=== PATIENT | male | born 1960 | race Caucasian/White ===

== ENCOUNTER 2023-11-24 10:49 | Inpatient (IN) | payer MEDICARE, SELFPAY ==
[2023-11-24] VITALS (28 sets, daily range): BP systolic 136–193; BP diastolic 83–107; PULSE 89–118; TEMP 36.7–36.9; O2SAT 78–98; BMI 23.1; BMI 22.8
--- NOTE | 2023-11-24 11:05 | XR_ITS ---
The [address] [address] Patient Name: MIHIR WRIGHT MRN: [id number] date: 1960 Sex: M Assigned Patient Location: ER Current Patient Location: ER Accession/Order Number: [id number] Exam Date: 11/24/2023 11:40 Report Date: 11/24/2023 11:59 At the request of: SHAHNAZ DIOP Procedure: XR hip RT min 2V PROCEDURE: XR hip RT min 2V HISTORY: fall ; right hip pain after falling COMPARISON: None. FINDINGS: BONES:Acute intertrochanteric fracture of the right femur with mildly displaced lesser trochanter and increased angulation of the femoral neck in relation to the femoral shaft. Femoral head remains seated within the acetabulum. SOFT TISSUES:No visible soft tissue swelling. EFFUSION:None visible. OTHER: Negative. XR/XR hip RT min 2V IMPRESSION: 1. Acute moderately displaced and mildly angulated intertrochanteric fracture of the right femur. Electronically authenticated by: LORENA CURIEL Date: 11/24/2023 11:59
--- NOTE | 2023-11-24 11:05 | XR_ITS ---
The [address] [address] Patient Name: MIHIR WRIGHT MRN: [id number] date: 1960 Sex: M Assigned Patient Location: ER Current Patient Location: ER Accession/Order Number: [id number] Exam Date: 11/24/2023 11:40 Report Date: 11/24/2023 12:03 At the request of: SHAHNAZ DIOP Procedure: XR shoulder LT min 2V PROCEDURE: XR shoulder LT min 2V HISTORY: fall COMPARISON: None. FINDINGS: BONES:Marked narrowing of the glenohumeral joint with suspected [id number] articulation. Large degenerative osteophyte along the inferior articular margin of humeral head. No appreciable fracture or dislocation. Narrowing and mild degenerative changes of the acromioclavicular joint. SOFT TISSUES:No visible soft tissue swelling. EFFUSION:None visible. OTHER: Negative. XR/XR shoulder LT min 2V IMPRESSION: 1. No appreciable acute bone abnormality. 2. Degenerative changes. Electronically authenticated by: LORENA CURIEL Date: 11/24/2023 12:03
--- NOTE | 2023-11-24 11:05 | XR_ITS ---
The [address] [address] Patient Name: MIHIR WRIGHT MRN: [id number] date: 1960 Sex: M Assigned Patient Location: ER Current Patient Location: ER Accession/Order Number: [id number] Exam Date: 11/24/2023 11:40 Report Date: 11/24/2023 12:00 At the request of: SHAHNAZ DIOP Procedure: XR chest 1V EXAMINATION: XR chest 1V HISTORY: Hypoxemia, smoker COMPARISON: No relevant comparison available. FINDINGS: LUNGS: Mild chronic interstitial changes. No appreciable acute infiltrates. VASCULATURE: No increased pulmonary vasculature. PLEURA: No pneumothorax, effusion, or pleural thickening. CARDIAC: No cardiomegaly or cardiac silhouette abnormality. MEDIASTINUM: Prior sternotomy. No abnormal widening. BONES: No fracture or visible bone lesion. OTHER: Negative. XR/XR chest 1V IMPRESSION: 1. No acute cardiopulmonary process. Electronically authenticated by: LORENA CURIEL Date: 11/24/2023 12:00
--- NOTE | 2023-11-24 11:05 | ECG_ITS ---
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
--- NOTE | 2023-11-24 11:08 | ED_ITS ---
HPI HPI - General Adult General Chief complaint: Fall Stated complaint: FALL Time Seen by Provider: 11/24/23 10:58 Source: patient Mode of arrival: ambulance Limitations: physical limitation History of Present Illness HPI narrative: 63-year-old male presents for a chief complaint of right hip pain. The patient states he was cleaning last night and slipped on a dust lockwood and fell and laid on the floor for about an hour. His family got him up and put him on the couch but he could not get up today. Paramedics brought him here. Paramedics reported that the house was in disarray. He also complains of some pain to his left shoulder and he has not been able to walk since he fell last night. He is not complaining of shortness of breath though his O2 sat was in the mid 80s. He states he is a very heavy smoker. He is a poor historian. Related Data Allergies Allergy/AdvReac Type Severity Reaction Status Date / Time No Known Drug Allergies Allergy Verified 11/24/23 10:57 Opioid HPI Opioid Management Most Recent Opioid Data: Last Pain Scale 7 11/24/23 11:00 Last ED Pain Assessment 11/24/23 11:00 Review of Systems ROS Narrative Not obtainable, poor historian PFSH PFSH Social History Little interest or pleasure in doing things: not at all Feeling down, depressed, or hopeless: not at all Exam Narrative Exam Narrative: Nurses note and vital signs reviewed and patient is not hypoxic. General: The patient appears in no acute distress. Skin: Warm, dry, no pallor noted. There is no rash noted. Head: Normocephalic, atraumatic Eye: Normal conjunctiva, no drainage Ears, Nose, Mouth, and Throat: oral mucosa is moist. Nares patent. Cardiovascular: Regular Rate and Rhythm Respiratory: Some rhonchi present bilateral GI: Soft and nontender Musculoskeletal: Right leg is shortened and externally rotated. No deformity in the left shoulder. Significant nail clubbing is present. Neurological: Awake alert and orient Psychiatric: Cooperative Constitutional Vital Signs, click to edit/add: Last Vital Signs Temp 98.4 F 11/24/23 10:52 Pulse 92 H 11/24/23 12:20 Resp 15 11/24/23 10:58 BP 179/99 H 11/24/23 12:45 Pulse Ox 95 11/24/23 12:50 O2 Del Method Room Air 11/24/23 11:00 O2 Flow Rate 2 11/24/23 11:00 Course Vital Signs Vital signs: Vital Signs Temperature 98.4 F 11/24/23 10:52 Pulse Rate 118 H 11/24/23 10:52 Respiratory Rate 20 11/24/23 10:52 Blood Pressure 149/105 H 11/24/23 10:52 Pulse Oximetry 86 L 11/24/23 10:52 Oxygen Delivery Method Room Air 11/24/23 10:52 Temperature 98.4 F 11/24/23 10:52 Pulse Rate 92 H 11/24/23 12:20 Respiratory Rate 15 11/24/23 10:58 Blood Pressure 179/99 H 11/24/23 12:45 Pulse Oximetry 95 11/24/23 12:50 Oxygen Delivery Method Room Air 11/24/23 11:00 Oxygen Delivery Flow Rate 2 11/24/23 11:00 Medical Decision Making MDM Narrative Medical decision making narrative: The patient is found to have an intertrochanteric right hip fracture with angulation and displacement. Case discussed with Dr. Anderson and the patient will be admitted and the plan is for surgery tomorrow. He is noncompliant and has not seen a physician in years. His O2 sat was in the mid 80s on room air but he was not having any symptoms of dyspnea. He is a heavy smoker. Blood pressure was also elevated and he was given IV hydralazine for that issue. Findings are discussed with the patient and his family and he is being admitted. Treatment diagnosis and disposition and and plan of care was discussed thoroughly. He was offered pain medication but states he does not need any. Differential Diagnosis Differential Diagnosis: Hip fracture, hip contusion, noncompliance, hypertension Lab Data Lab results reviewed: Yes I reviewed the patient's lab results Labs: Lab Results 11/24/23 Range/Units 11:20 WBC 16.8 H (4.0-11.0) 10^3/uL RBC 4.60 L (4.70-6.10) 10^6/uL Hgb 14.1 (14.0-18.0) g/dL Hct 42.0 (42.0-54.0) % MCV 91.3 (80.0-94.0) fL MCH 30.7 (25.9-34.0) pg MCHC 33.6 (29.9-35.2) g/dL RDW 12.7 (11.0-15.0) % Plt Count 250 (150-450) 10^3/uL MPV 9.1 L (9.5-13.5) fL Neut % (Auto) 88.7 H (43.0-75.0) % Lymph % (Auto) 4.7 L (20.5-60.0) % [place] % (Auto) 6.0 (1.7-12.0) % Eos % (Auto) 0.1 L (0.9-7.0) % Baso % (Auto) 0.2 (0.2-2.0) % Neut # (Auto) 14.9 H (1.4-6.5) 10^3/uL Lymph # (Auto) 0.8 L (1.2-3.8) 10^3/uL [place] # (Auto) 1.0 H (0.3-0.8) 10^3/uL Eos # (Auto) 0.0 (0.0-0.7) 10^3/uL Baso # (Auto) 0.0 (0.0-0.1) 10^3/uL Abs Immat Gran (auto) 0.05 H (0.00-0.03) 10^3/uL Imm/Tot Granulo (auto) 0.3 (0.0-0.5) % Sodium 134 L (136-145) mmol/L Potassium 3.4 L (3.5-5.1) mmol/L Chloride 97 L (98-107) mmol/L Carbon Dioxide 27.2 (21.0-32.0) mmol/L Anion Gap 13.2 BUN 11.0 (7.0-18.0) mg/dL Creatinine 0.81 (0.70-1.30) mg/dL Est GFR ( Amer) >60 (>=60) Est GFR (Non-Af Amer) >60 (>=60) BUN/Creatinine Ratio 13.6 Glucose 178 H (74-106) mg/dL Calcium 8.7 (8.5-10.1) mg/dL Total Bilirubin 1.1 H (0.2-1.0) mg/dL Direct Bilirubin 0.3 H (0.0-0.2) mg/dL AST 20 (15-37) U/L ALT 15 L (16-63) U/L Alkaline Phosphatase 118 H (46-116) U/L Troponin I High Sens 35.4 (4.0-76.1) pg/mL Total Protein 6.6 (6.4-8.2) g/dL Albumin 3.3 L (3.4-5.0) g/dL Globulin 3.3 g/dL Albumin/Globulin Ratio 1.0 Ethanol Quant 3 mg/dL Imaging Data Chest x-ray: Radiologist's impression: ITS Impressions Chest X-Ray 11/24/23 11:05 IMPRESSION: 1. No acute cardiopulmonary process. Electronically authenticated by: LORENA CURIEL Date: 11/24/2023 12:00 Hip X-Ray 11/24/23 11:05 IMPRESSION: 1. Acute moderately displaced and mildly angulated intertrochanteric fracture of the right femur. Electronically authenticated by: LORENA CURIEL Date: 11/24/2023 11:59 Shoulder X-Ray 11/24/23 11:05 IMPRESSION: 1. No appreciable acute bone abnormality. 2. Degenerative changes. Electronically authenticated by: LORENA CURIEL Date: 11/24/2023 12:03 ECG Data Attestation: I personally reviewed and interpreted this ECG as follows: (EKG on my interpretation shows sinus tachycardia with a rate of 113) Critical Care Time Critical Care Time Critical Care Time: Yes Total Critical Care Time: 40 Attestation: Due to the high probability of sudden and clinically significant deterioration in the patient's condition he/she required the highest level of my preparedness to intervene urgently I provided critical care time including documentation time, medication orders and management, reevaluation, vital sign assessment, ordering and reviewing of lab tests, ordering and reviewing of x-ray studies, and admission orders. Aggregate critical care time is 40 minutes including only time during which I was engaged in work directly related to his/her care and did not include time spent treating other patients simultaneously. Discharge Plan Discharge Chief Complaint: Fall Clinical Impression: Hip fracture, right Patient Disposition: Admitted As Inpatient Time of Disposition Decision: 12:48 Condition: Fair
[2023-11-24 11:30] LABS: Basophils Percent Auto 0.2 % (0.2-2.0); Eosinophils Percent Auto 0.1 % (0.9-7.0); Hemoglobin 14.1 g/dL (14.0-18.0); Immature Granulocytes Abs Auto 0.05 10^3/uL (0.00-0.03); Immature Granulocytes Pct Auto 0.3 % (0.0-0.5); Lymphocytes Absolute Auto 0.8 10^3/uL (1.2-3.8); Lymphocytes Percent Auto 4.7 % (20.5-60.0); Mean Corpuscular HGB Conc 33.6 g/dL (29.9-35.2); Mean Corpuscular Hemoglobin 30.7 pg (25.9-34.0); Mean Corpuscular Volume 91.3 fL (80.0-94.0); Mean Platelet Volume 9.1 fL (9.5-13.5); Neutrophils Absolute Auto 14.9 10^3/uL (1.4-6.5); Neutrophils Percent Auto 88.7 % (43.0-75.0); Platelet Count 250 10^3/uL (150-450); Red Cell Distribution Width 12.7 % (11.0-15.0); White Blood Count 16.8 10^3/uL (4.0-11.0)
[2023-11-24 11:43] LABS: Alanine Aminotransferase 15 U/L (16-63); Albumin Level 3.3 g/dL (3.4-5.0); Alkaline Phosphatase 118 U/L (46-116); Anion Gap 13.2; Aspartate Amino Transferase 20 U/L (15-37); BUN Creatinine Ratio 13.6; Bilirubin Direct 0.3 mg/dL (0.0-0.2); Bilirubin Total 1.1 mg/dL (0.2-1.0); Calcium 8.7 mg/dL (8.5-10.1); Carbon Dioxide 27.2 mmol/L (21.0-32.0); Chloride 97 mmol/L (98-107); Estimated GFR (African America >60 (>=60); Estimated GFR (Non-African Ame >60 (>=60); Globulin 3.3 g/dL; Glucose 178 mg/dL (74-106); Potassium 3.4 mmol/L (3.5-5.1); Sodium 134 mmol/L (136-145); Total Protein 6.6 g/dL (6.4-8.2); Troponin I High Sensitivity 35.4 pg/mL (4.0-76.1)
[2023-11-24 11:44] LABS: Ethanol 3 mg/dL
[2023-11-24] MEDS: HYDRALAZINE HCL 20 MG/ML VIAL 10 MG IVP (12:34)
--- NOTE | 2023-11-24 12:37 | XR_ITS ---
The [address] [address] Patient Name: MIHIR WRIGHT MRN: [id number] date: 1960 Sex: M Assigned Patient Location: ED.MAIN Current Patient Location: ED.MAIN Accession/Order Number: [id number] Exam Date: 11/24/2023 12:45 Report Date: 11/24/2023 13:03 At the request of: SHAHNAZ DIOP Procedure: XR femur RT 2V PROCEDURE: XR femur RT 2V HISTORY: fall COMPARISON: XR hip right 11/24/2023 FINDINGS: BONES:Acute intertrochanteric fracture of the right femur with mild angulation and displacement. No dislocation or appreciable involvement of the femoral head. No involvement of the mid or distal femoral shaft. SOFT TISSUES:No visible soft tissue swelling. EFFUSION:None visible. OTHER: Negative. XR/XR femur RT 2V IMPRESSION: 1. Acute moderately displaced and mildly angulated intertrochanteric fracture of the right femur. No injury of the mid or distal right femur. Electronically authenticated by: LORENA CURIEL Date: 11/24/2023 13:03
--- NOTE | 2023-11-24 12:55 | ECG_ITS ---
The [facility] Test Date: 2023-11-24 Pat Name: MIHIR WRIGHT Department: Room: [facility] Gender: Male Rn Disease Management: : 1960 Requested By: Order Number: [id number] Reading MD: ANUSHA HAGAN Measurements Intervals [place] Rate: 106 P: 65 TN: 148 QRS: 79 QRSD: 105 T: 37 QT: 393 QTc: 522 Interpretive Statements SINUS TACHYCARDIA LEFT ATRIAL ENLARGEMENT [-0.15mV P WAVE IN V1/V2] NONSPECIFIC ST & T-WAVE ABNORMALITY Electronically Signed On 11-24-2023 19:00:27 EDT by ANUSHA HAGAN
[2023-11-24 14:11] LABS: Estimated Average Glucose 120 mg/dL; Glycohemoglobin A1C 5.8 % (4.5-6.2)
[2023-11-24 14:23] LABS: Troponin I High Sensitivity 34.1 pg/mL (4.0-76.1)
[2023-11-24] MEDS: POTASSIUM CHLORIDE 10 MEQ ER TABLET 40 MEQ PO (14:23)
[2023-11-24] MEDS: LACTATED RINGER'S SOLUTION 1,000 ML 100 ML IV (14:23)
[2023-11-24] MEDS: MORPHINE SULFATE 2 MG/ML SYRINGE IV (14:23)
--- NOTE | 2023-11-24 14:23 | P.HP_ITS ---
HPI H&P: HPI History of Present Illness Chief complaint: FALL, RIGHT HIP FRACTURE Narrative: 63-year-old male who lives by himself, fell and slipped at home. He was unable to get up by himself. One of his family member got him up and put him on the couch but he could not get up today/stand up or bear weight due to pain. He denies head trauma, loss of consciousness or significant bleeding. He has past medical history of hypertension, type 2 diabetes, coronary artery disease status post coronary bypass surgery and COPD. He is currently smoking 1 pack/day. He has not seen a physician for over 4 years and has not been using any of his medications for chronic medical conditions. On arrival to ER, was not hypoxic with pulse ox as low as 84% and was placed on oxygen supplementation via nasal cannula. He reports chronic cough and shortness of breath that has not changed recently. He seems very likely that he has chronic respiratory failure with hypoxia secondary to severe COPD but because he has not sought medical care, his hypoxia has never been documented and left untreated as a result. He was also noted to have ST segment depression along with T wave inversions in inferior leads but denies chest pain, shortness of breath. We do not have any recent EKG/old EKG to compare. Patient reports that most recent surgery he had was for acute appendicitis about 5 years ago under general anesthesia and his post operative course was uncomplicated. He has poorly controlled blood pressure partly because of noncompliance and also because of pain from hip fracture. Currently and denies chest pain, shortness of breath. Was given IV hydralazine in ER with mild improvement in his blood pressure Opioid HPI Opioid Management Most Recent Pain and Opioid Data: Last Pain Scale 6 11/24/23 15:45 Last Pain Assessment 11/24/23 15:45 Last ED Pain Assessment 11/24/23 11:00 Last MAR Pain Assessment 11/24/23 15:44 Last ORT Total Score 6 11/24/23 13:49 Last ORT Risk Category Moderate Risk 11/24/23 13:49 Review of Systems ROS Status of ROS 10 or more systems reviewed and unremark able except as noted in history and below [facility] Medical History (Updated 11/24/23 @ 15:01 by Shaikh Jane MD) Current smoker ?F17.200 - Nicotine dependence, unspecified, uncomplicated (ICD-10) HLD (hyperlipidemia) ?E78.5 - Hyperlipidemia, unspecified (ICD-10) CAD (coronary artery disease) ?I25.10 - Atherosclerotic heart disease of [place] coronary artery without angina pectoris (ICD-10) Stroke ?I63.9 - Cerebral infarction, unspecified (ICD-10) Past heart attack ?I25.2 - Old myocardial infarction (ICD-10) Brain bleed ?I61.9 - Nontraumatic intracerebral hemorrhage, unspecified (ICD-10) COPD (chronic obstructive pulmonary disease) ?J44.9 - Chronic obstructive pulmonary disease, unspecified (ICD-10) Hypertension ?I10 - Essential (primary) hypertension (ICD-10) Diabetes ?E11.9 - Type 2 diabetes mellitus without complications (ICD-10) Surgical History (Updated 11/24/23 @ 13:43 by Kendra Mayen) S/P triple vessel bypass ?Z95.1 - Presence of aortocoronary bypass graft (ICD-10) History of back surgery ?Z98.890 - Other specified postprocedural states (ICD-10) Hx of appendectomy ?Z90.49 - Acquired absence of other specified parts of digestive tract (ICD- 10) Family History (Updated 11/24/23 @ 13:45 by Kendra Mayen) Grandfather Family history of CHF (congestive heart failure) Family history of myocardial infarction Father Family history of COPD (chronic obstructive pulmonary disease) Family history of cancer Family history of hypertension Grandmother Family history of cancer Mother Family history of cancer Family history of hypertension Other Family history of diabetes mellitus Social History (Updated 11/24/23 @ 13:47 by Kendra Mayen) Within the past year, how often did you have a drink containing alcohol: never Within the past year, how often did you have six or more drinks on one occasion: never Score interpretation: A score less than 4 is consistent with normal alcohol consumption. Smoking status: Heavy tobacco smoker Non-prescribed substance use: cannabis (any form) Previous occupational history: retired Highest level of school completed/degree received: GED or equivalent Little interest or pleasure in doing things: not at all Feeling down, depressed, or hopeless: not at all Feel stressed/tense/nervous/anxious/difficulty sleeping: not at all Gender Identity: male Meds Home Medications and Allergies Home Medications ?Medication ?Instructions ?Recorded ?Confirmed ?Type No Known Home Medications 11/24/23 11/24/23 History Allergies Allergy/AdvReac Type Severity Reaction Status Date / Time No Known Drug Allergies Allergy Verified 11/24/23 10:57 Exam Constitutional Vital Signs, click to edit/add: Last Vital Signs Temp 98.0 F 11/24/23 13:49 Pulse 107 H 11/24/23 13:49 Resp 22 H 11/24/23 13:49 BP 172/98 H 11/24/23 13:49 Pulse Ox 90 L 11/24/23 13:49 O2 Del Method Nasal Cannula 11/24/23 13:49 O2 Flow Rate 4 11/24/23 13:49 General appearance: cooperative, comfortable, ill appearing and appears older than stated age HENMT Common normals: normocephalic and head/scalp atraumatic Chest Other: barrel shaped chest Respiratory Common normals: no use of accessory muscles Effort & inspection: able to speak in complete sentences and tachypneic Other: Coarse breath sounds. No active wheezing noted. Cardio Common normals: regular rate, regular rhythm, S1 normal heart sound and S2 normal heart sound Rate: tachycardic GI Common normals: Normal to inspection, nondistended, normoactive bowel sounds present, soft to palpation, non-tender and no hepatosplenomegaly Extremity Right lower extremity: hip joint (Rotated outward likely fractured. ) Neuro Common normals: oriented x3, moves all extremities, no focal motor deficits and no sensory deficits noted Psych Common normals: mental status grossly normal, thought process normal, denies sid icidal ideation and denies suicidal ideation Results Labs Labs: Short CBC 11/24/23 Range/Units 11:20 WBC 16.8 H (4.0-11.0) 10^3/uL Hgb 14.1 (14.0-18.0) g/dL Hct 42.0 (42.0-54.0) % Plt Count 250 (150-450) 10^3/uL BMP 11/24/23 11:20 Sodium 134 L Potassium 3.4 L Chloride 97 L Carbon Dioxide 27.2 BUN 11.0 Creatinine 0.81 Glucose 178 H Calcium 8.7 Liver Function 11/24/23 Range/Units 11:20 Total Bilirubin 1.1 H (0.2-1.0) mg/dL Direct Bilirubin 0.3 H (0.0-0.2) mg/dL AST 20 (15-37) U/L ALT 15 L (16-63) U/L Alkaline Phosphatase 118 H (46-116) U/L Albumin 3.3 L (3.4-5.0) g/dL Assessment and Plan Assessment and Plan (1) Fracture of right hip: Assessment and Plan: Patient presented with right hip fracture. Orthopedic surgery consulted. Is scheduled to go to the OR tomorrow Qualifiers: Encounter type: subsequent encounter Fracture healing: with routine healing Fracture type: closed Qualified Code(s): S72.001D - Fracture of unspecified part of neck of right femur, subsequent encounter for closed fracture with routine healing (2) Accidental fall: Assessment and Plan: Slipped and fell at home. Presenting with right hip fracture. Orthopedic surgery scheduled tomorrow. Physical therapy and Occupational Therapy evaluation Qualifiers: Encounter type: subsequent encounter Qualified Code(s): W19.XXXD - Unspecified fall, subsequent encounter (3) CAD (coronary artery disease): Assessment and Plan: Patient with history of coronary artery bypass surgery about 18 years ago. He has not been using any medications currently for over 4 years. He denies chest pain but reports dyspnea on exertion this could very likely be because of his severe COPD. He has not had any ischemic evaluation. Started patient on carvedilol, statin. Check lipid panel and hemoglobin A1c. Hold aspirin for now as he is scheduled for surgery tomorrow Qualifiers: Associated angina: without angina Coronary Disease-Associated Artery/Lesion type: [place] artery [place] vs. transplanted heart: [place] heart Qualified Code(s): I25.10 - Atherosclerotic heart disease of [place] coronary artery without angina pectoris (4) Chronic respiratory failure with hypoxia: Assessment and Plan: Chronic respiratory failure with hypoxia likely secondary to underlying COPD. It seems like he has chronic hypoxia because of COPD but unfortunately it has not been treated or addressed before as he has not seen a physician for over 4 years. (5) COPD (chronic obstructive pulmonary disease): Assessment and Plan: Severe COPD with persistent shortness of breath. No active bronchospasm or wheezing noted but he has coarse breath sounds and tachypneic at rest. This is likely his baseline. Ordered DuoNebs every 4 hours along with OPEP. Qualifiers: COPD type: unspecified COPD Qualified Code(s): J44.9 - Chronic obs tructive pulmonary disease, unspecified (6) Hypertension: Assessment and Plan: Poorly controlled likely because of noncompliance and untreated hypertension along with pain. Started patient on carvedilol, losartan and amlodipine. Monitor blood pressure closely. IV hydralazine as needed Qualifiers: Hypertension type: primary hypertension Qualified Code(s): I10 - Essential (primary) hypertension (7) Pre-operative clearance: Assessment and Plan: Patient with hx of HTN, COPD, Chronic resp failure with hypoxia, CAD s/p CABG. His chronic medical conditions are not optimally managed. He has not been using meds for about 4 years now and has not seen a PCP for over 4 years. He has poorly controlled HTN, Abnormal EKG. Our goal is to control his BP and bring it to an acceptable range. I started him on po coreg/losartan and amlodipine. IV hydralazine as needed. Checking troponin and BNP. Hip fracture is considered an emergent surgery and delaying surgical repair is associated with increased mortality and poor outcome. If his cardiac enzymes are negative and BP reasonably controlled, He will be at moderate risk of MACE from cardiovascular point of view. He will also need close monitoring from pulmonary pov post operatively due to his severe COPD/chronic hypoxia. This was discussed with the patient and he was informed of his elevated risk. Further discussion needed regarding risk vs benefits with patient by Orthopedic surgeon and Anesthesia team. (8) Diabetes: Assessment and Plan: Patient used to be on oral metformin as outpatient. Check A1c. Continue with sliding scale insulin while inpatient. Qualifiers: Diabetes mellitus complication status: without complication Diabetes mellitus watermelon inspector insulin use: without watermelon inspector use Diabetes mellitus type: type 2 Qualified Code(s): E11.9 - Type 2 diabetes mellitus without complications (9) Abnormal EKG: Assessment and Plan: ST depression and T wave inversion in inferior leads. No symptoms to suggest active cardiac ischemia. Repeat EKG shows with improved HR - shows resolution of said findings. Abnormal EKG could be due to rate related changes vs poorly controlled HTN Trend Troponin to ensure to r/o acute MN. Check BNP for cardiovascular risk assessment. (10) Leukocytosis: Assessment and Plan: Likely reactive. No source of infection identified. Repeat CBC with morning labs Qualifiers: Leukocytosis type: leukemoid reaction Qualified Code(s): D72.823 - Leukemoid reaction (11) HLD (hyperlipidemia): Assessment and Plan: Check Lipid panel. Start patient on Lipitor 40 mg. Qualifiers: Hyperlipidemia type: unspecified Qualified Code(s): E78.5 - Hyperlipidemia, unspecified (12) Current smoker: Assessment and Plan: Discussed smoking cessation. Start on nicotine patches.
[2023-11-24 14:40] LABS: Chol HDL Ratio 2.8; Cholesterol 165 mg/dL (<=200); HDL Cholesterol 60 mg/dL (40-60); LDL Cholesterol Calculated 96.2 mg/dL; Triglycerides 44 mg/dL (<=150); VLDL CHOLESTEROL 8.8 mg/dL
[2023-11-24] MEDS: IPRATROPIUM/ALBUTEROL SULFATE 3 ML AMPUL.NEB IH ×3 (14:51→23:47)
--- NOTE | 2023-11-24 15:20 | CM.NOTE ---
Spoke with pt and daughter at bedside regarding discharge planning. Pt does live at home alone and has become weaker and has difficulty caring for self. Pt does use a walker at home and had a fall that brought him into the ER. PT deferred treatment at this time until pt would have operative procedure d/t fx. Pt at this time is agreement for inpatient skilled therapy at discharge for strengthening to safely return back home. Pt lives alone and daughter or nephew checks in on patient daily. Pt choice for skilled therapy would be [facility]). Called and spoke with [facility], beds are available. Sent new referral to [facility], labs, x-ray, Physician notes, vitals and H&P. Unable to send PT or OT notes until after surgical procedure and evaluation completed.
[2023-11-24 16:25] LABS: Glucometer 156 mg/dL (74-106)
[2023-11-24 18:21] LABS: Troponin I High Sensitivity 36.5 pg/mL (4.0-76.1)
[2023-11-24 22:19] LABS: Glucometer 137 mg/dL (74-106)
[2023-11-24] MEDS: CARVEDILOL 12.5 MG TABLET PO (22:32)
[2023-11-24] MEDS: ATORVASTATIN CALCIUM 40 MG TABLET PO (22:32)
[2023-11-25] VITALS (32 sets, daily range): BP systolic 97–157; BP diastolic 57–95; PULSE 70–97; TEMP 36.4–36.9; O2SAT 90–98
[2023-11-25] MEDS: IPRATROPIUM/ALBUTEROL SULFATE 3 ML AMPUL.NEB IH ×5 (03:47→22:35)
[2023-11-25 06:50] LABS: Basophils Percent Auto 0.1 % (0.2-2.0); Eosinophils Absolute Auto 0.1 10^3/uL (0.0-0.7); Eosinophils Percent Auto 0.6 % (0.9-7.0); Hematocrit 37.8 % (42.0-54.0); Hemoglobin 12.6 g/dL (14.0-18.0); Immature Granulocytes Abs Auto 0.04 10^3/uL (0.00-0.03); Immature Granulocytes Pct Auto 0.3 % (0.0-0.5); Lymphocytes Percent Auto 14.3 % (20.5-60.0); Mean Corpuscular HGB Conc 33.3 g/dL (29.9-35.2); Mean Corpuscular Hemoglobin 30.5 pg (25.9-34.0); Mean Corpuscular Volume 91.5 fL (80.0-94.0); Mean Platelet Volume 9.4 fL (9.5-13.5); Monocytes Absolute Auto 1.2 10^3/uL (0.3-0.8); Monocytes Percent Auto 8.5 % (1.7-12.0); Neutrophils Absolute Auto 10.9 10^3/uL (1.4-6.5); Neutrophils Percent Auto 76.2 % (43.0-75.0); Platelet Count 232 10^3/uL (150-450); Red Blood Count 4.13 10^6/uL (4.70-6.10); White Blood Count 14.3 10^3/uL (4.0-11.0)
[2023-11-25 07:14] LABS: Alanine Aminotransferase 16 U/L (16-63); Albumin Globulin Ratio 0.9; Albumin Level 2.9 g/dL (3.4-5.0); Alkaline Phosphatase 95 U/L (46-116); Aspartate Amino Transferase 16 U/L (15-37); BUN Creatinine Ratio 20.9; Bilirubin Total 1.3 mg/dL (0.2-1.0); Calcium 8.5 mg/dL (8.5-10.1); Carbon Dioxide 27.8 mmol/L (21.0-32.0); Chloride 100 mmol/L (98-107); Estimated GFR (African America >60 (>=60); Estimated GFR (Non-African Ame >60 (>=60); Globulin 3.2 g/dL; Glucose 143 mg/dL (74-106); Potassium 3.8 mmol/L (3.5-5.1); Sodium 133 mmol/L (136-145); Total Protein 6.1 g/dL (6.4-8.2)
[2023-11-25] MEDS: CEFAZOLIN SODIUM 2 GM/50 ML D5W PREMIX IV (09:00)
[2023-11-25] MEDS: LACTATED RINGER'S SOLUTION 1,000 ML 50 ML IV ×2 (09:00→10:20)
--- NOTE | 2023-11-25 09:00 | FL_ITS ---
[address] [address] Patient Name: MIHIR WRIGHT MRN: [id number] date: 1960 Sex: M Assigned Patient Location: MS Current Patient Location: MS Accession/Order Number: [id number] Exam Date: 11/25/2023 09:00 Report Date: 11/28/2023 11:16 At the request of: SHAIKH ZAHEER Procedure: FL fluoroscopy <1hr NON-READ EXAM: FL fluoroscopy <1hr NON-READ HISTORY: TECHNIQUE: FINDINGS: Please see Operative Report. Electronically authenticated by: RADIOLOGIST NO Date: 11/28/2023 11:16
[2023-11-25] MEDS: BUPIVACAINE HCL 0.5% PF 50 MG/10 ML VIAL INJ (10:38)
[2023-11-25] MEDS: LIDOCAINE HCL 1%-EPINEPHRINE 1:100,000 10 ML MDV 20 ML INJ (10:38)
--- NOTE | 2023-11-25 10:57 | P.ORCN_ITS ---
History of Present Illness HPI Consult date: 11/25/23 Consult reason: fracture Chief complaint: FALL, RIGHT HIP FRACTURE Narrative: Patient is a 63-year-old male who was admitted for a right intertrochanteric femur fracture. Patient sustained injury as a result of a fall while in his home. He does live at home by himself. Does note that he lost his balance while not using a walker which she usually does. Fell to his right side and was unable to ambulate. Plain film x-rays demonstrate a comminuted intertrochanteric femur fracture. Patient does have significant medical history of severe COPD. Denies any other injuries currently. Denies any numbness or tingling. Review of Systems ROS Status of ROS 10 or more systems reviewed and unremark able except as noted in history and below [facility] Medical History (Updated 11/24/23 @ 15:01 by Shaikh Jane MD) Current smoker ?F17.200 - Nicotine dependence, unspecified, uncomplicated (ICD-10) HLD (hyperlipidemia) ?E78.5 - Hyperlipidemia, unspecified (ICD-10) CAD (coronary artery disease) ?I25.10 - Atherosclerotic heart disease of [place] coronary artery without angina pectoris (ICD-10) Stroke ?I63.9 - Cerebral infarction, unspecified (ICD-10) Past heart attack ?I25.2 - Old myocardial infarction (ICD-10) Brain bleed ?I61.9 - Nontraumatic intracerebral hemorrhage, unspecified (ICD-10) COPD (chronic obstructive pulmonary disease) ?J44.9 - Chronic obstructive pulmonary disease, unspecified (ICD-10) Hypertension ?I10 - Essential (primary) hypertension (ICD-10) Diabetes ?E11.9 - Type 2 diabetes mellitus without complications (ICD-10) Surgical History (Updated 11/24/23 @ 13:43 by Kendra Mayen) S/P triple vessel bypass ?Z95.1 - Presence of aortocoronary bypass graft (ICD-10) History of back surgery ?Z98.890 - Other specified postprocedural states (ICD-10) Hx of appendectomy ?Z90.49 - Acquired absence of other specified parts of digestive tract (ICD- 10) Family History (Updated 11/24/23 @ 13:45 by Kendra Mayen) Grandfather Family history of CHF (congestive heart failure) Family history of myocardial infarction Father Family history of COPD (chronic obstructive pulmonary disease) Family history of cancer Family history of hypertension Grandmother Family history of cancer Mother Family history of cancer Family history of hypertension Other Family history of diabetes mellitus Social History (Updated 11/24/23 @ 13:47 by Kendra Mayen) Within the past year, how often did you have a drink containing alcohol: never Within the past year, how often did you have six or more drinks on one occasion: never Score interpretation: A score less than 4 is consistent with normal alcohol consumption. Smoking status: Heavy tobacco smoker Non-prescribed substance use: cannabis (any form) Previous occupational history: retired Highest level of school completed/degree received: GED or equivalent Little interest or pleasure in doing things: not at all Feeling down, depressed, or hopeless: not at all Feel stressed/tense/nervous/anxious/difficulty sleeping: not at all Gender Identity: male Meds Home Medications and Allergies Home Medications ?Medication ?Instructions ?Recorded ?Confirmed ?Type No Known Home Medications 11/24/23 11/24/23 History Allergies Allergy/AdvReac Type Severity Reaction Status Date / Time No Known Drug Allergies Allergy Verified 11/24/23 10:57 Exam Narrative Exam Narrative: Right lower extremity: There is a small draining sinus on the plantar aspect of his foot in line with the fourth and fifth metatarsals. He does have a shortened and rotated extremity with tenderness to palpation of the hip. No tenderness to palpation distally. EHL/visual/U/T motor complex intact does appear to plus DP pulse Constitutional Vital Signs, click to edit/add: Last Vital Signs Temp 98.4 F 11/25/23 03:47 Pulse 91 H 11/25/23 08:00 Resp 18 11/25/23 03:47 BP 132/81 11/25/23 03:47 Pulse Ox 92 L 11/25/23 07:18 O2 Del Method Nasal Cannula 11/25/23 07:18 O2 Flow Rate 3 11/25/23 07:18 Results Labs Labs: Abnormal lab results 11/24/23 11/24/23 11/24/23 Range/Units 11:20 14:02 16:25 WBC 16.8 H (4.0-11.0) 10^3/uL RBC 4.60 L (4.70-6.10) 10^6/uL Hgb (14.0-18.0) g/dL Hct (42.0-54.0) % MPV 9.1 L (9.5-13.5) fL Neut % (Auto) 88.7 H (43.0-75.0) % Lymph % (Auto) 4.7 L (20.5-60.0) % Eos % (Auto) 0.1 L (0.9-7.0) % Baso % (Auto) (0.2-2.0) % Neut # (Auto) 14.9 H (1.4-6.5) 10^3/uL Lymph # (Auto) 0.8 L (1.2-3.8) 10^3/uL [place] # (Auto) 1.0 H (0.3-0.8) 10^3/uL Abs Immat Gran (auto) 0.05 H (0.00-0.03) 10^3/uL Sodium 134 L (136-145) mmol/L Potassium 3.4 L (3.5-5.1) mmol/L Chloride 97 L (98-107) mmol/L Creatinine (0.70-1.30) mg/dL Glucose 178 H (74-106) mg/dL Total Bilirubin 1.1 H (0.2-1.0) mg/dL Direct Bilirubin 0.3 H (0.0-0.2) mg/dL ALT 15 L (16-63) U/L Alkaline Phosphatase 118 H (46-116) U/L NT-Pro-B Natriuret Pep 2655.0 H* (<=900.0) pg/mL Total Protein (6.4-8.2) g/dL Albumin 3.3 L (3.4-5.0) g/dL POC Glucose 156 H (74-106) mg/dL 11/24/23 11/25/23 Range/Units 22:08 06:33 WBC 14.3 H (4.0-11.0) 10^3/uL RBC 4.13 L (4.70-6.10) 10^6/uL Hgb 12.6 L (14.0-18.0) g/dL Hct 37.8 L (42.0-54.0) % MPV 9.4 L (9.5-13.5) fL Neut % (Auto) 76.2 H (43.0-75.0) % Lymph % (Auto) 14.3 L (20.5-60.0) % Eos % (Auto) 0.6 L (0.9-7.0) % Baso % (Auto) 0.1 L (0.2-2.0) % Neut # (Auto) 10.9 H (1.4-6.5) 10^3/uL Lymph # (Auto) (1.2-3.8) 10^3/uL [place] # (Auto) 1.2 H (0.3-0.8) 10^3/uL Abs Immat Gran (auto) 0.04 H (0.00-0.03) 10^3/uL Sodium 133 L (136-145) mmol/L Potassium (3.5-5.1) mmol/L Chloride (98-107) mmol/L Creatinine 0.67 L (0.70-1.30) mg/dL Glucose 143 H (74-106) mg/dL Total Bilirubin 1.3 H (0.2-1.0) mg/dL Direct Bilirubin (0.0-0.2) mg/dL ALT (16-63) U/L Alkaline Phosphatase (46-116) U/L NT-Pro-B Natriuret Pep (<=900.0) pg/mL Total Protein 6.1 L (6.4-8.2) g/dL Albumin 2.9 L (3.4-5.0) g/dL POC Glucose 137 H (74-106) mg/dL H & H 11/24/23 11/25/23 Range/Units 11:20 06:33 Hgb 14.1 12.6 L (14.0-18.0) g/dL Hct 42.0 37.8 L (42.0-54.0) % All other labs normal. Assessment and Plan Assessment and Plan (1) Fracture of right hip: Qualifiers: Encounter type: subsequent encounter Fracture type: closed Fracture healing: with routine healing Qualified Code(s): S72.001D - Fracture of unspecified part of neck of right femur, subsequent encounter for closed fracture with routine healing (2) Accidental fall: Qualifiers: Encounter type: subsequent encounter Qualified Code(s): W19.XXXD - Unspecified fall, subsequent encounter (3) CAD (coronary artery disease): Qualifiers: Coronary Disease-Associated Artery/Lesion type: [place] artery [place] vs. transplanted heart: [place] heart Associated angina: without angina Qualified Code(s): I25.10 - Atherosclerotic heart disease of [place] coronary artery without angina pectoris (4) Chronic respiratory failure with hypoxia: (5) COPD (chronic obstructive pulmonary disease): Qualifiers: COPD type: unspecified COPD Qualified Code(s): J44.9 - Chronic obstructive pulmonary disease, unspecified (6) Hypertension: Qualifiers: Hypertension type: primary hypertension Qualified Code(s): I10 - Essential (primary) hypertension (7) Pre-operative clearance: (8) Diabetes: Qualifiers: Diabetes mellitus type: type 2 Diabetes mellitus longitudinal float operator insulin use: without longitudinal float operator use Diabetes mellitus complication status: without complication Qualified Code(s): E11.9 - Type 2 diabetes mellitus without complications (9) Abnormal EKG: (10) Leukocytosis: Qualifiers: Leukocytosis type: leukemoid reaction Qualified Code(s): D72.823 - Leukemoid reaction (11) HLD (hyperlipidemia): Qualifiers: Hyperlipidemia type: unspecified Qualified Code(s): E78.5 - Hyperlipidemia, unspecified (12) Current smoker: Plan 63-year-old male being seen for right intertrochanteric femur fracture status post a fall. Did discuss treatment indications with the patient. Will plan for cephalomedullary nail to allow for fracture repair and allow for early mobilization. She discussed risks and benefits of surgery in detail with the patient. Patient medically optimized by the hospitalist. Informed consent obtained. Patient marked. Patient n.p.o. since midnight. Not on any anticoagulation. Plan 4 OR today for right hip cephalomedullary nail insertion. Postoperatively will be allowed to be weightbearing as tolerated. Recommend 6 weeks DVT prophylaxis. Also recommend a podiatry consult for plantar foot wound.
--- NOTE | 2023-11-25 11:00 | XR_ITS ---
The [address] [address] Patient Name: MIHIR WRIGHT MRN: [id number] date: 1960 Sex: M Assigned Patient Location: MS Current Patient Location: MS Accession/Order Number: [id number] Exam Date: 11/25/2023 14:25 Report Date: 11/25/2023 15:35 At the request of: SAURAV DICKSON Procedure: XR hip RT min 2V EXAM: XR hip RT min 2V HISTORY: post op in pacu COMPARISON: Right hip x-ray dated 11/24/2023. TECHNIQUE: 2 views of the right hip FINDINGS: Internal fixation of the right hip is seen with intact prosthesis is in normal alignment. No significant periprosthetic lucency seen. Intertrochanteric right femur fracture is again seen. Skin ruby and soft tissue gas is seen about the right hip, related to recent prior procedure. XR/XR hip RT min 2V IMPRESSION: Post internal fixation of intertrochanteric right femur fracture with immediate postoperative changes. Electronically authenticated by: AUSTIN DICK Date: 11/25/2023 15:35
--- NOTE | 2023-11-25 11:01 | P.ORPRC_ITS ---
Procedure Note Date of procedure: 11/25/23 Pre-op diagnosis: Right intertrochanteric femur fracture Post-op diagnosis: same as pre-op Procedure: Open treatment right intertrochanteric femur fracture with cephalomedullary nail insertion Patient is a 63-year-old male presenting with a right intertrochanteric femur fracture. Patient does have multiple comorbidities including diabetes and COPD. Did discuss indications for surgical fixation of his right hip fracture. Informed consent was obtained. No guarantees were made. Patient was taken back to the operative suite where he underwent anesthesia induction the patient on the hospital bed. The bilateral feet were placed into the well-padded boots. He was then transferred over to the [place] table. We then proceeded to isolate and prepped out the right lower extremity. We then performed a reduction maneuver utilizing traction internal rotation and slight adduction. We got a very good reduction utilizing this maneuver. We then proceeded to have a timeout the patient, procedure, operative site were confirmed our agreement the OR. We then proceeded with a guidepin centered on the near the tip of the greater trochanter down the femoral canal. The pin was also centered on the lateral view. We then placed the opening reamer over the guidepin. We then remove the guidepin and placed the guidewire. We then proceeded the reamed up to 11.5. We then proceeded to pass a size 10 mm 130 degree Synthes TFNa. The nail was impacted the appropriate depth. We then placed a wire through the guide jig placed center on the AP view and slightly posterior to center on the lateral view. We measured for a lag screw. We then drilled. We selected a size 100 mm lag screw. The screw was screwed into place and obtained good purchase. We then proceeded to place the compression device and compressed the nail medially. We obtained good compression of the fracture. Following this we then proceeded to lock the nail statically proximally. Distally we then used the jig to place 138 mm interlocking screw in static mode. The jig was removed. Final fluoroscopy x-rays demonstrated excellent reduction as well as proper hardware placement without evidence of complication. The incisions were irrigated and then closed with 0 Vicryl followed by 2-0 Vicryl followed by ruby and soft sterile dressing. Patient was awoke from anesthesia and taken the PACU. Postoperative plan: Patient will receive postoperative digital x-rays in recovery room. He will be permitted to be weightbearing as tolerated. Resume general diet. Start DVT prophylaxis postop day 1 for 6 weeks postop. Follow-up in the office in 2 weeks with anticipated wound check and staple removal. Anesthesia: General-ET Surgeon: Yefri Franco Estimated blood loss (mL): 100 IV fluids (mL): 1,000 Urine output (mL): 0 Pathology: none sent Condition: stable Disposition: PACU
--- NOTE | 2023-11-25 11:13 | PC.NURSE ---
1055- strong pulse to right foot. Toes pink and warm
--- NOTE | 2023-11-25 11:16 | PM.IMPN1 ---
Progress Note: A&P Assessment and Plan (1) Fracture of right hip: Assessment and Plan: Scheduled for Hip repair today. Will need close post op monitoring due to his compromised resp status Qualifiers: Encounter type: subsequent encounter Fracture type: closed Fracture healing: with routine healing Qualified Code(s): S72.001D - Fracture of unspecified part of neck of right femur, subsequent encounter for closed fracture with routine healing (2) Accidental fall: Assessment and Plan: Resulting in hip fx. Will need post op PT/OT. Qualifiers: Encounter type: subsequent encounter Qualified Code(s): W19.XXXD - Unspecified fall, subsequent encounter (3) CAD (coronary artery disease): Assessment and Plan: No evidence of active cardiac ischemia. Negative troponins. Will need outpatient f/u with cardiology and w/u for ISHD. Qualifiers: Coronary Disease-Associated Artery/Lesion type: [place] artery [place] vs. transplanted heart: [place] heart Associated angina: without angina Qualified Code(s): I25.10 - Atherosclerotic heart disease of [place] coronary artery without angina pectoris (4) Chronic respiratory failure with hypoxia: Assessment and Plan: On 2 L O2, will likely need it upon discharge. Duonebs as needed. Recommended smoking cessation. Needs close post op monitoring due to his COPD/hypoxia (5) COPD (chronic obstructive pulmonary disease): Assessment and Plan: No active wheezing. Duonebs as needed. Will likely need O2 on discharge. Needs close post op monitoring due to his COPD/hypoxia Qualifiers: COPD type: unspecified COPD Qualified Code(s): J44.9 - Chronic obstructive pulmonary disease, unspecified (6) Hypertension: Assessment and Plan: Better now. C/w Coreg, Losartan and Amlodipine. Qualifiers: Hypertension type: primary hypertension Qualified Code(s): I10 - Essential (primary) hypertension (7) Pre-operative clearance: Assessment and Plan: At moderately elevated risk of cardiopulmonary compromise due to underlying CAD, COPD, Chronic hypoxia. Risk is not prohibitive especially because Hip surgery is considered an emergency as delaying it is associated with poor functional outcome and increased risk of morbidity and mortality. (8) Diabetes: Assessment and Plan: A1C at goal. SSI while inpatient. Qualifiers: Diabetes mellitus type: type 2 Diabetes mellitus correction insulin use: without correction use Diabetes mellitus complication status: without complication Qualified Code(s): E11.9 - Type 2 diabetes mellitus without complications (9) Abnormal EKG: Assessment and Plan: Likely chronic changes due to old/prior hx of CAD/chronic lung disease. No active cardiac ischemia noted. Will benefit from outpatient eval for ISHD. (10) Leukocytosis: Assessment and Plan: Improved. No active infection suspected. likely reactive Monitor. Qualifiers: Leukocytosis type: leukemoid reaction Qualified Code(s): D72.823 - Leukemoid reaction (11) HLD (hyperlipidemia): Assessment and Plan: Started on Lipitor. Qualifiers: Hyperlipidemia type: unspecified Qualified Code(s): E78.5 - Hyperlipidemia, unspecified (12) Current smoker: Assessment and Plan: Discussed smoking cessation. Nicotine patches ordered. Internal Medicine - PN: Subj Subjective Interval history: Seen and examined. Doing overall well. No overnight events. BP is better controlled. Still on 2 L O2. Denies resp symptoms. Exam Constitutional Vital Signs, click to edit/add: Last Vital Signs Temp 98.3 F 11/25/23 10:55 Pulse 75 11/25/23 11:10 Resp 15 11/25/23 11:10 BP 144/83 H 11/25/23 11:10 Pulse Ox 92 L 11/25/23 11:10 O2 Del Method Nasal Cannula 11/25/23 10:55 O2 Flow Rate 2 11/25/23 11:10 General appearance: cooperative, comfortable, ill appearing and appears older than stated age Chest Other: barrel shaped chest Respiratory Common normals: no use of accessory muscles Effort & inspection: able to speak in complete sentences Other: Coarse breath sounds. No active wheezing noted. Cardio Common normals: regular rate, regular rhythm, S1 normal heart sound and S2 normal heart sound Rate: tachycardic Extremity Right lower extremity: hip joint (Rotated outward likely fractured. ) Neuro Common normals: oriented x3, moves all extremities, no focal motor deficits and no sensory deficits noted Psych Common normals: mental status grossly normal, thought process normal, denies homicidal ideation and denies suicidal ideation Internal Medicine - PN: Obj Da Labs Labs: Laboratory Results - last 24 hr 11/24/23 11/24/23 11/24/23 11:20 14:02 16:25 WBC 16.8 H RBC 4.60 L Hgb 14.1 Hct 42.0 MCV 91.3 MCH 30.7 MCHC 33.6 RDW 12.7 Plt Count 250 MPV 9.1 L Neut % (Auto) 88.7 H Lymph % (Auto) 4.7 L [place] % (Auto) 6.0 Eos % (Auto) 0.1 L Baso % (Auto) 0.2 Neut # (Auto) 14.9 H Lymph # (Auto) 0.8 L [place] # (Auto) 1.0 H Eos # (Auto) 0.0 Baso # (Auto) 0.0 Abs Immat Gran (auto) 0.05 H Imm/Tot Granulo (auto) 0.3 Sodium 134 L Potassium 3.4 L Chloride 97 L Carbon Dioxide 27.2 Anion Gap 13.2 BUN 11.0 Creatinine 0.81 Est GFR ( Amer) >60 Est GFR (Non-Af Amer) >60 BUN/Creatinine Ratio 13.6 Glucose 178 H Estimat Average Glucose 120 Hemoglobin A1c 5.8 Calcium 8.7 Total Bilirubin 1.1 H Direct Bilirubin 0.3 H AST 20 ALT 15 L Alkaline Phosphatase 118 H Troponin I High Sens 35.4 34.1 NT-Pro-B Natriuret Pep 2655.0 H* Total Protein 6.6 Albumin 3.3 L Globulin 3.3 Albumin/Globulin Ratio 1.0 Triglycerides 44 Cholesterol 165 LDL Cholesterol, Calc 96.2 VLDL Cholesterol 8.8 HDL Cholesterol 60 Cholesterol/HDL Ratio 2.8 Ethanol Quant 3 POC Glucose 156 H 11/24/23 11/24/23 11/25/23 17:57 22:08 06:33 WBC 14.3 H RBC 4.13 L Hgb 12.6 L Hct 37.8 L MCV 91.5 MCH 30.5 MCHC 33.3 RDW 13.0 Plt Count 232 MPV 9.4 L Neut % (Auto) 76.2 H Lymph % (Auto) 14.3 L [place] % (Auto) 8.5 Eos % (Auto) 0.6 L Baso % (Auto) 0.1 L Neut # (Auto) 10.9 H Lymph # (Auto) 2.0 [place] # (Auto) 1.2 H Eos # (Auto) 0.1 Baso # (Auto) 0.0 Abs Immat Gran (auto) 0.04 H Imm/Tot Granulo (auto) 0.3 Sodium 133 L Potassium 3.8 Chloride 100 Carbon Dioxide 27.8 Anion Gap 9.0 BUN 14.0 Creatinine 0.67 L Est GFR ( Amer) >60 Est GFR (Non-Af Amer) >60 BUN/Creatinine Ratio 20.9 Glucose 143 H Estimat Average Glucose Hemoglobin A1c Calcium 8.5 Total Bilirubin 1.3 H Direct Bilirubin AST 16 ALT 16 Alkaline Phosphatase 95 Troponin I High Sens 36.5 NT-Pro-B Natriuret Pep Total Protein 6.1 L Albumin 2.9 L Globulin 3.2 Albumin/Globulin Ratio 0.9 Triglycerides Cholesterol LDL Cholesterol, Calc VLDL Cholesterol HDL Cholesterol Cholesterol/HDL Ratio Ethanol Quant POC Glucose 137 H
[2023-11-25] MEDS: HYDROMORPHONE HCL 0.5 MG/0.5 ML SYRINGE IV (11:25)
--- NOTE | 2023-11-25 11:37 | PC.NURSE ---
1125- Medicated with Dilaudid for pain right hip. See pain assessment
--- NOTE | 2023-11-25 12:15 | PC.NURSE ---
1155- Right foot remains pink, warm and dry. Pulse strong to right foot
[2023-11-25] MEDS: LOSARTAN POTASSIUM 50 MG TABLET 100 MG PO (12:27)
[2023-11-25] MEDS: CARVEDILOL 12.5 MG TABLET PO ×2 (12:28→21:28)
[2023-11-25] MEDS: AMLODIPINE BESYLATE 5 MG TABLET 10 MG PO (12:28)
[2023-11-25] MEDS: OXYCODONE HCL 5 MG TABLET PO ×2 (12:28→21:26)
[2023-11-25] MEDS: ENOXAPARIN SODIUM 40 MG/0.4 ML SYRINGE SUBQ (12:28)
[2023-11-25 16:13] LABS: Glucometer 97 mg/dL (74-106)
[2023-11-25 20:06] LABS: Glucometer 171 mg/dL (74-106)
[2023-11-25] MEDS: INSULIN ASPART 300 UNIT/3 ML PEN SUBQ (21:28)
[2023-11-25] MEDS: ATORVASTATIN CALCIUM 40 MG TABLET PO (21:28)
[2023-11-25] MEDS: NICOTINE 21 MG PATCH.TD24 TD (22:14)
[2023-11-26] VITALS (26 sets, daily range): BP systolic 94–119; BP diastolic 54–74; PULSE 72–88; TEMP 36.4–36.9; O2SAT 86–96
[2023-11-26] MEDS: MAALOX (MAG HYDROX/ALUMINUM HYD/SIMETH) 30 ML ORAL.SUSP PO (03:26)
[2023-11-26] MEDS: ACETAMINOPHEN 325 MG TABLET 650 MG PO (03:35)
[2023-11-26] MEDS: OXYCODONE HCL 5 MG TABLET PO ×2 (03:35→08:55)
[2023-11-26] MEDS: IPRATROPIUM/ALBUTEROL SULFATE 3 ML AMPUL.NEB IH ×6 (03:59→23:25)
[2023-11-26 04:42] LABS: Glucometer 129 mg/dL (74-106)
[2023-11-26 06:11] LABS: Basophils Percent Auto 0.3 % (0.2-2.0); Eosinophils Absolute Auto 0.2 10^3/uL (0.0-0.7); Eosinophils Percent Auto 1.9 % (0.9-7.0); Hematocrit 31.6 % (42.0-54.0); Hemoglobin 10.1 g/dL (14.0-18.0); Immature Granulocytes Abs Auto 0.04 10^3/uL (0.00-0.03); Immature Granulocytes Pct Auto 0.3 % (0.0-0.5); Lymphocytes Absolute Auto 1.8 10^3/uL (1.2-3.8); Lymphocytes Percent Auto 14.5 % (20.5-60.0); Mean Corpuscular Hemoglobin 30.2 pg (25.9-34.0); Mean Corpuscular Volume 94.6 fL (80.0-94.0); Mean Platelet Volume 9.6 fL (9.5-13.5); Monocytes Absolute Auto 1.3 10^3/uL (0.3-0.8); Monocytes Percent Auto 10.4 % (1.7-12.0); Neutrophils Absolute Auto 9.2 10^3/uL (1.4-6.5); Neutrophils Percent Auto 72.6 % (43.0-75.0); Platelet Count 206 10^3/uL (150-450); Red Blood Count 3.34 10^6/uL (4.70-6.10); Red Cell Distribution Width 12.9 % (11.0-15.0); White Blood Count 12.7 10^3/uL (4.0-11.0)
[2023-11-26 06:29] LABS: Alanine Aminotransferase 15 U/L (16-63); Albumin Globulin Ratio 0.8; Albumin Level 2.5 g/dL (3.4-5.0); Alkaline Phosphatase 81 U/L (46-116); Anion Gap 9.5; Aspartate Amino Transferase 18 U/L (15-37); Bilirubin Total 1.1 mg/dL (0.2-1.0); Calcium 8.3 mg/dL (8.5-10.1); Carbon Dioxide 27.3 mmol/L (21.0-32.0); Chloride 97 mmol/L (98-107); Estimated GFR (African America >60 (>=60); Estimated GFR (Non-African Ame >60 (>=60); Glucose 136 mg/dL (74-106); Potassium 3.8 mmol/L (3.5-5.1); Sodium 130 mmol/L (136-145); Total Protein 5.5 g/dL (6.4-8.2)
[2023-11-26] MEDS: LOSARTAN POTASSIUM 50 MG TABLET 100 MG PO (08:55)
[2023-11-26] MEDS: CARVEDILOL 12.5 MG TABLET PO (08:55)
[2023-11-26] MEDS: ENOXAPARIN SODIUM 40 MG/0.4 ML SYRINGE SUBQ (08:55)
--- NOTE | 2023-11-26 10:12 | P.IMPN_ITS ---
Progress Note: A&P Assessment and Plan (1) Fracture of right hip: Assessment and Plan: Status post surgery. PT/OT evaluation. Combination of oral/IV narcotics for pain control. Qualifiers: Encounter type: subsequent encounter Fracture healing: with routine healing Fracture type: closed Qualified Code(s): S72.001D - Fracture of unspecified part of neck of right femur, subsequent encounter for closed fracture with routine healing (2) Accidental fall: Assessment and Plan: Resulting in right hip fracture. PT/OT evaluation Qualifiers: Encounter type: subsequent encounter Qualified Code(s): W19.XXXD - Unspecified fall, subsequent encounter (3) CAD (coronary artery disease): Assessment and Plan: No evidence of active cardiac ischemia.Will need outpatient f/u with cardiology and w/u for ISHD. Seen normal I do not intend to keep her on on ASA, Lipitor. Qualifiers: Associated angina: without angina Coronary Disease-Associated Artery/Lesion type: al[place]q artery [place] vs. transplanted heart: algaaciq heart Qualified Code(s): I25.10 - Atherosclerotic heart disease of alga[place]q coronary artery without angina pectoris (4) Chronic respiratory failure with hypoxia: Assessment and Plan: On 2 L O2, will likely need it upon discharge. Duonebs as needed. Recommended smoking cessation. (5) COPD (chronic obstructive pulmonary disease): Assessment and Plan: No active wheezing. Duonebs as needed. Will likely need O2 on discharge. Qualifiers: COPD type: unspecified COPD Qualified Code(s): J44.9 - Chronic obstructive pulmonary disease, unspecified (6) Hypertension: Assessment and Plan: Too tightly controlled. . C/w Coreg, Losartan D/c amlodipine Qualifiers: Hypertension type: primary hypertension Qualified Code(s): I10 - Essential (primary) hypertension (7) Pre-operative clearance: Assessment and Plan: No complications during surgery. Doing well post operatively. (8) Diabetes: Assessment and Plan: A1C at goal. SSI while inpatient. Qualifiers: Diabetes mellitus complication status: without complication Diabetes mellitus mcfp insulin use: without mcfp use Diabetes mellitus type: type 2 Qualified Code(s): E11.9 - Type 2 diabetes mellitus without complications (9) Abnormal EKG: Assessment and Plan: Likely chronic changes due to old/prior hx of CAD/chronic lung disease. No active cardiac ischemia noted. Will benefit from outpatient eval for ISHD. (10) Leukocytosis: Assessment and Plan: Improved. No active infection suspected. likely reactive Monitor. Qualifiers: Leukocytosis type: leukemoid reaction Qualified Code(s): D72.823 - Leukemoid reaction (11) HLD (hyperlipidemia): Assessment and Plan: Started on Lipitor. Qualifiers: Hyperlipidemia type: unspecified Qualified Code(s): E78.5 - Hyperlipidemia, unspecified (12) Current smoker: Assessment and Plan: Discussed smoking cessation. Nicotine patches ordered. Internal Medicine - PN: Subj Subjective Interval history: Seen and examined. Reports postoperative right hip pain. No complaints otherw ise. Exam Constitutional Vital Signs, click to edit/add: Last Vital Signs Temp 98.4 F 11/26/23 07:56 Pulse 79 11/26/23 09:44 Resp 18 11/26/23 07:56 BP 111/69 11/26/23 08:53 Pulse Ox 90 L 11/26/23 07:56 O2 Del Method Nasal Cannula 11/26/23 07:56 O2 Flow Rate 2 11/26/23 07:56 General appearance: cooperative, comfortable, ill appearing and appears older than stated age Respiratory Common normals: no use of accessory muscles Effort & inspection: able to speak in complete sentences Other: Coarse breath sounds. No active wheezing noted. Cardio Common normals: regular rate, regular rhythm, S1 normal heart sound and S2 normal heart sound Rate: tachycardic Neuro Common normals: oriented x3, moves all extremities, no focal motor deficits and no sensory deficits noted Psych Common normals: mental status grossly normal, thought process normal, denies homicidal ideation and denies suicidal ideation Internal Medicine - PN: Obj Da Labs Labs: Laboratory Results - last 24 hr 11/25/23 11/25/23 11/26/23 16:11 19:55 04:41 WBC RBC Hgb Hct MCV MCH MCHC RDW Plt Count MPV Neut % (Auto) Lymph % (Auto) Howell % (Auto) Eos % (Auto) Baso % (Auto) Neut # (Auto) Lymph # (Auto) Howell # (Auto) Eos # (Auto) Baso # (Auto) Abs Immat Gran (auto) Imm/Tot Granulo (auto) Sodium Potassium Chloride Carbon Dioxide Anion Gap BUN Creatinine Est GFR ( Amer) Est GFR (Non-Af Amer) BUN/Creatinine Ratio Glucose Calcium Total Bilirubin AST ALT Alkaline Phosphatase Total Protein Albumin Globulin Albumin/Globulin Ratio POC Glucose 97 171 H 129 H 11/26/23 05:49 WBC 12.7 H RBC 3.34 L Hgb 10.1 L Hct 31.6 L MCV 94.6 H MCH 30.2 MCHC 32.0 RDW 12.9 Plt Count 206 MPV 9.6 Neut % (Auto) 72.6 Lymph % (Auto) 14.5 L Howell % (Auto) 10.4 Eos % (Auto) 1.9 Baso % (Auto) 0.3 Neut # (Auto) 9.2 H Lymph # (Auto) 1.8 Howell # (Auto) 1.3 H Eos # (Auto) 0.2 Baso # (Auto) 0.0 Abs Immat Gran (auto) 0.04 H Imm/Tot Granulo (auto) 0.3 Sodium 130 L Potassium 3.8 Chloride 97 L Carbon Dioxide 27.3 Anion Gap 9.5 BUN 12.0 Creatinine 0.63 L Est GFR ( Amer) >60 Est GFR (Non-Af Amer) >60 BUN/Creatinine Ratio 19.0 Glucose 136 H Calcium 8.3 L Total Bilirubin 1.1 H AST 18 ALT 15 L Alkaline Phosphatase 81 Total Protein 5.5 L Albumin 2.5 L Globulin 3.0 Albumin/Globulin Ratio 0.8 POC Glucose
[2023-11-26 11:31] LABS: Glucometer 136 mg/dL (74-106)
--- NOTE | 2023-11-26 13:03 | CT_ITS ---
The [address] [address] Patient Name: MIHIR WRIGHT MRN: [id number] date: 1960 Sex: M Assigned Patient Location: MS Current Patient Location: ICU Accession/Order Number: [id number] Exam Date: 11/26/2023 13:20 Report Date: 11/26/2023 14:11 At the request of: SHAIKH ZAHEER Procedure: CT angio neck EXAM: CT angio head, CT angio neck HISTORY: stroke COMPARISON: Noncontrast CT head performed the same day and reported separately. TECHNIQUE: Postcontrast CTA imaging of the head and neck was performed with coronal and sagittal reformats. Maximum intensity projection and 3-D reformats were performed on a separate workstation. NASCET criteria was utilized. This CT exam was performed using one or more of the following dose reduction techniques: Automated exposure control, adjustment of the MA and/or kV according to patient size, or use of iterative reconstruction technique. FINDINGS: Aortic arch: Imaged portion shows no evidence of aneurysm. No significant stenosis of the major origins of the major arch vessels. Right carotid system: No evidence of significant (50% or greater) stenosis or occlusion. Left carotid system: Mixed predominantly noncalcified atherosclerotic changes present involving the proximal left internal carotid artery with short segment approximately 50% stenosis over a less than 5 mm segment involving the proximal left internal carotid artery. Vertebral arteries: Codominant. No evidence of significant (50% or greater) stenosis or occlusion. Anterior circulation: No evidence of aneurysm, or occlusion. Moderate atherosclerotic narrowing involving the right greater than left cavernous internal obstruction right supraclinoid internal carotid artery segments. Vertebrobasilar system: No evidence of aneurysm, significant stenosis, or occlusion. Venous sinuses: Grossly patent. Additional findings: Bilateral upper lobe parenchymal scarring versus atelectasis which extends toward the hilum on the right towards the right hilum. Heterogeneous multinodular left thyroid. Moderate to severe degenerative change of the cervical spine with multilevel at least moderate canal stenosis secondary to prominent posterior disc osteophyte complexes. Indeterminate slightly more rounded sclerotic focus measuring 8 mm present involving the posterior left aspect of the C5 vertebral body eccentrically on the left which is of undetermined etiology and significance. More typical appearing sclerotic degenerative endplate changes noted surrounding the L4-L5 disc space. CT/CT angio neck IMPRESSION: 1. No large vessel occlusion or aneurysm significant stenosis involving the neck for intracranial arteries. 2. Short segment approximately 50% stenosis involving the left proximal internal carotid artery. 3. Moderate atherosclerotic narrowing involving the right greater than left cavernous internal obstruction right supraclinoid internal carotid artery segments. 4. Indeterminate millimeters sclerotic focus involving the posterior left aspect of the C5 vertebral body. Electronically authenticated by: ELENA OLIVIER Date: 11/26/2023 14:11
--- NOTE | 2023-11-26 13:03 | CT_ITS ---
The [address] [address] Patient Name: MIHIR WRIGHT MRN: [id number] date: 1960 Sex: M Assigned Patient Location: MS Current Patient Location: ICU Accession/Order Number: [id number] Exam Date: 11/26/2023 13:20 Report Date: 11/26/2023 14:11 At the request of: SHAIKH ZAHEER Procedure: CT angio head EXAM: CT angio head, CT angio neck HISTORY: stroke COMPARISON: Noncontrast CT head performed the same day and reported separately. TECHNIQUE: Postcontrast CTA imaging of the head and neck was performed with coronal and sagittal reformats. Maximum intensity projection and 3-D reformats were performed on a separate workstation. NASCET criteria was utilized. This CT exam was performed using one or more of the following dose reduction techniques: Automated exposure control, adjustment of the MA and/or kV according to patient size, or use of iterative reconstruction technique. FINDINGS: Aortic arch: Imaged portion shows no evidence of aneurysm. No significant stenosis of the major origins of the major arch vessels. Right carotid system: No evidence of significant (50% or greater) stenosis or occlusion. Left carotid system: Mixed predominantly noncalcified atherosclerotic changes present involving the proximal left internal carotid artery with short segment approximately 50% stenosis over a less than 5 mm segment involving the proximal left internal carotid artery. Vertebral arteries: Codominant. No evidence of significant (50% or greater) stenosis or occlusion. Anterior circulation: No evidence of aneurysm, or occlusion. Moderate atherosclerotic narrowing involving the right greater than left cavernous internal obstruction right supraclinoid internal carotid artery segments. Vertebrobasilar system: No evidence of aneurysm, significant stenosis, or occlusion. Venous sinuses: Grossly patent. Additional findings: Bilateral upper lobe parenchymal scarring versus atelectasis which extends toward the hilum on the right towards the right hilum. Heterogeneous multinodular left thyroid. Moderate to severe degenerative change of the cervical spine with multilevel at least moderate canal stenosis secondary to prominent posterior disc osteophyte complexes. Indeterminate slightly more rounded sclerotic focus measuring 8 mm present involving the posterior left aspect of the C5 vertebral body eccentrically on the left which is of undetermined etiology and significance. More typical appearing sclerotic degenerative endplate changes noted surrounding the L4-L5 disc space. CT/CT angio head IMPRESSION: 1. No large vessel occlusion or aneurysm significant stenosis involving the neck for intracranial arteries. 2. Short segment approximately 50% stenosis involving the left proximal internal carotid artery. 3. Moderate atherosclerotic narrowing involving the right greater than left cavernous internal obstruction right supraclinoid internal carotid artery segments. 4. Indeterminate millimeters sclerotic focus involving the posterior left aspect of the C5 vertebral body. Electronically authenticated by: ELENA OLIVIER Date: 11/26/2023 14:11
--- NOTE | 2023-11-26 13:03 | CT_ITS ---
The [address] [address] Patient Name: MIHIR WRIGHT MRN: [facility]:[id number] date: 1960 Sex: M Assigned Patient Location: MS Current Patient Location: MS Accession/Order Number: [id number] Exam Date: 11/26/2023 13:00 Report Date: 11/26/2023 13:32 At the request of: SHAIKH ZAHEER Procedure: CT stroke head/brain wo con EXAM: CT stroke head/brain wo con HISTORY: stroke COMPARISON: None. TECHNIQUE: CT noncontrast. Axial scans with reformatted coronal sagittal images. Individualized radiation dose reduction used for this exam. FINDINGS: Motion artifact limits assessment. There is no evidence of intracranial hemorrhage. Fairly extensive confluent deep white matter attenuation fairly symmetric in the cerebral hemispheres. Asymmetric low attenuation left cerebellum inferior right temporal lobe could be chronic or edema from acute or subacute infarct.. Several small foci of CSF density noted questionable lacunar infarcts including right maribel and periventricular areas. No extra-axial collection or hematoma. Mass effect or midline shift. Ventricles sulci mildly prominent. Visualized mastoid middle ear cavities. Mucosal thickening right maxillary sinus. No suspicious bone lesion. Prevertebral calcification in the upper cervical area and posterior fossa. No hyperdense vessel seen around the [place] of [place]. CT/CT stroke head/brain wo con IMPRESSION: 1. Study evaluation limited by motion artifact. 2. Extensive areas of deep white matter low-attenuation fairly symmetric in the cerebral hemispheres with areas of asymmetry in the posterior fossa and right inferior temporal lobe.. Artifact, chronic small vessel ischemic change or acute/subacute infarct. Follow-up recommended. 3. Several small foci is of CSF density likely old lacunar infarcts right maribel and periventricular area. 4. No evidence of intracranial hemorrhage number extra-axial collection or mass effect. Results called to referring clinician Dr. Shaikh Lara on 11/26/2023 at 1:30 PM Eastern standard time Electronically authenticated by: MELISSA CEASR Date: 11/26/2023 13:32
--- NOTE | 2023-11-26 14:07 | PM.CCEN ---
Critical Care Event Note Summary Code activated: No Narrative: Informed my RN that patients sister called out for help. Patient was noted to have slurred speech, facial drooping and LUE and LLE weakness. His symptoms may have lasted for 5 minutes and by the time I evaluated the patient at bedside, his neurological exam was completely normal. I reviewed his most recent vitals and his BP was slightly low. Other than that, no acute exam finding was noted. Ordered state CTH/EKG. Given that his neurlogical symptoms quickly resolved, he was not a candidate for TPA. Also because he just had left hip repair and is at high risk of bleeding with tpA if administered so soon after surgery. Ordered CTA head/neck and MRI. ECHO ordered for stroke w/u. On tele - no abnormal events noted. Discussed CTH finding with the Radiologist who did not see acute hemorrhagic or ischemic stroke but reported extensive white matter disease and old infarcts. Final report isp pending. Will start patient on Plavix also along with ASA. Treatment plan d/w RN and made arrangements to transfer the patient to ICU for close monitoring. D/c anti hypertensives to allow permissive hypertension. Problems Addressed: Suspected CVA. HTN This case had a high probability of a clinically significant, sudden, or life threatening deterioration of this patient's condition which required my full and direct attention, intervention and personal management. Critical care time: 30 - 74 mins
[2023-11-26 16:20] LABS: Glucometer 146 mg/dL (74-106)
[2023-11-26] MEDS: CLOPIDOGREL BISULFATE 75 MG TABLET PO (18:08)
--- NOTE | 2023-11-26 19:58 | PC.NURSE ---
Nursing note from transfer to 190: 1345-patient arrived to room 272. left facial droop and left extremities noted to be weaker than right. patient alert and oriented, garbled speech noted. 1435-Dr. Lara notified that patient wants to see him. 1510-RN placed call to telestroke. 1515-RN talked to Dr. Bergeron from [place] while Dr. Lara at the bedside. 1520-Dr. Lara talked to Dr. Bergeron on the phone. 1608-Dr. Anderson called and asked if patient could receive Plavix per Dr. Lara's request. States he is ok with Plavix. 1613-Dr. Lara informed that Dr. Anderson is ok with Plavix. 1723-Dr. Lara updated on patient's blood pressure 94/55. No orders received.
[2023-11-26 20:18] LABS: Glucometer 135 mg/dL (74-106)
[2023-11-27] VITALS (57 sets, daily range): BP systolic 107–140; BP diastolic 61–76; PULSE 71–811; TEMP 36.2–37; O2SAT 89–95
[2023-11-27] MEDS: IPRATROPIUM/ALBUTEROL SULFATE 3 ML AMPUL.NEB IH ×5 (03:56→23:06)
[2023-11-27 05:41] LABS: Basophils Percent Auto 0.3 % (0.2-2.0); Eosinophils Absolute Auto 0.2 10^3/uL (0.0-0.7); Eosinophils Percent Auto 1.9 % (0.9-7.0); Hematocrit 29.5 % (42.0-54.0); Hemoglobin 9.6 g/dL (14.0-18.0); Immature Granulocytes Abs Auto 0.04 10^3/uL (0.00-0.03); Immature Granulocytes Pct Auto 0.3 % (0.0-0.5); Lymphocytes Absolute Auto 2.2 10^3/uL (1.2-3.8); Lymphocytes Percent Auto 18.3 % (20.5-60.0); Mean Corpuscular HGB Conc 32.5 g/dL (29.9-35.2); Mean Corpuscular Hemoglobin 30.4 pg (25.9-34.0); Mean Corpuscular Volume 93.4 fL (80.0-94.0); Mean Platelet Volume 9.4 fL (9.5-13.5); Monocytes Absolute Auto 1.4 10^3/uL (0.3-0.8); Monocytes Percent Auto 11.4 % (1.7-12.0); Neutrophils Absolute Auto 8.1 10^3/uL (1.4-6.5); Neutrophils Percent Auto 67.8 % (43.0-75.0); Platelet Count 205 10^3/uL (150-450); Red Blood Count 3.16 10^6/uL (4.70-6.10); Red Cell Distribution Width 12.7 % (11.0-15.0)
[2023-11-27 05:54] LABS: Alanine Aminotransferase 15 U/L (16-63); Albumin Globulin Ratio 0.8; Albumin Level 2.4 g/dL (3.4-5.0); Alkaline Phosphatase 82 U/L (46-116); Anion Gap 7.6; Aspartate Amino Transferase 16 U/L (15-37); Calcium 8.3 mg/dL (8.5-10.1); Carbon Dioxide 29.1 mmol/L (21.0-32.0); Chloride 98 mmol/L (98-107); Estimated GFR (African America >60 (>=60); Estimated GFR (Non-African Ame >60 (>=60); Globulin 3.2 g/dL; Glucose 123 mg/dL (74-106); Potassium 3.7 mmol/L (3.5-5.1); Sodium 131 mmol/L (136-145); Total Protein 5.6 g/dL (6.4-8.2)
--- NOTE | 2023-11-27 06:11 | XR_ITS ---
The [address] [address] Patient Name: MIHIR WRIGHT MRN: [id number] date: 1960 Sex: M Assigned Patient Location: ICU Current Patient Location: ICU Accession/Order Number: [id number] Exam Date: 11/27/2023 06:18 Report Date: 11/27/2023 06:28 At the request of: SHAIKH ZAHEER Procedure: XR chest 1V EXAM: XR chest 1V HISTORY: Shortness of breath COMPARISON: Chest radiograph dated 11/24/2023. TECHNIQUE: One view of the chest was obtained. FINDINGS: There are postsurgical changes of the chest with median sternotomy wires and surgical clips in place. The cardiac silhouette is stable in size. The lungs are clear. There is no significant pneumothorax or pleural effusion. No acute osseous abnormality is seen. XR/XR chest 1V IMPRESSION: 1. No acute cardiopulmonary abnormality. Electronically authenticated by: Gladys FARMER Date: 11/27/2023 06:28
[2023-11-27] MEDS: NICOTINE 21 MG PATCH.TD24 TD ×2 (06:34→21:36)
--- NOTE | 2023-11-27 07:11 | CA_ITS ---
Patient Name: MIHIR WRIGHT MR#: [id number] : 1960 Exam Date: 11/27/2023 Ordering Doctor: SHAIKH Winston SCHWAB . ECHOCARDIOGRAM REPORT PROCEDURE: CA ECHO DOPPLER COMPLETE INDICATIONS: stroke COMPARISON: None. DESCRIPTION: COMPLETE ECHOCARDIOGRAM Real-time transthoracic echocardiography with 2D, M-mode, spectral and color flow Doppler performed. QUALITY: Technical quality was adequate. LEFT VENTRICLE: Normal chamber size. Borderline left ventricular hypertrophy. LV EF: Global left ventricular systolic function is hyperdynamic; calculated left ventricular ejection fraction is 66%. No significant wall motion abnormalities. DIASTOLIC: Normal diastolic function. ATRIAL SEPTUM: Agitated saline contrast does not reveal an intra-cardiac shunt. LEFT ATRIUM: Mild dilatation. RIGHT ATRIUM: Mild dilatation. RIGHT VENTRICLE: Normal chamber size. Normal right ventricular systolic function. TRICUSPID VALVE: Normal mobility and thickness. No stenosis with trivial regurgitation. No evidence of pulmonary hypertension. RVSP 20mmHg MITRAL VALVE: Normal mobility and thickness. No evidence of mitral valve stenosis. Mild mitral annular calcification. Trivial mitral regurgitation. AORTIC VALVE: Normal trileaflet appearance. Mildly calcified aortic valve. Normal leaflet mobility. No evidence of aortic valve stenosis. Trivial aortic regurgitation. AORTIC ROOT: Normal diameter and appearance. PULMONIC VALVE: Grossly normal. No stenosis. No regurgitation. PERICARDIUM: No evidence of pericardial effusion. IVC: Collapses with inspirations. Normal size. CONCLUSION: 1. Global left ventricular systolic function is hyperdynamic; visually estimated ejection fraction of 65 to 70% 2. Normal right ventricular size and systolic function 3. Borderline left ventricular hypertrophy 4. Biatrial dilatation 5. No significant valvular abnormalities 6. Agitated saline contrast study shows no evidence of an intracardiac shunt Adult Echocardiography Procedure Report Left Ventricle LVEDD (3.7 - 5.6 cm): 4.87 cm LVESD (2.2 - 4.0 cm): 3.39 cm LVIVS thickness (0.6 - 1.2 cm): 0.93 cm LVPW thickness (0.5 - 1.0 cm): 1.13 cm e': 0.13 m/s E - e': 5.10 LVOT Max Gradient: 5.07 mm[Hg] LVOT Area (cm2): 1.13 m/s Peak Velocity (LVOT): 1.13 m/s Mean Velocity (LVOT): 0.74 m/s LVOT Diameter 2.30 cm Left Ventricular Ejection Fraction: 66.04 % Left Atrium LA Volume Index (2D A2C): 43.51 ml/m2 Left Atrium Systolic Dimension: 4.04 cm Mitral Valve MV E to A Ratio: 0.54 Mitral Valve A-Wave Peak Velocity: 1.21 m/s Mitral Valve E-Wave Peak Velocity: 0.65 m/s Right Ventricle RV Internal Diastolic Dimension: 3.83 cm Aorta AO Root Diam: 3.35 cm Ascending Ao Diam: 3.24 cm Aortic Valve AoV Area (Peak Baltazar): 3.27 cm2, 3.34 cm2 AoV Area (VTI): 4.24 cm2, 4.49 cm2 Peak Velocity(Antegrade Flow): 1.40 m/s, 1.47 m/s Peak Gradient(Antegrade Flow): 7.87 mm[Hg], 8.61 mm[Hg] Mean Velocity(Antegrade Flow): 0.97 m/s, 0.98 m/s Mean Gradient(Antegrade Flow): 4.29 mm[Hg], 4.38 mm[Hg] Velocity Time Integral: 22.11 cm, 24.71 cm Tricuspid Valve Peak Velocity (Regurgitant Flow): 2.03 m/s, 2.01 m/s Pulmonic Valve Peak Velocity: 1.26 m/s Peak Gradient: 6.34 mm[Hg] Right Atrium Right Atrium Systolic Pressure: 66.35 ml, 66.35 ml Dictated by: Erik Leslie M.D. on 11/27/2023 at 13:55 Approved by: Erik Leslie M.D. on 11/27/2023 at 13:59
[2023-11-27 07:41] LABS: Glucometer 132 mg/dL (74-106)
[2023-11-27] MEDS: ENOXAPARIN SODIUM 40 MG/0.4 ML SYRINGE SUBQ (09:14)
[2023-11-27] MEDS: CLOPIDOGREL BISULFATE 75 MG TABLET PO (09:14)
--- NOTE | 2023-11-27 09:29 | PM.IMPN1 ---
Progress Note: A&P Assessment and Plan (1) Suspected cerebrovascular accident (CVA): Assessment and Plan: Developed acute neurological weakness on left side, facial asymmetry and dysarthric speech. Symptoms resolved quickly. Already on ASA, lipitor. Started on plavix after c/w orthopedic. CTA head/neck - atherosclerotic disease b/l. old infarcts on CTH. MRI and ECHO Pending. Keep SBP > 120. Hold anti hypertensives. PT/OT eval. tele stroke on board. No afib on tele. (2) Fracture of right hip: Assessment and Plan: Status post surgery. PT/OT evaluation. Combination of oral/IV narcotics for pain control. Qualifiers: Encounter type: subsequent encounter Fracture type: closed Fracture healing: with routine healing Qualified Code(s): S72.001D - Fracture of unspecified part of neck of right femur, subsequent encounter for closed fracture with routine healing (3) Accidental fall: Assessment and Plan: Resulting in right hip fracture. PT/OT evaluation Qualifiers: Encounter type: subsequent encounter Qualified Code(s): W19.XXXD - Unspecified fall, subsequent encounter (4) CAD (coronary artery disease): Assessment and Plan: No evidence of active cardiac ischemia. Will need outpatient f/u with cardiology and w/u for ISHD. on ASA, Lipitor. Started on Plavix. ECHO ordered. Qualifiers: Coronary Disease-Associated Artery/Lesion type: [place] artery [place] vs. transplanted heart: [place] heart Associated angina: without angina Qualified Code(s): I25.10 - Atherosclerotic heart disease of [place] coronary artery without angina pectoris (5) Chronic respiratory failure with hypoxia: Assessment and Plan: Worse today. Needing 3.5 L O2. post op atelectasis ?? no active wheezing. CXR - no acute finding. Could be too early to notice on CXR. Duonebs as needed and q4. encouraged to participate in OPEP. Wean off O2 as tolerated. Supportive care for now, if no improvement/worsening - will further investigate. (6) COPD (chronic obstructive pulmonary disease): Assessment and Plan: No active wheezing. Duonebs as needed and q4. Will likely need O2 on discharge. Qualifiers: COPD type: unspecified COPD Qualified Code(s): J44.9 - Chronic obstructive pulmonary disease, unspecified (7) Hypertension: Assessment and Plan: Hold all anti hypertensives as suspected acute CVA and needs permissive HTN. Qualifiers: Hypertension type: primary hypertension Qualified Code(s): I10 - Essential (primary) hypertension (8) Pre-operative clearance: Assessment and Plan: No complications during surgery. Doing well post operatively. (9) Diabetes: Assessment and Plan: A1C at goal. SSI while inpatient. 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 No active cardiac ischemia noted. Will benefit from outpatient eval for ISHD. (11) Leukocytosis: Assessment and Plan: Improved. No active infection suspected. likely reactive Monitor. Qualifiers: Leukocytosis type: leukemoid reaction Qualified Code(s): D72.823 - Leukemoid reaction (12) HLD (hyperlipidemia): Assessment and Plan: Started on Lipitor. Qualifiers: Hyperlipidemia type: unspecified Qualified Code(s): E78.5 - Hyperlipidemia, unspecified (13) Current smoker: Assessment and Plan: on Nicotine patches. Internal Medicine - PN: Subj Subjective Interval history: Seen and examined. No overnight events but increased O2 requirement, now requiring 3.5 L O2. Exam Constitutional Vital Signs, click to edit/add: Last Vital Signs Temp 97.1 F L 11/27/23 05:00 Pulse 76 11/27/23 09:00 Resp 21 H 11/27/23 09:00 BP 112/76 11/27/23 07:42 Pulse Ox 92 L 11/27/23 08:50 O2 Del Method Nasal Cannula 11/27/23 07:51 O2 Flow Rate 3.5 11/27/23 07:51 Documenting provider has reviewed patient's vital signs: yes Common normals: no apparent distress and oriented x3 General appearance: cooperative Eye Common normals: conjunctivae normal and no scleral icterus Conjunctiva: conjunctiva(e) normal Respiratory Common normals: normal respiratory effort and clear to auscultation bilaterally Effort & inspection: able to speak in complete sentences Other: Productive cough noted during exam Cardio Common normals: regular rate, S1 normal heart sound and S2 normal heart sound Rate: regular rate Heart sounds: S1 normal and S2 normal GI Common normals: Normal to inspection, nondistended, normoactive bowel sounds present, soft to palpation, non-tender and no hepatosplenomegaly Palpation: soft and no hepatosplenomegaly Extremity Common normals: no clubbing, cyanosis or edema Neuro Common normals: oriented x3, moves all extremities and no focal motor deficits Psych Common normals: mental status grossly normal, denies hallucinations, denies homicidal ideation and denies suicidal ideation Internal Medicine - PN: Obj Da Labs Labs: Laboratory Results - last 24 hr 11/26/23 11/26/23 11/26/23 11:31 16:17 20:17 WBC RBC Hgb Hct MCV MCH MCHC RDW Plt Count MPV Neut % (Auto) Lymph % (Auto) [place] % (Auto) Eos % (Auto) Baso % (Auto) Neut # (Auto) Lymph # (Auto) [place] # (Auto) Eos # (Auto) Baso # (Auto) Abs Immat Gran (auto) Imm/Tot Granulo (auto) Sodium Potassium Chloride Carbon Dioxide Anion Gap BUN Creatinine Est GFR ( Amer) Est GFR (Non-Af Amer) BUN/Creatinine Ratio Glucose Calcium Total Bilirubin AST ALT Alkaline Phosphatase Total Protein Albumin Globulin Albumin/Globulin Ratio POC Glucose 136 H 146 H 135 H 11/27/23 11/27/23 05:30 07:41 WBC 12.0 H RBC 3.16 L Hgb 9.6 L Hct 29.5 L MCV 93.4 MCH 30.4 MCHC 32.5 RDW 12.7 Plt Count 205 MPV 9.4 L Neut % (Auto) 67.8 Lymph % (Auto) 18.3 L [place] % (Auto) 11.4 Eos % (Auto) 1.9 Baso % (Auto) 0.3 Neut # (Auto) 8.1 H Lymph # (Auto) 2.2 [place] # (Auto) 1.4 H Eos # (Auto) 0.2 Baso # (Auto) 0.0 Abs Immat Gran (auto) 0.04 H Imm/Tot Granulo (auto) 0.3 Sodium 131 L Potassium 3.7 Chloride 98 Carbon Dioxide 29.1 Anion Gap 7.6 BUN 13.0 Creatinine 0.62 L Est GFR ( Amer) >60 Est GFR (Non-Af Amer) >60 BUN/Creatinine Ratio 21.0 Glucose 123 H Calcium 8.3 L Total Bilirubin 1.0 AST 16 ALT 15 L Alkaline Phosphatase 82 Total Protein 5.6 L Albumin 2.4 L Globulin 3.2 Albumin/Globulin Ratio 0.8 POC Glucose 132 H Urinary Catheter Management Urinary Catheter Management Coude: Cath placed during this visit: yes Urethral indwelling: Yes Reason for continuing: urinary obstruction Insertion date: 11/26/23 Insertion time: 14:00
--- NOTE | 2023-11-27 10:09 | CM.NOTE ---
Rounds made with Dr. Lara, pt still requiring oxygen. PT and OT will evaluate pt today. Pt's plan is to discharge to [facility] for skilled therapy.
[2023-11-27 11:27] LABS: Glucometer 168 mg/dL (74-106)
--- NOTE | 2023-11-27 11:27 | SWNOTE1 ---
HAZEL sent PT/OT evals and physician note from today to [facility]. HAZEL let [facility] know that pt is getting MRI today and SW to update them after. HAZEL advised [facility] to start precert.
[2023-11-27] MEDS: INSULIN ASPART 300 UNIT/3 ML PEN SUBQ ×3 (11:37→21:36)
--- NOTE | 2023-11-27 12:08 | PC.NURSE ---
sister at bedside. she states pt is not normally like this and is in his right mind . pt talking about [place] in [place] and states the year is 1929 . 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 repeat ct for am.
--- NOTE | 2023-11-27 12:09 | P.ORPN_ITS ---
Progress Note: A&P Assessment and Plan (1) Suspected cerebrovascular accident (CVA): (2) Fracture of right hip: Assessment and Plan: POD #2 right intertrochanteric hip fracture -WBAT -PT eval -Okay to restart Plavix -Hgb 9.6 from 10.1 yesterday, vitals stable overnight, afebrile -Okay to discharge from Ortho standpoint, patient being medically optimized and worked up for acute stroke -Follow-up with Dr. Franco in 2 weeks for staple removal and postop recheck Qualifiers: Encounter type: subsequent encounter Fracture type: closed Fracture healing: with routine healing Qualified Code(s): S72.001D - Fracture of unspecified part of neck of right femur, subsequent encounter for closed fracture with routine healing (3) Accidental fall: Qualifiers: Encounter type: subsequent encounter Qualified Code(s): W19.XXXD - Unspecified fall, subsequent encounter (4) CAD (coronary artery disease): Qualifiers: Coronary Disease-Associated Artery/Lesion type: [place] artery [place] vs. transplanted heart: [place] heart Associated angina: without angina [place] lified Code(s): I25.10 - Atherosclerotic heart disease of [place] coronary artery without angina pectoris (5) Chronic respiratory failure with hypoxia: (6) COPD (chronic obstructive pulmonary disease): Qualifiers: COPD type: unspecified COPD Qualified Code(s): J44.9 - Chronic obstructive pulmonary disease, unspecified (7) Hypertension: Qualifiers: Hypertension type: primary hypertension Qualified Code(s): I10 - Essential (primary) hypertension (8) Pre-operative clearance: (9) Diabetes: Qualifiers: Diabetes mellitus type: type 2 Diabetes mellitus 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 insulin use: without 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 use Diabetes mellitus complication status: without complication Qualified Code(s): E11.9 - Type 2 diabetes mellitus without complications (10) Abnormal EKG: (11) Leukocytosis: Qualifiers: Leukocytosis type: leukemoid reaction Qualified Code(s): D72.823 - Leukemoid reaction (12) HLD (hyperlipidemia): Qualifiers: Hyperlipidemia type: unspecified Qualified Code(s): E78.5 - Hyperlipidemia, unspecified (13) Current smoker: Subjective Subjective Principal diagnosis: Right Intertrochanteric Femur Fx Interval history: Pt is POD #2 from a R Intertroch femur fracture and was moved to the ICU after a brief episode of Left sided weakness, facial asymmetry and dysarthric speech that quickly resolved. Pt is currently undergoing further testing for acute stroke. This morning he states that his right leg hurts and is aware that he had surgery on it. He is not oriented to self or place this morning but was alert. Exam Narrative Exam Narrative: On exam patient is no distress, age-appropriate, alert but not oriented to self or place. Patient aware that he had surgery on his right side of his leg. Patient does follow commands and moves ankles up and down. 5/5 strength dorsiflexion/plantarflexion. Right thigh is compressible and soft. 2+ DP pulses palpated distally. Right hip dressings clean/dry/intact. Constitutional Vital Signs, click to edit/add: Last Vital Signs Temp 97.1 F L 11/27/23 05:00 Pulse 811 H 11/27/23 10:52 Resp 22 H 11/27/23 09:55 BP 140/74 11/27/23 11:10 Pulse Ox 95 11/27/23 10:52 O2 Del Method Nasal Cannula 11/27/23 10:52 O2 Flow Rate 3.5 11/27/23 10:52 Urinary Catheter Management Urinary Catheter Management Coude: Cath placed during this visit: yes Urethral indwelling: Yes Reason for continuing: pelvic fractures Insertion date: 11/26/23 Insertion time: 14:00
--- NOTE | 2023-11-27 12:20 | SWNOTE1 ---
Precert has been started to [facility].
--- NOTE | 2023-11-27 13:33 | SWNOTE1 ---
HAZEL received email from Nae at [facility] and they have received approval from insurance for pt to go. HAZEL asked Nae how long pt is approved for, waiting for response.
--- NOTE | 2023-11-27 13:47 | SWNOTE1 ---
Pt is approved thru 12/04/23. If he does not discharge on 12/04/23, new precert will need to be started.
--- NOTE | 2023-11-27 14:58 | SWNOTE1 ---
SW spoke to pt and pt's brother in room. SW updated them on discharge planning and that pt was approved thru the 03 of December at the [facility] rehab. SW advised pt and brother that pt is not medically stable for dc at this time so no discharge today. Pt and brother voiced understanding and will let pt's daughter know. Important Message from Medicare reviewed and discussed with patient. Pt. verbalized understanding and signed the form. Original given to patient and copy placed in patient?s chart.
--- NOTE | 2023-11-27 15:57 | DIETREC ---
Recommend 237 mL Ensure Original BID; also recommend 30 mL PRO-stat BID.
[2023-11-27 16:20] LABS: Glucometer 202 mg/dL (74-106)
--- NOTE | 2023-11-27 17:34 | PC.NURSE ---
1734 report called to yamilet peters on [facility]. pt transferred in bed with belongings.
[2023-11-27] MEDS: OXYCODONE HCL 5 MG TABLET PO (18:46)
[2023-11-27 20:25] LABS: Glucometer 421 mg/dL (74-106)
[2023-11-27] MEDS: ATORVASTATIN CALCIUM 40 MG TABLET PO (21:34)
[2023-11-27] MEDS: DOCUSATE SODIUM 100 MG CAPSULE PO (21:41)
[2023-11-28] VITALS (17 sets, daily range): BP systolic 124–146; BP diastolic 65–76; PULSE 71–98; TEMP 36.9–37.2; O2SAT 88–96
[2023-11-28] MEDS: IPRATROPIUM/ALBUTEROL SULFATE 3 ML AMPUL.NEB IH ×5 (03:32→19:40)
--- NOTE | 2023-11-28 06:00 | CT_ITS ---
The [address] [address] Patient Name: MIHIR WRIGHT MRN: [id number] date: 1960 Sex: M Assigned Patient Location: MS Current Patient Location: [place] Accession/Order Number: [id number] Exam Date: 11/28/2023 06:25 Report Date: 11/28/2023 07:25 At the request of: SHAIKH ZAHEER Procedure: CT head/brain wo con EXAM: CT head/brain wo con HISTORY: STROKE COMPARISON: CT head 11/26/2023. TECHNIQUE: Axial soft tissue and bone windows of the calvarium with coronal and sagittal reformats. CT dose reduction technique was used including Automated Exposure Control. Findings: No depressed or calvarial fracture. The paranasal sinuses and mastoid air cells are well aerated. No air-fluid levels. No extra-axial fluid collection. No intra-axial or extra-axial bleed. No mass effect or midline shift. There is subtle loss of the jha-white matter differentiation involving the left occipital lobe. There are white matter low attenuation lesions which are nonspecific but commonly attributed to chronic small vessel ischemic disease. The brain parenchymal volume is reduced yet likely age-appropriate. The ventricles are nondilated. The basal cisterns are patent. The craniovertebral junction is unremarkable. CT/CT head/brain wo con IMPRESSION: 1. Subtle loss the jha-white matter differentiation involving the left occipital lobe may relate to acute ischemia. If indicated, suggest MRI for further evaluation. 2. Senescent changes. Electronically authenticated by: SUSAN SUMMERS Date: 11/28/2023 07:25
[2023-11-28 06:11] LABS: Basophils Percent Auto 0.3 % (0.2-2.0); Eosinophils Absolute Auto 0.3 10^3/uL (0.0-0.7); Eosinophils Percent Auto 2.5 % (0.9-7.0); Hematocrit 28.3 % (42.0-54.0); Hemoglobin 9.3 g/dL (14.0-18.0); Immature Granulocytes Abs Auto 0.05 10^3/uL (0.00-0.03); Immature Granulocytes Pct Auto 0.4 % (0.0-0.5); Lymphocytes Absolute Auto 2.1 10^3/uL (1.2-3.8); Lymphocytes Percent Auto 18.6 % (20.5-60.0); Mean Corpuscular HGB Conc 32.9 g/dL (29.9-35.2); Mean Corpuscular Hemoglobin 30.6 pg (25.9-34.0); Mean Corpuscular Volume 93.1 fL (80.0-94.0); Mean Platelet Volume 8.9 fL (9.5-13.5); Monocytes Absolute Auto 1.3 10^3/uL (0.3-0.8); Monocytes Percent Auto 11.1 % (1.7-12.0); Neutrophils Absolute Auto 7.5 10^3/uL (1.4-6.5); Neutrophils Percent Auto 67.1 % (43.0-75.0); Platelet Count 235 10^3/uL (150-450); Red Blood Count 3.04 10^6/uL (4.70-6.10); Red Cell Distribution Width 12.7 % (11.0-15.0); White Blood Count 11.2 10^3/uL (4.0-11.0)
[2023-11-28 06:31] LABS: Alanine Aminotransferase 16 U/L (16-63); Albumin Globulin Ratio 0.7; Albumin Level 2.3 g/dL (3.4-5.0); Alkaline Phosphatase 78 U/L (46-116); Anion Gap 11.4; Aspartate Amino Transferase 20 U/L (15-37); BUN Creatinine Ratio 25.9; Calcium 7.9 mg/dL (8.5-10.1); Carbon Dioxide 27.2 mmol/L (21.0-32.0); Chloride 99 mmol/L (98-107); Estimated GFR (African America >60 (>=60); Estimated GFR (Non-African Ame >60 (>=60); Globulin 3.1 g/dL; Glucose 104 mg/dL (74-106); Potassium 3.6 mmol/L (3.5-5.1); Sodium 134 mmol/L (136-145); Total Protein 5.4 g/dL (6.4-8.2)
--- NOTE | 2023-11-28 06:55 | P.ORPN_ITS ---
Progress Note: A&P Assessment and Plan (1) Suspected cerebrovascular accident (CVA): (2) Fracture of right hip: Assessment and Plan: POD #3 right intertrochanteric hip fracture -WBAT -PT eval -Okay to restart Plavix -Hgb stable at 9.3 from 9.6, vitals stable overnight, afebrile -Okay to discharge from Ortho standpoint, patient being medically optimized. -Follow-up with Dr. Franco in 2 weeks for staple removal and postop recheck Qualifiers: Encounter type: subsequent encounter Fracture healing: with routine healing Fracture type: closed Qualified Code(s): S72.001D - Fracture of unspecified part of neck of right femur, subsequent encounter for closed fracture with routine healing (3) Accidental fall: Qualifiers: Encounter type: subsequent encounter Qualified Code(s): W19.XXXD - Unspecified fall, subsequent encounter (4) CAD (coronary artery disease): Qualifiers: Associated angina: without angina Coronary Disease-Associated Artery/Lesion type: [place] artery [place] vs. transplanted heart: [place] heart Qualified Code(s): I25.10 - Atherosclerotic heart disease of [place] coronary artery without angina pectoris (5) Chronic respiratory failure with hypoxia: (6) COPD (chronic obstructive pulmonary disease): Qualifiers: COPD type: unspecified COPD Qualified Code(s): J44.9 - Chronic obstructive pulmonary disease, unspecified (7) Hypertension: Qualifiers: Hypertension type: primary hypertension Qualified Code(s): I10 - Essential (primary) hypertension (8) Pre-operative clearance: (9) Diabetes: Qualifiers: Diabetes mellitus complication status: without complication 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 Patient states that his leg sucks but was sleeping/lying calmly in his bed on my arrival. He is much more oriented this morning to self and situation. Exam Narrative Exam Narrative: On exam patient is no distress, age-appropriate, alert and oriented to self and situation. Patient does follow commands and moves ankles up and down. 5/5 strength dorsiflexion/plantarflexion. Right thigh is compressible and soft. 2+ DP pulses palpated distally. Right hip dressings clean/dry/intact. Constitutional Vital Signs, click to edit/add: Last Vital Signs Temp 98.5 F 11/28/23 06:00 Pulse 74 11/28/23 06:00 Resp 18 11/28/23 06:00 BP 124/76 11/28/23 06:00 Pulse Ox 91 L 11/28/23 06:00 O2 Del Method Nasal Cannula 11/28/23 06:00 O2 Flow Rate 3 11/28/23 06:00 Urinary Catheter Management Urinary Catheter Management Coude: Cath placed during this visit: yes Urethral indwelling: Yes Reason for continuing: pelvic fractures Insertion date: 11/26/23 Insertion time: 14:00
[2023-11-28] MEDS: CLOPIDOGREL BISULFATE 75 MG TABLET PO (08:33)
[2023-11-28] MEDS: OXYCODONE HCL 5 MG TABLET PO ×2 (08:33→20:14)
[2023-11-28] MEDS: ENOXAPARIN SODIUM 40 MG/0.4 ML SYRINGE SUBQ (08:34)
--- NOTE | 2023-11-28 09:45 | CM.NOTE ---
Rounds made with Dr. Lara, possible discharge to [facility] after telestroke evaluates CT scan.
[2023-11-28 11:13] LABS: Glucometer 236 mg/dL (74-106)
--- NOTE | 2023-11-28 11:16 | REH.PTDLY ---
Physical Therapy Daily Note PT Daily Note/Assess Start: 11/27/23 09:19 Freq: Status: Active Protocol: Document 11/28/23 10:15 MACK (Rec: 11/28/23 11:10 MACK [id number]) Physical Therapy Daily Note/Assessment Time In 09:40 Time Out 10:13 Subjective Pt agreeable to PT this morning. Reports hip is sore at joint. Therapeutic Exercise Minutes (minutes) 8 Therapeutic Exercise Units 1 Therapeutic Exercise Treatment Instructed in B LE supine AAROM exs for improved mobility and strength 10x ea with AP, QS, knee flexion, hip add/abd slides. Therapeutic Activity Minutes (minutes) 15 Therapeutic Activity Units 1 Bed Mobility Ability Maximum Assist,2 Person Assist Therapeutic Activity Comments Pt transfers supine to sit Max A x2. Sit to stand transfer Max A x2 with feet blocked and holding RW steady as pt pulls himself up with RW. Once standing pt is Min A to keep balance, several cues with weight shifting to try and advance R LE. Pt struggles and only able to move minimally, takes seated rest breaks and tries again with same outcome. Knees buckle at times and pt struggles to weight bear thru arms. Pt sits bedside unsupported and remains sitting with SREEDHAR Lujan permission and bed alarm on. Pt's sister is in room. Total Therapy Minutes 23 Total Physical Therapy Units [address] Lara enters room during rx and confirms pt did have a stroke, repeat CT scan confirmed this. Plan is for pt to go to rehab possibly later today. Pt struggles to ambulate due to weakness in B LEs and UEs. Pt will benefit from rehab stay due to weakness and pain restricting mobility as well.
[2023-11-28] MEDS: INSULIN ASPART 300 UNIT/3 ML PEN SUBQ ×2 (12:18→17:47)
--- NOTE | 2023-11-28 14:10 | US_ITS ---
[address] [address] Patient Name: MIHIR WRIGHT MRN: [id number] date: 1960 Sex: M Assigned Patient Location: MS Current Patient Location: MS Accession/Order Number: [id number] Exam Date: 11/28/2023 14:50 Report Date: 11/28/2023 15:41 At the request of: SHAIKH ZAHEER Procedure: US carotid duplex BI EXAMINATION: US carotid duplex BI HISTORY: CVA COMPARISON: No relevant comparison available. TECHNIQUE: Duplex Doppler ultrasound analysis of carotid and vertebral arteries. . Bilateral carotid arterial duplex examination was performed using B-mode, color flow and spectral analysis. Carotid stenosis is reported according to validated velocity parameters, similar to NASCET criteria. FINDINGS: RIGHT CAROTID ARTERY Mild plaque Subclavian: 143.69 cm/s / 0 cm/s CCA: Prox: 148.48 cm/s / 13.71 cm/s Mid: 81.10 cm/s / 18.36 cm/s Distal: 58.11 cm/s / 11.52 cm/s BULB: 39.08 cm/s / 10.61 cm/s ICA: Prox: 65.87 cm/s / 17.99 cm/s Mid: 78.81 cm/s / 24.46 cm/s Distal: 99.98 cm/s / 28.91 cm/s ECA: 93.50 cm/s / 7.91 cm/s VERTEBRAL: 47.15 cm/s / 11.98 cm/s ICA/CCA ratio: 0.7 LEFT CAROTID ARTERY Moderate Plaque, 76.1% area reduction proximal ICA Subclavian: 161 m/s / 0 cm/s CCA: Prox: 133.52 cm/s / 22.02 cm/s Mid: 85.73 cm/s / 18.35 cm/s Distal: 64.58 cm/s / 12.81 cm/s BULB: 35.52 cm/s / 7.76 cm/s ICA: Prox: 35.52 cm/s / 6.33 cm/s Mid: 178.69 cm/s / 39.27 cm/s Distal: 160.10 cm/s / 29.98 cm/s ECA: 88.69 cm/s / 7.92 cm/s VERTEBRAL: 48.25 cm/s / 11.98 cm/s ICA/CCA ratio: 1.3 Left thyroid nodule measuring 2.8 cm US/US carotid duplex BI IMPRESSION: 76% flow stenosis measured in the proximal left internal carotid artery Spectral Doppler US Thresholds (Reference: Buck EG, et al. Radiology 2000; 214:247-252) Stenosis (%) PSV (cm/sec) VICA/VCCA 0-49 <150 <2.5 50-69 150-225 2.5-4.0 >70 >225 >4.0 Electronically authenticated by: MACARIO JORDAN Date: 11/28/2023 15:41
--- NOTE | 2023-11-28 14:44 | SWNOTE1 ---
SW spoke to doctor and pt can be dc without telestroke seeing him again, but will need outpt follow up. HAZEL went ahead and set up stretcher transport with [facility] at 4:00. HAZEL notified nursing and doctor. HAZEL then received a message that pt does need carotid US and transport will need pushed back and we have to see what that shows. HAZEL called [facility] back and moved transport to 9:00pm. HAZEL notified nursing of time and [facility] of time. SW to take packet to floor prior to leaving and will fill out [facility] form. Nursing may have to send final dc orders to [facility].
--- NOTE | 2023-11-28 15:46 | SWNOTE1 ---
[facility] is set for 9:00pm. SW completed HENS. SW left phone number for nursing to call [facility] and [facility] if discharge gets cancelled.
--- NOTE | 2023-11-28 16:09 | P.DS_ITS ---
DS: Providers Provider Date of admission: 11/24/23 13:14 Primary care physician: Non-Staff PhysicianMD Admitting clinician: Shaikh Jane Attending physician on admission: Shaikh Jane Consults: 11/24/23 12:52 Occupational Therapy Eval and Treat Routine Reason for consultation: Ambulatory dysfunction/weakness Physical Therapy Eval and Treat Routine Reason for consultation: Ambulatory dysfunction/weakness 11/24/23 12:54 Consult to Orthopedics Routine Consulting Provider: Yefri Franco Reason for consultation: Hip Fracture 11/25/23 22:58 Occupational Therapy Eval and Treat Routine Reason for consultation: weakness, hip fx Physical Therapy Eval and Treat Routine Reason for consultation: weakness, hip fx 11/26/23 14:14 Consult to Telestroke Routine Reason for consultation: Stroke 11/26/23 15:46 Consult to Podiatry Routine Consulting Provider: Yefri Franco Reason for consultation: Draining right plantar foot wound Has provider been notified: No Attending physician on discharge: Shaikh Jane Discharging clinician: Shaikh Jane Anticipated date of discharge: 11/28/23 DS: Diagnosis Discharge Diagnosis (1) Acute ischemic stroke: (2) Carotid artery disease: Qualifiers: Carotid artery disease type: stenosis Laterality: bilateral Qualified Code(s): I65.23 - Occlusion and stenosis of bilateral carotid arteries (3) Fracture of right hip: Qualifiers: Encounter type: subsequent encounter Fracture type: closed Fracture healing: with routine healing Qualified Code(s): S72.001D - Fracture of unspecified part of neck of right femur, subsequent encounter for closed fracture with routine healing (4) Accidental fall: Qualifiers: Encounter type: subsequent encounter Qualified Code(s): W19.XXXD - Unspecified fall, subsequent encounter (5) CAD (coronary artery disease): Qualifiers: Coronary Disease-Associated Artery/Lesion type: [place] artery [place] transplanted heart: [place] heart Associated angina: without angina Qualified Code(s): I25.10 - Atherosclerotic heart disease of [place] coronary artery without angina pectoris (6) Chronic respiratory failure with hypoxia: (7) COPD (chronic obstructive pulmonary disease): Qualifiers: COPD type: unspecified COPD Qualified Code(s): J44.9 - Chronic obstructive pulmonary disease, unspecified (8) Hypertension: Qualifiers: Hypertension type: primary hypertension Qualified Code(s): I10 - Essential (primary) hypertension (9) Pre-operative clearance: (10) Diabetes: Qualifiers: Diabetes mellitus type: type 2 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 He was found to have right intertrochanteric femoral fracture for which she was admitted to the hospital. He was also found to have hypoxia with no evidence of respiratory distress or active bronchospasm. This i s likely chronic and he will need home oxygen upon discharge. Upon arrival, he was also found to have poorly controlled blood pressure and required initiation of the new blood pressure medications to optimize him for surgery. After surgery he was recovering well and doing well but then he had an episode of left-sided weakness, facial asymmetry and dysarthria for which stroke workup was ordered including CT head, echocardiogram, CTA head and neck, carotid ultrasound. MRI could not be performed because of his recent surgery. His symptoms resolved quickly but his CT head revealed multiple old infarcts along with possible new stroke on repeat CT head. Carotid ultrasound and CTA head and neck revealed bilateral carotid artery disease and it was suspected that his neurological symptoms were likely because of low blood pressure postoperatively with hemodynamically significant carotid artery disease. Patient was started on aspirin, Plavix, Lipitor. For his COPD he will be discharged on Trelegy once daily along with albuterol as needed. His A1c was 5.8 and his blood glucose were well-controlled. He will need oral metformin twice a day for his type 2 diabetes. For his high blood pressure will discharge him on losartan hydrochlorothiazide. He will need blood pressure monitoring as outpatient and will need adjustment in his blood pressure medications. Stroke neurology will order an event monitor for him as outpatient. He will be followed up by vascular neurology in 4 weeks. Patient needs to follow-up with PCP in 1 to 2 weeks and also with pulmonology for 4 to 6 weeks for COPD and chronic respiratory failure with hypoxia He has also not followed up with cardiology for a few years and will benefit from outpatient cardiology follow-up and possible stress test given his prior history of coronary artery disease/abnormal EKG. Status at Discharge Functional status at discharge: uses cane/walker Overall status at discharge: patient is progressing back to baseline Time Spent with Patient Time attestation: Total time spent providing and/or coordinating discharge services: Time spent: greater than 30 minutes Exam Constitutional Vital Signs, click to edit/add: Last Vital Signs Temp 98.5 F 11/28/23 06:00 Pulse 81 11/28/23 15:59 Resp 18 11/28/23 13:30 BP 129/65 11/28/23 13:30 Pulse Ox 94 L 11/28/23 15:40 O2 Del Method Nasal Cannula 11/28/23 15:40 O2 Flow Rate 2 11/28/23 15:40 Documenting provider has reviewed patient's vital signs: yes Common normals: no apparent distress and oriented x3 General appearance: cooperative Respiratory Common normals: normal respiratory effort and clear to auscultation bilaterally Effort & inspection: able to speak in complete sentences Other: Productive cough noted during exam Cardio Common normals: regular rate, S1 normal heart sound and S2 normal heart sound Rate: regular rate Heart sounds: S1 normal and S2 normal Extremity Common normals: no clubbing, cyanosis or edema Neuro Common normals: oriented x3, moves all extremities and no focal motor deficits Psych Common normals: mental status grossly normal, denies hallucinations, denies homicidal ideation and denies suicidal ideation DS: Data Data Completed and Pending Labs on day of discharge: Labs from last 24 hours 11/28/23 11/28/23 11/27/23 11:13 06:03 20:23 WBC 11.2 H RBC 3.04 L Hgb 9.3 L Hct 28.3 L MCV 93.1 MCH 30.6 MCHC 32.9 RDW 12.7 Plt Count 235 MPV 8.9 L Neut % (Auto) 67.1 Lymph % (Auto) 18.6 L [place] % (Auto) 11.1 Eos % (Auto) 2.5 Baso % (Auto) 0.3 Neut # (Auto) 7.5 H Lymph # (Auto) 2.1 [place] # (Auto) 1.3 H Eos # (Auto) 0.3 Baso # (Auto) 0.0 Abs Immat Gran (auto) 0.05 H Imm/Tot Granulo (auto) 0.4 Sodium 134 L Potassium 3.6 Chloride 99 Carbon Dioxide 27.2 Anion Gap 11.4 BUN 14.0 Creatinine 0.54 L Est GFR ( Amer) >60 Est GFR (Non-Af Amer) >60 BUN/Creatinine Ratio 25.9 Glucose 104 Calcium 7.9 L Total Bilirubin 1.0 AST 20 ALT 16 Alkaline Phosphatase 78 Total Protein 5.4 L Albumin 2.3 L Globulin 3.1 Albumin/Globulin Ratio 0.7 POC Glucose 236 H 421 H 11/27/23 16:20 WBC RBC Hgb Hct MCV MCH MCHC RDW Plt Count MPV Neut % (Auto) Lymph % (Auto) [place] % (Auto) Eos % (Auto) Baso % (Auto) Neut # (Auto) Lymph # (Auto) [place] # (Auto) Eos # (Auto) Baso # (Auto) Abs Immat Gran (auto) Imm/Tot Granulo (auto) Sodium Potassium Chloride Carbon Dioxide Anion Gap BUN Creatinine Est GFR ( Amer) Est GFR (Non-Af Amer) BUN/Creatinine Ratio Glucose Calcium Total Bilirubin AST ALT Alkaline Phosphatase Total Protein Albumin Globulin Albumin/Globulin Ratio POC Glucose 202 H Discharge Plan Discharge Disposition: Xfer SNF Condition: Fair Discharge Medications: New aspirin 81 mg tablet,chewable 81 mg PO DAILY Qty: 30 0RF clopidogrel [Plavix] 75 mg tablet 75 mg PO DAILY Qty: 30 0RF atorvastatin [Lipitor] 40 mg tablet 40 mg PO DAILY Qty: 30 0RF losartan-hydrochlorothiazide 50-12.5 mg tablet 1 tab PO DAILY Qty: 30 0RF albuterol sulfate 90 mcg/actuation HFA aerosol inhaler 2 inh inhalation Q6H PRN (Reason: shortness of breath or wheezing) Qty: 6.7 0RF Trelegy Ellipta 200-62.5-25 mcg blister with device 1 inh inhalation DAILY Qty: 28 0RF metformin 500 mg tablet 500 mg PO BID Qty: 60 0RF Print Language: [place] Forms: Portal Instructions Follow Up Appointments: @ 3:20pm with Dr. Franco [address] [place], [place] [address], [place] [phone] F/u Vascular Neurology at [facility] in 4 weeks F/u with PCP in 1-2 weeks. F/u Pulmonology in 4-6 weeks
[2023-11-28 16:17] LABS: Glucometer 162 mg/dL (74-106)
[2023-11-28] MEDS: DOCUSATE SODIUM 100 MG CAPSULE PO (20:14)
--- NOTE | 2023-12-07 09:09 | SWNOTE1 ---
HAZEL received a call from pt's daughter, Chichi, with concerns that pt is being discharged from the [facility]. HAZEL called daughter back. She stated she spoke to Shelby at [facility], the health and social care teacher, and pt's insurance is cutting him and he is being discharged on Monday. She had concerns about him going home and not being ready. She stated she called his insurance and they told her he has 100 skilled days that are covered, 21 of them completly by Medicare and the rest there would be a co-pay. She stated Shelby told her if he stays past Monday it would be out of pocket. HAZEL explained to the daughter that Shelby is correct that it is possible that his insurance is cutting him and feels he is ready for discharge home. He does have 100 skilled days, but if he is improving and his insurance feels he is safe to go home, then they can cut him at anytime. HAZEL also let her know that they can appeal his discharge with his insurance and that Shelby should have information on this. HAZEL advised her to call Shelby, Nae, or Blair to try and appeal his discharge. She voiced understanding and will call.
== END 2023-11-28 21:09 | DRG 480 ==
LOC: ER 13:04 → MS 13:18 → ICU 11-26 13:53 → MS 11-27 17:36
PROVIDERS: Student in an Organized Health Care Education/Training Program; Admitting Provider Internal Medicine; Emergency Provider Emergency Medicine; Visit Provider Internal Medicine
PROC: 0QS636Z Reposition Right Upper Femur with Intramedullary Internal Fixation Device, Percutaneous Approach (ICD-10-PCS; principal; 2023-11-25 09:00)
DX: S72.141A Displaced intertrochanteric fracture of right femur, initial encounter for closed fracture (principal); I63.9 Cerebral infarction, unspecified; J96.11 Chronic respiratory failure with hypoxia; I65.23 Occlusion and stenosis of bilateral carotid arteries; I25.10 Atherosclerotic heart disease of native coronary artery without angina pectoris; I10 Essential (primary) hypertension; D72.823 Leukemoid reaction; E11.9 Type 2 diabetes mellitus without complications; E78.5 Hyperlipidemia, unspecified; F17.200 Nicotine dependence, unspecified, uncomplicated; J44.9 Chronic obstructive pulmonary disease, unspecified; R94.31 Abnormal electrocardiogram [ECG] [EKG]; T50.916A Underdosing of multiple unspecified drugs, medicaments and biological substances, initial encounter; W01.0XXA Fall on same level from slipping, tripping and stumbling without subsequent striking against object, initial encounter; Z91.128 Patient's intentional underdosing of medication regimen for other reason; Z95.1 Presence of aortocoronary bypass graft
CPT/HCPCS: 36415; 51702; 70450; 70496; 70498; 71045; 73030; 73502; 73552; 76000; 80048; 80053; 80061; 80076; 80307; 80320; 81001; 82948; 83036; 83880; 84484; 85025; 93005; 93306; 93880; 94640; 94667; 94668; 94761; 96374; 97110; 97112; 97161; 97165; 97530; 97535; 99285; 99406; C1713; C1776; J0360; J0665; J0690; J1170; J1650; J2250; J2270; J2371; J2405; J2704; J2710; J3010; Q9967

== ENCOUNTER 2023-12-11 12:48 | Outpatient (OUT) | payer MEDICARE, SELFPAY ==
--- NOTE | 2023-12-11 | XR_ITS ---
The [address] [address] Patient Name: MIHIR WRIGHT MRN: [id number] date: 1960 Sex: M Assigned Patient Location: Current Patient Location: Accession/Order Number: [id number] Exam Date: 12/11/2023 14:57 Report Date: 12/12/2023 08:19 At the request of: SAURAV DICKSON Procedure: XR hip RT 2V w/ pelvis PROCEDURE: XR hip RT 2V w/ pelvis COMPARISON: 11/25/2023 HISTORY: RIGHT HIP AND PELVIS PAIN FINDINGS: BONES:Stable complex right intertrochanteric hip fracture with internal fixation utilizing an intra-. Intramedullary nail and dynamic compression screw SOFT TISSUES:Negative. No visible soft tissue swelling. EFFUSION:None visible. OTHER: Negative. XR/XR hip RT 2V w/ pelvis IMPRESSION: Stable complex right intertrochanteric hip fracture with internal fixation Electronically authenticated by: MACARIO JORDAN Date: 12/12/2023 08:19
--- OUTSIDE RECORDS SUMMARY | 2023-12-11 13:08 | XMS_ITS | CCD ---
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 Name Role Phone BUFFY SPARKS Admitting Unavailable BUFFY SPARKS Attending Unavailable BUFFY SPARKS Primary Care Unavailable BUFFY SPARKS Consulting Unavailable BUFFY SPARKS Primary Care Unavailable SAMIGNACIO MÉNDEZ Admitting Unavailable SAMIGNACIO MÉNDEZ Attending Unavailable MACARIO JORDAN V Consulting Unavailable SETH MCKINNEY Consulting Unavailable OLIVE SANCHEZ Consulting Unavailable IGNACIO TALAVERA Consulting Unavailable KASIA FOSTER Consulting Unavailable Macario Dunne Admitting Unavailable Macario Dunne Attending Unavailable NO FAMILY, PHYSICIAN Primary Care Unavailable Problems Problem Classification Problem Date Documented Date Episodic/Chronic Adverse effects of medical drugs (1 source) Adverse effect of glucocorticoids and synthetic analogues, initial encounter; 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: [ADVRS EFF GLUCOCORT SYN ANALOG INIT] Onset: 07-16-2019 Chronic obstructive pulmonary disease and bronchiectasis (3 sources) Chronic obstructive pulmonary disease with (acute) exacerbation; 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: [Chronic obstructive pulmonary disease with acute lower respiratory infection] Onset: 12-17-2018 Chronic Complication of device; implant or graft (1 source) Atherosclerosis of coronary artery bypass graft(s), unspecified, with unspecified angina pectoris; 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: [ATS CABG UNS W/UNS ANGINA PECTORIS] Onset: 07-16-2019 Chronic Coronary atherosclerosis and other heart disease (2 sources) Ischemic cardiomyopathy; 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: [Old myocardial infarction] Onset: 07-16-2019 Chronic Coronary atherosclerosis and other heart disease (1 source) Presence of aortocoronary bypass graft; 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: [PRESENCE AORTOCORONARY BYPASS GRAFT] Onset: 07-16-2019 Episodic Crushing injury or internal injury (1 source) Contusion of lung, unspecified, initial encounter; 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: [CONTUSION LUNG UNSPECIFIED INITIAL] Onset: 07-16-2019 Episodic Diabetes mellitus with complications (5 sources) Type 2 diabetes mellitus with hyperglycemia; 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: [TYPE 2 DM W/HYPERGLYCEMIA] Onset: 12-13-2018 Chronic Disorders of lipid metabolism (1 source) Hyperlipidemia, unspecified; 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: [HYPERLIPIDEMIA UNSPECIFIED] Onset: 07-16-2019 Chronic Esophageal disorders (1 source) Gastro-esophageal reflux disease without esophagitis; 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: [GERD WITHOUT ESOPHAGITIS] Onset: 12-17-2018 Chronic Essential hypertension (1 source) Essential (primary) hypertension; 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: [ESSENTIAL PRIMARY HYPERTENSION] Onset: 07-16-2019 Chronic External cause codes: Fall (1 source) Unspecified fall, initial encounter; 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: [UNSPECIFIED FALL INITIAL ENCOUNTER] Onset: 07-16-2019 Other aftercare (1 source) care home (current) use of aspirin; 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: [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] Onset: 07-16-2019 Episodic Other aftercare (1 source) 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; 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: [MCFP USE ORAL HYPOGLYCEMIC DX] Onset: 07-16-2019 Other eye disorders (1 source) Ischemic optic neuropathy, left eye; 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: [Ischemic optic neuropathy, left eye] Onset: 01-31-2020 Chronic Other fractures (1 source) Multiple fractures of ribs, left side, initial encounter for closed fracture; 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: [MX FX RIBS LT SIDE INITIAL CLOS FX] Onset: 07-16-2019 Episodic Other nervous system disorders (1 source) Chronic pain syndrome; 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: [CHRONIC PAIN SYNDROME] Onset: 07-16-2019 Chronic Other nutritional; endocrine; and metabolic disorders (1 source) Body mass index (BMI) 31.0-31.9, adult; 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: [BODY MASS INDEX BMI 31.0-31.9 ADULT] Onset: 07-16-2019 Chronic Other nutritional; endocrine; and metabolic disorders (1 source) Obesity, unspecified; 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: [OBESITY UNSPECIFIED] Onset: 07-16-2019 Chronic Other screening for suspected conditions (not mental disorders or infectious disease) (2 sources) Encounter for screening for malignant neoplasm of rectum; 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: [Encounter for screening for malignant neoplasm of prostate] Onset: 07-16-2019 Episodic Other upper respiratory disease (1 source) Other seasonal allergic rhinitis; 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: [OTHER SEASONAL ALLERGIC RHINITIS] Onset: 07-16-2019 Chronic Peripheral and visceral atherosclerosis (1 source) Atherosclerosis of aorta; 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: [ATHEROSCLEROSIS OF AORTA] Onset: 07-16-2019 Chronic Pneumonia (except that caused by tuberculosis or sexually transmitted disease) (3 sources) Pneumonia, unspecified organism; 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: [PNEUMONIA UNSPECIFIED ORGANISM] Onset: 12-15-2018 Episodic Residual codes; unclassified (1 source) Personal history of other specified conditions; 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: [PERSONAL HISTORY OTH SPEC CONDITION] Onset: 07-16-2019 Episodic Respiratory failure; insufficiency; arrest (adult) (1 source) Acute respiratory failure with hypoxia; 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: [ACUTE RESPIRATORY FAIL W/HYPOXIA] Onset: 07-16-2019 Episodic Spondylosis; intervertebral disc disorders; other back problems (1 source) Radiculopathy, lumbosacral region; 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: [RADICULOPATHY LUMBOSACRAL REGION] Onset: 07-16-2019 Episodic Substance-related disorders (1 source) Nicotine dependence, cigarettes, uncomplicated; 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: [NICOTINE DEPEND CIGARETTES UNCOMP] Onset: 07-16-2019 Chronic Results Test Name Value Interpretation Reference Range Facil ity CBC AUTO DIFFon 12-17-2018 Basophils (Bld) [#/Vol] 0.0 103/ul Normal 0.0-0.1 [facility] Comment on above: Performed By: #### M ALBR #### [facility] [address], [place] [address] Hellen Lilian Basophils/100 WBC (Bld) 0.2 % Normal 0.2-2.0 [facility] Comment on above: Performed By: #### M ALBR #### [facility] [address], [place] [address] Hellen Lilian Eosinophils (Bld) [#/Vol] 0.0 103/ul Normal 0.0-0.7 [facility] Comment on above: Performed By: #### M ALBR #### [facility] [address], [place] [address] Hellen Lilian Eosinophils/100 WBC (Bld) 0.1 % Critically low 0.9-7.0 [facility] Comment on above: Performed By: #### M ALBR #### [facility] [address], [place] [address] Hellen Lilian Erythrocyte distribution width (RBC) [Ratio] 11.8 % Normal 11.0-15.0 [facility] Comment on above: Performed By: #### M ALBR #### [facility] [address] [place], [place] [id number] Hellen Lilian Hematocrit (Bld) [Volume fraction] 48.3 % Normal 42.0-54.0 [facility] Comment on above: Performed By: #### M ALBR #### [facility] [address] [place], [place] [id number] Hellen Lilian Hemoglobin (Bld) [Mass/Vol] 16.1 g/dL Normal 14.0-18.0 [facility] Comment on above: Performed By: #### M ALBR #### [facility] [address] [place] [address] Hellen Lilian IG # 0.12 10e3/ul Critically high 0.00-0.03 [facility] Comment on above: Performed By: #### M ALBR #### [facility] [address] [place] [address] Hellen Lilian IG % 0.6 % Critically high 0.0-0.5 [facility] Comment on above: Performed By: #### M ALBR #### [facility] [address] [place] [address] Hellen Lilian Lymphocytes (Bld) [#/Vol] 2.5 103/ul Normal 1.2-3.8 [facility] Comment on above: Performed By: #### M ALBR #### [facility] [address] [place], [place] [id number] Hellen Lilian Lymphocytes/100 WBC (Bld) 11.6 % Critically low 20.5-60.0 [facility] Comment on above: Performed By: #### M ALBR #### [facility] [address] [place], [place] [id number] Hellen Lilian MANUAL DIFF REQ NO Normal [facility] Comment on above: Performed By: #### M ALBR #### [facility] [address] [place], [place] [id number] Hellen Lilian MCH (RBC) [Entitic mass] 30.7 pg Normal 25.9-34.0 [facility] Comment on above: Performed By: #### M ALBR #### [facility] [address] [place], [place] [id number] Hellen Lilian MCHC (RBC) [Mass/Vol] 33.3 g/dL Normal 29.9-35.2 [facility] Comment on above: Performed By: #### M ALBR #### [facility] [address] [place], [place] [id number] Hellengerald Lezamaen MCV (RBC) [Entitic vol] 92.0 fL Normal 80.0-94.0 [facility] Comment on above: Performed By: #### M ALBR #### [facility] [address] [place] [address] Hellen Lilian Monocytes (Bld) [#/Vol] 1.5 103/ul Critically high 0.3-0.8 [facility] Comment on above: Performed By: #### M ALBR #### [facility] [address] [place] [address] Hellen Lilian Monocytes/100 WBC (Bld) 6.7 % Normal 1.7-12.0 [facility] Comment on above: Performed By: #### M ALBR #### [facility] [address] [place] [address] Hellen Lilian Neutrophils (Bld) [#/Vol] 17.4 103/ul Critically high 1.4-6.5 [facility] Comment on above: Performed By: #### M ALBR #### [facility] [address] [place] [address] Hellen Lilian Neutrophils/100 WBC (Bld) 80.8 % Critically high 43.0-75.0 [facility] Comment on above: Performed By: #### M ALBR #### [facility] [address] [place], [place] [id number] Hellengerald Lezamaen Platelet mean volume (Bld) [Entitic vol] 10.2 fL Normal 9.5-13.5 [facility] Comment on above: Performed By: #### M ALBR #### [facility] [address] [place], [place] [address] Hellen Lilian Platelets (Bld) [#/Vol] 262 103/ul Normal 150-450 [facility] Comment on above: Performed By: #### M ALBR #### [facility] [address] [place], [place] [id number] Hellen Lilian RBC (Bld) [#/Vol] 5.25 106/ul Normal 4.70-6.10 [facility] Comment on above: Performed By: #### M ALBR #### [facility] [address] [place], [place] [id number] Hellen Lilian WBC (Bld) [#/Vol] 21.6 103/ul Critically high 4.0-11.0 [facility] Comment on above: Performed By: #### M ALBR #### [facility] [address] [place], [place] [id number] Hellen Lilian PROF CHEM 8 (BAS METB)on Anion gap [Moles/Vol] 10.9 mmol/L Normal Th [facility] Comment on above: Performed By: #### M ALBR #### [facility] [address] [place], [place] [address] Hellen Lilian Calcium [Mass/Vol] 9.6 mg/dL Normal 8.4-10.2 [facility] Comment on above: Performed By: #### M ALBR #### [facility] [address] [place], [place] [address] Hellen Lilian Chloride [Moles/Vol] 96 mmol/L Critically low 98-107 [facility] Comment on above: Performed By: #### M ALBR #### [facility] [address] [place], [place] [address] Hellen Lilian CO2 [Moles/Vol] 32.9 mmol/L Critically high 22.0-30.0 [facility] Comment on above: Performed By: #### M ALBR #### [facility] [address] [place], [place] [address] Hellen Lilian Creatinine [Mass/Vol] 0.84 mg/dL Normal 0.66-1.25 [facility] Comment on above: Performed By: #### M ALBR #### [facility] [address] [place] [id number] Hellen Lilian EGFR-AF COOK ISLANDER >60 Normal >=60 [facility] Comment on above: Performed By: #### M ALBR #### [facility] [address] [place] [id number] Hellen Lilian EGFR-NON AF [place] ISLANDER >60 Normal >=60 [facility] Comment on above: Performed By: #### M ALBR #### [facility] [address] [place] [address] Hellen Lilian Glucose [Mass/Vol] 301 mg/dL Critically high 74-106 [facility] Comment on above: Performed By: #### M ALBR #### [facility] [address] [place] [address] Hellen Lilian Potassium [Moles/Vol] 3.8 mmol/L Normal 3.4-5.0 [facility] Comment on above: Performed By: #### M ALBR #### [facility] [address] [place] [address] Hellen Lilian Sodium [Moles/Vol] 136 mmol/L Critically low 137-145 Th [facility] Comment on above: Performed By: #### M ALBR #### [facility] [address] [place], [place] [id number] Hellen Lilian Urea nitrogen [Mass/Vol] 15.0 mg/dL Normal 9.0-20.0 [facility] Comment on above: Performed By: #### M ALBR #### [facility] [address] [place] [address] Hellen Lilian Urea nitrogen/Creatinine [Mass ratio] 17.9 mg/mg Normal [facility] Comment on above: Performed By: #### M ALBR #### [facility] [address] [place], [place] [address] Hellen Lilian XR CHEST 2 Von 12-17-2018 XR CHEST 2 V Patient: MIHIR WRIGHT Exam Date: 12/17/2018 : 1960 Gender:M Ordering : DR OLIVE SANCHEZ . Admission #: [id number] Family : DR. IGNACIO TALAVERA . Order #: [id number] CLICK HERE TO VIEW EXAM RADIOLOGY REPORT PROCEDURE: RADIOGRAPH CHEST 2 VIEWS COMPARISON: XR RIBS LT PA CH, 12/14/2018. INDICATIONS: Acute shortness of breath; subsequent imaging FINDINGS: LUNGS: Mild stranding within the medial lung bases. Lungs are hyperexpanded with mild chronic interstitial changes. VASCULATURE: No increased pulmonary vasculature. PLEURA: No pneumothorax, effusion, or pleural thickening. CARDIAC: No cardiomegaly or cardiac silhouette abnormality. MEDIASTINUM: No visible mass or adenopathy. BONES: No fracture or visible bone lesion. OTHER: Prior sternotomy. CONCLUSION: 1. Hyperexpanded lungs with trace amount of bibasilar infiltrates versus atelectasis. Dictated by: Seth Mckinney M.D. on 12/17/2018 at 07:27 Approved by: Seth Mckinney M.D. on 12/17/2018 at 07:28 Normal [facility] CBC W MANUAL DIFFon 12-17-19 19 ATYPICAL LYMPH # 0.69 103/ul Normal [facility] Comment on above: Performed By: #### U ACSKALEE UMICRO #### [facility] [address] [place] [address] Hellen Lilian ATYPICAL LYMPH % 3 % Normal [facility] Comment on above: Performed By: #### U ACSKALEE UMICRO #### [facility] [address] [place] [address] Hellen Lilian BAND # 0.0 103/ul Normal 0.0-0.3 [facility] Comment on above: Performed By: #### U ACSKALEE UMICRO #### [facility] [address] [place] [address] Hellen Lilian BAND % 0 % Normal 0-5 [facility] Comment on above: Performed By: #### U ACSKALEE UMICRO #### [facility] [address] [place] [address] Hellen Lilian BASOM # 0.00 103/ul Normal 0.00-0.10 [facility] Comment on above: Performed By: #### U ACSKALEE UMICRO #### [facility] [address] [place] [address] Hellen Lilian BASOM % 0.0 % Critically low 0.2-2.0 [facility] Comment on above: Performed By: #### RADHA CASTELLANOS #### [facility] [address] [place] [address] Hellen Lilian BLAST # Normal [facility] Comment on above: Performed By: #### RADHA CASTELLANOS #### [facility] [address] [place] [address] Hellen Lilian BLAST % Normal [facility] Comment on above: Performed By: #### RADHA CASTELLANOS #### [facility] [address] [place] [address] Hellen Lilian CORRECTED WBC Normal 4.0-11.0 [facility] Comment on above: Performed By: #### RADHA CASTELLANOS #### [facility] [address] [place] [address] Hellen Lilian Eosinophils (Bld) [#/Vol] 0.00 103/ul Normal 0.00-0.70 [facility] Comment on above: Performed By: #### RADHA CASTELLANOS #### [facility] [address] [place] [address] Hellen Lilian Eosinophils/100 WBC (Bld) 0.0 % Critically low 0.9-7.0 [facility] Comment on above: Performed By: #### RADHA CASTELLANOS #### [facility] [address] [place] [address] Hellen Lilian Erythrocyte distribution width (RBC) [Ratio] 11.7 % Normal 11.0-15.0 [facility] Comment on above: Performed By: #### RADHA CASTELLANOS #### [facility] [address] [place] [address] Hellen Lilian Hematocrit (Bld) [Volume fraction] 46.9 % Normal 42.0-54.0 [facility] Comment on above: Performed By: #### RADHA CASTELLANOS #### [facility] [address] [place] [id number] Hellen Lilian Hemoglobin (Bld) [Mass/Vol] 16.0 g/dl Normal 14.0-18.0 [facility] Comment on above: Performed By: #### U EVETTE UMICRO #### [facility] [address] [place] [address] Hellen Lilian LYMPHM # 0.46 103/ul Critically low 1.20-3.80 [facility] Comment on above: Performed By: #### U ACSKALEE UMICRO #### [facility] [address] [place] [address] Hellen Lilian LYMPHM% 2.0 % Critically low 20.5-60.0 [facility] Comment on above: Performed By: #### U ACSKALEE UMICRO #### [facility] [address] [place], [place] [address] Hellen Lilian MCH (RBC) [Entitic mass] 30.9 pg Normal 25.9-34.0 [facility] Comment on above: Performed By: #### U EVETTE UMICRO #### [facility] [address] [place] [address] Hellen Lilian MCHC (RBC) [Mass/Vol] 34.1 g/dl Normal 29.9-35.2 [facility] Comment on above: Performed By: #### U EVETTE UMICRO #### [facility] [address] [place], [place] [address] Hellen Lilian MCV (RBC) [Entitic vol] 90.7 fL Normal 80.0-94.0 [facility] Comment on above: Performed By: #### U ACSKALEE UMICRO #### [facility] [address] [place], [place] [address] Hellen Lilian METAMYELOCYTE # Normal [facility] Comment on above: Performed By: #### U ACSKALEE UMICRO #### [facility] [address] [place], [place] [address] Hellen Lilian METAMYELOCYTE % Normal [facility] Comment on above: Performed By: #### SANDRA CASTELLANOSICRO #### [facility] [address] [id number] Hellen Lilian MONOM# 0.23 103/ul Critically low 0.30-0.80 [facility] Comment on above: Performed By: #### ELVIRA CASTELLANOSRO #### [facility] [address] [id number] Hellen Lilian MONOM% 1.0 % Critically low 1.7-12.0 [facility] Comment on above: Performed By: #### SANDRA CASTELLANOSICRO #### [facility] [address] [place] [address] Hellen Lilain MYELOCYTE # Normal [facility] Comment on above: Performed By: #### SANDRA CASTELLANOSICRO #### [facility] [address] [place] [address] Hellen Lilian MYELOCYTE % Normal [facility] Comment on above: Performed By: #### SANDRA CASTELLANOSICRO #### [facility] [address] [place], [place] [address] Hellen Lilian NRBC Normal [facility] Comment on above: Performed By: #### ELVIRA CASTELLANOSRO #### [facility] [address] [place] [address] Hellen Lilina Platelet mean volume (Bld) [Entitic vol] 10.2 fL Normal 9.5-13.5 [facility] Comment on above: Performed By: #### SANDRA CASTELLANOSICRO #### [facility] [address] [place] [address] Hellen Lilian Platelets (Bld) [#/Vol] 258 103/ul Normal 150-450 [facility] Comment on above: Performed By: #### ELVIRA CASTELLANOSRO #### [facility] [address] [place] [id number] Hellen Lilian RBC (Bld) [#/Vol] 5.17 106/ul Normal 4.70-6.10 [facility] Comment on above: Performed By: #### U RADHA ALAS #### [facility] [address] [place] [address] Hellen Quintana SEG # 21.53 103/ul Critically high 1.40-6.50 [facility] Comment on above: Performed By: #### U ACSKALEE, ELVIRARO #### [facility] [address] [place] [address] Hellen Quintana Segmented neutrophils/100 WBC (Bld) 94.0 % Critically high 43.0-75.0 [facility] Comment on above: Performed By: #### U ACSKALEE, ELVIRARO #### [facility] [address] [place] [address] Hellen Quintana WBC (Bld) [#/Vol] 22.9 103/ul Critically high 4.0-11.0 [facility] Comment on above: Performed By: #### U EVETTE, RADHA #### [facility] [address] [place] [address] Hellen Quintana POINT OF CARE GLUCOSEon 11-28 Glucose [Mass/Vol] 368 mg/dL Critically high 74-106 [facility] Comment on above: Performed By: #### M ALBR #### [facility] [address] [place] [address] Hellen Lilian PROCALCITONINon 12-16-2018 PCT header 1 SEE BELOW Normal [facility] Comment on above: Result Comment: PCT <0.5ng/mL: Systemic infection (sepsis) is not likely, local bacterial infection possible, low risk for progression to severe systemic infection (severe sepsis) Performed By: #### M ALBR #### [facility] [address] [place] [address] Hellen Lilian PCT header 2 SEE BELOW Normal [facility] Comment on above: Result Comment: PCT >/=0.5 and <2 ng/mL: Systemic infection (sepsis) is possible, moderate risk for progression to severe systemic infection (severe sepsis) Performed By: #### M ALBR #### [facility] [address] [place] [address] Hellen Lilian PCT header 3 SEE BELOW Normal [facility] Comment on above: Result Comment: PCT >/=2.0 and <10 ng/mL: Systemic infection (sepsis) is likely, unless other causes are known, high risk for progession to severe systemic infection(severe sepsis) Performed By: #### M ALBR #### [facility] [address] [place] [address] Hellen Lilian PCT header 4 SEE BELOW Normal [facility] Comment on above: Result Comment: PCT >/= 10 ng/mL: Important systemic inflammatory response almost exclusively due to severe bacterial sepsis or septic shock, high likelihood of severe sepsis or septic shock Performed By: #### M ALBR #### [facility] [address] [place] [address] Hellen Lilian PROCALCITONIN <0.05 Normal 0.00-0.50 [facility] Comment on above: Performed By: #### M ALBR #### [facility] [address] [place] [address] Hellen Lilian PROF CHEM 8 (BAS METB)on Anion gap [Moles/Vol] 9.6 mmol/L Normal [facility] Comment on above: Performed By: #### M ALBR #### [facility] [address] [place] [address] Hellen Lilian Calcium [Mass/Vol] 9.8 mg/dL Normal 8.4-10.2 [facility] Comment on above: Performed By: #### M ALBR #### [facility] [address] [place] [address] Hellen Lilian Chloride [Moles/Vol] 95 mmol/L Critically low 98-107 [facility] Comment on above: Performed By: #### M ALBR #### [facility] [address] [place], [place] [id number] Hellen Lilian CO2 [Moles/Vol] 31.2 mmol/L Critically high 22.0-30.0 [facility] Comment on above: Performed By: #### M ALBR #### [facility] [address] [place], [place] [id number] Hellen Lilian Creatinine [Mass/Vol] 0.70 mg/dL Normal 0.66-1.25 [facility] Comment on above: Performed By: #### M ALBR #### [facility] [address], [place] [address] Hellen Lilian EGFR-AF [place]OOK ISLANDER >60 Normal >=60 [facility] Comment on above: Performed By: #### M ALBR #### [facility] [address], [place] [address] Hellen Lilian EGFR-NON AF [place] ISLANDER >60 Normal >=60 [facility] Comment on above: Performed By: #### M ALBR #### [facility] [address] [id number] Hellen Lilian Glucose [Mass/Vol] 293 mg/dL Critically high 74-106 T [facility] Comment on above: Performed By: #### M ALBR #### [facility] [address] [place] [address] Hellen Lilian Potassium [Moles/Vol] 3.8 mmol/L Normal 3.4-5.0 [facility] Comment on above: Performed By: #### M ALBR #### [facility] [address] [place], [place] [id number] Hellen Lilian Sodium [Moles/Vol] 132 mmol/L Critically low 137-145 Th [facility] Comment on above: Performed By: #### M ALBR #### [facility] [address] [place], [place] [id number] Hellen Lilian Urea nitrogen [Mass/Vol] 18.0 mg/dL Normal 9.0-20.0 [facility] Comment on above: Performed By: #### M ALBR #### [facility] [address] [place], [place] [id number] Hellen Lilian Urea nitrogen/Creatinine [Mass ratio] 25.7 mg/mg Normal [facility] Comment on above: Performed By: #### M ALBR #### [facility] [address] [place], [place] [id number] Hellen Lilian CT CHEST W CONon 12-15-2018 CT CHEST W CON Patient: MIHIR WRIGHTEric Exam Date: 12/15/2018 : 1960 Gender:M Ordering : DR OLIVE SANCHEZ . Admission #: [id number] Family : DR HERNANDEZBUFFYKEM SPARKS Order #: [id number] CLICK HERE TO VIEW EXAM RADIOLOGY REPORT PROCEDURE: CT CHEST WITH CONTRAST COMPARISON: CTA CHEST W CON, 11/13/2017. INDICATIONS: Acute left upper rib pain after fall, shortness of breath, cough TECHNIQUE: Multi-planar CT images were created with IV contrast. Axial, Coronal, and Sagittal images. DOSE: 738mGycm; 85cc Omnipaque 300 FINDINGS: LUNGS: Right lung volume loss, stable. Scattered ground-glass and soft tissue attenuation in both lungs with an upper lobe predominance. There is associated stable bronchiectasis. Scattered sub cm pulmonary nodules, unchanged. PLEURA: No mass, effusion, or pneumothorax. VASCULATURE: No abnormality LEATHA: No mass or adenopathy. MEDIASTINUM: No mass or adenopathy. CARDIAC: No enlargement, pericardial thickening, or significant calcification. AORTA: No aneurysm or dissection. CHEST WALL: No mass or axillary adenopathy. BONES: Subtle cortical discontinuity left anterior lateral 5th and 6th ribs LIMITED ABDOMEN: No suspicious findings. Limited images of the upper abdomen. OTHER: Negative. CONCLUSION: 1. Nondisplaced fractures left anterolateral 5th and 6th ribs 2. Scattered parenchymal opacities nodules and bronchiectasis, grossly stable Dictated by: Macario Jordan M.D. on 12/15/2018 at 11:57 Approved by: Macario Jordan M.D. on 12/15/2018 at 12:07 Normal [facility] CULTURE SPUTUMon 12-15-2018 CULTURE SPUTUM Culture Observations: Normal respiratory yuki. Normal [facility] Comment on above: Performed By: #### A 1C #### [facility] [address], [place] [address] Hellen Lilian POINT OF CARE GLUCOSEon 11-27 Glucose [Mass/Vol] 284 mg/dL Critically high 74-106 [facility] Comment on above: Performed By: #### U ACSRADHA GRANDA #### [facility] [address], [place] [address] Hellen Lilian Glucose [Mass/Vol] 339 mg/dL Critically high 74-106 [facility] Comment on above: Performed By: #### M ALBR #### [facility] [address] [place] [address] Hellen Lilian PROCALCITONINon 12-15-2018 PCT header 1 SEE BELOW Normal [facility] Comment on above: Result Comment: PCT <0.5ng/mL: Systemic infection (sepsis) is not likely, local bacterial infection possible, low risk for progression to severe systemic infection (severe sepsis) Performed By: #### U EVETTE UMICRO #### [facility] [address] [address] Hellen Lilian PCT header 2 SEE BELOW Normal [facility] Comment on above: Result Comment: PCT >/=0.5 and <2 ng/mL: Systemic infection (sepsis) is possible, moderate risk for progression to severe systemic infection (severe sepsis) Performed By: #### U ACSKALEE UMICRO #### [facility] [address] [place] [address] Hellen Lilian PCT header 3 SEE BELOW Normal [facility] Comment on above: Result Comment: PCT >/=2.0 and <10 ng/mL: Systemic infection (sepsis) is likely, unless other causes are known, high risk for progession to severe systemic infection(severe sepsis) Performed By: #### U EVETTE UMICRO #### [facility] [address] [place] [address] Hellen Lilian PCT header 4 SEE BELOW Normal [facility] Comment on above: Result Comment: PCT >/= 10 ng/mL: Important systemic inflammatory response almost exclusively due to severe bacterial sepsis or septic shock, high likelihood of severe sepsis or septic shock Performed By: #### U EVETTE UMICRO #### [facility] [address] [place] [address] Hellen Lilian PROCALCITONIN <0.05 Normal 0.00-0.50 [facility] Comment on above: Performed By: #### U ELVIRA ALASRO #### [facility] [address] [place] [address] Hellen Lilian SPUTUM GRAM STAINon 12-16-19 19 COMMENTS Normal [facility] Comment on above: Performed By: #### M ALBR #### [facility] [address] [address] Hellen Lilian DIPHTHEROIDS Normal [facility] Comment on above: Performed By: #### M ALBR #### [facility] [address] [address] Hellen Lilian EPITHELIALS <25 Normal [facility] Comment on above: Performed By: #### M ALBR #### [facility] [address] [address] Hellen Lilian FUNGAL ELEMENTS Normal [facility] Comment on above: Performed By: #### M ALBR #### [facility] [address] [address] Hellen Lilian GRAM NEG BACILLI Normal [facility] Comment on above: Performed By: #### M ALBR #### [facility] [address] [place] [address] Hellen Lilian GRAM NEG DIPPLOCOCCI Normal [facility] Comment on above: Performed By: #### M ALBR #### [facility] [address] [address] Hellen Lilian GRAM POS BACILLI Normal [facility] Comment on above: Performed By: #### M ALBR #### [facility] [address] [place] [address] Hellen Lilian GRAM POSITIVE COCCI RARE Normal [facility] Comment on above: Performed By: #### M ALBR #### [facility] [address] [address] Hellen Lilian WBC (Bld) [#/Vol] 10*3/uL Normal [facility] Comment on above: Performed By: #### M ALBR #### [facility] [address] [place] [address] Hellen Lilian BNPon 12-14-2018 Natriuretic peptide B (Bld) [Mass/Vol] 149.0 pg/mL Normal <=900.0 [facility] Comment on above: Performed By: #### U ACSRADHA GRANDA #### [facility] [address] [address] Hellen Lilian CBC AUTO DIFFon 12-14-2018 Basophils (Bld) [#/Vol] 0.0 103/ul Normal 0.0-0.1 [facility] Comment on above: Performed By: #### ELVIRA CASTELLANOSRO #### [facility] [address] [place] [address] Hellen Lilian Basophils/100 WBC (Bld) 0.3 % Normal 0.2-2.0 [facility] Comment on above: Performed By: #### SANDRA CASTELLANOSICRO #### [facility] [address] [place] [address] Hellen Lilian Eosinophils (Bld) [#/Vol] 0.5 103/ul Normal 0.0-0.7 [facility] Comment on above: Performed By: #### ELVIRA CASTELLANOSRO #### [facility] [address] [place] [address] Hellen Lilian Eosinophils/100 WBC (Bld) 3.5 % Normal 0.9-7.0 [facility] Comment on above: Performed By: #### SANDRA CASTELLANOSICRO #### [facility] [address] [place] [address] Hellen Lilian Erythrocyte distribution width (RBC) [Ratio] 11.8 % Normal 11.0-15.0 [facility] Comment on above: Performed By: #### SANDRA CASTELLANOSICRO #### [facility] [address] [place] [address] Hellen Lilian Hematocrit (Bld) [Volume fraction] 49.4 % Normal 42.0-54.0 [facility] Comment on above: Performed By: #### SANDRA CASTELLANOSICRO #### [facility] [address] [place] [address] Hellen Lilian Hemoglobin (Bld) [Mass/Vol] 16.8 g/dL Normal 14.0-18.0 [facility] Comment on above: Performed By: #### SANDRA CASTELLANOSICRO #### [facility] [address] [place] [address] Hellen Lilian IG # 0.06 10e3/ul Critically high 0.00-0.03 [facility] Comment on above: Performed By: #### RADHA CASTELLANOS #### [facility] [address] [place], [place] [id number] Hellen Lilian IG % 0.4 % Normal 0.0-0.5 [facility] Comment on above: Performed By: #### RADHA CASTELLANOS #### [facility] [address] [place] [address] Hellen Lilian Lymphocytes (Bld) [#/Vol] 1.3 103/ul Normal 1.2-3.8 [facility] Comment on above: Performed By: #### RADHA CASTELLANOS #### [facility] [address] [place] [address] Hellen Lilian Lymphocytes/100 WBC (Bld) 9.0 % Critically low 20.5-60.0 [facility] Comment on above: Performed By: #### RADHA CASTELLANOS #### [facility] [address] [place] [address] Hellen Lilian MANUAL DIFF REQ NO Normal [facility] Comment on above: Performed By: #### RADHA CASTELLANOS #### [facility] [address] [place] [address] Hellen Lilian MCH (RBC) [Entitic mass] 30.7 pg Normal 25.9-34.0 [facility] Comment on above: Performed By: #### RADHA CASTELLANOS #### [facility] [address] [place] [address] Hellen Lilian MCHC (RBC) [Mass/Vol] 34.0 g/dL Normal 29.9-35.2 [facility] Comment on above: Performed By: #### ELVIRA CASTELLANOSRO #### [facility] [address] [place] [address] Hellen Lilian MCV (RBC) [Entitic vol] 90.3 fL Normal 80.0-94.0 [facility] Comment on above: Performed By: #### RADHA CASTELLANOS #### [facility] [address] [id number] Hellen Lilian Monocytes (Bld) [#/Vol] 1.1 103/ul Critically high 0.3-0.8 [facility] Comment on above: Performed By: #### RADHA CASTELLANOS #### [facility] [address] [place], [place] [id number] Hellen Lilian Monocytes/100 WBC (Bld) 7.7 % Normal 1.7-12.0 [facility] Comment on above: Performed By: #### SANDRA CASTELLANOSICRO #### [facility] [address] [place] [address] Hellen Lilian Neutrophils (Bld) [#/Vol] 11.4 103/ul Critically high 1.4-6.5 [facility] Comment on above: Performed By: #### RADHA CASTELLANOS #### [facility] [address] [place] [address] Hellen Lilian Neutrophils/100 WBC (Bld) 79.1 % Critically high 43.0-75.0 [facility] Comment on above: Performed By: #### ELVIRA CASTELLANOSRO #### [facility] [address] [place] [address] Hellen Lilian Platelet mean volume (Bld) [Entitic vol] 9.7 fL Normal 9.5-13.5 [facility] Comment on above: Performed By: #### SANDRA CASTELLANOSICRO #### [facility] [address] [place], [place] [id number] Hellen Lilian Platelets (Bld) [#/Vol] 237 103/ul Normal 150-450 [facility] Comment on above: Performed By: #### ELVIRA CASTELLANOSRO #### [facility] [address] [place], [place] [address] Hellen Lilian RBC (Bld) [#/Vol] 5.47 106/ul Normal 4.70-6.10 [facility] Comment on above: Performed By: #### ELVIRA CASTELLANOSRO #### [facility] [address] [place] [address] Hellen Quintana WBC (Bld) [#/Vol] 14.5 103/ul Critically high 4.0-11.0 [facility] Comment on above: Performed By: #### U ELVIRA ALASRO #### [facility] [address] [place] [address] Hellen Quintana INFLUENZA A AND B AGon 12-14 INFLUANEGH SEE BELOW Normal [facility] Comment on above: Result Comment: Nega tive for Flu A protein angiten. Infection due to Flu A cannot be ruled out. Flu A angiten in the sample may be below the detection limit of the test. Performed By: #### U RADHA ALAS #### [facility] [address] [place] [address] Hellen Quintana INFLUBNEGH SEE BELOW Normal [facility] Comment on above: Result Comment: Nega tive for Flu B protein antigen. Infection due to Flu B cannot be ruled out. Flu B antigen in the sample may be below the detection limit of the test. Performed By: #### RADHA CASTELLANOS #### [facility] [address] [place] [address] Hellen Quintana INFLUENZA A AG Negative Normal NEGATIVE SEE COMMENT [facility] Comment on above: Performed By: #### ELVIRA CASTELLANOSRO #### [facility] [address] [place] [address] Hellen Quintana INFLUENZA B AG Negative Normal NEGATIVE SEE COMMENT [facility] Comment on above: Performed By: #### ELVIRA CASTELLANOSRO #### [facility] [address] [place] [address] Hellen Quintana INTERNAL CONTROLS Within Normal Limits Normal Wi thin Normal Limits [facility] Comment on above: Performed By: #### U ELVIRA ALASRO #### [facility] [address] [place] [address] Hellen Quintana PROCALCITONINon 12-14-2018 PCT header 1 SEE BELOW Normal [facility] Comment on above: Result Comment: PCT <0.5ng/mL: Systemic infection (sepsis) is not likely, local bacterial infection possible, low risk for progression to severe systemic infection (severe sepsis) Performed By: #### U ELVIRA ALASRO #### [facility] [address] [place] [address] Hellen Lilian PCT header 2 SEE BELOW Normal [facility] Comment on above: Result Comment: PCT >/=0.5 and <2 ng/mL: Systemic infection (sepsis) is possible, moderate risk for progression to severe systemic infection (severe sepsis) Performed By: #### ELVIRA CASTELLANOSRO #### [facility] [address] [place] [address] Hellen Lilian PCT header 3 SEE BELOW Normal [facility] Comment on above: Result Comment: PCT >/=2.0 and <10 ng/mL: Systemic infection (sepsis) is likely, unless other causes are known, high risk for progession to severe systemic infection(severe sepsis) Performed By: #### ELVIRA CASTELLANOSRO #### [facility] [address] [place] [address] Hellen Lilian PCT header 4 SEE BELOW Normal [facility] Comment on above: Result Comment: PCT >/= 10 ng/mL: Important systemic inflammatory response almost exclusively due to severe bacterial sepsis or septic shock, high likelihood of severe sepsis or septic shock Performed By: #### RADHA CASTELLANOS #### [facility] [address] [place] [address] Hellengerald Quintana PROCALCITONIN <0.05 Normal 0.00-0.50 [facility] Comment on above: Performed By: #### U ELVIRA ALASRO #### [facility] [address] [place] [address] Hellen Quintana PROF CHEM 8 (BAS METB)on Anion gap [Moles/Vol] 9.4 mmol/L Normal [facility] Comment on above: Performed By: #### ELVIRA CASTELLANOSRO #### [facility] [address] [place] [address] Hellen Quintana Calcium [Mass/Vol] 9.3 mg/dL Normal 8.4-10.2 [facility] Comment on above: Performed By: #### U ACSSANDRA GRANDAICRO #### [facility] [address] [id number] Hellen Lilian Chloride [Moles/Vol] 97 mmol/L Critically low 98-107 [facility] Comment on above: Performed By: #### U ACSKALEE UMICRO #### [facility] [address] [address] Hellen Lilian CO2 [Moles/Vol] 30.1 mmol/L Critically high 22.0-30.0 [facility] Comment on above: Performed By: #### U ACSKALEE UMICRO #### [facility] [address] [address] Hellen Lilian Creatinine [Mass/Vol] 0.66 mg/dL Normal 0.66-1.25 [facility] Comment on above: Performed By: #### U ACSSANDRA GRANDAICRO #### [facility] [address] [address] Hellen Lilian EGFR-AF [place] ISLANDER >60 Normal >=60 [facility] Comment on above: Performed By: #### U ACSKALEE UMICRO #### [facility] [address] [address] Hellen Lilian EGFR-NON AF [place] ISLANDER >60 Normal >=60 [facility] Comment on above: Performed By: #### U ACSKALEE UMICRO #### [facility] [address] [address] Hellen Lilian Glucose [Mass/Vol] 185 mg/dL Critically high 74-106 [facility] Comment on above: Performed By: #### U ACSKALEE UMICRO #### [facility] [address] [id number] Hellen Lilian Potassium [Moles/Vol] 3.5 mmol/L Normal 3.4-5.0 [facility] Comment on above: Performed By: #### U ACSKALEE, UMICRO #### [facility] [address] [address] Hellen Lilian Sodium [Moles/Vol] 133 mmol/L Critically low 137-145 Th [facility] Comment on above: Performed By: #### U EVETTE UMICRO #### [facility] [address] [id number] Hellen Quintana Urea nitrogen [Mass/Vol] 10.0 mg/dL Normal 9.0-20.0 [facility] Comment on above: Performed By: #### U ACSKALEE UMICRO #### [facility] [address] [id number] Hellen Quintana Urea nitrogen/Creatinine [Mass ratio] 15.2 mg/mg Normal [facility] Comment on above: Performed By: #### U SANDRA ALASICRO #### [facility] [address] [id number] Hellen Quintana TROPONIN - Ion 12-14-2018 Troponin I.cardiac [Mass/Vol] ng/mL Normal <=0.034 [facility] Comment on above: Performed By: #### U ELVIRA ALASRO #### [facility] [address] [id number] Hellen Quintana Troponin I.cardiac [Mass/Vol] SEE BELOW Normal [facility] Comment on above: Result Comment: <0.0 34 ng/ml NEGATIVE 0.034-0.119 INDETERMINATE 0.120 AMI CUT OFF Performed By: #### U ACSKALEE UMICRO #### [facility] [address] [place], [place] [id number] Hellen Lezamaen XR RIBS LT PA Miah 9 XR RIBS LT PA CH Patient: MIHIR WRIGHT Exam Date: 12/14/2018 : 1960 Gender:M Ordering : DR. KASIA FOSTER . Admission #: [id number] Family : Order #: [id number] CLICK HERE TO VIEW EXAM RADIOLOGY REPORT PROCEDURE: RADIOGRAPH RIBS LEFT PA CHEST COMPARISON: XR CHEST 2 V, 11/12/2017. INDICATIONS: Acute hypoxia, productive cough, left lateral lower rib pain after fall FINDINGS: LUNGS: No significant pulmonary parenchymal abnormalities. PLEURA: No pneumothorax, effusion, or pleural thickening. MEDIASTINUM: No visible mass or adenopathy. CARDIAC: No cardiomegaly or cardiac silhouette abnormality. RIBS: No fracture or visible bone lesion. OTHER: Median sternotomy wires CONCLUSION: 1. Clear lungs 2. No acute rib fracture Dictated by: Macario Jordan M.D. on 12/15/2018 at 08:59 Approved by: Macario Jordan M.D. on 12/15/2018 at 09:04 Normal [facility] BILIRUBIN CONJUGATED (DIRECT )on 12-13-2018 BILI, CONJUGATED 0.3 mg/dL Normal 0.0-0.3 [facility] Comment on above: Performed By: #### C MP, DBIL, LIPID, PHOS, MG, TSH, FT3, PSASC, URIC, CK #### [facility] [address] [place], [place] [id number] Hellen Lilian CBC AUTO DIFFon 12-13-2018 Basophils (Bld) [#/Vol] 0.0 103/ul Normal 0.0-0.1 [facility] Comment on above: Performed By: #### C BC #### [facility] [address] [place], [place] [id number] Hellen Lilian Basophils/100 WBC (Bld) 0.2 % Normal 0.2-2.0 [facility] Comment on above: Performed By: #### C BC #### [facility] [address] [place], [place] [address] Hellen Lilian Eosinophils (Bld) [#/Vol] 0.5 103/ul Normal 0.0-0.7 [facility] Comment on above: Performed By: #### C BC #### [facility] [address] [place], [place] [address] Hellen Lilian Eosinophils/100 WBC (Bld) 3.4 % Normal 0.9-7.0 [facility] Comment on above: Performed By: #### C BC #### [facility] [address] [place], [place] [address] Hellen Lilian Erythrocyte distribution width (RBC) [Ratio] 11.8 % Normal 11.0-15.0 [facility] Comment on above: Performed By: #### C BC #### [facility] [address] [place], [place] [id number] Hellen Lilian Hematocrit (Bld) [Volume fraction] 50.4 % Normal 42.0-54.0 [facility] Comment on above: Performed By: #### C BC #### [facility] [address] [place], [place] [address] Hellen Quintana Hemoglobin (Bld) [Mass/Vol] 16.9 g/dL Normal 14.0-18.0 [facility] Comment on above: Performed By: #### C BC #### [facility] [address] [place] [address] Hellengerald Quintana IG # 0.05 10e3/ul Critically high 0.00-0.03 [facility] Comment on above: Performed By: #### C BC #### [facility] [address] [place] [address] Hellen Quintana IG % 0.4 % Normal 0.0-0.5 [facility] Comment on above: Performed By: #### C BC #### [facility] [address] [place] [address] Hellen Quintana Lymphocytes (Bld) [#/Vol] 1.8 103/ul Normal 1.2-3.8 [facility] Comment on above: Performed By: #### C BC #### [facility] [address] [place] [address] Hellen Quintana Lymphocytes/100 WBC (Bld) 12.3 % Critically low 20.5-60.0 [facility] Comment on above: Performed By: #### C BC #### [facility] [address] [place] [address] Hellen Quintana MANUAL DIFF REQ NO Normal [facility] Comment on above: Performed By: #### C BC #### [facility] [address] [place], [place] [id number] Hellen Quintana MCH (RBC) [Entitic mass] 30.7 pg Normal 25.9-34.0 [facility] Comment on above: Performed By: #### C BC #### [facility] [address] [place] [address] Hellen Quintana MCHC (RBC) [Mass/Vol] 33.5 g/dL Normal 29.9-35.2 [facility] Comment on above: Performed By: #### C BC #### [facility] [address] [place], [place] [id number] Hellen Lilian MCV (RBC) [Entitic vol] 91.6 fL Normal 80.0-94.0 [facility] Comment on above: Performed By: #### C BC #### [facility] Laboratory [address] [place], [place] [id number] Hellen Lilian Monocytes (Bld) [#/Vol] 1.0 103/ul Critically high 0.3-0.8 [facility] Comment on above: Performed By: #### C BC #### [facility] [address] [place], [place] [id number] Hellen Lilian Monocytes/100 WBC (Bld) 7.1 % Normal 1.7-12.0 [facility] Comment on above: Performed By: #### C BC #### [facility] [address] [place], [place] [id number] Hellen Lilian Neutrophils (Bld) [#/Vol] 10.9 103/ul Critically high 1.4-6.5 [facility] Comment on above: Performed By: #### C BC #### [facility] [address] [place], [place] [id number] Hellen Lilian Neutrophils/100 WBC (Bld) 76.6 % Critically high 43.0-75.0 [facility] Comment on above: Performed By: #### C BC #### [facility] [address] [place], [place] [id number] Hellen Lilian Platelet mean volume (Bld) [Entitic vol] 9.4 fL Critically low 9.5-13.5 [facility] Comment on above: Performed By: #### C BC #### [facility] [address] [place], [place] [id number] Hellen Lilian Platelets (Bld) [#/Vol] 255 103/ul Normal 150-450 [facility] Comment on above: Performed By: #### C BC #### [facility] [address] [place], [place] [id number] Hellen Lilian RBC (Bld) [#/Vol] 5.50 106/ul Normal 4.70-6.10 [facility] Comment on above: Performed By: #### C BC #### [facility] [address] [place], [place] [id number] Hellen Quintana WBC (Bld) [#/Vol] 14.3 103/ul Critically high 4.0-11.0 [facility] Comment on above: Performed By: #### C BC #### [facility] [address] [place] [address] Hellen Quintana CPKon 12-13-2018 CK [Catalytic activity/Vol] 222 U/L Critically high 55-170 [facility] Comment on above: Result Comment: TEST REPEATED CRITICAL VALUE VERIFIED Performed By: #### U RADHA ALAS #### [facility] [address] [place] [address] Hellen Quintana FREE T3on 12-13-2018 Free T3 [Mass/Vol] 2.75 pg/mL Critically low 2.77-5.27 [facility] Comment on above: Performed By: #### U RADHA ALAS #### [facility] [address] [place] [address] Hellen Quintana FREE T4on 12-13-2018 Free T4 [Mass/Vol] 1.11 ng/dL Normal 0.78-2.19 [facility] Comment on above: Performed By: #### U ELVIRA ALASRO #### [facility] [address] [place], [place] [id number] Hellen Quintana GLYCOHEMOGLOBIN A1Con 2018 Glucose [Mass/Vol] 226 mg/dL Normal [facility] Comment on above: Performed By: #### A 1C #### [facility] [address] [place], [place] [id number] Hellen Quintana HbA1c (Bld) [Mass fraction] 9.5 % Critically high <=6.0 [facility] Comment on above: Performed By: #### A 1C #### [facility] [address] [place], [place] [id number] Hellen Quintana IRONon 12-13-2018 Iron [Mass/Vol] 79.0 ug/dL Normal 49.0-81.0 [facility] Comment on above: Performed By: #### U RADHA ALAS #### [facility] [address] [id number] Hellen Lilina LIPID PROFILEon 12-13-2018 CHOL-HDL RATIO NORM SEE BELOW Normal [facility] Comment on above: Result Comment: 3.3 - 4.4 LOW RISK 4.4 - 7.1 AVERAGE RISK 7.1 - 11.0 MODERATE RISK >11.0 HIGH RISK Performed By: #### C MP, DBIL, LIPID, PHOS, MG, TSH, FT3, PSASC, URIC, CK #### [facility] [address] [address] Hellen Lilian Cholesterol [Mass/Vol] 175 mg/dL Normal <=200 [facility] Comment on above: Performed By: #### C MP, DBIL, LIPID, PHOS, MG, TSH, FT3, PSASC, URIC, CK #### [facility] [address] [address] Hellen Lilian Cholesterol in HDL [Mass/Vol] 37 mg/dL Normal [facility] Comment on above: Performed By: #### C MP, DBIL, LIPID, PHOS, MG, TSH, FT3, PSASC, URIC, CK #### [facility] [address] [id number] Hellen Lilian Cholesterol in HDL [Mass/Vol] > or = 60 mg/dl - LOW CARDIOVASCULAR RISK <40 mg/dl - HIGH CARDIOVASCULAR RISK Normal [facility] Comment on above: Performed By: #### C MP, DBIL, LIPID, PHOS, MG, TSH, FT3, PSASC, URIC, CK #### [facility] [address] [address] Hellen Lilian Cholesterol in LDL [Mass/Vol] SEE BELOW Normal [facility] Comment on above: Result Comment: <100 mg/dl OPTIMAL 100 - 129 mg/dl NEAR OR ABOVE OPTIMAL 130 - 159 mg/dl BORDERLINE HIGH 160 - 189 mg/dl HIGH >190 mg/dl VERY HIGH Performed By: #### C MP, DBIL, LIPID, PHOS, MG, TSH, FT3, PSASC, URIC, CK #### [facility] [address] [address] Hellen Quintana Cholesterol in LDL [Mass/Vol] 121.6 mg/dL Normal [facility] Comment on above: Performed By: #### C MP, DBIL, LIPID, PHOS, MG, TSH, FT3, PSASC, URIC, CK #### [facility] [address] [address] Hellen Quintana Cholesterol.total/Cho lesterol in HDL [Mass ratio] 4.7 {ratio} Normal [facility] Comment on above: Performed By: #### C MP, DBIL, LIPID, PHOS, MG, TSH, FT3, PSASC, URIC, CK #### [facility] [address] [place] [address] Hellen Quintana Triglyceride [Mass/Vol] 82 mg/dL Normal <=150 [facility] Comment on above: Performed By: #### C MP, DBIL, LIPID, PHOS, MG, TSH, FT3, PSASC, URIC, CK #### [facility] [address] [address] Hellen Quintana VLDL CALC 16.4 mg/dL Normal [facility] Comment on above: Performed By: #### C MP, DBIL, LIPID, PHOS, MG, TSH, FT3, PSASC, URIC, CK #### [facility] [address] [place] [address] Hellen Quintana MAGNESIUMon 12-13-2018 Magnesium [Mass/Vol] 1.6 mg/dL Normal 1.6-2.3 [facility] Comment on above: Performed By: #### C MP, DBIL, LIPID, PHOS, MG, TSH, FT3, PSASC, URIC, CK #### [facility] [address] [place] [address] Hellen Quintana MICROALBUMIN, RAND URon - mALB 8.2 mg/dL Normal <=30.0 [facility] Comment on above: Performed By: #### M ALBR #### [facility] [address] [id number] Hellen Quintana mALBH PLEASE NOTE: NORMAL RANGE CHANGE, TESTING PERFORMED AT [facility]. Normal [facility] Comment on above: Performed By: #### M ALBR #### [facility] [address] [address] Hellen Quintana PHOSPHORUSon 12-13-2018 Phosphate [Mass/Vol] 3.3 mg/dL Normal 2.5-4.5 [facility] Comment on above: Performed By: #### C MP, DBIL, LIPID, PHOS, MG, TSH, FT3, PSASC, URIC, CK #### [facility] [address] [address] Hellen Qunitana PROF 14(COMP METB)on 019 Albumin [Mass/Vol] 3.7 g/dL Normal 3.5-5.0 [facility] Comment on above: Performed By: #### C MP, DBIL, LIPID, PHOS, MG, TSH, FT3, PSASC, URIC, CK #### [facility] [address] [address] Hellen Quintana Albumin/Globulin [Mass ratio] 0.9 {ratio} Normal [facility] Comment on above: Performed By: #### C MP, DBIL, LIPID, PHOS, MG, TSH, FT3, PSASC, URIC, CK #### [facility] [address] [address] Hellen Quintana ALP [Catalytic activity/Vol] 102 U/L Normal 38-126 [facility] Comment on above: Performed By: #### C MP, DBIL, LIPID, PHOS, MG, TSH, FT3, PSASC, URIC, CK #### [facility] [address] [place] [address] Hellen Lilian ALT [Catalytic activity/Vol] 17 U/L Critically low 21-72 [facility] Comment on above: Performed By: #### C MP, DBIL, LIPID, PHOS, MG, TSH, FT3, PSASC, URIC, CK #### [facility] [address] [address] Hellen Lilian Anion gap [Moles/Vol] 9.5 mmol/L Normal [facility] Comment on above: Performed By: #### C MP, DBIL, LIPID, PHOS, MG, TSH, FT3, PSASC, URIC, CK #### [facility] [address] [address] Hellen Lilian AST [Catalytic activity/Vol] 13 U/L Critically low 17-59 [facility] Comment on above: Performed By: #### C MP, DBIL, LIPID, PHOS, MG, TSH, FT3, PSASC, URIC, CK #### [facility] [address] [address] Hellen Lilian Bilirubin Ql (U) 0.8 mg/dL Normal 0.2-1.3 [facility] Comment on above: Performed By: #### C MP, DBIL, LIPID, PHOS, MG, TSH, FT3, PSASC, URIC, CK #### [facility] [address] [address] Hellen Lilian Calcium [Mass/Vol] 9.3 mg/dL Normal 8.4-10.2 [facility] Comment on above: Performed By: #### C MP, DBIL, LIPID, PHOS, MG, TSH, FT3, PSASC, URIC, CK #### [facility] [address] [address] Hellen Lilian Chloride [Moles/Vol] 98 mmol/L Normal 98-107 [facility] Comment on above: Performed By: #### C MP, DBIL, LIPID, PHOS, MG, TSH, FT3, PSASC, URIC, CK #### [facility] [address] [id number] Hellen Lilian CO2 [Moles/Vol] 33.6 mmol/L Critically high 22.0-30.0 [facility] Comment on above: Performed By: #### C MP, DBIL, LIPID, PHOS, MG, TSH, FT3, PSASC, URIC, CK #### [facility] [address] [address] Hellen Lilian Creatinine [Mass/Vol] 0.63 mg/dL Critically low 0.66-1.25 [facility] Comment on above: Performed By: #### C MP, DBIL, LIPID, PHOS, MG, TSH, FT3, PSASC, URIC, CK #### [facility] [address] [address] Hellen Lilian EGFR-AF [place]ER >60 Normal >=60 [facility] Comment on above: Performed By: #### C MP, DBIL, LIPID, PHOS, MG, TSH, FT3, PSASC, URIC, CK #### [facility] [address] [address] Hellen Lilian EGFR-NON AF [place] >60 Normal >=60 [facility] Comment on above: Performed By: #### C MP, DBIL, LIPID, PHOS, MG, TSH, FT3, PSASC, URIC, CK #### [facility] [address] [place] [address] Hellen Lilian Globulin (S) [Mass/Vol] 4.3 g/dL Normal [facility] Comment on above: Performed By: #### C MP, DBIL, LIPID, PHOS, MG, TSH, FT3, PSASC, URIC, CK #### [facility] [address] [place] [address] Hellen Lilian Glucose [Mass/Vol] 182 mg/dL Critically high 74-106 [facility] Comment on above: Performed By: #### C MP, DBIL, LIPID, PHOS, MG, TSH, FT3, PSASC, URIC, CK #### [facility] [address] [place] [address] Hellen Lilian Potassium [Moles/Vol] 4.1 mmol/L Normal 3.4-5.0 [facility] Comment on above: Performed By: #### C MP, DBIL, LIPID, PHOS, MG, TSH, FT3, PSASC, URIC, CK #### [facility] [address] [place] [address] Hellen Lilian Protein [Mass/Vol] 8.0 g/dL Normal 6.1-8.2 [facility] Comment on above: Performed By: #### C MP, DBIL, LIPID, PHOS, MG, TSH, FT3, PSASC, URIC, CK #### [facility] [address] [address] Hellen Lilian Sodium [Moles/Vol] 137 mmol/L Normal 137-145 [facility] Comment on above: Performed By: #### C MP, DBIL, LIPID, PHOS, MG, TSH, FT3, PSASC, URIC, CK #### [facility] [address] [address] Hellen Lilian Urea nitrogen [Mass/Vol] 6.0 mg/dL Critically low 9.0-20.0 [facility] Comment on above: Performed By: #### C MP, DBIL, LIPID, PHOS, MG, TSH, FT3, PSASC, URIC, CK #### [facility] [address] [place] [address] Hellen Lilian Urea nitrogen/Creatinine [Mass ratio] 9.5 mg/mg Normal [facility] Comment on above: Performed By: #### C MP, DBIL, LIPID, PHOS, MG, TSH, FT3, PSASC, URIC, CK #### [facility] [address] [place] [address] Hellen Lilian TSHon 12-13-2018 TSH Qn 1.350 uIU/mL Normal 0.470-4.680 [facility] Comment on above: Performed By: #### U RADHA ALAS #### [facility] [address] [place], [place] [id number] Hellen Lilian TSH Qn SEE BELOW Normal [facility] Comment on above: Result Comment: <0.3 4 UIU/ml HYPERTHYROID 0.34-5.60 UIU/ml EUTHYROID >5.60 UIU/ml HYPOTHYROID Performed By: #### U ELVIRA ALASRO #### [facility] [address] [place] [address] Hellen Lilian UA (CLEAN/CATCH) PATIENT SERVICE ASSOCIATE/MICRO I F IND.on 12-13-2018 Bilirubin [Mass/Vol] Negative Normal NEGATIVE [facility] Comment on above: Performed By: #### U SANDRA ALASICRO #### [facility] [address] [place] [address] Hellen Lilian BLOOD Negative Normal NEGATIVE [facility] Comment on above: Performed By: #### U SANDRA ALASICRO #### [facility] [address] [place] [address] Hellen Lilian Clarity (U) CLEAR Normal [facility] Comment on above: Performed By: #### U SANDRA ALASICRO #### [facility] [address] [place] [address] Hellen Lilian Color (U) LT. YELLOW Normal YELLOW [facility] Comment on above: Performed By: #### U ACSSANDRA GRANDAICRO #### [facility] [address] [place] [address] Hellen Lilian Glucose [Mass/Vol] Negative Normal NEGATIVE [facility] Comment on above: Performed By: #### U SANDRA ALASICRO #### [facility] [address] [place] [address] Hellen Lilian Ketones Ql (U) Negative Normal NEGATIVE [facility] Comment on above: Performed By: #### U SANDRA ALASICRO #### [facility] [address] [place] [address] Hellen Lilian Nitrite Ql (U) Negative Normal NEGATIVE [facility] Comment on above: Performed By: #### U SANDRA ALASICRO #### [facility] [address] [place] [address] Hellen Lilian pH (Bld) 6.0 Normal 5-9 [facility] Comment on above: Performed By: #### U SANDRA ALASICRO #### [facility] [address] [place] [address] Hellen Lilian Protein [Mass/Vol] Negative Normal [facility] Comment on above: Performed By: #### U SANDRA ALASICRO #### [facility] [address] [place] [address] Hellen Lilian SPEC GRAVITY <=1.005 Normal 1.005-<=1.025 [facility] Comment on above: Performed By: #### U EVETTE UMICRO #### [facility] [address] [place] [address] Hellen Lilian UR MICRO IND NOT INDICATED Normal [facility] Comment on above: Performed By: #### U EVETTE UMICRO #### [facility] [address] [place] [address] Hellen Lilian Urobilinogen Qn (U) 1.0 EU/dl Normal [facility] Comment on above: Performed By: #### U EVETTE UMICRO #### [facility] [address] [place] [address] Hellen Lilian WBC (Bld) [#/Vol] Negative Normal NEGATIVE [facility] Comment on above: Performed By: #### U EVETTE UMICRO #### [facility] [address] [place] [address] Hellen Lilian URIC ACID SERUMon 12-13-2018 Urate [Mass/Vol] 3.8 mg/dL Normal 3.5-8.5 [facility] Comment on above: Performed By: #### U SANDRA ALASICRO #### [facility] [address] [place] [address] Hellen Lilian URINE MICROSCOPIC ONLYon Bacteria LM.HPF (Urine sed) [#/Area] TRACE Normal NONE SEEN [facility] Comment on above: Performed By: #### U EVETTE UMICRO #### [facility] [address] [place] [address] Hellen Lilian CAST NONE SEEN Normal NONE SEEN [facility] Comment on above: Performed By: #### U SANDRA ALASICRO #### [facility] [address] [place] [address] Hellen Lilian Crystals LM Nom (Urine sed) NONE SEEN Normal NONE SEEN [facility] Comment on above: Performed By: #### U ACSKALEE UMICRO #### [facility] [address] [place] [address] Hellen Lilian CULTURE NOT INDICATED Normal [facility] Comment on above: Performed By: #### U ACSKALEE UMICRO #### [facility] [address] [place] [address] Hellen Lilian Epithelial cells LM.HPF (Urine sed) [#/Area] RARE Normal [facility] Comment on above: Performed By: #### U ACSKALEE UMICRO #### [facility] [address] [place] [address] Hellen Lilian MUCOUS NONE SEEN Normal NONE SEEN [facility] Comment on above: Performed By: #### U ACSKALEE UMICRO #### [facility] [address] [place] [address] Hellen Lilian RBC (U) [#/Vol] 0-2 Normal 0-2 [facility] Comment on above: Performed By: #### U ACSKALEE UMICRO #### [facility] [address] [place] [address] Hellengerald Quintana WBC (Bld) [#/Vol] NONE SEEN Normal NONE SEEN [facility] Comment on above: Performed By: #### U ACSKALEE UMICRO #### [facility] [address] [place] [address] Hellengerald Quintana VIT B12 AND FOLATEon 019 Cobalamin (Vitamin B12) [Mass/Vol] 246.0 pg/mL Normal 239.0-931.0 [facility] Comment on above: Performed By: #### U ACSKALEE UMICRO #### [facility] [address] [place] [address] Hellengerald Quintana FOLATE 16.30 ng/mL Normal >=2.76 [facility] Comment on above: Performed By: #### U ACSSANDRA GRANDAICRO #### [facility] [address] [place] [address] Hellengerald Quintana VITAMIN D 25 OHon 12-13-2018 VIT D 25-OH 26.5 ng/mL Normal [facility] Comment on above: Performed By: #### U ACSKALEE UMICRO #### [facility] [address] [place] [address] Hellen Quintana VIT D RANGES SEE BELOW [facility] Comment on above: Result Comment: <20 ng/mL Vit D deficient 20 - <30 ng/mL Vit D insufficient 30 - 100 ng/mL Vit D sufficient >100 ng/mL Potential Toxicity Performed By: #### U RADHA ALAS #### [facility] [address], [place] [address] Hellen Quintana VITDH PLEASE NOTE: NORMAL RANGE CHANGE 11-01-2012, TESTING PERFORMED AT [facility]. Normal [facility] Comment on above: Performed By: #### U RADHA ALAS #### [facility] [address], [place] [address] Hellen Quintana Encounters Encounter Date Encounter Type Care Provider Facility Start: 01-31-2020 End: 01-31-2020 ambulatory Macario Dunne Facility:[facility] Start: 12-15-2018 End: 12-17-2018 Evaluation and management of inpatient [facility]FFY [facility]KS Facility:[facility] Start: 12-13-2018 End: 12-14-2018 Patient encounter procedure [facility]AR[facility] Facility: Procedures Date Procedure Procedure Detail Performing Clinician Start: 12-14-2018 End: 12-14-2018 Microscopic examination of blood, culture [facility] Comment on above: Performed By: #### M ALBR #### [facility] [address], [place] [address] Hellen Quintana Start: 12-13-2018 [object Object] BUFF[facility] SPARKS Comment on above: Performed By: #### U RADHA ALAS #### [facility] [address], [place] [address] Hellen Quintana Payers Date Payer Category Payer Self-pay 1961 Unknown [id number] 1960 Unknown [id number] 1960 Unknown [id number] Unknown [id number] Summary Purpose Family History No Family History Records FoundNo Family History Records Found Advance Directives No Advanced Directives Records FoundNo Advanced Directives Records Found Additional Source Comments (unrecognized sect ion and content) No Status Records FoundNo Status Records Found INFORMATION SOURCE (unrecogn ized section and content) DATE CREATED AUTHOR 07/16/2019 [facility] DATE CREATED AUTHOR AUTHOR'S ORGANIZ ATION 12/03/2023 [facility] FOR RECORDS PERTAINING TO PATIENTS WHO ARE OR HAVE BEEN ENROLLED IN A CHEMICAL DEPENDENCY/SUBSTANCEABUSE PROGRAM, SOME INFORMATION MAY BE OMITTED. This clinical summary was aggregated from multiple sources. Caution should be exercised in using it in the provision of clinical care. This summary normalizes information from multiple sources, and as a consequence, information in this document may materially change the coding, format and clinical context of patient data. In addition, data may be omitted in some cases. CLINICAL DECISIONS SHOULD BE BASED ON THE PRIMARY CLINICAL RECORDS. [facility]. provides no warranty or guarantee of the accuracy or completeness of information in this document.
== END 2023-12-11 12:49 | disposition home or self-care (01) ==
LOC: EC 12:51
PROVIDERS: Visit Provider Student in an Organized Health Care Education/Training Program
DX: Z47.89 Encounter for other orthopedic aftercare (principal); S72.141D Displaced intertrochanteric fracture of right femur, subsequent encounter for closed fracture with routine healing
CPT/HCPCS: 73502

== ENCOUNTER 2024-01-22 15:02 | Outpatient (OUT) | payer MEDICARE, SELFPAY ==
--- NOTE | 2024-01-22 | XR_ITS ---
The [address] [address] Patient Name: MIHIR WRIGHT MRN: [id number] date: 1960 Sex: M Assigned Patient Location: Current Patient Location: Accession/Order Number: [id number] Exam Date: 01/22/2024 15:03 Report Date: 01/25/2024 09:22 At the request of: SAURAV DICKSON Procedure: XR hip RT 2V w/ pelvis PROCEDURE: XR hip RT 2V w/ pelvis HISTORY: RIGHT HIP AND PELVIS PAIN COMPARISON: XR hip right 12/11/2023 FINDINGS: BONES:Prior right femoral neck repair for intertrochanteric fracture; no appreciable hardware fracture loosening. Stable bone fragments. SOFT TISSUES:No appreciable soft tissue abnormality. Metallic foreign bodies projecting over the hip are suspected represent rivets or snaps within clothing. [place] and etc. overlie the proximal femur limiting evaluation. EFFUSION:None visible. OTHER: Negative. XR/XR hip RT 2V w/ pelvis IMPRESSION: 1. Prior right femur repair without evidence of hardware failure or change in alignment. Electronically authenticated by: LORENA CURIEL Date: 01/25/2024 09:22
--- OUTSIDE RECORDS SUMMARY | 2024-01-22 15:14 | XMS_ITS | CCD ---
Author Organization [facility] Team Providers Care Is Technician Name Role Phone BUFFY SPARKS Admitting Unavailable BUFFY SPARKS Attending Unavailable BUFFY SPARKS Primary Care Unavailable BUFFY SPARKS Consulting Unavailable BUFFY SPARKSE Primary Care Unavailable IGNACIO TALAVERA Admitting Unavailable IGNACIO TALAVERA Attending Unavailable MACARIO JORDAN V Consulting Unavailable SETH MCKINNEY Consulting Unavailable OLIVE SANCHEZ Consulting Unavailable IGNACIO TALAVERA Consulting Unavailable KASIA FOSTER Consulting Unavailable Macario Dunne Admitting Unavailable Macario Dunne Attending Unavailable NO FAMILY, PHYSICIAN Primary Care Unavailable Unavailable Primary Care Provider Unavailabl e Problems Problem Classification Problem Date Documented Date [...] ENCOUNTER] Onset: 07-16-2019 Other aftercare (1 source) shelter (current) use of aspirin; 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: [[facility] CURRENT USE OF ASPIRIN] Onset: 07-16-2019 Episodic Other aftercare (1 source) 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 Comment on above: Performed By: #### M ALBR #### [facility] [address] [place] [phone] Hellen Lilian Basophils/100 WBC (Bld) 0.2 % Normal 0.2-2.[address] [facility] Comment on above: Performed By: #### M ALBR #### [facility] [address] [place] [phone] Hellen Lilian Eosinophils (Bld) [#/Vol] 0.0 103/ul Normal 0.0-0.7 [facility] Comment on above: Performed By: #### M ALBR #### [facility] [address] [place] [phone] Hellen Lilian Eosinophils/100 WBC (Bld) 0.1 % Critically low 0.9-7.[address] [facility] Comment on above: Performed By: #### M ALBR #### [facility] [address] [place] [phone] Hellen Lilian Erythrocyte distribution width (RBC) [Ratio] 11.8 % Normal 11.0-15.[address] [facility] Comment on above: Performed By: #### M ALBR #### [facility] [address] [place] [address] Hellen Quintana Hematocrit (Bld) [Volume fraction] 48.3 % Normal 42.0-54.0 [facility] Comment on above: Performed By: #### M ALBR #### [facility] [address] [place] [address] Hellen Lilian Hemoglobin (Bld) [Mass/Vol] 16.1 g/dL Normal 14.0-18.0 [facility] Comment on above: Performed By: #### M ALBR #### [facility] [address] [place] [address] Hellen Lilian IG # 0.12 10e3/ul Critically high 0.00-0.03 [facility] Comment on above: Performed By: #### M ALBR #### [facility] [address] [place] [address] Hellen Lilian IG % 0.6 % Critically high 0.0-0.5 [facility] Comment on above: Performed By: #### M ALBR #### [facility] [address] [place] [address] Hellen Lilian Lymphocytes (Bld) [#/Vol] 2.5 103/ul Normal 1.2-3.8 [facility] Comment on above: Performed By: #### M ALBR #### [facility] [address] [place] [address] Hellen Quintana Lymphocytes/100 WBC (Bld) 11.6 % Critically low 20.5-60.0 [facility] Comment on above: Performed By: #### M ALBR #### [facility] [address] [place], [place] [id number] Hellen Quintana MANUAL DIFF REQ NO Normal [facility] Comment on above: Performed By: #### M ALBR #### [facility] [address] [place], [place] [id number] Hellen Lilian MCH (RBC) [Entitic mass] 30.7 pg Normal 25.9-34.0 [facility] Comment on above: Performed By: #### M ALBR #### [facility] [address] [place] [address] Hellen Quintana MCHC (RBC) [Mass/Vol] 33.3 g/dL Normal 29.9-35.2 [facility] Comment on above: Performed By: #### M ALBR #### [facility] [address] [place], [place] [id number] Hellengerald Lezamaen MCV (RBC) [Entitic vol] 92.0 fL Normal 80.0-94.0 [facility] Comment on above: Performed By: #### M ALBR #### [facility] [address] [place], [place] [id number] Hellen Lilian Monocytes (Bld) [#/Vol] 1.5 103/ul Critically high 0.3-0.8 [facility] Comment on above: Performed By: #### M ALBR #### [facility] [address] [place], [place] [id number] Hellengerald Lezamaen Monocytes/100 WBC (Bld) 6.7 % Normal 1.7-12.0 [facility] Comment on above: Performed By: #### M ALBR #### [facility] [address] [place], [place] [id number] Hellen Lilian Neutrophils (Bld) [#/Vol] 17.4 103/ul Critically high 1.4-6.5 [facility] Comment on above: Performed By: #### M ALBR #### [facility] [address] [place], [place] [address] Hellen Lilian Neutrophils/100 WBC (Bld) 80.8 % Critically high 43.0-75.0 [facility] Comment on above: Performed By: #### M ALBR #### [facility] [address] [place], [place] [id number] Hellen Lilian Platelet mean volume (Bld) [Entitic vol] 10.2 fL Normal 9.5-13.5 [facility] Comment on above: Performed By: #### M ALBR #### [facility] [address] [place] [phone] Hellen Lilian Platelets (Bld) [#/Vol] 262 103/ul Normal 150-[address] [facility] Comment on above: Performed By: #### M ALBR #### [facility] [address] [place], [place] [id number] Hellen Lilian RBC (Bld) [#/Vol] 5.25 106/ul Normal 4.70-6.10 [facility] Comment on above: Performed By: #### M ALBR #### [facility] [address] [place], [place] [address] Hellen Lilian WBC (Bld) [#/Vol] 21.6 103/ul Critically high 4.0-11.0 [facility] [place] Comment on above: Performed By: #### M ALBR #### [facility] [address] [place], [place] [address] Hellen Lilian PROF CHEM 8 (BAS METB)on Anion gap [Moles/Vol] 10.9 mmol/L Normal [facility] Comment on above: Performed By: #### M ALBR #### [facility] [address] [place], [place] [address] Hellen Lilian Calcium [Mass/Vol] 9.6 mg/dL Normal 8.4-10.2 [facility] Comment on above: Performed By: #### M ALBR #### [facility] [address] [place], [place] [address] Hellen Lilian Chloride [Moles/Vol] 96 mmol/L Critically low 98-[address] [facility] Comment on above: Performed By: #### M ALBR #### [facility] [address] [place], [place] [address] Hellen Lilian CO2 [Moles/Vol] 32.9 mmol/L Critically high 22.0-30.[address] [facility] Comment on above: Performed By: #### M ALBR #### [facility] [address] [place], [place] [address] Hellen Lilian Creatinine [Mass/Vol] 0.84 mg/dL Normal 0.66-1.25 [facility] Comment on above: Performed By: #### M ALBR #### [facility] [address] [place], [place] [address] Hellen Lilian EGFR-AF ZIMBABWEAN >60 Normal >=60 [facility] Comment on above: Performed By: #### M ALBR #### [facility] [address] [place] [phone] Hellen Lilian EGFR-NON AF ZIMBABWEAN >60 Normal >=[address] [facility] Comment on above: Performed By: #### M ALBR #### [facility] [address] [phone] Hellen Lilian Glucose [Mass/Vol] 301 mg/dL Critically high 74-106 T [facility] Comment on above: Performed By: #### M ALBR #### [facility] [address] [place], [place] [address] Hellen Lilian Potassium [Moles/Vol] 3.8 mmol/L Normal 3.4-5.[address] [facility] Comment on above: Performed By: #### M ALBR #### [facility] [address] [place], [place] [address] Hellen Lilian Sodium [Moles/Vol] 136 mmol/L Critically low 137-145 [facility] Comment on above: Performed By: #### M ALBR #### [facility] [address] [place], [place] [address] Hellen Lilian Urea nitrogen [Mass/Vol] 15.0 mg/dL Normal 9.0-20.[address] [facility] Comment on above: Performed By: #### M ALBR #### [facility] [address] [place], [place] [address] Hellen Lilian Urea nitrogen/Creatinine [Mass ratio] 17.9 mg/mg Normal [facility] Comment on above: Performed By: #### M ALBR #### [facility] [address] [place], [place] [address] Hellen Lilian XR CHEST 2 Von 12-17-2018 XR CHEST 2 V Patient: MIHIR WRIGHTEric Exam Date: 12/17/2018 : 1960 Gender:M Ordering : DR OLIVE SANCHEZ . Admission #: [id number] Family : DR. IGNACIO TALAVERA . Order #: [id number] CLICK HERE TO VIEW EXAM RADIOLOGY REPORT [...] M.D. on 12/17/2018 at 07:28 Normal [facility] CBC W MANUAL DIFFon 12-17-19 19 ATYPICAL LYMPH # 0.69 103/ul Normal [facility] Comment on above: Performed By: #### U RADHA ALAS #### [facility] [address] [place] [address] Hellen Lilian ATYPICAL LYMPH % 3 % Normal [facility] Comment on above: Performed By: #### U ELVIRA ALASRO #### [facility] [address] [place] [address] Hellen Lilian BAND # 0.0 103/ul Normal 0.0-0.3 [facility] Comment on above: Performed By: #### U EVETTE UMLOANRO #### [facility] [address] [place] [address] Hellen Lilian BAND % 0 % Normal 0-5 [facility] Comment on above: Performed By: #### U ACSELVIRA GRANDARO #### [facility] [address] [address] Hellen Lilian BASOM # 0.00 103/ul Normal 0.00-0.10 [facility] Comment on above: Performed By: #### U SANDRA ALASICRO #### [facility] [address] [phone] Hellen Lilian BASOM % 0.0 % Critically low 0.2-2.0 [facility] Comment on above: Performed By: #### SANDRA CASTELLANOSICRO #### [facility] [address] [place] [address] Hellen Lilian BLAST # Normal [facility] Comment on above: Performed By: #### SANDRA CASTELLANOSICRO #### [facility] [address] [address] Hellen Lilian BLAST % Normal [facility] Comment on above: Performed By: #### SANDRA CASTELLANOSICRO #### [facility] [address] [place] [address] Hellen Lilian CORRECTED WBC Normal 4.0-11.0 [facility] Comment on above: Performed By: #### SANDRA CASTELLANOSICRO #### [facility] [address] [place] [address] Hellen Lilian Eosinophils (Bld) [#/Vol] 0.00 103/ul Normal 0.00-0.70 [facility] Comment on above: Performed By: #### SANDRA CASTELLANOSICRO #### [facility] [address] [place] [address] Hellen Lilian Eosinophils/100 WBC (Bld) 0.0 % Critically low 0.9-7.0 [facility] Comment on above: Performed By: #### SANDRA CASTELLANOSICRO #### [facility] [address] [place] [address] Hellen Lilian Erythrocyte distribution width (RBC) [Ratio] 11.7 % Normal 11.0-15.[address] [facility] Comment on above: Performed By: #### Kana ALAS UMICRO #### [facility] [address] [place] [address] Hellen Lilian Hematocrit (Bld) [Volume fraction] 46.9 % Normal 42.0-54.[address] [facility] Comment on above: Performed By: #### U SANDRA ALASICRO #### [facility] [address] [address] Hellen Lilian Hemoglobin (Bld) [Mass/Vol] 16.0 g/dl Normal 14.0-18.0 [facility] Comment on above: Performed By: #### U EVETTE UMICRO #### [facility] [address] [place] [address] Hellen Lilian LYMPHM # 0.46 103/ul Critically low 1.20-3.80 [facility] Comment on above: Performed By: #### U EVETTE ICRO #### [facility] [address] [place] [address] Hellen Lilian LYMPHM% 2.0 % Critically low 20.5-60.0 [facility] Comment on above: Performed By: #### Kana ALAS ICRO #### [facility] [address] [place] [address] Hellen Lilian MCH (RBC) [Entitic mass] 30.9 pg Normal 25.9-34.0 [facility] Comment on above: Performed By: #### Kana ALAS ICRO #### [facility] [address] [place] [address] Hellen Lilian MCHC (RBC) [Mass/Vol] 34.1 g/dl Normal 29.9-35.2 [facility] Comment on above: Performed By: #### Kana ALAS ICRO #### [facility] [address] [place] [address] Hellen Lilina MCV (RBC) [Entitic vol] 90.7 fL Normal 80.0-94.0 [facility] Comment on above: Performed By: #### SANDRA CASTELLANOSICRO #### [facility] [address] [place] [address] Hellen Lilian METAMYELOCYTE # Normal [facility] Comment on above: Performed By: #### SANDRA CASTELLANOSICRO #### [facility] [address] [place] [address] Hellen Lilian METAMYELOCYTE % Normal [facility] Comment on above: Performed By: #### U ACSKALEE UMICRO #### [facility] [address] [address] Hellengerald Quintana MONOM# 0.23 103/ul Critically low 0.30-0.80 [facility] Comment on above: Performed By: #### U ACSKALEE, UMICRO #### [facility] [address] [address] Hellen Lilian MONOM% 1.0 % Critically low 1.7-12.0 [facility] Comment on above: Performed By: #### U ACSKALEE, UMICRO #### [facility] [address] [place] [address] Hellen Lilian MYELOCYTE # Normal [facility] Comment on above: Performed By: #### U ACSKALEE UMICRO #### [facility] [address] [place] [address] Hellen Lilian MYELOCYTE % Normal [facility] Comment on above: Performed By: #### U ACSKALEE UMICRO #### [facility] [address] [place] [address] Hellen Lilian NRBC Normal [facility] Comment on above: Performed By: #### U ACSKALEE, UMICRO #### [facility] [address] [place], [place] [id number] Hellen Lilian Platelet mean volume (Bld) [Entitic vol] 10.2 fL Normal 9.5-13.[address] [facility] Comment on above: Performed By: #### U ACSKALEE, UMICRO #### [facility] [address] [place] [address] Hellen Lilian Platelets (Bld) [#/Vol] 258 103/ul Normal 150-450 [facility] Comment on above: Performed By: #### U ACSKALEE, UMICRO #### [facility] [address] [phone] Hellen Lilian RBC (Bld) [#/Vol] 5.17 106/ul Normal 4.70-6.10 [facility] Comment on above: Performed By: #### U ACSELVIRA GRANDARO #### [facility] [address] [address] Hellen Quintana SEG # 21.53 103/ul Critically high 1.40-6.50 [facility] Comment on above: Performed By: #### U ACSELVIRA GRANDARO #### [facility] [address] [place] [address] Hellen Quintana Segmented neutrophils/100 WBC (Bld) 94.0 % Critically high 43.0-75.[address] [facility] Comment on above: Performed By: #### U ACSELVIRA GRANDARO #### [facility] [address] [place] [address] Hellen Quintana WBC (Bld) [#/Vol] 22.9 103/ul Critically high 4.0-11.0 [facility] [place] Comment on above: Performed By: #### U ELVIRA ALASRO #### [facility] [address] [place] [address] Hellen Quintana POINT OF CARE GLUCOSEon 11-28 Glucose [Mass/Vol] 368 mg/dL Critically high 74-106 [facility] [place] Comment on above: Performed By: #### M ALBR #### [facility] [address] [place] [address] Hellen Quintana PROCALCITONINon 12-16-2018 PCT header 1 SEE BELOW Normal [facility] Comment on above: Result Comment: PCT <0.5ng/mL: Systemic infection (sepsis) is not likely, local bacterial infection possible, low risk for progression to severe systemic infection (severe sepsis) Performed By: #### M ALBR #### [facility] [address] [place] [address] Hellen Lilian PCT header 2 SEE BELOW Normal [facility] Comment on above: Result Comment: PCT >/=0.5 and <2 ng/mL: Systemic infection (sepsis) is possible, moderate risk for progression to severe systemic infection (severe sepsis) Performed By: #### M ALBR #### [facility] [address] [place] [address] Hellen Lilian PCT header 3 SEE BELOW Normal [facility] Comment on above: Result Comment: PCT >/=2.0 and <10 ng/mL: Systemic infection (sepsis) is likely, unless other causes are known, high risk for progession to severe systemic infection(severe sepsis) Performed By: #### M ALBR #### [facility] [address] [place] [address] Hellen Lilian PCT header 4 SEE BELOW Normal [facility] Comment on above: Result Comment: PCT >/= 10 ng/mL: Important systemic inflammatory response almost exclusively due to severe bacterial sepsis or septic shock, high likelihood of severe sepsis or septic shock Performed By: #### M ALBR #### [facility] [address] [place] [address] Hellen Lilian PROCALCITONIN <0.05 Normal 0.00-0.50 [facility] Comment on above: Performed By: #### M ALBR #### [facility] [address] [place] [address] Hellen Lilian PROF CHEM 8 (BAS METB)on Anion gap [Moles/Vol] 9.6 mmol/L Normal [facility] Comment on above: Performed By: #### M ALBR #### [facility] [address] [place] [address] Hellen Lilian Calcium [Mass/Vol] 9.8 mg/dL Normal 8.4-10.2 [facility] Comment on above: Performed By: #### M ALBR #### [facility] [address] [place] [address] Hellen Lilian Chloride [Moles/Vol] 95 mmol/L Critically low 98-[address] [facility] Comment on above: Performed By: #### M ALBR #### [facility] [address] [place] [address] Hellen Lilian CO2 [Moles/Vol] 31.2 mmol/L Critically high 22.0-30.[address] [facility] Comment on above: Performed By: #### M ALBR #### [facility] [address] [place] [address] Hellen Lilian Creatinine [Mass/Vol] 0.70 mg/dL Normal 0.66-1.[address] [facility] Comment on above: Performed By: #### M ALBR #### [facility] [address] [place], [place] [id number] Hellen Lilian EGFR-AF ZIMBABWEAN >60 Normal >=60 [facility] Comment on above: Performed By: #### M ALBR #### [facility] [address] [place] [address] Hellen Lilian EGFR-NON AF ZIMBABWEAN >60 Normal >=[address] [facility] Comment on above: Performed By: #### M ALBR #### [facility] [address] [place] [address] Hellen Lilian Glucose [Mass/Vol] 293 mg/dL Critically high 74-106 T [facility] Comment on above: Performed By: #### M ALBR #### [facility] [address] [place] [address] Hellen Lilian Potassium [Moles/Vol] 3.8 mmol/L Normal 3.4-5.[address] [facility] Comment on above: Performed By: #### M ALBR #### [facility] [address] [place] [address] Hellen Lilian Sodium [Moles/Vol] 132 mmol/L Critically low 137-145 Th [facility] Comment on above: Performed By: #### M ALBR #### [facility] [address] [place] [address] Hellen Lilian Urea nitrogen [Mass/Vol] 18.0 mg/dL Normal 9.0-20.[address] [facility] Comment on above: Performed By: #### M ALBR #### [facility] [address] [place], [place] [id number] Hellen Lilian Urea nitrogen/Creatinine [Mass ratio] 25.7 mg/mg Normal [facility] Comment on above: Performed By: #### M ALBR #### [facility] [address] [place], [place] [id number] Hellen Lilian CT CHEST W CONon 12-15-2018 CT CHEST W CON Patient: MIHIR WRIGHT Exam Date: 12/15/2018 : 1960 Gender:M Ordering : DR OLIVE SANCHEZ . Admission #: [id number] Family : DR HERNANDEZBUFFYKEM SPARKS Order #: [id number] CLICK HERE TO VIEW EXAM RADIOLOGY REPORT [...] Jordan M.D. on 12/15/2018 at 12:[address] [facility] CULTURE SPUTUMon 12-15-2018 CULTURE SPUTUM Culture Observations: Normal respiratory yuki. Normal [facility] Comment on above: Performed By: #### A 1C #### [facility] [address] [place], [place] [address] Hellen Quintana POINT OF CARE GLUCOSEon 11-27 Glucose [Mass/Vol] 284 mg/dL Critically high 74-106 T [facility] Comment on above: Performed By: #### U ACSIND, UMICRO #### [facility] [address] [place], [place] [address] HellenLocalminten Glucose [Mass/Vol] 339 mg/dL Critically high 74-106 T [facility] Comment on above: Performed By: #### M ALBR #### [facility] [address] [place] [address] Hellengerald Quintana PROCALCITONINon 12-15-2018 PCT header 1 SEE BELOW Normal [facility] Comment on above: Result Comment: PCT <0.5ng/mL: Systemic infection (sepsis) is not likely, local bacterial infection possible, low risk for progression to severe systemic infection (severe sepsis) Performed By: #### U ACSKALEE, UMICRO #### [facility] [address] [place] [address] Hellen Lilian PCT header 2 SEE BELOW Normal [facility] Comment on above: Result Comment: PCT >/=0.5 and <2 ng/mL: Systemic infection (sepsis) is possible, moderate risk for progression to severe systemic infection (severe sepsis) Performed By: #### U ACSKALEE UMICRO #### [facility] [address] [place] [address] Hellen Lilian PCT header 3 SEE BELOW Normal [facility] Comment on above: Result Comment: PCT >/=2.0 and <10 ng/mL: Systemic infection (sepsis) is likely, unless other causes are known, high risk for progession to severe systemic infection(severe sepsis) Performed By: #### U ACSKALEE, UMICRO #### [facility] [address] [place] [address] Hellen Lilian PCT header 4 SEE BELOW Normal [facility] Comment on above: Result Comment: PCT >/= 10 ng/mL: Important systemic inflammatory response almost exclusively due to severe bacterial sepsis or septic shock, high likelihood of severe sepsis or septic shock Performed By: #### U ACSKALEE UMICRO #### [facility] [address] [place] [address] [address] Lilian PROCALCITONIN <0.05 Normal 0.00-0.50 [facility] Comment on above: Performed By: #### U ACSKALEE, UMICRO #### [facility] [address] [place] [address] Hellen Lilian SPUTUM GRAM STAINon 12-16-19 COMMENTS Normal [facility] Comment on above: Performed By: #### M ALBR #### [facility] [address] [address] Hellen Lilian DIPHTHEROIDS Normal [facility] Comment on above: Performed By: #### M ALBR #### [facility] [address] [address] Hellen Lilian EPITHELIALS <25 Normal [facility] Comment on above: Performed By: #### M ALBR #### [facility] [address] [address] Hellen Lilian FUNGAL ELEMENTS Normal [facility] Comment on above: Performed By: #### M ALBR #### [facility] [address] [address] Hellen Lilian GRAM NEG BACILLI Normal The [facility] Comment on above: Performed By: #### M ALBR #### [facility] [address] [place] [address] Hellen Lilian GRAM NEG DIPPLOCOCCI Normal [facility] Comment on above: Performed By: #### M ALBR #### [facility] [address] [address] Hellen Lilian GRAM POS BACILLI Normal The [facility] Comment on above: Performed By: #### M ALBR #### [facility] [address] [place] [address] Hellen Lilian GRAM POSITIVE COCCI RARE Normal The [facility] Comment on above: Performed By: #### M ALBR #### [facility] [address] [place] [address] Hellen Lilian WBC (Bld) [#/Vol] 10*3/uL Normal The [facility] Comment on above: Performed By: #### M ALBR #### [facility] [address] [place] [address] Hellengerald Lezamaen BNPon 12-14-2018 Natriuretic peptide B (Bld) [Mass/Vol] 149.0 pg/mL Normal <=900.0 [facility] Comment on above: Performed By: #### U ACSRADHA GRANDA #### [facility] [address] [place] [address] Hellen Lilian CBC AUTO DIFFon 12-14-2018 Basophils (Bld) [#/Vol] 0.0 103/ul Normal 0.0-0.1 [facility] Comment on above: Performed By: #### RADHA CASTELLANOS #### [facility] [address] [place] [address] Hellen Lilian Basophils/100 WBC (Bld) 0.3 % Normal 0.2-2.0 [facility] Comment on above: Performed By: #### RADHA CASTELLANOS #### [facility] [address] [place] [address] Hellen Lilian Eosinophils (Bld) [#/Vol] 0.5 103/ul Normal 0.0-0.7 [facility] Comment on above: Performed By: #### RADHA CASTELLANOS #### [facility] [address] [place] [address] Hellen Lilian Eosinophils/100 WBC (Bld) 3.5 % Normal 0.9-7.0 [facility] Comment on above: Performed By: #### RADHA CASTELLANOS #### [facility] [address] [place] [address] Hellen Lilian Erythrocyte distribution width (RBC) [Ratio] 11.8 % Normal 11.0-15.0 [facility] Comment on above: Performed By: #### RADHA CASTELLANOS #### [facility] [address] [place] [address] Hellen Lilian Hematocrit (Bld) [Volume fraction] 49.4 % Normal 42.0-54.0 [facility] Comment on above: Performed By: #### RADHA CASTELLANOS #### [facility] [address] [place] [address] Hellen Lilian Hemoglobin (Bld) [Mass/Vol] 16.8 g/dL Normal 14.0-18.0 [facility] Comment on above: Performed By: #### RADHA CASTELLANOS #### [facility] [address] [id number] Hellen Lilian IG # 0.06 10e3/ul Critically high 0.00-0.03 [facility] Comment on above: Performed By: #### ELVIRA CASTELLANOSRO #### [facility] [address] [id number] Hellen Lilian IG % 0.4 % Normal 0.0-0.[address] [facility] Comment on above: Performed By: #### ELVIRA CASTELLANOSRO #### [facility] [address] [place] [address] Hellen Lilian Lymphocytes (Bld) [#/Vol] 1.3 103/ul Normal 1.2-3.8 [facility] Comment on above: Performed By: #### ELVIRA CASTELLANOSRO #### [facility] [address] [place] [address] Hellen Lilian Lymphocytes/100 WBC (Bld) 9.0 % Critically low 20.5-60.[address] [facility] Comment on above: Performed By: #### SANDRA CASTELLANOSICRO #### [facility] [address] [place], [place] [id number] Hellen Lilian MANUAL DIFF REQ NO Normal [facility] Comment on above: Performed By: #### ELVIRA CASTELLANOSRO #### [facility] [address] [place], [place] [id number] Hellen Lilian MCH (RBC) [Entitic mass] 30.7 pg Normal 25.9-34.0 [facility] Comment on above: Performed By: #### SANDRA CASTELLANOSICRO #### [facility] [address] [place], [place] [id number] Hellen Lilian MCHC (RBC) [Mass/Vol] 34.0 g/dL Normal 29.9-35.2 [facility] Comment on above: Performed By: #### Kana ALAS ICRO #### [facility] [address] [place], [place] [id number] Hellen Lilian MCV (RBC) [Entitic vol] 90.3 fL Normal 80.0-94.[address] [facility] Comment on above: Performed By: #### SANDRA CASTELLANOSICRO #### [facility] [address] [phone] Hellen Lilian Monocytes (Bld) [#/Vol] 1.1 103/ul Critically high 0.3-0.[address] [facility] Comment on above: Performed By: #### SANDRA CASTELLANOSICRO #### [facility] [address] [phone] Hellen Lilian Monocytes/100 WBC (Bld) 7.7 % Normal 1.7-12.[address] [facility] Comment on above: Performed By: #### SANDRA CASTELLANOSICRO #### [facility] [address] [place], [place] [id number] Hellen Lilian Neutrophils (Bld) [#/Vol] 11.4 103/ul Critically high 1.4-6.5 [facility] Comment on above: Performed By: #### ELVIRA CASTELLANOSRO #### [facility] [address] [place] [address] Hellen Lilian Neutrophils/100 WBC (Bld) 79.1 % Critically high 43.0-75.[address] [facility] Comment on above: Performed By: #### ELVIRA CASTELLANOSRO #### [facility] [address] [place], [place] [id number] Hellen Lilian Platelet mean volume (Bld) [Entitic vol] 9.7 fL Normal 9.5-13.5 [facility] Comment on above: Performed By: #### ELVIRA CASTELLANOSRO #### [facility] [address] [place], [place] [id number] Hellen Lilian Platelets (Bld) [#/Vol] 237 103/ul Normal 150-450 [facility] Comment on above: Performed By: #### ELVIRA CASTELLANOSRO #### [facility] [address] [place], [place] [id number] Hellen Lilian RBC (Bld) [#/Vol] 5.47 106/ul Normal 4.70-6.10 [facility] Comment on above: Performed By: #### U RADHA ALAS #### [facility] [address] [place] [address] Hellen Quintana WBC (Bld) [#/Vol] 14.5 103/ul Critically high 4.0-11.0 [facility] Comment on above: Performed By: #### ELVIRA CASTELLANOSRO #### [facility] [address] [place] [address] Hellen Quintana INFLUENZA A AND B AGon 12-14 INFLUANEGH SEE BELOW Normal [facility] Comment on above: Result Comment: Nega tive for Flu A protein angiten. Infection due to Flu A cannot be ruled out. Flu A angiten in the sample may be below the detection limit of the test. Performed By: #### RADHA CASTELLANOS #### [facility] [address] [place] [address] Hellen Quintana INFLUBNEGH SEE BELOW Normal [facility] Comment on above: Result Comment: Nega tive for Flu B protein antigen. Infection due to Flu B cannot be ruled out. Flu B antigen in the sample may be below the detection limit of the test. Performed By: #### ELVIRA CASTELLANOSRO #### [facility] [address] [place] [address] Hellen Quintana INFLUENZA A AG Negative Normal NEGATIVE SEE COMMENT [facility] Comment on above: Performed By: #### ELVIRA CASTELLANOSRO #### [facility] [address] [place] [address] Hellen Quintana INFLUENZA B AG Negative Normal NEGATIVE SEE COMMENT [facility] Comment on above: Performed By: #### ELVIRA CASTELLANOSRO #### [facility] [address] [place] [address] Hellen Quintana INTERNAL CONTROLS Within Normal Limits Normal Wi thin Normal Limits [facility] Comment on above: Performed By: #### U ELVIRA ALASRO #### [facility] [address] [place] [address] Hellen Quintana PROCALCITONINon 12-14-2018 PCT header 1 SEE BELOW Normal [facility] Comment on above: Result Comment: PCT <0.5ng/mL: Systemic infection (sepsis) is not likely, local bacterial infection possible, low risk for progression to severe systemic infection (severe sepsis) Performed By: #### U ELVIRA ALASRO #### [facility] [address] [place] [address] Hellen Lilian PCT header 2 SEE BELOW Normal [facility] Comment on above: Result Comment: PCT >/=0.5 and <2 ng/mL: Systemic infection (sepsis) is possible, moderate risk for progression to severe systemic infection (severe sepsis) Performed By: #### U ELVIRA ALASRO #### [facility] [address] [place] [address] Hellen Lilian PCT header 3 SEE BELOW Normal [facility] Comment on above: Result Comment: PCT >/=2.0 and <10 ng/mL: Systemic infection (sepsis) is likely, unless other causes are known, high risk for progession to severe systemic infection(severe sepsis) Performed By: #### ELVIRA CASTELLANOSRO #### [facility] [address] [place] [address] Hellen Lilian PCT header 4 SEE BELOW Normal [facility] Comment on above: Result Comment: PCT >/= 10 ng/mL: Important systemic inflammatory response almost exclusively due to severe bacterial sepsis or septic shock, high likelihood of severe sepsis or septic shock Performed By: #### U ELVIRA ALASRO #### [facility] [address] [place] [address] Hellen Quintana PROCALCITONIN <0.05 Normal 0.00-0.50 [facility] Comment on above: Performed By: #### U ELVIRA ALASRO #### [facility] [address] [place] [address] Hellen Quintana PROF CHEM 8 (BAS METB)on Anion gap [Moles/Vol] 9.4 mmol/L Normal [facility] Comment on above: Performed By: #### U ELVIRA ALASRO #### [facility] [address] [place] [address] Hellen Quintana Calcium [Mass/Vol] 9.3 mg/dL Normal 8.4-10.2 [facility] Comment on above: Performed By: #### U ELVIRA ALASRO #### [facility] [address] [address] Hellen Lilian Chloride [Moles/Vol] 97 mmol/L Critically low 98-[address] [facility] Comment on above: Performed By: #### U ELVIRA ALASRO #### [facility] [address] [place] [address] Hellen Lilian CO2 [Moles/Vol] 30.1 mmol/L Critically high 22.0-30.[address] [facility] Comment on above: Performed By: #### U RADHA ALAS #### [facility] [address] [place] [address] Hellen Lilian Creatinine [Mass/Vol] 0.66 mg/dL Normal 0.66-1.[address] [facility] Comment on above: Performed By: #### U ELVIRA ALASRO #### [facility] [address] [place] [address] Hellen Lilian EGFR-AF ZIMBABWEAN >60 Normal >=60 [facility] Comment on above: Performed By: #### U RADHA ALAS #### [facility] [address] [place] [address] Hellen Lilian EGFR-NON AF ZIMBABWEAN >60 Normal >=[address] [facility] Comment on above: Performed By: #### U ELVIRA ALASRO #### [facility] [address] [place] [address] Hellen Lilian Glucose [Mass/Vol] 185 mg/dL Critically high 74-106 [facility] [place] Comment on above: Performed By: #### U ELVIRA ALASRO #### [facility] [address] [place] [address] Hellen Lilian Potassium [Moles/Vol] 3.5 mmol/L Normal 3.4-5.[address] [facility] Comment on above: Performed By: #### U ACSELVIRA GRANDARO #### [facility] [address] [place] [address] Hellen Lilian Sodium [Moles/Vol] 133 mmol/L Critically low 137-145 [facility] Comment on above: Performed By: #### U RADHA ALAS #### [facility] [address] [phone] Hellen Quintana Urea nitrogen [Mass/Vol] 10.0 mg/dL Normal 9.0-20.[address] [facility] Comment on above: Performed By: #### RADHA CASTELLANOS #### [facility] [address] [phone] Hellen Quintana Urea nitrogen/Creatinine [Mass ratio] 15.2 mg/mg Normal [facility] Comment on above: Performed By: #### U RADHA ALAS #### [facility] [address] [phone] Hellen Quintana TROPONIN - Ion 12-14-2018 Troponin I.cardiac [Mass/Vol] ng/mL Normal <=0.[address] [facility] Comment on above: Performed By: #### RADHA CASTELLANOS #### [facility] [address] [place], [place] [id number] Hellen Quintana Troponin I.cardiac [Mass/Vol] SEE BELOW Normal [facility] Comment on above: Result Comment: <0.0 34 ng/ml NEGATIVE 0.034-0.119 INDETERMINATE 0.120 AMI CUT OFF Performed By: #### U RADHA ALAS #### [facility] [address] [place], [place] [id number] Hellengerald Lezamaen XR RIBS LT PA Miah 9 XR RIBS LT PA CH Patient: MIHIR WRIGHT Exam Date: 12/14/2018 : 1960 Gender:M Ordering : DR. KASIA FOSTER . Admission #: [id number] Family : Order #: [id number] CLICK HERE TO VIEW EXAM RADIOLOGY REPORT [...] M.D. on 12/15/2018 at 09:04 Normal [facility] BILIRUBIN CONJUGATED (DIRECT )on 12-13-2018 BILI, CONJUGATED 0.3 mg/dL Normal 0.0-0.3 [facility] Comment on above: Performed By: #### C MP, DBIL, LIPID, PHOS, MG, TSH, FT3, PSASC, URIC, CK #### [facility] [address] [place] [address] Hellen Lilian CBC AUTO DIFFon 12-13-2018 Basophils (Bld) [#/Vol] 0.0 103/ul Normal 0.0-0.1 [facility] Comment on above: Performed By: #### C BC #### [facility] [address] [place] [address] Hellen Lilian Basophils/100 WBC (Bld) 0.2 % Normal 0.2-2.0 [facility] Comment on above: Performed By: #### C BC #### [facility] [address] [place] [address] Hellen Lilian Eosinophils (Bld) [#/Vol] 0.5 103/ul Normal 0.0-0.7 [facility] Comment on above: Performed By: #### C BC #### [facility] [address] [place] [phone] Hellen Lilian Eosinophils/100 WBC (Bld) 3.4 % Normal 0.9-7.0 [facility] Comment on above: Performed By: #### C BC #### [facility] [address] [place] [address] Hellen Lilian Erythrocyte distribution width (RBC) [Ratio] 11.8 % Normal 11.0-15.0 [facility] Comment on above: Performed By: #### C BC #### [facility] [address] [phone] Hellen Lilian Hematocrit (Bld) [Volume fraction] 50.4 % Normal 42.0-54.[address] [facility] Comment on above: Performed By: #### C BC #### [facility] [address] [phone] Hellen Lilian Hemoglobin (Bld) [Mass/Vol] 16.9 g/dL Normal 14.0-18.0 [facility] Comment on above: Performed By: #### C BC #### [facility] [address] [phone] Hellen Lilian IG # 0.05 10e3/ul Critically high 0.00-0.03 [facility] Comment on above: Performed By: #### C BC #### [facility] [address] [place], [place] [id number] Hellen Lilian IG % 0.4 % Normal 0.0-0.[address] [facility] Comment on above: Performed By: #### C BC #### [facility] [address] [phone] Hellen Lilian Lymphocytes (Bld) [#/Vol] 1.8 103/ul Normal 1.2-3.8 [facility] Comment on above: Performed By: #### C BC #### [facility] [address] [place], [place] [id number] Hellen Lilian Lymphocytes/100 WBC (Bld) 12.3 % Critically low 20.5-60.0 [facility] Comment on above: Performed By: #### C BC #### [facility] [address] [place], [place] [id number] Hellengerald Lezamaen MANUAL DIFF REQ NO Normal [facility] Comment on above: Performed By: #### C BC #### [facility] [address] [place], [place] [id number] Hellen Lilian MCH (RBC) [Entitic mass] 30.7 pg Normal 25.9-34.[address] [facility] Comment on above: Performed By: #### C BC #### [facility] [address] [place], [place] [id number] Hellen Quintana MCHC (RBC) [Mass/Vol] 33.5 g/dL Normal 29.9-35.2 [facility] Comment on above: Performed By: #### C BC #### [facility] [address] [place], [place] [address] Hellen Quintana MCV (RBC) [Entitic vol] 91.6 fL Normal 80.0-94.0 [facility] Comment on above: Performed By: #### C BC #### [facility] [address] [place], [place] [id number] Hellen Lilian Monocytes (Bld) [#/Vol] 1.0 103/ul Critically high 0.3-0.8 [facility] Comment on above: Performed By: #### C BC #### [facility] [address] [place], [place] [id number] Hellen Lilian Monocytes/100 WBC (Bld) 7.1 % Normal 1.7-12.0 [facility] Comment on above: Performed By: #### C BC #### [facility] [address] [place], [place] [id number] Hellen Lilian Neutrophils (Bld) [#/Vol] 10.9 103/ul Critically high 1.4-6.5 [facility] Comment on above: Performed By: #### C BC #### [facility] [address] [place], [place] [address] Hellen Lilian Neutrophils/100 WBC (Bld) 76.6 % Critically high 43.0-75.0 [facility] Comment on above: Performed By: #### C BC #### [facility] [address] [place], [place] [id number] Hellengerald Lezamaen Platelet mean volume (Bld) [Entitic vol] 9.4 fL Critically low 9.5-13.5 [facility] Comment on above: Performed By: #### C BC #### [facility] [address] [place], [place] [id number] Hellen Lilian Platelets (Bld) [#/Vol] 255 103/ul Normal 150-450 [facility] Comment on above: Performed By: #### C BC #### [facility] [address] [place], [place] [address] Hellengerald Quintana RBC (Bld) [#/Vol] 5.50 106/ul Normal 4.70-6.10 [facility] Comment on above: Performed By: #### C BC #### [facility] [address] [place], [place] [address] Hellen Lilian WBC (Bld) [#/Vol] 14.3 103/ul Critically high 4.0-11.0 [facility] [place] Comment on above: Performed By: #### C BC #### [facility] [address] [place] [phone] Hellen Lilian CPKon 12-13-2018 CK [Catalytic activity/Vol] 222 U/L Critically high 55-[address] [facility] Comment on above: Result Comment: TEST REPEATED CRITICAL VALUE VERIFIED Performed By: #### U RADHA ALAS #### [facility] [address] [place], [place] [id number] Hellen Lilian FREE T3on 12-13-2018 Free T3 [Mass/Vol] 2.75 pg/mL Critically low 2.77-5.27 [facility] Comment on above: Performed By: #### U RADHA ALAS #### [facility] [address] [place] [address] Hellen Lilian FREE T4on 12-13-2018 Free T4 [Mass/Vol] 1.11 ng/dL Normal 0.78-2.19 [facility] Comment on above: Performed By: #### U RADHA ALAS #### [facility] [address] [place] [address] Hellengreald Quintana GLYCOHEMOGLOBIN A1Con 2018 Glucose [Mass/Vol] 226 mg/dL Normal [facility] Comment on above: Performed By: #### A 1C #### [facility] [address] [place] [address] Hellengerald Quintana HbA1c (Bld) [Mass fraction] 9.5 % Critically high <=6.[address] [facility] Comment on above: Performed By: #### A 1C #### [facility] [address] [phone] Hellen Lilian IRONon 12-13-2018 Iron [Mass/Vol] 79.0 ug/dL Normal 49.0-81.0 [facility] Comment on above: Performed By: #### U RADHA ALAS #### [facility] [address] [phone] Hellen Lilian LIPID PROFILEon 12-13-2018 CHOL-HDL RATIO NORM SEE BELOW Normal [facility] Comment on above: Result Comment: 3.3 - 4.4 LOW RISK 4.4 - 7.1 AVERAGE RISK 7.1 - 11.0 MODERATE RISK >11.0 HIGH RISK Performed By: #### C MP, DBIL, LIPID, PHOS, MG, TSH, FT3, PSASC, URIC, CK #### [facility] [address] [phone] Hellen Lilian Cholesterol [Mass/Vol] 175 mg/dL Normal <=[address] [facility] Comment on above: Performed By: #### C MP, DBIL, LIPID, PHOS, MG, TSH, FT3, PSASC, URIC, CK #### [facility] [address] [phone] Hellen Lilian Cholesterol in HDL [Mass/Vol] 37 mg/dL Normal [facility] Comment on above: Performed By: #### C MP, DBIL, LIPID, PHOS, MG, TSH, FT3, PSASC, URIC, CK #### [facility] [address] [phone] Hellen Lilian Cholesterol in HDL [Mass/Vol] > or = 60 mg/dl - LOW CARDIOVASCULAR RISK <40 mg/dl - HIGH CARDIOVASCULAR RISK Normal [facility] Comment on above: Performed By: #### C MP, DBIL, LIPID, PHOS, MG, TSH, FT3, PSASC, URIC, CK #### [facility] [address] [phone] Hellen Lilian Cholesterol in LDL [Mass/Vol] SEE BELOW Normal [facility] Comment on above: Result Comment: <100 mg/dl OPTIMAL 100 - 129 mg/dl NEAR OR ABOVE OPTIMAL 130 - 159 mg/dl BORDERLINE HIGH 160 - 189 mg/dl HIGH >190 mg/dl VERY HIGH Performed By: #### C MP, DBIL, LIPID, PHOS, MG, TSH, FT3, PSASC, URIC, CK #### [facility] [address] [address] Hellen Quintana Cholesterol in LDL [Mass/Vol] 121.6 mg/dL Normal [facility] Comment on above: Performed By: #### C MP, DBIL, LIPID, PHOS, MG, TSH, FT3, PSASC, URIC, CK #### [facility] [address] [address] Hellen Quintana Cholesterol.total/Cho lesterol in HDL [Mass ratio] 4.7 {ratio} Normal [facility] Comment on above: Performed By: #### C MP, DBIL, LIPID, PHOS, MG, TSH, FT3, PSASC, URIC, CK #### [facility] [address] [address] Hellengerald Quintana Triglyceride [Mass/Vol] 82 mg/dL Normal <=150 [facility] Comment on above: Performed By: #### C MP, DBIL, LIPID, PHOS, MG, TSH, FT3, PSASC, URIC, CK #### [facility] [address] [address] Hellengerald Quintana VLDL CALC 16.4 mg/dL Normal [facility] Comment on above: Performed By: #### C MP, DBIL, LIPID, PHOS, MG, TSH, FT3, PSASC, URIC, CK #### [facility] [address] [address] Hellen Quintana MAGNESIUMon 12-13-2018 Magnesium [Mass/Vol] 1.6 mg/dL Normal 1.6-2.3 [facility] Comment on above: Performed By: #### C MP, DBIL, LIPID, PHOS, MG, TSH, FT3, PSASC, URIC, CK #### [facility] [address] [address] Hellen Quintana MICROALBUMIN, RAND URon - mALB 8.2 mg/dL Normal <=30.0 [facility] Comment on above: Performed By: #### M ALBR #### [facility] [address] [id number] Hellen Quintana mALBH PLEASE NOTE: NORMAL RANGE CHANGE, TESTING PERFORMED AT [facility]. Normal [facility] Comment on above: Performed By: #### M ALBR #### [facility] [address] [address] Hellen Quintana PHOSPHORUSon 12-13-2018 Phosphate [Mass/Vol] 3.3 mg/dL Normal 2.5-4.[address] [facility] Comment on above: Performed By: #### C MP, DBIL, LIPID, PHOS, MG, TSH, FT3, PSASC, URIC, CK #### [facility] [address] [address] [place]ald Quintana PROF 14(COMP METB)on 019 Albumin [Mass/Vol] 3.7 g/dL Normal 3.5-5.0 [facility] Comment on above: Performed By: #### C MP, DBIL, LIPID, PHOS, MG, TSH, FT3, PSASC, URIC, CK #### [facility] [address] [address] Hellen Quintana Albumin/Globulin [Mass ratio] 0.9 {ratio} Normal [facility] Comment on above: Performed By: #### C MP, DBIL, LIPID, PHOS, MG, TSH, FT3, PSASC, URIC, CK #### [facility] [address] [address] Hellen Lilian ALP [Catalytic activity/Vol] 102 U/L Normal 38-[address] [facility] Comment on above: Performed By: #### C MP, DBIL, LIPID, PHOS, MG, TSH, FT3, PSASC, URIC, CK #### [facility] [address] [address] Hellen Lilian ALT [Catalytic activity/Vol] 17 U/L Critically low 21-[address] [facility] Comment on above: Performed By: #### C MP, DBIL, LIPID, PHOS, MG, TSH, FT3, PSASC, URIC, CK #### [facility] [address] [address] Hellen Lilian Anion gap [Moles/Vol] 9.5 mmol/L Normal [facility] Comment on above: Performed By: #### C MP, DBIL, LIPID, PHOS, MG, TSH, FT3, PSASC, URIC, CK #### [facility] [address] [address] Hellen Lilian AST [Catalytic activity/Vol] 13 U/L Critically low 17-[address] [facility] Comment on above: Performed By: #### C MP, DBIL, LIPID, PHOS, MG, TSH, FT3, PSASC, URIC, CK #### [facility] [address] [address] Hellen Lilian Bilirubin Ql (U) 0.8 mg/dL Normal 0.2-1.3 [facility] Comment on above: Performed By: #### C MP, DBIL, LIPID, PHOS, MG, TSH, FT3, PSASC, URIC, CK #### [facility] [address] [address] Hellen Lilian Calcium [Mass/Vol] 9.3 mg/dL Normal 8.4-10.2 [facility] Comment on above: Performed By: #### C MP, DBIL, LIPID, PHOS, MG, TSH, FT3, PSASC, URIC, CK #### [facility] [address] [address] Hellen Lilian Chloride [Moles/Vol] 98 mmol/L Normal 98-107 [facility] Comment on above: Performed By: #### C MP, DBIL, LIPID, PHOS, MG, TSH, FT3, PSASC, URIC, CK #### [facility] [address] [address] Hellen Lilian CO2 [Moles/Vol] 33.6 mmol/L Critically high 22.0-30.[address] [facility] Comment on above: Performed By: #### C MP, DBIL, LIPID, PHOS, MG, TSH, FT3, PSASC, URIC, CK #### [facility] [address] [place] [address] Hellen Lilian Creatinine [Mass/Vol] 0.63 mg/dL Critically low 0.66-1.[address] [facility] Comment on above: Performed By: #### C MP, DBIL, LIPID, PHOS, MG, TSH, FT3, PSASC, URIC, CK #### [facility] [address] [place] [address] Hellen Lilian EGFR-AF ZIMBABWEAN >60 Normal >=60 [facility] Comment on above: Performed By: #### C MP, DBIL, LIPID, PHOS, MG, TSH, FT3, PSASC, URIC, CK #### [facility] [address] [place] [address] Hellen Lilian EGFR-NON AF ZIMBABWEAN >60 Normal >=[address] [facility] Comment on above: Performed By: #### C MP, DBIL, LIPID, PHOS, MG, TSH, FT3, PSASC, URIC, CK #### [facility] [address] [place] [address] Hellen Lilian Globulin (S) [Mass/Vol] 4.3 g/dL Normal [facility] Comment on above: Performed By: #### C MP, DBIL, LIPID, PHOS, MG, TSH, FT3, PSASC, URIC, CK #### [facility] [address] [place] [address] Hellen Lilian Glucose [Mass/Vol] 182 mg/dL Critically high 74-106 [facility] Comment on above: Performed By: #### C MP, DBIL, LIPID, PHOS, MG, TSH, FT3, PSASC, URIC, CK #### [facility] [address] [place] [address] Hellen Lilian Potassium [Moles/Vol] 4.1 mmol/L Normal 3.4-5.[address] [facility] Comment on above: Performed By: #### C MP, DBIL, LIPID, PHOS, MG, TSH, FT3, PSASC, URIC, CK #### [facility] [address] [place] [address] Hellen Lilian Protein [Mass/Vol] 8.0 g/dL Normal 6.1-8.2 [facility] Comment on above: Performed By: #### C MP, DBIL, LIPID, PHOS, MG, TSH, FT3, PSASC, URIC, CK #### [facility] [address] [address] Hellen Lilian Sodium [Moles/Vol] 137 mmol/L Normal 137-145 [facility] Comment on above: Performed By: #### C MP, DBIL, LIPID, PHOS, MG, TSH, FT3, PSASC, URIC, CK #### [facility] [address] [address] Hellengerald Lezamaen Urea nitrogen [Mass/Vol] 6.0 mg/dL Critically low 9.0-20.[address] [facility] Comment on above: Performed By: #### C MP, DBIL, LIPID, PHOS, MG, TSH, FT3, PSASC, URIC, CK #### [facility] [address] [address] Hellengerald Lezamaen Urea nitrogen/Creatinine [Mass ratio] 9.5 mg/mg Normal [facility] Comment on above: Performed By: #### C MP, DBIL, LIPID, PHOS, MG, TSH, FT3, PSASC, URIC, CK #### [facility] [address] [address] Hellengerald Quintana TSHon 12-13-2018 TSH Qn 1.350 uIU/mL Normal 0.470-4.680 [facility] Comment on above: Performed By: #### U ACSKALEE UMICRO #### [facility] [address] [place] [address] Hellen Lilian TSH Qn SEE BELOW Normal [facility] Comment on above: Result Comment: <0.3 4 UIU/ml HYPERTHYROID 0.34-5.60 UIU/ml EUTHYROID >5.60 UIU/ml HYPOTHYROID Performed By: #### U ACSKALEE UMICRO #### [facility] [address] [place] [address] Hellen Lilian UA (CLEAN/CATCH) METAL CONTROL COORDINATOR/MICRO I F IND.on 12-13-2018 Bilirubin [Mass/Vol] Negative Normal NEGATIVE [facility] Comment on above: Performed By: #### U SANDRA ALASICRO #### [facility] [address] [place] [address] Hellen Lilian BLOOD Negative Normal NEGATIVE [facility] Comment on above: Performed By: #### U SANDRA ALASICRO #### [facility] [address] [address] Hellen Lilian Clarity (U) CLEAR Normal [facility] Comment on above: Performed By: #### U ACSSANDRA GRANDAICRO #### [facility] [address] [place] [address] Hellen Lilian Color (U) LT. YELLOW Normal YELLOW [facility] Comment on above: Performed By: #### U ACSSANDRA GRANDAICRO #### [facility] [address] [place] [address] Hellen Lilian Glucose [Mass/Vol] Negative Normal NEGATIVE [facility] Comment on above: Performed By: #### U SANDRA ALASICRO #### [facility] [address] [place] [address] Hellen Lilian Ketones Ql (U) Negative Normal NEGATIVE [facility] Comment on above: Performed By: #### U SANDRA ALASICRO #### [facility] [address] [place] [address] Hellen Lilian Nitrite Ql (U) Negative Normal NEGATIVE [facility] Comment on above: Performed By: #### U ACSSANDRA GRANDAICRO #### [facility] [address] [place] [address] Hellen Lilian pH (Bld) 6.0 Normal 5-9 [facility] Comment on above: Performed By: #### U SANDRA ALASICRO #### [facility] [address] [place] [address] Hellen Lilian Protein [Mass/Vol] Negative Normal [facility] Comment on above: Performed By: #### U SANDRA ALASICRO #### [facility] [address] [address] Hellen Quintana SPEC GRAVITY <=1.005 Normal 1.005-<=1.025 [facility] Comment on above: Performed By: #### RADHA CASTELLANOS #### [facility] [address] [address] Hellengerald Quintana UR MICRO IND NOT INDICATED Normal [facility] Comment on above: Performed By: #### RADHA CASTELLANOS #### [facility] [address] [address] Hellengerald Quintana Urobilinogen Qn (U) 1.0 EU/dl Normal [facility] Comment on above: Performed By: #### RADHA CASTELLANOS #### [facility] [address] [address] Hellengerald Quintana WBC (Bld) [#/Vol] Negative Normal NEGATIVE [facility] Comment on above: Performed By: #### RADHA CASTELLANOS #### [facility] [address] [address] Hellengerald Quintana URIC ACID SERUMon 12-13-2018 Urate [Mass/Vol] 3.8 mg/dL Normal 3.5-8.5 [facility] Comment on above: Performed By: #### RADHA CASTELLANOS #### [facility] [address] [address] Hellen Lilian URINE MICROSCOPIC ONLYon Bacteria LM.HPF (Urine sed) [#/Area] TRACE Normal NONE SEEN [facility] Comment on above: Performed By: #### RADHA ACSTELLANOS #### [facility] [address] [address] Hellen Lilian CAST NONE SEEN Normal NONE SEEN [facility] Comment on above: Performed By: #### RADHA CASTELLANOS #### [facility] [address] [address] Hellen Lilian Crystals LM Nom (Urine sed) NONE SEEN Normal NONE SEEN [facility] Comment on above: Performed By: #### RADHA CASTELLANOS #### [facility] [address] [place] [address] Hellen Lilian CULTURE NOT INDICATED Normal [facility] Comment on above: Performed By: #### RADHA CASTELLANOS #### [facility] [address] [place] [address] Hellen Lilian Epithelial cells LM.HPF (Urine sed) [#/Area] RARE Normal [facility] Comment on above: Performed By: #### RADHA CASTELLANOS #### [facility] [address] [place] [address] Hellen Lilian MUCOUS NONE SEEN Normal NONE SEEN [facility] Comment on above: Performed By: #### RADHA CASTELLANOS #### [facility] [address] [place] [address] Hellen Lilian RBC (U) [#/Vol] 0-2 Normal 0-2 [facility] Comment on above: Performed By: #### RADHA CASTELLANOS #### [facility] [address] [place] [address] Hellen Lilian WBC (Bld) [#/Vol] NONE SEEN Normal NONE SEEN [facility] Comment on above: Performed By: #### RADHA CASTELLANOS #### [facility] [address] [place] [address] Hellen Lilian VIT B12 AND FOLATEon 019 Cobalamin (Vitamin B12) [Mass/Vol] 246.0 pg/mL Normal 239.0-931.0 [facility] Comment on above: Performed By: #### RADHA CASTELLANOS #### [facility] [address] [place] [address] Hellen Lilian FOLATE 16.30 ng/mL Normal >=2.76 [facility] Comment on above: Performed By: #### RADHA CASTELLANOS #### [facility] [address] [place] [address] Hellen Lilian VITAMIN D 25 OHon 12-13-2018 VIT D 25-OH 26.5 ng/mL Normal [facility] Comment on above: Performed By: #### RADHA CASTELLANOS #### [facility] [address] [place], [place] [address] Hellen Quintana VIT D RANGES SEE BELOW Normal [facility] Comment on above: Result Comment: <20 ng/mL Vit D deficient 20 - <30 ng/mL Vit D insufficient 30 - 100 ng/mL Vit D sufficient >100 ng/mL Potential Toxicity Performed By: #### U RADHA ALAS #### [facility] [address] [address] Hellen Quintana VITDH PLEASE NOTE: NORMAL RANGE CHANGE 11-01-2012, TESTING PERFORMED AT [facility]. Normal [facility] Comment on above: Performed By: #### U RADHA ALAS #### [facility] [address] [id number] Hellen Quintana Encounters Encounter Date Encounter Type Care Provider Facility Start: 12-07-2023 End: 12-19-2023 Telephone encounter Theresa Espinoza [facility] Comment on above: Hospital Follow-up Start: 01-31-2020 End: 01-31-2020 ambulatory Macario Dunne Facility:[facility] Start: 12-15-2018 End: 12-17-2018 Evaluation and management of inpatient BUFFY SPARKS Facility:[facility] Start: 12-13-2018 End: 12-14-2018 Patient encounter procedure BUFFY SPARKS Facility: Procedures Date Procedure Procedure Detail Performing Clinician Start: 12-14-2018 End: 12-14-2018 Microscopic examination of blood, culture [facility] Comment on above: Performed By: #### M ALBR #### [facility] [address] [id number] Hellen Quintana Start: 12-13-2018 [object Object] BUFFY SPARKS Comment on above: Performed By: #### U RADHA ALAS #### [facility] [address] [id number] Hellen Quintana Plan of Treatment Date Care Activity Detail Author Start: 02-07-2024 End: 02-07-2024 Patient encounter procedure 02/07/2024 1:00 PM EST Office Visit [facility] [address] [place] [address] Feliberto Santos MD [address] [facility] [place] [address] [facility] Start: 10-29-2023 Influenza vaccination Influenza Vaccine [facility] Start: 2023 Fall Risk Screening Fall Risk Screening [facility] Start: 01-22-2008 Administration of varicella zoster vaccine Zoster (Shingles) Vaccine (1 of 2) [facility] Start: 1977 DTaP,Tdap and Td Vaccines (1 - Tdap) DTaP,Tdap and Td Vaccines (1 - Tdap) [facility] Start: 01-22-1976 Adult BMI Screening Adult BMI Screening [facility] Start: 1970 Depression Screening Depression Screening [facility] Start: 1970 Tobacco Screening Tobacco Screening [facility] Payers Date Payer Category Payer Self-pay 1959 Unknown [id number] 1960 Unknown [id number] 1960 Unknown [id number] Unknown [id number] Social History Date Type Detail Facility Tobacco smoking status COIS Tobacco smoking consumption unknown [facility] Start: 1960 Sex assigned at Not on file [facility] Start: 11-26-2023 Sex Male (finding) [facility] Gender identity Not on file [facility] Note 12-07-2023 Telephone Encounter - Theresa Espinoza - 12/07/2023 9:50 AM EDTTelephone Encounter - Daniela Oliveira RN - 12/07/2023 9:50 AM EDTTelephone Encounter - JOHN Mccormick - 12/07/2023 9:50 AM EDT Note Date & Type Note Facility 12-07-2023 Miscellaneous Notes Formattin g of this note might be different from the original. What is the reason for the call? Silvina and RN from [facility] called to schedule a hospital follow up. If appointment requested, what is the reason for the appointment? Patient has been in [facility] for Dx stroke Is there a referral in the chart? No Were they seen in the hospital? What hospital were they seen at? Yes [facility] What is a good call back number? SREEDHAR Cool [phone] Tele consult done 11/26: ASSESSMENT & PLAN Transient left sided weakness - could be tia or concern for symptomatic carotid disease - the right ICA harbors moderate distal narrowing at the skull base - continue plavix 75 mg daily - let blood pressure ride permissive - recommend A1c/lipid profile - if unable to get mRI please obtain repeat ct brain - recommend echocardiogram - recommend carotid duplex - PT/OT/ST Who should patient follow up with? Please schedule patient to FU with Dr. Santos due to concern of possible symptomatic right carotid stenosis. Received call from SREEDHAR Najera from [facility] requesting a call back to schedule patient for follow up in stroke clinic-( [phone]) ask for [address] Nurse Scheduled for 02/06. documented in this encounter [facility] Telephone encounter Note 12-07-2023 Telephone Encounter - Theresa Espinoza - 12/07/2023 9:50 AM EDT Note Date & Type Note Facility 12-07-2023 Telephone encount er Note What is the reason for the call? Silvina and SREEDHAR from [facility] called to schedule a hospital follow up. If appointment requested, what is the reason for the appointment? Patient has been in [facility] for Dx stroke Is there a referral in the chart? No Were they seen in the hospital? What hospital were they seen at? Yes [facility] What is a good call back number? SREEDHAR Cool [phone] [facility] Telephone encounter Note 12-07-2023 Telephone Encounter - Daniela Oliveira RN - 12/07/2023 9:50 AM EDT Note Date & Type Note Facility 12-07-2023 Telephone encounter Note Tele consult done 11/26: ASSESSMENT & PLAN Transient left sided weakness - could be tia or concern for symptomatic carotid disease - the right ICA harbors moderate distal narrowing at the skull base - continue plavix 75 mg daily - let blood pressure ride permissive - recommend A1c/lipid profile - if unable to get mRI please obtain repeat ct brain - recommend echocardiogram - recommend carotid duplex - PT/OT/ST Who should patient follow up with? [facility] Telephone encounter Note 12-07-2023 Telephone Encounter - JOHN Mccormick - 12/07/2023 9:50 AM EDT Note Date & Type Note Facility 12-07-2023 Telephone encounter Note Please schedule patient to FU with Dr. Santos due to concern of possible symptomatic right carotid stenosis. [facility] Work Phone: Telephone encounter Note 12-07-2023 Telephone Encounter - Dian Arriola - 12/07/2023 9:50 AM EDT Note Date & Type Note Facility 12-07-2023 Telephone encount er Note Received call from SREEDHAR Najera from [facility] requesting a call back to schedule patient for follow up in stroke clinic-( [phone]) ask for [address] Nurse [facility] Telephone encounter Note 12-07-2023 Telephone Encounter - Neris Cobos CMA - 12/07/2023 9:50 AM EDT Note Date & Type Note Facility 12-07-2023 Telephone encount er Note Scheduled for 02/06. [facility] Instructions Note Date & Type Note Facility Instructions Not on filedocumented in this en counter [facility] Summary Purpose Family History No Family History Records FoundNo Family History Records Found Advance Directives No Advanced Directives Records FoundNo Advanced Directives Records Found Additional Source Comments (unrecognized sect ion and content) No Status Records FoundNo Status Records Found INFORMATION SOURCE (unrecogn ized section and content) DATE CREATED AUTHOR 07/16/2019 [facility] DATE CREATED AUTHOR AUTHOR'S ORGANIZ ATION 12/03/2023 [facility] Reason for Visit (unrecogniz ed section and content) Reason Onset Date Comments Hospital Follow-up 12/07/2023 FOR RECORDS PERTAINING TO PATIENTS WHO ARE [...] BE BASED ON THE PRIMARY CLINICAL RECORDS. [employer] provides no warranty or guarantee of the accuracy or completeness of information in this document.
== END 2024-01-22 15:03 | disposition home or self-care (01) ==
LOC: EC 15:02
PROVIDERS: Visit Provider Student in an Organized Health Care Education/Training Program
DX: S72.141D Displaced intertrochanteric fracture of right femur, subsequent encounter for closed fracture with routine healing (principal); Z47.89 Encounter for other orthopedic aftercare
CPT/HCPCS: 73502

== ENCOUNTER 2024-02-02 09:11 | Outpatient (OUT) | payer MEDICARE, SELFPAY ==
[2024-02-02 09:43] LABS: Basophils Absolute Auto 0.1 10^3/uL (0.0-0.1); Basophils Percent Auto 0.7 % (0.2-2.0); Eosinophils Absolute Auto 0.4 10^3/uL (0.0-0.7); Eosinophils Percent Auto 4.8 % (0.9-7.0); Hematocrit 47.2 % (42.0-54.0); Immature Granulocytes Abs Auto 0.02 10^3/uL (0.00-0.03); Immature Granulocytes Pct Auto 0.3 % (0.0-0.5); Lymphocytes Absolute Auto 1.8 10^3/uL (1.2-3.8); Lymphocytes Percent Auto 24.8 % (20.5-60.0); Mean Corpuscular HGB Conc 31.8 g/dL (29.9-35.2); Mean Corpuscular Hemoglobin 30.5 pg (25.9-34.0); Mean Corpuscular Volume 95.9 fL (80.0-94.0); Mean Platelet Volume 9.1 fL (9.5-13.5); Monocytes Absolute Auto 0.7 10^3/uL (0.3-0.8); Monocytes Percent Auto 9.4 % (1.7-12.0); Neutrophils Absolute Auto 4.4 10^3/uL (1.4-6.5); Platelet Count 286 10^3/uL (150-450); Red Blood Count 4.92 10^6/uL (4.70-6.10); Red Cell Distribution Width 12.2 % (11.0-15.0); White Blood Count 7.3 10^3/uL (4.0-11.0)
[2024-02-02 10:34] LABS: Alanine Aminotransferase 15 U/L (16-63); Albumin Globulin Ratio 0.9; Albumin Level 3.3 g/dL (3.4-5.0); Alkaline Phosphatase 175 U/L (46-116); Anion Gap 10.6; Aspartate Amino Transferase 12 U/L (15-37); BUN Creatinine Ratio 12.5; Bilirubin Total 0.4 mg/dL (0.2-1.0); Calcium 8.8 mg/dL (8.5-10.1); Carbon Dioxide 30.9 mmol/L (21.0-32.0); Chloride 105 mmol/L (98-107); Cholesterol 149 mg/dL (<=200); Estimated GFR (African America >60 (>=60 mL/min/1.73m^2); Estimated GFR (Non-African Ame >60 (>=60 mL/min/1.73m^2); Globulin 3.7 g/dL; Glucose 109 mg/dL (74-106); HDL Cholesterol 50 mg/dL (40-60); LDL Cholesterol Calculated 84.6 mg/dL; Potassium 3.5 mmol/L (3.5-5.1); Sodium 143 mmol/L (136-145); TSH W/ REFLEX FT4 1.492 uIU/mL (0.358-3.740); Triglycerides 72 mg/dL (<=150); VLDL CHOLESTEROL 14.4 mg/dL
[2024-02-02 11:00] LABS: Estimated Average Glucose 120 mg/dL; Glycohemoglobin A1C 5.8 % (4.5-6.2)
[2024-02-03 04:08] LABS: PSA, Free 0.11 ng/mL; Prostate Specific Ag 0.5 ng/mL (0.0-4.0)
== END 2024-02-02 09:12 | disposition home or self-care (01) ==
LOC: LAB 09:13
DX: I51.9 Heart disease, unspecified (principal); R03.0 Elevated blood-pressure reading, without diagnosis of hypertension; Z95.1 Presence of aortocoronary bypass graft; I63.9 Cerebral infarction, unspecified; Z12.5 Encounter for screening for malignant neoplasm of prostate
CPT/HCPCS: 36415; 80053; 80061; 83036; 84153; 84154; 84443; 85025

== ENCOUNTER 2024-02-14 13:11 | Outpatient (OUT) | payer MEDICARE, SELFPAY ==
--- NOTE | 2024-02-14 13:28 | CT_ITS ---
[address] [address] Patient Name: MIHIR WRIGHT MRN: [id number] date: 1960 Sex: M Assigned Patient Location: CT Current Patient Location: Accession/Order Number: [id number] Exam Date: 02/14/2024 13:18 Report Date: 02/15/2024 05:24 At the request of: GERARDO MCCLURE Procedure: CT lung screening low-dose EXAMINATION: CT lung screening low-dose HISTORY: Personal Dependence Of Nicotine Dependence COMPARISON: CTA neck 11/26/2023 TECHNIQUE: Axial, Coronal, and Sagittal images were created without the administration of IV contrast material. Dose reduction techniques were achieved by using automated exposure control and/or adjustment of mA and/or kV according to patient size and/or use of iterative reconstruction technique. FINDINGS: LUNGS: Irregular stranding within right upper lobe extending from the right hilum. No suspicious nodules. No significant emphysematous changes or acute infiltrates. PLEURA: No mass, effusion, or pneumothorax. VASCULATURE: No abnormality. LEATHA: No mass or pathologic adenopathy. MEDIASTINUM: No mass or pathologic adenopathy. CARDIAC: No enlargement, pericardial thickening, or pericardial effusion. Coronary Artery calcifications: Coronary calcifications are heavy. AORTA: No aneurysm or dissection. CHEST WALL: No mass or axillary adenopathy BONES: Degenerative changes of the glenohumeral joints. LIMITED ABDOMEN: No suspicious findings. Limited images of the upper abdomen. OTHER: Negative. CT/CT lung screening low-dose IMPRESSION: 1. Lung-RADS Category 3- Probably benign. Probably benign finding(s)- short term follow up suggested; includes nodules with a low likelihood of becoming a clinically active cancer. Six month LDCT. Electronically authenticated by: LORENA CURIEL Date: 02/15/2024 05:24
== END 2024-02-14 13:12 | disposition home or self-care (01) ==
LOC: CT 13:12
DX: Z87.891 Personal history of nicotine dependence (principal); Z12.11 Encounter for screening for malignant neoplasm of colon
CPT/HCPCS: 71271

== ENCOUNTER 2024-03-20 10:07 | Outpatient (OUT) | payer MEDICARE, SELFPAY ==
[2024-03-20 10:24] LABS: Alanine Aminotransferase 27 U/L (16-63); Albumin Level 4.2 g/dL (3.4-5.0); Alkaline Phosphatase 169 U/L (46-116); Anion Gap 14.2; Aspartate Amino Transferase 18 U/L (15-37); BUN Creatinine Ratio 12.5; Bilirubin Total 0.9 mg/dL (0.2-1.0); Calcium 9.6 mg/dL (8.5-10.1); Chloride 101 mmol/L (98-107); Estimated GFR (African America >60 (>=60 mL/min/1.73m^2); Estimated GFR (Non-African Ame >60 (>=60 mL/min/1.73m^2); Glucose 114 mg/dL (74-106); Potassium 4.2 mmol/L (3.5-5.1); Sodium 142 mmol/L (136-145); Total Protein 8.2 g/dL (6.4-8.2)
--- OUTSIDE RECORDS SUMMARY | 2024-03-21 10:18 | XMS_ITS | CCD ---
Author Organization [facility] Team Providers Care Records Management Engineer Name Role Phone BUFFY SPARKS Admitting Unavailable BUFFY SPARKS Attending Unavailable BUFFY SPARKS Primary Care Unavailable BUFFY SPARKS Consulting Unavailable BUFFY SPARKS Primary Care Unavailable IGNACIO TALAVERA Admitting Unavailable IGNACIO TALAVERA Attending Unavailable MACARIO JORDAN V Consulting Unavailable SETH MCKINNEY Consulting Unavailable PARAG SANCHEZ Consulting Unavailable IGNACIO TALAVERA Consulting Unavailable KASIA FOSTER Consulting Unavailable Macario Dunne Admitting Unavailable Macario Dunne Attending Unavailable NO FAMILY, PHYSICIAN Primary Care Unavailable Unavailable Primary Care Provider UnavailParag Lemons MD Primary Care Provider [phone] [place] CONDITIONER TUMBLER, Anna Unavailable Medications Current Medications Medication Drug Class(es) Dates Sig (Normalized) Sig (Original) [id number] 200 actuat albuterol 0.09 mg/actuat metered dose inhaler (8 sources) beta2-Adrenergic Agonist Start: 02-05-2024 take 2 puff(s) by inhalation every six hours for wheezing albuterol HFA 90 mcg/act inhaler Indications: Nicotine dependence, cigarettes, uncomplicated Inhale 2 puffs every 6 (six) hours if needed for wheezing or shortness of breath 18 g 3 02/05/2024 Active Start: 12-22-2023 End: 02-05-2024 take 2 puff(s) by mouth every six hours as needed for wheezing albuterol HFA 90 mcg/act inhaler INHALE 2 PUFFS BY MOUTH EVERY 6 HOURS NEEDED FOR WHEEZING or SHORTNESS OF BREATH 12/22/2023 02/05/2024 Discontinued (Reorder) aspirin 81 mg delayed release oral tablet (8 sources) Platelet Aggregation Inhibitor, Nonsteroidal Anti-inflammatory Drug Start: 12-11-2023 End: 02-05-2024 take 1 tablet by mouth once daily aspirin 81 MG EC tablet Indications: History of coronary artery bypass graft x 3 , Heart disease Take 1 tablet (81 mg) by mouth Daily 30 tablet 2 02/05/2024 Active atorvastatin 40 mg oral tablet (8 sources) HMG-CoA Reductase Inhibitor Start: 12-22-2023 End: 02-05-2024 take 1 tablet by mouth once daily atorvastatin (Lipitor) 40 MG tablet Indications: History of coronary artery bypass graft x 3 , Heart disease Take 1 tablet (40 mg) by mouth Daily 30 tablet 2 02/05/2024 Active clopidogrel 75 mg oral tablet (8 sources) [id number] Platelet Inhibitor Start: 12-22-2023 End: 02-05-2024 take 1 tablet by mouth once daily clopidogrel (Plavix) 75 MG tablet Indications: History of coronary artery bypass graft x 3 , Heart disease Take 1 tablet (75 mg) by mouth Daily 30 tablet 2 02/05/2024 Active Tnjckibbtxv-Vmnoklhub-A ilant (Trelegy Ellipta) 200-62.5-25 MCG/ACT aerosol powder (4 sources) Start: 02-05-2024 take 1 puff(s) by inhalation once daily Fluticasone-Umec lidin-Vilant (Trelegy Ellipta) 200-62.5-25 MCG/ACT aerosol powder Indications: Nicotine dependence, cigarettes, uncomplicated Inhale 1 puff Daily 60 each 2 02/05/2024 Active hydroCHLOROthiazide 12.5 mg / losartan potassium 50 mg oral tablet (8 sources) Thiazide Diuretic, Angiotensin 2 Receptor Renay Start: 12-22-2023 End: 02-05-2024 take 1 tablet by mouth once daily losartan-hydroCH LOROthiazide (Hyzaar) 50-12.5 MG tablet Indications: History of coronary artery bypass graft x 3 , Heart disease Take 1 tablet by mouth Daily 30 tablet 2 02/05/2024 Active metFORMIN hydrochloride 500 mg oral tablet (8 sources) Biguanide Start: 12-22-2023 End: 02-05-2024 take 1 tablet by mouth in the morning metFORMIN (Glucophage) 500 MG tablet Indications: Heart disease Take 1 tablet (500 mg) by mouth in the morning and 1 tablet (500 mg) before bedtime. 30 tablet 2 02/05/2024 Active Trelegy Ellipta 200-62.5-25 MCG/ACT aerosol powder (4 sources) Start: 12-22-2023 End: 02-05-2024 take 1 puff(s) by mouth once daily Trelegy Ellipta 200-62.5-25 MCG/ACT aerosol powder INHALE 1 PUFF BY MOUTH DAILY 12/22/2023 02/05/2024 Discontinued (Reorder) Start: 12-22-2023 take 1 puff(s) by mo uth once daily Trelegy Ellipta 200-62.5-25 MCG/ACT aerosol powder INHALE 1 PUFF BY MOUTH DAILY 12/22/2023 Active Problems Active Problems Problem Classification Problem Date Documented Date Episodic/Chronic Acute cerebrovascular disease (9 sources) Cerebrovascular accident; 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: [Cerebral infarction, unspecified] Onset: 4 01-31-2024 Chronic Administrative/social admission (10 sources) First encounter by subject; 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: [Persons encountering health services in other specified circumstances] Onset: 4 01-31-2024 Episodic Adverse effects of medical drugs (1 source) Adverse effect of glucocorticoids and synthetic analogues, initial encounter; 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: [ADVRS EFF GLUCOCORT SYN ANALOG INIT] Onset: 0 Chronic obstructive pulmonary disease and bronchiectasis (3 sources) Chronic obstructive pulmonary disease with (acute) exacerbation; 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: [Chronic obstructive pulmonary disease with acute lower respiratory infection] Onset: 9 Chronic Complication of device; implant or graft (1 source) Atherosclerosis of coronary artery bypass graft(s), unspecified, with unspecified angina pectoris; 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: [ATS CABG UNS W/UNS ANGINA PECTORIS] Onset: 0 Chronic Coronary atherosclerosis and other heart disease (2 sources) Ischemic cardiomyopathy; 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: [Old myocardial infarction] Onset: 0 Chronic Coronary atherosclerosis and other heart disease (1 source) Presence of aortocoronary bypass graft; 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: [PRESENCE AORTOCORONARY BYPASS GRAFT] Onset: 0 Episodic Crushing injury or internal injury (1 source) Contusion of lung, unspecified, initial encounter; 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: [CONTUSION LUNG UNSPECIFIED INITIAL] Onset: 0 Episodic Diabetes mellitus with complications (5 sources) Type 2 diabetes mellitus with hyperglycemia; 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: [TYPE 2 DM W/HYPERGLYCEMIA] Onset: 9 Chronic Disorders of lipid metabolism (1 source) Hyperlipidemia, unspecified; 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: [HYPERLIPIDEMIA UNSPECIFIED] Onset: 0 Chronic Esophageal disorders (1 source) Gastro-esophageal reflux disease without esophagitis; 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: [GERD WITHOUT ESOPHAGITIS] Onset: 9 Chronic Essential hypertension (10 sources) Essential (primary) hypertension; 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: [Essential hypertension] Onset: 0 01-31-2024 Chronic External cause codes: Fall (1 source) Unspecified fall, initial encounter; 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: [UNSPECIFIED FALL INITIAL ENCOUNTER] Onset: 0 Fracture of neck of femur (hip) (7 sources) Closed intertrochanteric fracture; 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: [Displaced intertrochanteric fracture of unspecified femur, initial encounter for closed fracture] Onset: 4 01-31-2024 Episodic Immunizations and screening for infectious disease (2 sources) Needs influenza immunization; 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: [Encounter for immunization] 01-31-2024 Episodic Other aftercare (1 source) terminal worker (current) use of aspirin; 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: [ASSISTED CURRENT USE OF ASPIRIN] Onset: 0 Episodic Other aftercare (1 source) FPC (current) use of oral hypoglycemic drugs; 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: [ASSISTED USE ORAL HYPOGLYCEMIC DX] Onset: 0 Other and ill-defined heart disease (10 sources) Heart disease; 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: [Heart disease, unspecified] Onset: 4 01-31-2024 Chronic Other circulatory disease (9 sources) Elevated blood-pressure reading without diagnosis of hypertension; 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: [Elevated blood-pressure reading, without diagnosis of hypertension] Onset: 4 01-31-2024 Episodic Other eye disorders (1 source) Ischemic optic neuropathy, left eye; 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: [Ischemic optic neuropathy, left eye] Onset: 0 Chronic Other fractures (1 source) Multiple fractures of ribs, left side, initial encounter for closed fracture; 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: [MX FX RIBS LT SIDE INITIAL CLOS FX] Onset: 0 Episodic Other liver diseases (1 source) Liver enzymes abnormal; 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: [Abnormal levels of other serum enzymes] 02-06-2024 Episodic Other lower respiratory disease (1 source) Computed tomography result abnormal; 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: [Other nonspecific abnormal finding of lung field] 03-04-2024 Episodic Other nervous system disorders (1 source) Chronic pain syndrome; 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: [CHRONIC PAIN SYNDROME] Onset: 0 Chronic Other nutritional; endocrine; and metabolic disorders (1 source) Body mass index (BMI) 31.0-31.9, adult; 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: [BODY MASS INDEX BMI 31.0-31.9 ADULT] Onset: 0 Chronic Other nutritional; endocrine; and metabolic disorders (1 source) Obesity, unspecified; 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: [OBESITY UNSPECIFIED] Onset: 0 Chronic Other screening for suspected conditions (not mental disorders or infectious disease) (1 source) Computed tomography result abnormal 03-04-2024 Chronic Other screening for suspected conditions (not mental disorders or infectious disease) (20 sources) Encounter for screening for malignant neoplasm of rectum; 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: [Encounter for screening for malignant neoplasm of prostate] Onset: 0 01-31-2024 Episodic Other upper respiratory disease (1 source) Other seasonal allergic rhinitis; 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: [OTHER SEASONAL ALLERGIC RHINITIS] Onset: 0 Chronic Peripheral and visceral atherosclerosis (1 source) Atherosclerosis of aorta; 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: [ATHEROSCLEROSIS OF AORTA] Onset: 0 Chronic Pneumonia (except that caused by tuberculosis or sexually transmitted disease) (3 sources) Pneumonia, unspecified organism; 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: [PNEUMONIA UNSPECIFIED ORGANISM] Onset: 9 Episodic Residual codes; unclassified (1 source) Personal history of other specified conditions; 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: [PERSONAL HISTORY OTH SPEC CONDITION] Onset: 0 Episodic Respiratory failure; insufficiency; arrest (adult) (1 source) Acute respiratory failure with hypoxia; 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: [ACUTE RESPIRATORY FAIL W/HYPOXIA] Onset: 0 Episodic Screening and history of mental health and substance abuse codes (4 sources) Personal history of nicotine dependence; 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: [Personal history of tobacco use] 01-31-2024 Episodic Spondylosis; intervertebral disc disorders; other back problems (1 source) Radiculopathy, lumbosacral region; 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: [RADICULOPATHY LUMBOSACRAL REGION] Onset: 0 Episodic Substance-related disorders (13 sources) Nicotine dependence, cigarettes, uncomplicated; 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: [Tobacco dependence caused by cigarettes] Onset: 0 01-31-2024 Chronic Past or Other Problems Problem Classification Problem Date Documented Da te Episodic/Chronic Unclassified (2 sources) Patient encounter status 01-31-2024 Results Test Name Value Interpretation Reference Range Facility [facility] CMP (CMP) (FOR REMOTE FH C USE)on 03-20-2024 Albumin [Mass/Vol] 4.2 g/dL 3.4 - 5.0 g/dL NO [facility] ALBUMIN GLOBULIN RATIO 1 [facility] ALP [Catalytic activity/Vol] 169 U/L High 46 - 116 U/L [facility] ALT [Catalytic activity/Vol] 27 U/L 16 - 63 U/L [facility] Anion gap [Moles/Vol] 14.2 mmol/L NO [facility] AST [Catalytic activity/Vol] 18 U/L 15 - 37 U/L [facility] Bilirubin [Mass/Vol] 0.9 mg/dL 0.2 - 1 .0 mg/dL [facility] Calcium [Mass/Vol] 9.6 mg/dL 8.5 - 10. 1 mg/dL [facility] Chloride [Moles/Vol] 101 mmol/L 98 - 10 7 mmol/L [facility] CO2 [Moles/Vol] 31 mmol/L 21.0 - 32.0 mmol/L [facility] Creatinine [Mass/Vol] 0.8 mg/dL 0.70 - 1.30 mg/dL [facility] GFR/1.73 sq M.predicted CKD-EPI (S/P/Bld) [Vol rate/Area] >60 >=60 mL/min/1.73m 2 [facility] Globulin (S) [Mass/Vol] 4 g/dL [facility] Glucose [Mass/Vol] 114 mg/dL High 74 - 106 mg/dL NO [facility] Interpretation and review of laboratory results Abnormal [facility] Potassium [Moles/Vol] 4.2 mmol/L 3.5 - 5.1 mmol/L [facility] Protein [Mass/Vol] 8.2 g/dL 6.4 - 8.2 g/dL NO [facility] Sodium [Moles/Vol] 142 mmol/L 136 - 145 mmol/L [facility] TBH EGFR-NON AF BHUTANESE >60 >=60 mL/min/1.73m 2 [facility] Urea nitrogen [Mass/Vol] 10 mg/dL 7.0 - 18.0 mg/dL [facility] Urea nitrogen/Creatinine [Mass ratio] 12.5 mg/mg [facility] ALL CBC WITH AUTO DIFFon BASOPHILS ABSOLUTE AUTO 0.1 [facility] Basophils/100 WBC (Bld) 0.7 % 0.2 - 2.0 % [facility] Eosinophils/100 WBC (Bld) 4.8 % 0.9 - 7.0 % [facility] Erythrocyte distribution width (RBC) [Ratio] 12.2 % 11.0 - 15.0 % [facility] Hematocrit (Bld) [Volume fraction] 47.2 % 42.0 - 54.0 % [facility] Hemoglobin (Bld) [Mass/Vol] 15 g/dL 14.0 - 18.0 g/dL [facility] IMMATURE GRANULOCYTES ABS AUTO 0.02 [facility] Immature granulocytes/100 WBC (Bld) 0.3 % 0.0 - 0.5 % [facility] Interpretation and review of laboratory results Abnormal [facility] LYMPHOCYTES ABSOLUTE AUTO 1.8 [facility] Lymphocytes/100 WBC (Bld) 24.8 % 20.5 - 60.0 % [facility] MCH (RBC) [Entitic mass] 30.5 pg 25.9 - 34.0 pg [facility] MCHC (RBC) [Mass/Vol] 31.8 g/dL 29.9 - 35.2 g/dL [facility] MCV (RBC) [Entitic vol] 95.9 fL High 80.0 - 94.0 fL [facility] MONOCYTES ABSOLUTE AUTO 0.7 [facility] Monocytes/100 WBC (Bld) 9.4 % 1.7 - 12.0 % [facility] NEUTROPHILS ABSOLUTE AUTO 4.4 [facility] Neutrophils/100 WBC (Bld) 60 % 43.0 - 75.0 % [facility] Platelet mean volume (Bld) [Entitic vol] 9.1 fL Low 9.5 - 13.5 fL [facility] # 0.4 [facility] PLT 286 [facility] TB RBC 4.92 [facility] WBC 7.3 [facility] CBC AUTO DIFFon 12-17-2018 Basophils (Bld) [#/Vol] 0.0 103/ul Normal 0.0-0.1 [facility] Comment on above: Performed By: #### M ALBR #### [facility] [address] [place], [place] [phone] Hellen Lilian Basophils/100 WBC (Bld) 0.2 % Normal 0.2-2.0 [facility] Comment on above: Performed By: #### M ALBR #### [facility] [address] [place], [place] [phone] Hellen Lilian Eosinophils (Bld) [#/Vol] 0.0 103/ul Normal 0.0-0.7 [facility] Comment on above: Performed By: #### M ALBR #### [facility] [address] [place], [place] [phone] Hellen Lilian Eosinophils/100 WBC (Bld) 0.1 % Critically low 0.9-7.0 [facility] Comment on above: Performed By: #### M ALBR #### [facility] [address] [place], [place] [phone] Heleln Lilian Erythrocyte distribution width (RBC) [Ratio] 11.8 % Normal 11.0-15.0 [facility] Comment on above: Performed By: #### M ALBR #### [facility] [address] [place], [place] [phone] Hellen Lilian Hematocrit (Bld) [Volume fraction] 48.3 % Normal 42.0-54.0 [facility] Comment on above: Performed By: #### M ALBR #### [facility] [address] [place], [place] [phone] Hellen Lilian Hemoglobin (Bld) [Mass/Vol] 16.1 g/dL Normal 14.0-18.0 [facility] Comment on above: Performed By: #### M ALBR #### [facility] [address] [place], [place] [phone] Hellen Lilian IG # 0.12 10e3/ul Critically high 0.00-0.03 [facility] Comment on above: Performed By: #### M ALBR #### [facility] [address] [phone] Hellen Lilian IG % 0.6 % Critically high 0.0-0.5 [facility] Comment on above: Performed By: #### M ALBR #### [facility] [address] [place], [place] [address] Hellen Lilian Lymphocytes (Bld) [#/Vol] 2.5 103/ul Normal 1.2-3.8 [facility] Comment on above: Performed By: #### M ALBR #### [facility] [address] [place], [place] [phone] Hellen Lilian Lymphocytes/100 WBC (Bld) 11.6 % Critically low 20.5-60.0 [facility] Comment on above: Performed By: #### M ALBR #### [facility] [address] [place], [place] [phone] Hellen Lilian MANUAL DIFF REQ NO Normal [facility] Comment on above: Performed By: #### M ALBR #### [facility] [address] [place], [place] [phone] Hellen Lilian MCH (RBC) [Entitic mass] 30.7 pg Normal 25.9-34.0 [facility] Comment on above: Performed By: #### M ALBR #### [facility] [address] [place], [place] [phone] Hellen Lilian MCHC (RBC) [Mass/Vol] 33.3 g/dL Normal 29.9-35.2 [facility] Comment on above: Performed By: #### M ALBR #### [facility] [address] [place], [place] [phone] Hellen Lilian MCV (RBC) [Entitic vol] 92.0 fL Normal 80.0-94.0 [facility] Comment on above: Performed By: #### M ALBR #### [facility] [address] [place], [place] [phone] Hellen Lilian Monocytes (Bld) [#/Vol] 1.5 103/ul Critically high 0.3-0.8 [facility] Comment on above: Performed By: #### M ALBR #### [facility] [address] [place] [address] Hellen Lilian Monocytes/100 WBC (Bld) 6.7 % Normal 1.7-12.0 [facility] Comment on above: Performed By: #### M ALBR #### [facility] [address] [place] [address] Hellen Lilian Neutrophils (Bld) [#/Vol] 17.4 103/ul Critically high 1.4-6.5 [facility] Comment on above: Performed By: #### M ALBR #### [facility] [address] [place], [place] [phone] Hellengerald Quintana Neutrophils/100 WBC (Bld) 80.8 % Critically high 43.0-75.0 [facility] Comment on above: Performed By: #### M ALBR #### [facility] [address] [place], [place] [phone] Hellengerald Quintana Platelet mean volume (Bld) [Entitic vol] 10.2 fL Normal 9.5-13.5 [facility] Comment on above: Performed By: #### M ALBR #### [facility] [address] [place] [address] Hellen Lilian Platelets (Bld) [#/Vol] 262 103/ul Normal 150-450 [facility] Comment on above: Performed By: #### M ALBR #### [facility] [address] [place] [address] Hellen Lilian RBC (Bld) [#/Vol] 5.25 106/ul Normal 4.70-6.10 [facility] Comment on above: Performed By: #### M ALBR #### [facility] [address] [place] [address] Hellen Lilian WBC (Bld) [#/Vol] 21.6 103/ul Critically high 4.0-11.0 [facility] Comment on above: Performed By: #### M ALBR #### [facility] [address] [place], [place] [phone] Hellen Quintana PROF CHEM 8 (BAS METB)on Anion gap [Moles/Vol] 10.9 mmol/L Normal Th [facility] Comment on above: Performed By: #### M ALBR #### [facility] [address] [place] [address] Hellen Lilian Calcium [Mass/Vol] 9.6 mg/dL Normal 8.4-10.2 [facility] Comment on above: Performed By: #### M ALBR #### [facility] [address] [place] [address] Hellen Lilian Chloride [Moles/Vol] 96 mmol/L Critically low 98-107 [facility] Comment on above: Performed By: #### M ALBR #### [facility] [address] [place] [address] Hellen Lilian CO2 [Moles/Vol] 32.9 mmol/L Critically high 22.0-30.0 [facility] Comment on above: Performed By: #### M ALBR #### [facility] [address] [place] [address] Hellen Lilian Creatinine [Mass/Vol] 0.84 mg/dL Normal 0.66-1.25 [facility] Comment on above: Performed By: #### M ALBR #### [facility] [address] [place] [address] Hellen Lilian EGFR-AF BHUTANESE >60 Normal >=60 [facility] Comment on above: Performed By: #### M ALBR #### [facility] [address] [place] [address] Hellen Lilian EGFR-NON AF BHUTANESE >60 Normal >=60 [facility] Comment on above: Performed By: #### M ALBR #### [facility] [address] [place], [place] [phone] Hellen Lilian Glucose [Mass/Vol] 301 mg/dL Critically high 74-106 [facility] Comment on above: Performed By: #### M ALBR #### [facility] [address] [place] [address] Hellen Lilian Potassium [Moles/Vol] 3.8 mmol/L Normal 3.4-5.0 [facility] Comment on above: Performed By: #### M ALBR #### [facility] [address] [phone] Hellen Quintana Sodium [Moles/Vol] 136 mmol/L Critically low 137-145 [facility] Comment on above: Performed By: #### M ALBR #### [facility] [address] [place], [place] [address] Hellen Lilian Urea nitrogen [Mass/Vol] 15.0 mg/dL Normal 9.0-20.0 [facility] Comment on above: Performed By: #### M ALBR #### [facility] [address] [phone] Hellen Lilian Urea nitrogen/Creatinine [Mass ratio] 17.9 mg/mg Normal [facility] Comment on above: Performed By: #### M ALBR #### [facility] [address] [phone] Hellen Lezamaen XR CHEST 2 Von 12-17-2018 XR CHEST 2 V Patient: MIHIR WRIGHT Exam Date: 12/17/2018 : 1960 Gender:M Ordering : DR PARAG SANCHEZ . Admission #: [id number] Family : DR. IGNACIO TALAVERA . Order #: [id number] CLICK HERE TO VIEW EXAM RADIOLOGY REPORT PROCEDURE: RADIOGRAPH CHEST 2 VIEWS COMPARISON: XR RIBS LT PA , 12/14/2018. INDICATIONS: Acute shortness of breath; subsequent [...] M.D. on 12/17/2018 at 07:28 Normal [facility] CBC W MANUAL DIFFon 12-17-19 19 ATYPICAL LYMPH # 0.69 103/ul Normal [facility] Comment on above: Performed By: #### RADHA CASTELLANOS #### [facility] [address] [address] Hellen Lilian ATYPICAL LYMPH % 3 % Normal [facility] Comment on above: Performed By: #### RADHA CASTELLANOS #### [facility] [address] [address] Hellen Lilian BAND # 0.0 103/ul Normal 0.0-0.3 [facility] Comment on above: Performed By: #### RADHA CASTELLANOS #### [facility] [address] [place] [address] Hellen Lilian BAND % 0 % Normal 0-5 [facility] Comment on above: Performed By: #### RADHA CASTELLANOS #### [facility] [address] [address] Hellen Lilian BASOM # 0.00 103/ul Normal 0.00-0.10 [facility] Comment on above: Performed By: #### RADHA CASTELLANOS #### [facility] [address] [place] [address] Hellen Lilian BASOM % 0.0 % Critically low 0.2-2.0 [facility] Comment on above: Performed By: #### RADHA CASTELLANOS #### [facility] [address] [place] [address] Hellen Lilian BLAST # Normal [facility] Comment on above: Performed By: #### RADHA CASTELLANOS #### [facility] [address] [place] [address] Hellen Lilian BLAST % Normal [facility] Comment on above: Performed By: #### RADHA CASTELLANOS #### [facility] [address] [place] [address] Hellen Lilian CORRECTED WBC Normal 4.0-11.0 [facility] Comment on above: Performed By: #### RADHA CASTELLANOS #### [facility] [address] [place] [address] Hellen Lilian Eosinophils (Bld) [#/Vol] 0.00 103/ul Normal 0.00-0.70 [facility] Comment on above: Performed By: #### RADHA CASTELLANOS #### [facility] [address] [place] [address] Hellen Lilian Eosinophils/100 WBC (Bld) 0.0 % Critically low 0.9-7.0 [facility] Comment on above: Performed By: #### RADHA CASTELLANOS #### [facility] [address] [place] [address] Hellen Lilian Erythrocyte distribution width (RBC) [Ratio] 11.7 % Normal 11.0-15.0 [facility] Comment on above: Performed By: #### RADHA CASTELLANOS #### [facility] [address] [place] [address] Hellen Lilian Hematocrit (Bld) [Volume fraction] 46.9 % Normal 42.0-54.0 [facility] Comment on above: Performed By: #### RADHA CASTELLANOS #### [facility] [address] [place] [address] Hellen Lilian Hemoglobin (Bld) [Mass/Vol] 16.0 g/dl Normal 14.0-18.0 [facility] Comment on above: Performed By: #### RADHA CASTELLANOS #### [facility] [address] [place] [address] Hellen Lilian LYMPHM # 0.46 103/ul Critically low 1.20-3.80 [facility] Comment on above: Performed By: #### RADHA CASTELLANOS #### [facility] [address] [place] [address] Hellen Lilian LYMPHM% 2.0 % Critically low 20.5-60.0 [facility] Comment on above: Performed By: #### RADHA CASTELLANOS #### [facility] [address] [address] Hellen Quintana MCH (RBC) [Entitic mass] 30.9 pg Normal 25.9-34.0 [facility] Comment on above: Performed By: #### ELVIRA CASTELLANOSRO #### [facility] [address] [address] Hellengerald Quintana MCHC (RBC) [Mass/Vol] 34.1 g/dl Normal 29.9-35.2 [facility] Comment on above: Performed By: #### ELVIRA CASTELLANOSRO #### [facility] [address] [address] Hellengerald Quintana MCV (RBC) [Entitic vol] 90.7 fL Normal 80.0-94.0 [facility] Comment on above: Performed By: #### ELVIRA CASTELLANOSRO #### [facility] [address] [place] [address] Hellen Lilian METAMYELOCYTE # Normal [facility] Comment on above: Performed By: #### ELVIRA CASTELLANOSRO #### [facility] [address] [place] [address] Hellen Lilian METAMYELOCYTE % Normal [facility] Comment on above: Performed By: #### ELVIRA CASTELLANOSRO #### [facility] [address] [place] [address] Hellen Lilian MONOM# 0.23 103/ul Critically low 0.30-0.80 [facility] Comment on above: Performed By: #### ELVIRA CASTELLANOSRO #### [facility] [address] [place] [address] Hellen Lilian MONOM% 1.0 % Critically low 1.7-12.0 [facility] Comment on above: Performed By: #### ELVIRA CASTELLANOSRO #### [facility] [address] [place] [address] Hellen Lilian MYELOCYTE # Normal [facility] Comment on above: Performed By: #### ELVIRA CASTELLANOSRO #### [facility] [address] [place] [address] Hellen Lilian MYELOCYTE % Normal [facility] Comment on above: Performed By: #### RADHA CASTELLANOS #### [facility] [address] [place], [place] [id number] Hellen Lilian NRBC Normal [facility] Comment on above: Performed By: #### ELVIRA CASTELLANOSRO #### [facility] [address] [place], [place] [id number] Hellen Lilian Platelet mean volume (Bld) [Entitic vol] 10.2 fL Normal 9.5-13.5 [facility] Comment on above: Performed By: #### ELVIRA CASTELLANOSRO #### [facility] [address] [place] [address] Hellen Lilian Platelets (Bld) [#/Vol] 258 103/ul Normal 150-450 [facility] Comment on above: Performed By: #### RADHA CASTELLANOS #### [facility] [address] [place] [address] Hellen Lilian RBC (Bld) [#/Vol] 5.17 106/ul Normal 4.70-6.10 [facility] Comment on above: Performed By: #### RADHA CASTELLANOS #### [facility] [address] [place] [address] Hellen Lilian SEG # 21.53 103/ul Critically high 1.40-6.50 [facility] Comment on above: Performed By: #### ELVIRA CASTELLANOSRO #### [facility] [address] [place] [address] Hellen Lilian Segmented neutrophils/100 WBC (Bld) 94.0 % Critically high 43.0-75.0 [facility] Comment on above: Performed By: #### RADHA CASTELLANOS #### [facility] [address] [place] [address] Hellen Lilian WBC (Bld) [#/Vol] 22.9 103/ul Critically high 4.0-11.0 [facility] Comment on above: Performed By: #### RADHA CASTELLANOS #### [facility] [address] [place] [address] Hellen Lilian POINT OF CARE GLUCOSEon 11-28 Glucose [Mass/Vol] 368 mg/dL Critically high 74-106 [facility] Comment on above: Performed By: #### M ALBR #### [facility] [address] [place] [address] Hellen Lilian PROCALCITONINon 12-16-2018 PCT header 1 SEE BELOW Normal [facility] Comment on above: Result Comment: PCT <0.5ng/mL: Systemic infection (sepsis) is not likely, local bacterial infection possible, low risk for progression to severe systemic infection (severe sepsis) Performed By: #### M ALBR #### [facility] [address] [place] [address] Hellen Lilian PCT header 2 SEE BELOW Normal [facility] Comment on above: Result Comment: PCT >/=0.5 and <2 ng/mL: Systemic infection (sepsis) is possible, moderate risk for progression to severe systemic infection (severe sepsis) Performed By: #### M ALBR #### [facility] [address] [place] [address] Hellen Lilian PCT header 3 SEE BELOW Normal [facility] Comment on above: Result Comment: PCT >/=2.0 and <10 ng/mL: Systemic infection (sepsis) is likely, unless other causes are known, high risk for progession to severe systemic infection(severe sepsis) Performed By: #### M ALBR #### [facility] [address] [place] [address] Hellen Lilian PCT header 4 SEE BELOW Normal [facility] Comment on above: Result Comment: PCT >/= 10 ng/mL: Important systemic inflammatory response almost exclusively due to severe bacterial sepsis or septic shock, high likelihood of severe sepsis or septic shock Performed By: #### M ALBR #### [facility] [address] [place] [address] Hellen Lilian PROCALCITONIN <0.05 Normal 0.00-0.50 [facility] Comment on above: Performed By: #### M ALBR #### [facility] [address] [id number] Hellen Lilian PROF CHEM 8 (BAS METB)on Anion gap [Moles/Vol] 9.6 mmol/L Normal [facility] Comment on above: Performed By: #### M ALBR #### [facility] [address] [address] Hellen Lilian Calcium [Mass/Vol] 9.8 mg/dL Normal 8.4-10.2 [facility] Comment on above: Performed By: #### M ALBR #### [facility] [address] [place] [address] Hellen Lilian Chloride [Moles/Vol] 95 mmol/L Critically low 98-107 [facility] Comment on above: Performed By: #### M ALBR #### [facility] [address] [place] [address] Hellen Lilian CO2 [Moles/Vol] 31.2 mmol/L Critically high 22.0-30.0 [facility] Comment on above: Performed By: #### M ALBR #### [facility] [address] [place] [address] Hellen Lilian Creatinine [Mass/Vol] 0.70 mg/dL Normal 0.66-1.25 [facility] Comment on above: Performed By: #### M ALBR #### [facility] [address] [place], [place] [phone] Hellen Lilian EGFR-AF BHUTANESE >60 Normal >=60 [facility] Comment on above: Performed By: #### M ALBR #### [facility] [address] [place] [address] Hellen Lilian EGFR-NON AF BHUTANESE >60 Normal >=60 [facility] Comment on above: Performed By: #### M ALBR #### [facility] [address] [place] [address] Hellen Lilian Glucose [Mass/Vol] 293 mg/dL Critically high 74-106 T [facility] Comment on above: Performed By: #### M ALBR #### [facility] [address] [place] [address] Hellen Lilian Potassium [Moles/Vol] 3.8 mmol/L Normal 3.4-5.0 [facility] Comment on above: Performed By: #### M ALBR #### [facility] [address] [place], [place] [address] Hellen Lilian Sodium [Moles/Vol] 132 mmol/L Critically low 137-145 Th [facility] Comment on above: Performed By: #### M ALBR #### [facility] [address] [address] Hellen Lilian Urea nitrogen [Mass/Vol] 18.0 mg/dL Normal 9.0-20.0 [facility] Comment on above: Performed By: #### M ALBR #### [facility] [address] [address] Hellen Lilian Urea nitrogen/Creatinine [Mass ratio] 25.7 mg/mg Normal [facility] Comment on above: Performed By: #### M ALBR #### [facility] [address] [id number] [address] CHEST W CONon 12-15-2018 CT CHEST W CON Patient: MIHIR WRIGHT Exam Date: 12/15/2018 : 1960 Gender:M Ordering : DR PARAG SANCHEZ . Admission #: [id number] Family : DR BUFFY MAN ALISSAROZINA Order #: [id number] CLICK HERE TO VIEW EXAM RADIOLOGY REPORT [...] Jordan M.D. on 12/15/2018 at 12:07 Normal [facility] CULTURE SPUTUMon 12-15-2018 CULTURE SPUTUM Culture Observations: Normal respiratory yuki. Normal [facility] Comment on above: Performed By: #### A 1C #### [facility] [address] [place] [address] Hellen Lilian POINT OF CARE GLUCOSEon 11-27 Glucose [Mass/Vol] 284 mg/dL Critically high [facility]106 [facility] Comment on above: Performed By: #### U ACSKALEE UMICRO #### [facility] [address] [place] [address] Hellen Lilian Glucose [Mass/Vol] 339 mg/dL Critically high [facility]106 [facility] Comment on above: Performed By: #### M ALBR #### [facility] [address] [place] [address] Hellen Lilian PROCALCITONINon 12-15-2018 PCT header 1 SEE BELOW [facility] Comment on above: Result Comment: PCT <0.5ng/mL: Systemic infection (sepsis) is not likely, local bacterial infection possible, low risk for progression to severe systemic infection (severe sepsis) Performed By: #### U ACSKALEE UMICRO #### [facility] [address] [place] [address] Hellen Lilian PCT header 2 SEE BELOW Normal [facility] Comment on above: Result Comment: PCT >/=0.5 and <2 ng/mL: Systemic infection (sepsis) is possible, moderate risk for progression to severe systemic infection (severe sepsis) Performed By: #### U ACSKALEE UMICRO #### [facility] [address] [place] [address] Hellen Lilian PCT header 3 SEE BELOW Normal [facility] Comment on above: Result Comment: PCT >/=2.0 and <10 ng/mL: Systemic infection (sepsis) is likely, unless other causes are known, high risk for progession to severe systemic infection(severe sepsis) Performed By: #### U ELVIRA ALASRO #### [facility] [address] [address] Hellen Lilian PCT header 4 SEE BELOW Normal [facility] Comment on above: Result Comment: PCT >/= 10 ng/mL: Important systemic inflammatory response almost exclusively due to severe bacterial sepsis or septic shock, high likelihood of severe sepsis or septic shock Performed By: #### U RADHA ALAS #### [facility] [address] [place] [address] Hellen Lilian PROCALCITONIN <0.05 Normal 0.00-0.50 [facility] Comment on above: Performed By: #### U RADHA ALAS #### [facility] [address] [place] [address] Hellen Lilian SPUTUM GRAM STAINon 12-16-19 COMMENTS Normal [facility] Comment on above: Performed By: #### M ALBR #### [facility] [address] [place] [address] Hellen Lilian DIPHTHEROIDS Normal [facility] Comment on above: Performed By: #### M ALBR #### [facility] [address] [place] [address] Hellen Lilian EPITHELIALS <25 Normal [facility] Comment on above: Performed By: #### M ALBR #### [facility] [address] [place] [address] Hellen Lilian FUNGAL ELEMENTS Normal [facility] Comment on above: Performed By: #### M ALBR #### [facility] [address] [place] [address] Hellen Lilian GRAM NEG BACILLI Normal [facility] Comment on above: Performed By: #### M ALBR #### [facility] [address] [place] [address] Hellen Lilian GRAM NEG DIPPLOCOCCI Normal [facility] Comment on above: Performed By: #### M ALBR #### [facility] [address] [place] [address] Hellen Lilian GRAM POS BACILLI Normal [facility] Comment on above: Performed By: #### M ALBR #### [facility] [address] [place], [place] [phone] Hellen Lilian GRAM POSITIVE COCCI RARE Normal [facility] Comment on above: Performed By: #### M ALBR #### [facility] [address] [place] [address] Hellen Lilian WBC (Bld) [#/Vol] 10*3/uL Normal [facility] Comment on above: Performed By: #### M ALBR #### [facility] [address] [place] [address] Hellen Lilian BNPon 12-14-2018 Natriuretic peptide B (Bld) [Mass/Vol] 149.0 pg/mL Normal <=900.0 [facility] Comment on above: Performed By: #### U RADHA ALAS #### [facility] [address] [place], [place] [phone] Hellen Lilian CBC AUTO DIFFon 12-14-2018 Basophils (Bld) [#/Vol] 0.0 103/ul Normal 0.0-0.1 [facility] Comment on above: Performed By: #### U RADHA ALAS #### [facility] [address] [place] [address] Hellen Lilian Basophils/100 WBC (Bld) 0.3 % Normal 0.2-2.0 [facility] Comment on above: Performed By: #### U RADHA ALAS #### [facility] [address] [place], [place] [phone] Hellen Lilian Eosinophils (Bld) [#/Vol] 0.5 103/ul Normal 0.0-0.7 [facility] Comment on above: Performed By: #### RADHA CASTELLANOS #### [facility] [address] [phone] Hellen Lilian Eosinophils/100 WBC (Bld) 3.5 % Normal 0.9-7.0 [facility] Comment on above: Performed By: #### RADHA CASTELLANOS #### [facility] [address] [place], [place] [phone] Hellen Lilian Erythrocyte distribution width (RBC) [Ratio] 11.8 % Normal 11.0-15.0 [facility] Comment on above: Performed By: #### ELVIRA CASTELLANOSRO #### [facility] [address] [place], [place] [phone] Hellen Lilian Hematocrit (Bld) [Volume fraction] 49.4 % Normal 42.0-54.0 [facility] Comment on above: Performed By: #### ELVIRA CASTELLANOSRO #### [facility] [address] [place] [address] Hellen Lilian Hemoglobin (Bld) [Mass/Vol] 16.8 g/dL Normal 14.0-18.0 [facility] Comment on above: Performed By: #### ELVIRA CASTELLANOSRO #### [facility] [address] [place], [place] [phone] Hellen Lilian IG # 0.06 10e3/ul Critically high 0.00-0.03 [facility] Comment on above: Performed By: #### ELVIRA CASTELLANOSRO #### [facility] [address] [place], [place] [phone] Hellen Lilian IG % 0.4 % Normal 0.0-0.5 [facility] Comment on above: Performed By: #### U ELVIRA ALASRO #### [facility] [address] [place] [address] Hellen Lilian Lymphocytes (Bld) [#/Vol] 1.3 103/ul Normal 1.2-3.8 [facility] Comment on above: Performed By: #### ELVIRA CASTELLANOSRO #### [facility] [address] [place], [place] [phone] Hellen Lilian Lymphocytes/100 WBC (Bld) 9.0 % Critically low 20.5-60.0 [facility] Comment on above: Performed By: #### SANDRA CASTELLANOSICRO #### [facility] [address] [place], [place] [phone] Hellen Lilian MANUAL DIFF REQ NO Normal [facility] Comment on above: Performed By: #### U EVETTE UMICRO #### [facility] [address] [place], [place] [phone] Hellen Lilian MCH (RBC) [Entitic mass] 30.7 pg Normal 25.9-34.0 [facility] Comment on above: Performed By: #### U SANDRA ALASICRO #### [facility] [address] [place] [address] Hellen Lilian MCHC (RBC) [Mass/Vol] 34.0 g/dL Normal 29.9-35.2 [facility] Comment on above: Performed By: #### Kana ALAS ICRO #### [facility] [address] [place] [address] Hellen Lilian MCV (RBC) [Entitic vol] 90.3 fL Normal 80.0-94.0 [facility] Comment on above: Performed By: #### SANDRA CASTELLANOSICRO #### [facility] [address] [place] [address] Hellen Lilian Monocytes (Bld) [#/Vol] 1.1 103/ul Critically high 0.3-0.8 [facility] Comment on above: Performed By: #### ELVIRA CASTELLANOSRO #### [facility] [address] [place] [address] Hellen Lilian Monocytes/100 WBC (Bld) 7.7 % Normal 1.7-12.0 [facility] Comment on above: Performed By: #### ELVIRA CASTELLANOSRO #### [facility] [address] [place] [address] Hellen Lilian Neutrophils (Bld) [#/Vol] 11.4 103/ul Critically high 1.4-6.5 [facility] Comment on above: Performed By: #### ELVIRA CASTELLANOSRO #### [facility] [address] [place] [address] Hellen Lilian Neutrophils/100 WBC (Bld) 79.1 % Critically high 43.0-75.0 [facility] Comment on above: Performed By: #### U EVETTE UMICRO #### [facility] [address] [place] [address] Hellen Lilian Platelet mean volume (Bld) [Entitic vol] 9.7 fL Normal 9.5-13.5 [facility] Comment on above: Performed By: #### U EVETTE UMICRO #### [facility] [address] [place] [address] Hellen Lilian Platelets (Bld) [#/Vol] 237 103/ul Normal 150-450 [facility] Comment on above: Performed By: #### U EVETTE UMLOANRO #### [facility] [address] [place] [address] Hellen Lilian RBC (Bld) [#/Vol] 5.47 106/ul Normal 4.70-6.10 [facility] Comment on above: Performed By: #### U EVETTE UMLOANRO #### [facility] [address] [place] [address] Hellen Lilian WBC (Bld) [#/Vol] 14.5 103/ul Critically high 4.0-11.0 [facility] Comment on above: Performed By: #### U EVETTE UMICRO #### [facility] [address] [place], [place] [phone] Hellen Lilian INFLUENZA A AND B AGon 12-14 INFLUANEGH SEE BELOW Normal [facility] Comment on above: Result Comment: Nega tive for Flu A protein angiten. Infection due to Flu A cannot be ruled out. Flu A angiten in the sample may be below the detection limit of the test. Performed By: #### U ACSKALEE UMICRO #### [facility] [address] [place] [address] Hellen Lilian INFLUBNEGH SEE BELOW Normal [facility] Comment on above: Result Comment: Nega tive for Flu B protein antigen. Infection due to Flu B cannot be ruled out. Flu B antigen in the sample may be below the detection limit of the test. Performed By: #### U ACSKALEE UMICRO #### [facility] [address] [place] [address] Hellengerald Quintana INFLUENZA A AG Negative Normal NEGATIVE SEE COMMENT [facility] Comment on above: Performed By: #### U ACSKALEE, UMICRO #### [facility] [address] [place] [address] Hellen Lilian INFLUENZA B AG Negative Normal NEGATIVE SEE COMMENT [facility] Comment on above: Performed By: #### U ACSKALEE UMICRO #### [facility] [address] [place] [address] Hellen Lilian INTERNAL CONTROLS Within Normal Limits Normal Within Normal Limits [facility] Comment on above: Performed By: #### U ACSKALEE, UMICRO #### [facility] [address] [place] [address] Hellengerald Quintana PROCALCITONINon 12-14-2018 PCT header 1 SEE BELOW Normal [facility] Comment on above: Result Comment: PCT <0.5ng/mL: Systemic infection (sepsis) is not likely, local bacterial infection possible, low risk for progression to severe systemic infection (severe sepsis) Performed By: #### U ACSKALEE, UMICRO #### [facility] [address] [place] [address] Hellen Lilian PCT header 2 SEE BELOW Normal [facility] Comment on above: Result Comment: PCT >/=0.5 and <2 ng/mL: Systemic infection (sepsis) is possible, moderate risk for progression to severe systemic infection (severe sepsis) Performed By: #### U ACSIND, UMICRO #### [facility] [address] [place] [address] Hellen Lilian PCT header 3 SEE BELOW Normal [facility] Comment on above: Result Comment: PCT >/=2.0 and <10 ng/mL: Systemic infection (sepsis) is likely, unless other causes are known, high risk for progession to severe systemic infection(severe sepsis) Performed By: #### U ACSKALEE, UMICRO #### [facility] [address] [place] [address] Hellen Lilian PCT header 4 SEE BELOW Normal [facility] Comment on above: Result Comment: PCT >/= 10 ng/mL: Important systemic inflammatory response almost exclusively due to severe bacterial sepsis or septic shock, high likelihood of severe sepsis or septic shock Performed By: #### RADHA CASTELLANOS #### [facility] [address] [place] [address] Hellen Lilian PROCALCITONIN <0.05 Normal 0.00-0.50 [facility] Comment on above: Performed By: #### RADHA CASTELLANOS #### [facility] [address] [place] [address] Hellen Lilian PROF CHEM 8 (BAS METB)on Anion gap [Moles/Vol] 9.4 mmol/L Normal [facility] Comment on above: Performed By: #### RADHA CASTELLANOS #### [facility] [address] [place] [address] Hellen Lilian Calcium [Mass/Vol] 9.3 mg/dL Normal 8.4-10.2 [facility] Comment on above: Performed By: #### RADHA CASTELLANOS #### [facility] [address] [place] [address] Hellen Lilian Chloride [Moles/Vol] 97 mmol/L Critically low 98-107 [facility] Comment on above: Performed By: #### RADHA CASTELLANOS #### [facility] [address] [place] [address] Hellen Lilian CO2 [Moles/Vol] 30.1 mmol/L Critically high 22.0-30.0 [facility] Comment on above: Performed By: #### RADHA CASTELLANOS #### [facility] [address] [place] [address] Hellen Lilian Creatinine [Mass/Vol] 0.66 mg/dL Normal 0.66-1.25 [facility] Comment on above: Performed By: #### RADHA CASTELLANOS #### [facility] [address] [place], [place] [address] Hellen Lilian EGFR-AF BHUTANESE >60 Normal >=60 [facility] Comment on above: Performed By: #### U RADHA ALAS #### [facility] [address] [address] Hellen Lilian EGFR-NON AF BHUTANESE >60 Normal >=60 [facility] Comment on above: Performed By: #### U RADHA ALAS #### [facility] [address] [address] Hellen Lilian Glucose [Mass/Vol] 185 mg/dL Critically high 74-106 T [facility] Comment on above: Performed By: #### U RADHA ALAS #### [facility] [address] [address] Hellen Lilian Potassium [Moles/Vol] 3.5 mmol/L Normal 3.4-5.0 [facility] Comment on above: Performed By: #### RADHA CASTELLANOS #### [facility] [address] [address] Hellen Lilian Sodium [Moles/Vol] 133 mmol/L Critically low 137-145 Th [facility] Comment on above: Performed By: #### RADHA CASTELLANOS #### [facility] [address] [address] Hellen Lilian Urea nitrogen [Mass/Vol] 10.0 mg/dL Normal 9.0-20.0 [facility] Comment on above: Performed By: #### RADHA CASTELLANOS #### [facility] [address] [address] Hellen Lilian Urea nitrogen/Creatinine [Mass ratio] 15.2 mg/mg Normal [facility] Comment on above: Performed By: #### U RADHA ALAS #### [facility] [address] [address] Hellen Lilian TROPONIN - Ion 12-14-2018 Troponin I.cardiac [Mass/Vol] ng/mL Normal <=0.034 [facility] Comment on above: Performed By: #### U ACSKALEE, UMICRO #### [facility] [address] [phone] Hellen Quintana Troponin I.cardiac [Mass/Vol] SEE BELOW Normal [facility] Comment on above: Result Comment: <0.0 34 ng/ml NEGATIVE 0.034-0.119 INDETERMINATE 0.120 AMI CUT OFF Performed By: #### U ACSKALEE, UMICRO #### [facility] [address] [id number] Hellen Quintana XR RIBS LT PA Miah 9 XR RIBS LT PA CH Patient: MIHIR WRIGHT Exam Date: 12/14/2018 : 1960 Gender:M Ordering : DR. KASIA FOSTER . Admission #: [id number] Family : Order #: [id number] CLICK HERE TO VIEW EXAM RADIOLOGY REPORT [...] M.D. on 12/15/2018 at 09:04 Normal [facility] BILIRUBIN CONJUGATED (DIRECT )on 12-13-2018 BILI, CONJUGATED 0.3 mg/dL Normal 0.0-0.3 [facility] Comment on above: Performed By: #### C MP, DBIL, LIPID, PHOS, MG, TSH, FT3, PSASC, URIC, CK #### [facility] [address] [place], [place] [phone] Hellengerald Quintana CBC AUTO DIFFon 12-13-2018 Basophils (Bld) [#/Vol] 0.0 103/ul Normal 0.0-0.1 [facility] Comment on above: Performed By: #### C BC #### [facility] [address] [place], [place] [address] Hellen Lilian Basophils/100 WBC (Bld) 0.2 % Normal 0.2-2.0 [facility] Comment on above: Performed By: #### C BC #### [facility] [address], [place] [address] Hellen Lilian Eosinophils (Bld) [#/Vol] 0.5 103/ul Normal 0.0-0.7 [facility] Comment on above: Performed By: #### C BC #### [facility] [address], [place] [address] Hellen Lilian Eosinophils/100 WBC (Bld) 3.4 % Normal 0.9-7.0 [facility] Comment on above: Performed By: #### C BC #### [facility] [address] [place], [place] [phone] Hellen Lilian Erythrocyte distribution width (RBC) [Ratio] 11.8 % Normal 11.0-15.0 [facility] Comment on above: Performed By: #### C BC #### [facility] [address] [place], [place] [phone] Hellen Lilian Hematocrit (Bld) [Volume fraction] 50.4 % Normal 42.0-54.0 [facility] Comment on above: Performed By: #### C BC #### [facility] [address] [place], [place] [phone] Hellen Lilian Hemoglobin (Bld) [Mass/Vol] 16.9 g/dL Normal 14.0-18.0 [facility] Comment on above: Performed By: #### C BC #### [facility] [address] [place], [place] [phone] Hellen Lilian IG # 0.05 10e3/ul Critically high 0.00-0.03 [facility] Comment on above: Performed By: #### C BC #### [facility] [address] [place], [place] [phone] Hellen Lilian IG % 0.4 % Normal 0.0-0.5 [facility] Comment on above: Performed By: #### C BC #### [facility] [address], [place] [address] Hellen Lilian Lymphocytes (Bld) [#/Vol] 1.8 103/ul Normal 1.2-3.8 [facility] Comment on above: Performed By: #### C BC #### [facility] [address], [place] [address] Hellen Lilian Lymphocytes/100 WBC (Bld) 12.3 % Critically low 20.5-60.0 [facility] Comment on above: Performed By: #### C BC #### [facility] [address], [place] [address] Hellen Lilian MANUAL DIFF REQ NO Normal [facility] Comment on above: Performed By: #### C BC #### [facility] [address] [place] [address] Hellen Lilian MCH (RBC) [Entitic mass] 30.7 pg Normal 25.9-34.0 [facility] Comment on above: Performed By: #### C BC #### [facility] [address] [place], [place] [phone] Hellen Lilian MCHC (RBC) [Mass/Vol] 33.5 g/dL Normal 29.9-35.2 [facility] Comment on above: Performed By: #### C BC #### [facility] [address] [place] [address] Hellen Lilian MCV (RBC) [Entitic vol] 91.6 fL Normal 80.0-94.0 [facility] Comment on above: Performed By: #### C BC #### [facility] [address], [place] [address] Hellen Lilian Monocytes (Bld) [#/Vol] 1.0 103/ul Critically high 0.3-0.8 [facility] Comment on above: Performed By: #### C BC #### [facility] [address], [place] [address] Hellen Lilian Monocytes/100 WBC (Bld) 7.1 % Normal 1.7-12.0 [facility] Comment on above: Performed By: #### C BC #### [facility] [address], [place] [address] Hellen Lilian Neutrophils (Bld) [#/Vol] 10.9 103/ul Critically high 1.4-6.5 [facility] Comment on above: Performed By: #### C BC #### [facility] [address] [place], [place] [phone] Hellen Quintana Neutrophils/100 WBC (Bld) 76.6 % Critically high 43.0-75.0 [facility] Comment on above: Performed By: #### C BC #### [facility] [address] [place], [place] [phone] Hellen Lilian Platelet mean volume (Bld) [Entitic vol] 9.4 fL Critically low 9.5-13.5 [facility] Comment on above: Performed By: #### C BC #### [facility] [address] [place], [place] [phone] Hellen Lilian Platelets (Bld) [#/Vol] 255 103/ul Normal 150-450 [facility] Comment on above: Performed By: #### C BC #### [facility] [address] [place], [place] [phone] Hellengerald Lezamaen RBC (Bld) [#/Vol] 5.50 106/ul Normal 4.70-6.10 [facility] Comment on above: Performed By: #### C BC #### [facility] [address] [place], [place] [phone] Hellengerald Lezamaen WBC (Bld) [#/Vol] 14.3 103/ul Critically high 4.0-11.0 [facility] Comment on above: Performed By: #### C BC #### [facility] [address] [place], [place] [phone] Hellen Lilian CPKon 12-13-2018 CK [Catalytic activity/Vol] 222 U/L Critically high 55-170 [facility] Comment on above: Result Comment: TEST REPEATED CRITICAL VALUE VERIFIED Performed By: #### U ACSIND, UMICRO #### [facility] [address] [place], [place] [phone] Hellen Lilian FREE T3on 12-13-2018 Free T3 [Mass/Vol] 2.75 pg/mL Critically low 2.77-5.27 [facility] Comment on above: Performed By: #### U RADHA ALAS #### [facility] [address] [phone] Hellengerald Quintana FREE T4on 12-13-2018 Free T4 [Mass/Vol] 1.11 ng/dL Normal 0.78-2.19 [facility] Comment on above: Performed By: #### U ELVIRA ALASRO #### [facility] [address] [address] Hellen Quintana GLYCOHEMOGLOBIN A1Con 2018 Glucose [Mass/Vol] 226 mg/dL Normal [facility] Comment on above: Performed By: #### A 1C #### [facility] [address] [place] [address] Hellen Quintana HbA1c (Bld) [Mass fraction] 9.5 % Critically high <=6.0 [facility] Comment on above: Performed By: #### A 1C #### [facility] [address] [phone] Hellengerald Quintana IRONon 12-13-2018 Iron [Mass/Vol] 79.0 ug/dL Normal 49.0-81.0 [facility] Comment on above: Performed By: #### [facility] #### [facility] [address] [place], [place] [phone] Hellen Quintana LIPID PROFILEon 12-13-2018 CHOL-HDL RATIO NORM SEE BELOW Normal [facility] Comment on above: Result Comment: 3.3 - 4.4 LOW RISK 4.4 - 7.1 AVERAGE RISK 7.1 - 11.0 MODERATE RISK >11.0 HIGH RISK Performed By: #### C MP, DBIL, LIPID, PHOS, MG, TSH, FT3, PSASC, URIC, CK #### [facility] [address] [place] [address] Hellengerald Quintana Cholesterol [Mass/Vol] 175 mg/dL Normal <=200 [facility] Comment on above: Performed By: #### C MP, DBIL, LIPID, PHOS, MG, TSH, FT3, PSASC, URIC, CK #### [facility] [address] [phone] Hellen Lilian Cholesterol in HDL [Mass/Vol] 37 mg/dL Normal [facility] Comment on above: Performed By: #### C MP, DBIL, LIPID, PHOS, MG, TSH, FT3, PSASC, URIC, CK #### [facility] [address], [place] [address] Hellen Lilian Cholesterol in HDL [Mass/Vol] > or = 60 mg/dl - LOW CARDIOVASCULAR RISK <40 mg/dl - HIGH CARDIOVASCULAR RISK Normal [facility] Comment on above: Performed By: #### C MP, DBIL, LIPID, PHOS, MG, TSH, FT3, PSASC, URIC, CK #### [facility] [address] [phone] Hellen Lilian Cholesterol in LDL [Mass/Vol] SEE BELOW Normal [facility] Comment on above: Result Comment: <100 mg/dl OPTIMAL 100 - 129 mg/dl NEAR OR ABOVE OPTIMAL 130 - 159 mg/dl BORDERLINE HIGH 160 - 189 mg/dl HIGH >190 mg/dl VERY HIGH Performed By: #### C MP, DBIL, LIPID, PHOS, MG, TSH, FT3, PSASC, URIC, CK #### [facility] [address] [phone] Hellen Lilian Cholesterol in LDL [Mass/Vol] 121.6 mg/dL Normal [facility] Comment on above: Performed By: #### C MP, DBIL, LIPID, PHOS, MG, TSH, FT3, PSASC, URIC, CK #### [facility] [address], [place] [address] Hellen Lilian Cholesterol.total/Cho lesterol in HDL [Mass ratio] 4.7 {ratio} Normal [facility] Comment on above: Performed By: #### C MP, DBIL, LIPID, PHOS, MG, TSH, FT3, PSASC, URIC, CK #### [facility] [address], [place] [address] Hellen Lilian Triglyceride [Mass/Vol] 82 mg/dL Normal <=150 [facility] Comment on above: Performed By: #### C MP, DBIL, LIPID, PHOS, MG, TSH, FT3, PSASC, URIC, CK #### [facility] [address] [address] Hellen Quintana VLDL CALC 16.4 mg/dL Normal [facility] Comment on above: Performed By: #### C MP, DBIL, LIPID, PHOS, MG, TSH, FT3, PSASC, URIC, CK #### [facility] [address] [address] Hellen Quintana MAGNESIUMon 12-13-2018 Magnesium [Mass/Vol] 1.6 mg/dL Normal 1.6-2.3 [facility] Comment on above: Performed By: #### C MP, DBIL, LIPID, PHOS, MG, TSH, FT3, PSASC, URIC, CK #### [facility] [address] [address] Hellen Quintana MICROALBUMIN, RAND URon 11-27 mALB 8.2 mg/dL Normal <=30.0 [facility] Comment on above: Performed By: #### M ALBR #### [facility] [address] [place] [address] Hellen Quintana mALBH PLEASE NOTE: NORMAL RANGE CHANGE, TESTING PERFORMED AT [facility]. Normal [facility] Comment on above: Performed By: #### M ALBR #### [facility] [address] [address] Hellen Quintana PHOSPHORUSon 12-13-2018 Phosphate [Mass/Vol] 3.3 mg/dL Normal 2.5-4.5 [facility] Comment on above: Performed By: #### C MP, DBIL, LIPID, PHOS, MG, TSH, FT3, PSASC, URIC, CK #### [facility] [address] [address] Hellen Quintana PROF 14(COMP METB)on 019 Albumin [Mass/Vol] 3.7 g/dL Normal 3.5-5.0 [facility] Comment on above: Performed By: #### C MP, DBIL, LIPID, PHOS, MG, TSH, FT3, PSASC, URIC, CK #### [facility] [address] [address] Hellen Lilian Albumin/Globulin [Mass ratio] 0.9 {ratio} Normal [facility] Comment on above: Performed By: #### C MP, DBIL, LIPID, PHOS, MG, TSH, FT3, PSASC, URIC, CK #### [facility] [address] [address] Hellen Lilian ALP [Catalytic activity/Vol] 102 U/L Normal 38-126 [facility] Comment on above: Performed By: #### C MP, DBIL, LIPID, PHOS, MG, TSH, FT3, PSASC, URIC, CK #### [facility] [address] [place] [address] Hellen Lilian ALT [Catalytic activity/Vol] 17 U/L Critically low 21-72 [facility] Comment on above: Performed By: #### C MP, DBIL, LIPID, PHOS, MG, TSH, FT3, PSASC, URIC, CK #### [facility] [address] [address] Hellen Lilian Anion gap [Moles/Vol] 9.5 mmol/L Normal [facility] Comment on above: Performed By: #### C MP, DBIL, LIPID, PHOS, MG, TSH, FT3, PSASC, URIC, CK #### [facility] [address] [address] Hellen Lilian AST [Catalytic activity/Vol] 13 U/L Critically low 17-59 [facility] Comment on above: Performed By: #### C MP, DBIL, LIPID, PHOS, MG, TSH, FT3, PSASC, URIC, CK #### [facility] [address] [address] Hellen Lilian Bilirubin Ql (U) 0.8 mg/dL Normal 0.2-1.3 [facility] Comment on above: Performed By: #### C MP, DBIL, LIPID, PHOS, MG, TSH, FT3, PSASC, URIC, CK #### [facility] [address] [address] Hellen Lilian Calcium [Mass/Vol] 9.3 mg/dL Normal 8.4-10.2 [facility] Comment on above: Performed By: #### C MP, DBIL, LIPID, PHOS, MG, TSH, FT3, PSASC, URIC, CK #### [facility] [address] [address] Hellen Lilian Chloride [Moles/Vol] 98 mmol/L Normal 98-107 [facility] Comment on above: Performed By: #### C MP, DBIL, LIPID, PHOS, MG, TSH, FT3, PSASC, URIC, CK #### [facility] [address] [place] [address] Hellen Lilian CO2 [Moles/Vol] 33.6 mmol/L Critically high 22.0-30.0 [facility] Comment on above: Performed By: #### C MP, DBIL, LIPID, PHOS, MG, TSH, FT3, PSASC, URIC, CK #### [facility] [address] [address] Hellen Lilian Creatinine [Mass/Vol] 0.63 mg/dL Critically low 0.66-1.25 [facility] Comment on above: Performed By: #### C MP, DBIL, LIPID, PHOS, MG, TSH, FT3, PSASC, URIC, CK #### [facility] [address] [address] Hellen Lilian EGFR-AF BHUTANESE >60 Normal >=60 [facility] Comment on above: Performed By: #### C MP, DBIL, LIPID, PHOS, MG, TSH, FT3, PSASC, URIC, CK #### [facility] [address] [place] [address] Hellen Lilian EGFR-NON AF BHUTANESE >60 Normal >=60 [facility] Comment on above: Performed By: #### C MP, DBIL, LIPID, PHOS, MG, TSH, FT3, PSASC, URIC, CK #### [facility] [address] [phone] Hellen Lilian Globulin (S) [Mass/Vol] 4.3 g/dL Normal [facility] Comment on above: Performed By: #### C MP, DBIL, LIPID, PHOS, MG, TSH, FT3, PSASC, URIC, CK #### [facility] [address] [phone] Hellen Lilian Glucose [Mass/Vol] 182 mg/dL Critically high 74-106 [facility] Comment on above: Performed By: #### C MP, DBIL, LIPID, PHOS, MG, TSH, FT3, PSASC, URIC, CK #### [facility] [address] [place] [address] Hellen Lilian Potassium [Moles/Vol] 4.1 mmol/L Normal 3.4-5.0 [facility] Comment on above: Performed By: #### C MP, DBIL, LIPID, PHOS, MG, TSH, FT3, PSASC, URIC, CK #### [facility] [address] [phone] Hellen Lilian Protein [Mass/Vol] 8.0 g/dL Normal 6.1-8.2 [facility] Comment on above: Performed By: #### C MP, DBIL, LIPID, PHOS, MG, TSH, FT3, PSASC, URIC, CK #### [facility] [address] [phone] Hellen Lilian Sodium [Moles/Vol] 137 mmol/L Normal 137-145 [facility] Comment on above: Performed By: #### C MP, DBIL, LIPID, PHOS, MG, TSH, FT3, PSASC, URIC, CK #### [facility] [address] [place] [address] Hellen Lilian Urea nitrogen [Mass/Vol] 6.0 mg/dL Critically low 9.0-20.0 [facility] Comment on above: Performed By: #### C MP, DBIL, LIPID, PHOS, MG, TSH, FT3, PSASC, URIC, CK #### [facility] [address] [place] [address] Hellen Quintana Urea nitrogen/Creatinine [Mass ratio] 9.5 mg/mg Normal [facility] Comment on above: Performed By: #### C MP, DBIL, LIPID, PHOS, MG, TSH, FT3, PSASC, URIC, CK #### [facility] [address] [place] [address] Hellen Quintana TSHon 12-13-2018 TSH Qn 1.350 uIU/mL Normal 0.470-4.680 [facility] Comment on above: Performed By: #### U ELVIRA ALASRO #### [facility] [address] [place] [address] Hellengerald Quintana TSH Qn SEE BELOW Normal [facility] Comment on above: Result Comment: <0.3 4 UIU/ml HYPERTHYROID 0.34-5.60 UIU/ml EUTHYROID >5.60 UIU/ml HYPOTHYROID Performed By: #### U ELVIRA ALASRO #### [facility] [address] [place] [address] Hellen Quintana UA (CLEAN/CATCH) PALLET REPAIRER/MICRO I F IND.on 12-13-2018 Bilirubin [Mass/Vol] Negative Normal NEGATIVE [facility] Comment on above: Performed By: #### U RDAHA ALAS #### [facility] [address] [place] [address] Hellen Lilian BLOOD Negative Normal NEGATIVE [facility] Comment on above: Performed By: #### U RADHA ALAS #### [facility] [address] [place] [address] Hellengerald Quintana Clarity (U) CLEAR Normal [facility] Comment on above: Performed By: #### U RADHA ALAS #### [facility] [address] [place] [address] Hellen Lilian Color (U) LT. YELLOW Normal YELLOW [facility] Comment on above: Performed By: #### U ELVIRA ALASRO #### [facility] [address] [place], [place] [address] Hellen Lilian Glucose [Mass/Vol] Negative Normal NEGATIVE [facility] Comment on above: Performed By: #### U ACSIND, UMICRO #### [facility] [address] [address] Hellen Lilian Ketones Ql (U) Negative Normal NEGATIVE [facility] Comment on above: Performed By: #### U ACSIND, UMICRO #### [facility] [address] [address] Hellen Lilian Nitrite Ql (U) Negative Normal NEGATIVE [facility] Comment on above: Performed By: #### U ACSIND, UMICRO #### [facility] [address] [address] Hellen Lilian pH (Bld) 6.0 Normal 5-9 [facility] Comment on above: Performed By: #### U ACSIND, UMICRO #### [facility] [address] [place] [address] Hellen Lilian Protein [Mass/Vol] Negative Normal [facility] Comment on above: Performed By: #### U ACSKALEE, UMICRO #### [facility] [address] [place] [address] Hellen Lilian SPEC GRAVITY <=1.005 Normal 1.005-<=1.025 [facility] Comment on above: Performed By: #### U ACSIND, UMICRO #### [facility] [address] [place] [address] Hellen Lilian UR MICRO IND NOT INDICATED Normal [facility] Comment on above: Performed By: #### U ACSIND, UMICRO #### [facility] [address] [address] Hellen Lilian Urobilinogen Qn (U) 1.0 EU/dl Normal [facility] Comment on above: Performed By: #### U ACSIND, UMICRO #### [facility] [address] [phone] Hellen Lilian WBC (Bld) [#/Vol] Negative Normal NEGATIVE [facility] Comment on above: Performed By: #### U ACSIND, UMICRO #### [facility] [address] [phone] Hellen Lilian URIC ACID SERUMon 12-13-2018 Urate [Mass/Vol] 3.8 mg/dL Normal 3.5-8.5 [facility] Comment on above: Performed By: #### U ACSKALEE, UMICRO #### [facility] [address] [phone] Hellen Lilian URINE MICROSCOPIC ONLYon Bacteria LM.HPF (Urine sed) [#/Area] TRACE Normal NONE SEEN [facility] Comment on above: Performed By: #### U ACSKALEE, UMICRO #### [facility] [address] [place] [address] Hellen Lilian CAST NONE SEEN Normal NONE SEEN [facility] Comment on above: Performed By: #### U ACSKALEE, UMICRO #### [facility] [address] [place] [address] Hellen Lilian Crystals LM Nom (Urine sed) NONE SEEN Normal NONE SEEN [facility] Comment on above: Performed By: #### U ACSKALEE, UMICRO #### [facility] [address] [place] [address] Hellen Lilian CULTURE NOT INDICATED Normal [facility] Comment on above: Performed By: #### U ACSKALEE, UMICRO #### [facility] [address] [place] [address] Hellen Lilian Epithelial cells LM.HPF (Urine sed) [#/Area] RARE Normal [facility] Comment on above: Performed By: #### U ACSKALEE, UMICRO #### [facility] [address] [place] [address] Hellen Lilian MUCOUS NONE SEEN Normal NONE SEEN [facility] Comment on above: Performed By: #### U ACSKALEE, UMICRO #### [facility] [address] [place] [address] Hellen Lilian RBC (U) [#/Vol] 0-2 Normal 0-2 [facility] Comment on above: Performed By: #### U ACSIND, UMICRO #### [facility] [address] [phone] Hellen Lilian WBC (Bld) [#/Vol] NONE SEEN Normal NONE SEEN [facility] Comment on above: Performed By: #### U ELVIRA ALASRO #### [facility] [address] [phone] Hellen Lilian VIT B12 AND FOLATEon 019 Cobalamin (Vitamin B12) [Mass/Vol] 246.0 pg/mL Normal 239.0-931.0 [facility] Comment on above: Performed By: #### U EVETTE UMLOANRO #### [facility] [address] [address] Hellen Lilian FOLATE 16.30 ng/mL Normal >=2.76 [facility] Comment on above: Performed By: #### U RADHA ALAS #### [facility] [address] [place], [place] [phone] Hellengerald Quintana VITAMIN D 25 OHon 12-13-2018 VIT D 25-OH 26.5 ng/mL Normal [facility] Comment on above: Performed By: #### ELVIRA CASTELLANOSRO #### [facility] [address] [place], [place] [phone] Hellen Lilian VIT D RANGES SEE BELOW Normal [facility] Comment on above: Result Comment: <20 ng/mL Vit D deficient 20 - <30 ng/mL Vit D insufficient 30 - 100 ng/mL Vit D sufficient >100 ng/mL Potential Toxicity Performed By: #### U ELVIRA ALASRO #### [facility] [address] [place], [place] [phone] Hellen Lilian VITDH PLEASE NOTE: NORMAL RANGE CHANGE 11-01-2012, TESTING PERFORMED AT [facility]. Normal [facility] Comment on above: Performed By: #### U ELVIRA ALASRO #### [facility] [address] [place], [place] [phone] Hellengerald Lezamaen Vital Signs Date Time Vital Sign Value Performing Clinician Jeff santoyo 01-31-2024 11:24-0500 Body height 182.9 cm Anna Jacinto [employer] Work Phone: [facility] 01-31-2024 11:24-0500 Body mass index (BMI) [Ratio] 20.89 kg/m2 Anna Salamancapatrick CONDITIONER TUMBLER Work Phone: [facility] 01-31-2024 11:24-0500 Body temperature 97.59 [degF] Anna Salamancapatrick CONDITIONER TUMBLER Work Phone: [facility] 01-31-2024 11:24-0500 Body weight 69.85 kg Anna Salamancapatrick CONDITIONER TUMBLER Work Phone: [facility] 01-31-2024 11:24-0500 Diastolic blood pressure 72 mm[Hg] Anna Ewingzpatrick CONDITIONER [employer]BLER Work Phone: [facility] 01-31-2024 11:24-0500 Heart rate 81 /min Anna Salamancapatrick CONDITIONER TUMBLER Work Phone: [facility] 01-31-2024 11:24-0500 Respiratory rate 18 /min Anna Salamancapatrick CONDITIONER T[employer]ER Work Phone: [facility] 01-31-2024 11:24-0500 SaO2% (BldA) [Mass fraction] 97 % Anna Salamancapatrick CONDITIONER TUMBLER Work Phone: [facility] 01-31-2024 11:24-0500 Systolic blood pressure 142 mm[Hg] Anna Ewingzpatrick CONDITIONER TUMBLER Work Phone: [facility] Healthcare Encounters Encounter Date Encounter Type Care Provider Facility Start: 03-20-2024 End: 03-20-2024 Clinisync Result Encounter Anna Jacinto [employer]ER TUMBLER Work Phone: [facility] External Department Unsolicited Start: 03-20-2024 End: 03-20-2024 Clinisync Result Encounter Anna Jacinto CONDITIONER TUMBLER Work Phone: [facility] External Department Unsolicited Start: 03-04-2024 End: 03-04-2024 Orders Only Anna Ewingzpatrick CONDITIONER TUMBLER Work Phone: [facility] Comment on above: Abnormal CT lung scr eening (Primary Dx); Nicotine dependence, cigarettes, uncomplicated Start: 02-06-2024 End: 02-06-2024 Orders Only Anna Jacinto CONDITIONER TUMBLER Work Phone: [facility] Comment on above: Abnormal liver enzym es (Primary Dx) Start: 02-05-2024 End: 02-08-2024 Refill Savannah Sanchez MA [facility] Comment on above: History of coronary artery bypass graft x 3 (Primary Dx); Heart disease; Nicotine dependence, cigarettes, uncomplicated Start: 02-02-2024 End: 02-02-2024 Clinisync Result Encounter Anna Jacinto CONDITIONER TUMBLER Work Phone: [facility] External Department Unsolicited Start: 02-02-2024 End: 02-02-2024 Clinisync Result Encounter Anna Jacinto CONDITIONER TUMBLER Work Phone: [facility] External Department Unsolicited Start: 01-31-2024 End: 01-31-2024 Bamboo flowsheet Anna Jacinto CONDITIONER TUMBLER Work Phone: [facility] Start: 01-31-2024 End: 01-31-2024 Bamboo flowsheet Anna Jacinto CONDITIONER TUMBLER Work Phone: [facility] Start: 01-31-2024 End: 01-31-2024 Office outpatient new 30 minutes Anna Jacinto CONDITIONER TUMBLER Work Phone: [facility] Comment on above: Flu vaccine need (Pr imary Dx); Wellness examination; Screening for malignant neoplasm of colon; Encounter for prostate cancer screening; Nicotine dependence, cigarettes, uncomplicated; Encounter to establish care; Elevated blood pressure reading in office without diagnosis of hypertension; History of coronary artery bypass graft x 3; Heart disease; Cerebrovascular accident (CVA), unspecified mechanism (CMS/HCC); Screening for lung cancer; Personal history of nicotine dependence; Primary hypertension (CMS/HCC) Start: 01-31-2024 End: 01-31-2024 Patient encounter status Anna Jacinto CONDITIONER TUMBLER Work Phone: [facility] Start: 12-07-2023 End: 12-19-2023 Telephone encounter [facility] Comment on above: Hospital Follow-up Start: 01-31-2020 End: 01-31-2020 ambulatory Macario Dunne Facility:[facility] Start: 12-15-2018 End: 12-17-2018 Evaluation and management of inpatient BUFFY SPARKS Facility:[facility] Start: 12-13-2018 End: 12-14-2018 Patient encounter procedure BUFFY SPARKS Facility:[facility] Procedures Date Procedure Procedure Detail Performing Clinician Start: 03-20-2024 [facility] CMP (CMP) (FOR REMOTE [facility]LY [facility] USE) Anna Jacinto CONDITIONER TUMBLER Work Phone: Start: 02-07-2024 Adult depression screening assessment Jamaica Llanos CMA Start: 02-02-2024 ALL CBC WITH AUTO DIFF Anna Jacinto CONDITIONER TUMBLER Work Phone: Start: 01-31-2024 History of coronary artery bypass grafting History of coronary artery bypass graft x 3 Anna Jacinto CONDITIONER TUMBLER Work Phone: Start: 12-14-2018 End: 12-14-2018 Microscopic examination of blood, culture BUFF[facility] SPARKS Comment on above: Performed By: #### M ALBR #### [facility] [address], [place] [address] Hellen Quintana Start: 12-13-2018 [object Object] BUFFY SPARKS Comment on above: Performed By: #### U ACSIND, UMICRO #### [facility] [address], [place] [address] Hellen Quintana History of coronary artery bypass grafting History of coronary artery bypass graft x 3 Savannah Sanchez MA Plan of Treatment Date Care Activity Detail Author Start: 02-06-2025 Depression Screening Depression Scre ening [facility] Start: 02-06-2025 Tobacco Screening Tobacco Screening [facility] Start: 09-01-2024 End: 03-04-2025 CT Chest for screening WO contrast CT lung screening low dose Imaging Routine Nicotine dependence, cigarettes, uncomplicated Abnormal CT lung screening Expected: 09/01/2024, Expires: 03/04/2025 [facility] Work Phone: Comment on above: Expected: 09/01/2024 , Expires: 03/04/2025 Start: 04-02-2024 End: 04-02-2024 Patient encounter procedure 04/02/2024 2:00 PM EST Office Visit [facility] [address] [place] [address] Anna Jacinto NP [address] [place] [address] CHUCKIE SUAZO Start: 02-07-2024 End: 02-07-2024 Patient encounter procedure 02/07/2024 1:00 PM EST Office Visit [facility] [address] [place] [phone] Feliberto Santos MD [address] [facility] [place] [phone] [facility] Start: 02-06-2024 End: 02-05-2025 Comprehensive metabolic 2000 panel - Serum or Plasma Comprehensive metabolic panel Lab Routine Abnormal liver enzymes Expected: 02/06/2024 (Approximate), Expires: 02/05/2025 [facility] Work Phone: Comment on above: Expected: 02/06/2024 (Approximate), Expires: 02/05/2025 Start: 01-31-2024 End: 01-30-2025 CBC W Auto Differential panel - Blood CBC and differential Lab Routine Elevated blood pressure reading in office without diagnosis of hypertension History of coronary artery bypass graft x 3 Heart disease Cerebrovascular accident (CVA), unspecified mechanism (CMS/HCC) Expected: 01/31/2024 (Approximate), Expires: 01/30/2025 [facility] Comment on above: Expected: 01/31/2024 (Approximate), Expires: 01/30/2025 Start: 01-31-2024 End: 01-30-2025 Comprehensive metabolic 2000 panel - Serum or Plasma Comprehensive metabolic panel Lab Routine Elevated blood pressure reading in office without diagnosis of hypertension Cerebrovascular accident (CVA), unspecified mechanism (CMS/HCC) Expected: 01/31/2024 (Approximate), Expires: 01/30/2025 [facility] Comment on above: Expected: 01/31/2024 (Approximate), Expires: 01/30/2025 Start: 01-31-2024 End: 01-30-2025 CT Chest for screening WO contrast CT lung screening low dose Imaging Routine Screening for malignant neoplasm of colon Personal history of nicotine dependence Expected: 01/31/2024, Expires: 01/30/2025 [facility] Comment on above: Expected: 01/31/2024 , Expires: 01/30/2025 Start: 01-31-2024 End: 01-30-2025 Hemoglobin A1c/Hemoglobin.total in Blood Hemoglobin A1c Lab Routine Elevated blood pressure reading in office without diagnosis of hypertension History of coronary artery bypass graft x 3 Cerebrovascular accident (CVA), unspecified mechanism (CMS/HCC) Expected: 01/31/2024 (Approximate), Expires: 01/30/2025 [facility] Comment on above: Expected: 01/31/2024 (Approximate), Expires: 01/30/2025 Start: 01-31-2024 End: 01-30-2025 Lipid 1996 panel - Serum or Plasma Lipid panel Lab Routine History of coronary artery bypass graft x 3 Heart disease Cerebrovascular accident (CVA), unspecified mechanism (CMS/HCC) Expected: 01/31/2024 (Approximate), Expires: 01/30/2025 [facility] Comment on above: Expected: 01/31/2024 (Approximate), Expires: 01/30/2025 Start: 01-31-2024 End: 01-30-2025 Noninvasive colorectal cancer DNA and occult blood screening [Presence] in Stool Cologuard colon cancer screening Lab Routine Screening for malignant neoplasm of colon Expected: 01/31/2024 (Approximate), Expires: 01/30/2025 [facility] Comment on above: Expected: 01/31/2024 (Approximate), Expires: 01/30/2025 Start: 01-31-2024 End: 01-30-2025 PSA, total and free PSA, total and free Lab Routine Encounter for prostate cancer screening Expected: 01/31/2024 (Approximate), Expires: 01/30/2025 [facility] Comment on above: Expected: 01/31/2024 (Approximate), Expires: 01/30/2025 Start: 01-31-2024 End: 01-30-2025 TSH W/REFLEX TO FT4 TSH W/REFLEX TO FT4 Lab Routine Elevated blood pressure reading in office without diagnosis of hypertension Expected: 01/31/2024 (Approximate), Expires: 01/30/2025 [facility] Work Phone: Comment on above: Expected: 01/31/2024 (Approximate), Expires: 01/30/2025 Start: 01-31-2024 End: 01-31-2024 Patient encounter procedure 01/31/2024 11:20 AM EST Office Visit [facility] [address] [place] [address] Anna Jacinto, [place] [address] [place] [address] Arrived [facility] Comment on above: Arrived Start: 10-29-2023 Influenza vaccination [facility] Start: 2023 Abdominal aortic aneurysm screening Abdominal Aortic Aneurysm (AAA) Screen [facility] Start: 2023 Fall Risk Screening Fall Risk Screen ing [facility] Start: 2023 Pneumococcal Vaccine : 65+ Years (1 of 1 - PCV) Pneumococcal Vaccine: 65+ Years (1 of 1 - PCV) [facility] Start: 01-22-2008 Administration of varicella zoster vaccine Zoster (Shingles) Vaccine (1 of 2) [facility] Start: 1977 DTaP,Tdap and Td Vaccines (1 - Tdap) DTaP,Tdap and Td Vaccines (1 - Tdap) [facility] Start: 01-22-1976 Adult BMI Screening Adult BMI Screen ing [facility] Start: 1970 Depression Screening Depression Scre ening [facility] Start: 1970 Tobacco Screening Tobacco Screening [facility] Start: 01-22-1964 Pneumococcal Vaccine : 65+ Years (1 of 2 - PCV) Pneumococcal Vaccine: 65+ Years (1 of 2 - PCV) [facility] Start: 1960 Medicare Annual Well ness (AWV) Medicare Annual Wellness (AWV) [facility] Start: 1960 Screening for malign ant neoplasm of colon [facility] Start: 1960 Tobacco Counseling Tobacco Counselin g [facility] Immunizations Immunization Date Immunization Notes Care Provider Fa brock 01-31-2024 Seasonal trivalent influenza vaccine, adjuvanted, preservative free Anna Jacinto NP Work Phone: [facility] Healthcare Payers Date Payer Category Payer Medicare (Managed Care) [facility] [id number] 2023 Medicare HMO [employer] [id number] 2019 Self-pay 2001 Medicare MEDICARE [id number] 1959 Unknown [id number] 1958 Unknown [id number] 1958 Unknown [id number] Unknown [id number] Social History Date Type Detail Facility Tobacco smoking stat [facility] Tobacco smoking consumption unknown [facility] Start: 1960 Sex assigned at Not on file [facility] Start: 11-26-2023 Sex Male (finding) [facility] Start: 01-31-2024 End: 02-07-2024 Gender identity Not on file [facility] Start: 02-27-[address] [facility] Smokes tobacco daily [facility] Start: 02-27-1983 History of tobacco use Cigarette Smo ker [facility] Start: 01-31-2024 End: 02-07-2024 Cigarettes smoked current (pack per day) - Reported 1 [facility] Adolescent depressio n screening assessment 18 [facility] Clinical Notes 12-07-2023 to 02-05-2024 Telephone Encounter - Jamaica Llanos, [facility] - 02/05/2024 10:59 AM ESTTelephone Encounter - Neris Cobos [facility] - 02/05/2024 10:59 AM ESTTelephone Encounter - Jamaica Llanos, [facility] - 02/05/2024 10:59 AM EST Note Date & Type Note Facility 02-05-2024 Miscellaneous Notes ----- Message ----- From: Danae Bajwa PA-C Sent: 02/05/2024 10:34 AM EST To: Daniela Oliveira RN; Ena Savage, RN; * Subject: obtain imaging reports Can someone call [facility] and get the imaging reports for the CTH x 2, CTA carotid and head, and for the Carotid Ultrasound. Would be nice to have the reports prior to Dr. Santos's clinic next week Called [facility] and requested the images to be pushed over. Also contacted HIM to have CUS report pushed over. Waiting for updates Images are available. Awaiting reports. documented in this encounter [facility] Telephone encounter Note ----- Message ----- From: Danae Bajwa PA-C Sent: 02/05/2024 10:34 AM EST To: Daniela Oliveira RN; Ena Savage RN; * Subject: obtain imaging reports Can someone call [facility] and get the imaging reports for the CTH x 2, CTA carotid and head, and for the Carotid Ultrasound. Would be nice to have the reports prior to Dr. Santos's clinic next week Called [facility] and requested the images to be pushed over. Also contacted HIM to have CUS report pushed over. Waiting for updates [facility] 02-05-2024 Telephone encounter Note Images are available. Awaiting reports. [facility]-05-2024 Telephone encounter Note Was here Jan 30, his medications never got called in. [facility] 02-05-2024 Miscellaneous Notes Was here Jan 30, his medications never got called in. documented in this encounter [facility] 01-31-2024 History of Presen t illness Narrative Associated Problem(s): Stroke (CMS/HCC) Had CVA in 10/2023- has first hospital follow-up with neurology on 02/07/2024. Was inpatient at [facility] for 3 weeks Neurology recommended ECHO, Carotid Duplex, PT/OT/ST. Pt is unsure if any of these have been ordered as of now. Neurology recommended mild control of hypertension due to CVA. Will touch base with them on recommendations for BP control moving forward. Associated Problem(s): Primary hypertension (CMS/HCC) Currently taking Losartan-hydrochlorothiazide 50-12.5mg Checks BP at home; Averages are 130's-140's. Denies orthostatic changes, dizziness, cough, shortness of breath, swelling in extremities. Continue current regimen. Given BP log, advised pt to record BP and bring log back with them to next visit. Neurology recommended mild control of hypertension due to CVA. Will touch base with them on recommendations for BP control moving forward Associated Problem(s): Wellness examination I have reviewed Ht/Wt/BMI, I have reviewed recommended vaccines for patient's age, as well as all recommended screenings I have reviewed available care everywhere notes as well. I have recommended eating a balanced diet, as well as activity as chronic conditions allow It is recommended that the patient have a yearly eye exam, as well as twice a year dental exams Fu in this office for wellness on a yearly basis Diet: Eat three meals per day. Breakfast, lunch, and dinner. Avoid snacking. Avoid eating after 5/6 pm. Daily protein GOAL 35% of your intake; 30g per meal. Daily calorie GOAL 1,800-2,000 per day. Consider tracking your food intake on MyFtinessPal or LoseIt Water: Increase water intake; GOAL 64-80oz of water per day. Exercise: Increase activity. GOAL 30 minutes, 5 days per week. START SLOW. Start with 5 minutes, 5 days per week. Then increase to 10 days, 5 days per week. Continue to increase until you reach the goal. Increase steps; GOAL 10,000 steps per day. Be sure to get adequate sleep; GOAL 6-8 hours of sleep per night. Images from the original note were not included. Subjective Patient ID: Mihir Wright is a 64 y.o. male who presents for Establish Care. BLAKE Kelsey is a 64 year old male here today to establish care. Specialists: Ophthalmology- Dr. Dunne Neurology- [facility]- Yefri Anderson Current 1ppd smoker X40 years Eligible for low dose CT Pt is agreeable to low dose Ct scan now Has hx of CABG X3. States he has not seen Cardiology in 5 years. Had CVA in 10/2023- has first hospital follow-up with neurology on 02/07/2024. Was inpatient at [facility] for 3 weeks Neurology recommended ECHO, Carotid Duplex, PT/OT/ST. Pt is unsure if any of these have been ordered as of now. Neurology recommended mild control of hypertension due to CVA. Will touch base with them on recommendations for BP control moving forward. HTN: Currently taking Losartan-hydrochlorothiazide 50-12.5mg Checks BP at home; Averages are 130's-140's. Denies orthostatic changes, dizziness, cough, shortness of breath, swelling in extremities. Continue current regimen. Given BP log, advised pt to record BP and bring log back with them to next visit. Neurology recommended mild control of hypertension due to CVA. 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 Lives at home alone. Denies needing assistance at home. Enjoys working on bikes Diet: 50/50 dines out/home cooked meals. Fruits/vegetables. Moderate protein. Water: 64 ounces per day Caffeine: minimal Sleep: 5-8 hours per night. Feels well rested. Review of Systems Constitutional: Negative for activity change, appetite change, chills, diaphoresis, fatigue, fever and unexpected weight change. HENT: Negative for congestion, ear pain, rhinorrhea, sinus pressure, sinus pain, sneezing, sore throat, trouble swallowing and voice change. Eyes: Negative for visual disturbance. Respiratory: Negative for cough, chest tightness, shortness of breath and wheezing. Cardiovascular: Negative for chest pain, palpitations and leg swelling. Gastrointestinal: Negative for abdominal distention, abdominal pain, blood in stool, constipation, diarrhea and vomiting. Genitourinary: Negative for decreased urine volume, dysuria, flank pain, frequency, hematuria and urgency. Musculoskeletal: Negative for arthralgias, gait problem, joint swelling and myalgias. Skin: Negative for rash. Neurological: Negative for dizziness, tremors, syncope, weakness, light-headedness and headaches. Psychiatric/Behavioral: Negative for decreased concentration and suicidal ideas. The patient is not nervous/anxious. Hematological: Does not bruise/bleed easily. Endocrine: Negative for cold intolerance, heat intolerance, polydipsia, polyphagia and polyuria. Objective Physical Exam Vitals reviewed. Constitutional: Appearance: Normal appearance. HENT: Head: Normocephalic and atraumatic. Right Ear: Tympanic membrane normal. Left Ear: Tympanic membrane normal. Nose: Nose normal. Mouth/Throat: Mouth: Mucous membranes are moist. Pharynx: Oropharynx is clear. Eyes: Pupils: Pupils are equal, round, and reactive to light. Cardiovascular: Rate and Rhythm: Normal rate and regular rhythm. Pulses: Normal pulses. Heart sounds: Normal heart sounds. Pulmonary: Effort: Pulmonary effort is normal. Breath sounds: Normal breath sounds. Abdominal: General: Abdomen is flat. Bowel sounds are normal. Palpations: Abdomen is soft. Musculoskeletal: General: Normal range of motion. Cervical back: Normal range of motion. Skin: General: Skin is warm and dry. Capillary Refill: Capillary refill takes less than 2 seconds. Neurological: General: No focal deficit present. Mental Status: He is alert and oriented to person, place, and time. Psychiatric: Mood and Affect: Mood normal. Behavior: Behavior normal. Assessment/Plan Problem List Items Addressed This Visit Encounter to establish care History of coronary artery bypass graft x 3 Relevant Orders Lipid panel Hemoglobin A1c CBC and differential Nicotine dependence, cigarettes, uncomplicated Screening for malignant neoplasm of colon Relevant Orders Cologuard colon cancer screening CT lung screening low dose Encounter for prostate cancer screening Relevant Orders PSA, total and free Elevated blood pressure reading in office without diagnosis of hypertension Relevant Orders TSH W/REFLEX TO FT4 Hemoglobin A1c Comprehensive metabolic panel CBC and differential Heart disease Relevant Orders Lipid panel CBC and differential Stroke (CMS/HCC) Had CVA in 10/2023- has first hospital follow-up with neurology on 02/07/2024. Was inpatient at [facility] for 3 weeks Neurology recommended ECHO, Carotid Duplex, PT/OT/ST. Pt is unsure if any of these have been ordered as of now. Neurology recommended mild control of hypertension due to CVA. Will touch base with them on recommendations for BP control moving forward. Relevant Orders Lipid panel Hemoglobin A1c Comprehensive metabolic panel CBC and differential Screening for lung cancer Wellness examination I have reviewed Ht/Wt/BMI, I have reviewed recommended vaccines for patient's age, as well as all recommended screenings I have reviewed available care everywhere notes as well. I have recommended eating a balanced diet, as well as activity as chronic conditions allow It is recommended that the patient have a yearly eye exam, as well as twice a year dental exams Fu in this office for wellness on a yearly basis Diet: Eat three meals per day. Breakfast, lunch, and dinner. Avoid snacking. Avoid eating after 5/6 pm. Daily protein GOAL 35% of your intake; 30g per meal. Daily calorie GOAL 1,800-2,000 per day. Consider tracking your food intake on MyFtinessPal or LoseIt Water: Increase water intake; GOAL 64-80oz of water per day. Exercise: Increase activity. GOAL 30 minutes, 5 days per week. START SLOW. Start with 5 minutes, 5 days per week. Then increase to 10 days, 5 days per week. Continue to increase until you reach the goal. Increase steps; GOAL 10,000 steps per day. Be sure to get adequate sleep; GOAL 6-8 hours of sleep per night. Primary hypertension (CMS/HCC) Currently taking Losartan-hydrochlorothiazide 50-12.5mg Checks BP at home; Averages are 130's-140's. Denies orthostatic changes, dizziness, cough, shortness of breath, swelling in extremities. Continue current regimen. Given BP log, advised pt to record BP and bring log back with them to next visit. Neurology recommended mild control of hypertension due to CVA. Will touch base with them on recommendations for BP control moving forward Other Visit Diagnoses Flu vaccine need - Primary Relevant Orders Flu vaccine, trivalent, adjuvanted, PF ([id number]) (Fluad trivalent single dose syringe) (Completed) Personal history of nicotine dependence Relevant Orders CT lung screening low dose documented in this encounter [facility] 01-31-2024 Instructions Anna Jacinto NP - 01/31/2024 11:20 AM EST Plan of Treatment - Upcoming Encounters Upcoming Encounters Date Type Department Care Team (Latest Contact Info) Description 02/07/2024 1:00 PM EST Office Visit [facility] [address] [place] [phone] Feliberto Santos MD [address] [facility] [place] [address] FASTING labs ordered. Nothing to eat or drink for 12 hours prior to blood draw. Water and black coffee ok. documented in this encounter [facility] 12-07-2023 Miscellaneous Notes What is the reason for the call? Silvina and SREEDHAR from [facility] called to schedule a hospital follow up. If appointment requested, what is the reason for the appointment? Patient has been in [facility] for Dx stroke Is there a referral in the chart? No Were they seen in the hospital? What hospital were they seen at? Yes [facility] What is a good call back number? SREEDHAR Cool [phone] Tele consult done 11/26: ASSESSMENT & PLAN [...] stenosis. Received call from SREEDHAR Najera from [facility] requesting a call back to schedule patient for follow up in stroke clinic-( [phone]) ask for [address] Nurse Scheduled for 02/06. documented in this encounter [facility] 12-07-2023 Telephone encounter Note What is the reason for the call? Alysha from [facility] called to schedule a hospital follow up. If appointment requested, what is the reason for the appointment? Patient has been in [facility] for Dx stroke Is there a referral in the chart? No Were they seen in the hospital? What hospital were they seen at? Yes [facility] What is a good call back number? SREEDHAR Cool [phone] [facility] 12-07-2023 Telephone encounter Note Tele consult done [...] PT/OT/ST Who should patient follow up [facility]? [facility] [employer] [facility] 12-07-2023 Telephone encounter Note Please schedule patient to FU with Dr. Santos due to concern of possible symptomatic right carotid stenosis. [facility] Work Phone: 12-07-2023 Telephone encounter Note Received call from SREEDHAR Najera from [facility] requesting a call back to schedule patient for follow up in stroke clinic-( [phone]) ask for [address] [facility] 12-07-2023 Telephone encounter Note Scheduled for 02/06. [facility] [employer] [facility] Evaluation note Diagnosis Flu vaccine need- Primary Wellness examination Screening for malignant neoplasm of colon Encounter for prostate cancer screening Nicotine dependence, cigarettes, uncomplicated Encounter to establish care Elevated blood pressure reading in office without diagnosis of hypertension History of coronary artery bypass graft x 3 Heart disease Unspecified heart disease Cerebrovascular accident (CVA), unspecified mechanism (CMS/HCC) Screening for lung cancer Personal history of nicotine dependence Primary hypertension (CMS/HCC) Unspecified essential hypertension documented in this encounter [facility] Diagnosis Flu vaccine need- Primary Wellness examination Screening for malignant neoplasm of colon Encounter for prostate cancer screening Nicotine dependence, cigarettes, uncomplicated Encounter to establish care Elevated blood pressure reading in office without diagnosis of hypertension History of coronary artery bypass graft x 3 Heart disease Unspecified heart disease Cerebrovascular accident (CVA), unspecified mechanism (CMS/HCC) Screening for lung cancer Personal history of nicotine dependence Primary hypertension (CMS/HCC) Unspecified essential hypertension History of coronary artery bypass graft x 3- Primary Heart disease Unspecified heart disease Nicotine dependence, cigarettes, uncomplicated documented in this encounter [facility] Diagnosis Flu vaccine need- Primary Wellness examination Screening for malignant neoplasm of colon Encounter for prostate cancer screening Nicotine dependence, cigarettes, uncomplicated Encounter to establish care Elevated blood pressure reading in office without diagnosis of hypertension History of coronary artery bypass graft x 3 Heart disease Unspecified heart disease Cerebrovascular accident (CVA), unspecified mechanism (CMS/HCC) Screening for lung cancer Personal history of nicotine dependence Primary hypertension (CMS/HCC) Unspecified essential hypertension Abnormal liver enzymes- Primary documented in this encounter [facility] Diagnosis Flu vaccine need- Primary Wellness examination Screening for malignant neoplasm of colon Encounter for prostate cancer screening Nicotine dependence, cigarettes, uncomplicated Encounter to establish care Elevated blood pressure reading in office without diagnosis of hypertension History of coronary artery bypass graft x 3 Heart disease Unspecified heart disease Cerebrovascular accident (CVA), unspecified mechanism (CMS/HCC) Screening for lung cancer Personal history of nicotine dependence Primary hypertension (CMS/HCC) Unspecified essential hypertension Abnormal CT lung screening- Primary Nonspecific (abnormal) findings on radiological and other examination of other intrathoracic organs Nicotine dependence, cigarettes, uncomplicated documented in this encounter [facility] HealthcareInstructionsNot on filedocumented in this encounterProMadison Health SystemInstructionsNot on filedocumented in this encounterProMadison Health System Summary Purpose Family History No Family History Records FoundNo Family History Records Found Advance Directives No Advanced Directives Records FoundNo Advanced Directives Records Found Additional Source Comments (unrecognized sect ion and content) No Status Records FoundNo Status Records Found INFORMATION SOURCE (unrecogn ized section and content) DATE CREATED AUTHOR 07/16/2019 [facility] DATE CREATED AUTHOR AUTHOR'S ORGANIZ ATION 12/03/2023 [facility] Reason for Visit (unrecogniz ed section and content) Reason Onset Date Comments Hospital Follow-up 12/07/2023 Reason Comments Establish Care Reason Onset Date Comments Med Refill 02/05/2024 Care Teams (unrecognized sec tion and content) Records Management Engineer Relationship Specialty Start Date End Date Parag Sanchez MD [address] [place] [phone] PCP - General Family Medicine 01/01/24 Anna aJcinto NP [address] [place] [address] Nurse Practitioner Family Medicine 01/01/24 Records Management Engineer Relationship Specialty Start Date End Date Parag Sanchez MD [address] [place] [phone] PCP - General Family Medicine 01/01/24 Anna Jacinto NP [address] [place] [phone] Nurse Practitioner Family Medicine 01/01/24 Records Management Engineer Relationship Specialty Start Date End Date Parag Sanchez MD [address] [place] [phone] PCP - General Family Medicine 01/01/24 Anna Jacinto NP [address] [place] [address] Nurse Practitioner Family Medicine 01/01/24 Records Management Engineer Relationship Specialty Start Date End Date Parag Sanchez MD [address] [place] [phone] PCP - General Family Medicine 01/01/24 Anna Jacinto NP [address] [place] [address] Nurse Practitioner Family Medicine 01/01/24 Records Management Engineer Relationship Specialty Start Date End Date Parag Sanchez MD [address] [place] [phone] PCP - General Family Medicine 01/01/24 Anna Jacinto NP [address] [place] [phone] Nurse Practitioner Family [facility] 01/01/24 Records Management Engineer Relationship Specialty Start Date End Date Parag Sanchez MD [address] [place] [phone] PCP - General Family [facility] 01/01/24 Anna Jacinto NP [address] [place] [address] Nurse Practitioner Family [facility] 01/01/24 Records Management Engineer Relationship Specialty Start Date End Date Parag Sanchez MD [address] [place] [phone] PCP - General Family [facility] 01/01/24 Anna Jacinto NP [address] [place] [address] Nurse Practitioner Family Medicine 01/01/24 FOR RECORDS PERTAINING TO PATIENTS WHO ARE [...] BE BASED ON THE PRIMARY CLINICAL RECORDS. [facility]. provides no warranty or guarantee of the accuracy or completeness of information in this document.
== END 2024-03-20 10:08 | disposition home or self-care (01) ==
LOC: LAB 03-21 10:07
DX: R74.8 Abnormal levels of other serum enzymes (principal)
CPT/HCPCS: 36415; 80053

== ENCOUNTER 2024-05-22 12:22 | Emergency (ER) | payer MEDICARE, SELFPAY ==
[2024-05-22 12:27] VITALS: BP 130/63; PULSE 88; TEMP 36.4; O2SAT 97; BMI 22.0
--- NOTE | 2024-05-22 13:13 | ED.GENADUL1 ---
HPI HPI - General Adult General Chief complaint: Abdominal Pain Stated complaint: CONSTIPATION Time Seen by Provider: 05/22/24 12:26 Source: patient Mode of arrival: walk-in Limitations: no limitations History of Present Illness HPI narrative: Patient presents to ED complaining of constipation. He states he had a hip surgery recently and has not been able to have a bowel movement in the past 4 days. He said he has not been moving around is much as normal because of his hip surgery. He said his hip is feeling better but now he has been constipated. He said he has some mild left lower quadrant pain. No vomiting no fevers had vital signs are stable on arrival. He said he has been trying to have a bowel movement for the past 4 days and feels like he has blocked up and has not been able to push any stool out. Denies any other issues at this time. Related Data Previous Rx's ?Medication ?Instructions ?Recorded albuterol sulfate 90 mcg/actuation 2 inh inhalation Q6H PRN shortness 11/28/23 aerosol inhaler of breath or wheezing #6.7 grams aspirin 81 mg chewable tablet 81 mg PO DAILY #30 tabs 11/28/23 atorvastatin 40 mg tablet (Lipitor) 40 mg PO DAILY #30 tabs 11/28/23 clopidogrel 75 mg tablet (Plavix) 75 mg PO DAILY #30 tabs 11/28/23 fluticasone fur. 200 mcg-umeclid 1 inh inhalation DAILY #28 ea 11/28/23 62.5 mcg-vilant 25 mcg inhalat.powder (Trelegy Ellipta) losartan 50 mg-hydrochlorothiazide 1 tab PO DAILY #30 tabs 11/28/23 12.5 mg tablet metformin 500 mg tablet 500 mg PO BID #60 tabs 11/28/23 Allergies Allergy/AdvReac Type Severity Reaction Status Date / Time No Known Drug Allergies Allergy Verified 05/22/24 12:27 Opioid HPI Opioid Management Most Recent Opioid Data: Last Pain Scale 4 11/28/23 21:00 11/28/23 Last Pain Intensity 5 11/27/23 16:40 11/27/23 Last ORT Total Score 6 11/24/23 13:49 11/24/23 Last ORT Risk Category Moderate Risk 11/24/23 13:49 11/24/23 Review of Systems ROS Status of ROS 10 or more systems reviewed and unremarkable except as noted in history and below PFSH PFSH Medical History (Updated 05/22/24 @ 15:06 by Marleen Dozier DO) Accidental fall ?W19.XXXA - Unspecified fall, initial encounter (ICD-10) Abnormal EKG ?R94.31 - Abnormal electrocardiogram [ECG] [EKG] (ICD-10) Fracture of right hip ?S72.001A - Fracture of unspecified part of neck of right femur, initial encounter for closed fracture (ICD-10) Lung cancer ?C34.90 - Malignant neoplasm of unspecified part of unspecified bronchus or lung (ICD-10) Current smoker ?F17.200 - Nicotine dependence, unspecified, uncomplicated (ICD-10) HLD (hyperlipidemia) ?E78.5 - Hyperlipidemia, unspecified (ICD-10) CAD (coronary artery disease) ?I25.10 - Atherosclerotic heart disease of [place] coronary artery without angina pectoris (ICD-10) Stroke ?I63.9 - Cerebral infarction, unspecified (ICD-10) Past heart attack ?I25.2 - Old myocardial infarction (ICD-10) Brain bleed ?I61.9 - Nontraumatic intracerebral hemorrhage, unspecified (ICD-10) COPD (chronic obstructive pulmonary disease) ?J44.9 - Chronic obstructive pulmonary disease, unspecified (ICD-10) Hypertension ?I10 - Essential (primary) hypertension (ICD-10) Diabetes ?E11.9 - Type 2 diabetes mellitus without complications (ICD-10) Surgical History (Updated 11/24/23 @ 13:43 by Kendra Mayen) S/P triple vessel bypass ?Z95.1 - Presence of aortocoronary bypass graft (ICD-10) History of back surgery ?Z98.890 - Other specified postprocedural states (ICD-10) Hx of appendectomy ?Z90.49 - Acquired absence of other specified parts of digestive tract (ICD-10) Family History (Updated 11/24/23 @ 13:45 by Kendra Mayen) Grandfather Family history of CHF (congestive heart failure) Family history of myocardial infarction Father Family history of COPD (chronic obstructive pulmonary disease) Family history of cancer Family history of hypertension Grandmother Family history of cancer Mother Family history of cancer Family history of hypertension Other Family history of diabetes mellitus Social History (Updated 11/24/23 @ 13:47 by Kendra Mayen) Within the past year, how often did you have a drink containing alcohol: never Within the past year, how often did you have six or more drinks on one occasion: never Score interpretation: A score less than 4 is consistent with normal alcohol consumption. Smoking status: Heavy tobacco smoker Non-prescribed substance use: cannabis (any form) Previous occupational history: retired Highest level of school completed/degree received: GED or equivalent Little interest or pleasure in doing things: not at all Feeling down, depressed, or hopeless: not at all Feel stressed/tense/nervous/anxious/difficulty sleeping: not at all Gender Identity: male Exam Narrative Exam Narrative: Time Seen: [] Vital Signs: [Per nurse's notes.] General: [Alert] Skin: [Warm, dry, no rash.] Head: [Normocephalic, atraumatic.] Neck: [Supple, trachea midline.] Eye: [Pupils are equal, round and reactive to light, extraocular movements are intact, normal conjunctiva.] Ears, nose, mouth and throat: oral mucosa moist. Cardiovascular: [Regular rate and rhythm, no murmur.] Respiratory: [Lungs are clear to auscultation, respirations are non-labored, breath sounds are equal.] Gastrointestinal: [Soft, mild left lower quadrant tenderness non distended, normal bowel sounds.] Rectal exam reveals no impacted stool. No hemorrhoid no abscess MSK: 5 out of 5 muscle strength x 4 extremities no calf pain or edema. Postoperative hip pain on the right Psychiatric: [Cooperative, appropriate mood & affect.] Neurological: [Alert and oriented to person, place, time, and situation, no focal neurological deficit observed.] Constitutional Vital Signs, click to edit/add: Last Vital Signs Temp 97.6 F 05/22/24 12:27 Pulse 88 05/22/24 12:27 Resp 20 05/22/24 12:27 BP 130/63 05/22/24 12:27 Pulse Ox 97 05/22/24 12:27 O2 Del Method Room Air 05/22/24 12:27 Course Vital Signs Vital signs: Vital Signs Temperature 97.6 F 05/22/24 12:27 Pulse Rate 88 05/22/24 12:27 Respiratory Rate 20 05/22/24 12:27 Blood Pressure 130/63 05/22/24 12:27 Pulse Oximetry 97 05/22/24 12:27 Oxygen Delivery Method Room Air 05/22/24 12:27 Temperature 97.6 F 05/22/24 12:27 Pulse Rate 88 05/22/24 12:27 Respiratory Rate 20 05/22/24 12:27 Blood Pressure 130/63 05/22/24 12:27 Pulse Oximetry 97 05/22/24 12:27 Oxygen Delivery Method Room Air 05/22/24 12:27 Medical Decision Making MDM Narrative Medical decision making narrative: Enema being attempted. Patient did receive an enema and was able to go a little bit and passed some soft stool. He was not able to go much and still felt like he had more in there. I added on a CT scan to make sure there was not any bowel obstruction. Patient has no vomiting CT scan shows no bowel obstruction. CT scan shows mild to moderate colonic stool burden. Patient instructed to take his stool softeners at home, said they have Dulcolax at home. Return to ED if worsening abdominal pain vomiting fevers or any other concerns. Otherwise take stool softeners encourage oral hydration and ambulate is much as possible. Patient expresses understanding and is comfortable care plan for home Differential Diagnosis Differential Diagnosis: Constipation, bowel obstruction Discharge Plan Discharge Chief Complaint: Abdominal Pain Clinical Impression: Constipation Patient Disposition: Home, Self-Care Time of Disposition Decision: 15:05 Condition: Good Mode of Transportation: Private Vehicle Prescriptions / Home Meds: No Action aspirin 81 mg tablet,chewable 81 mg PO DAILY Qty: 30 0RF clopidogrel [Plavix] 75 mg tablet 75 mg PO DAILY Qty: 30 0RF atorvastatin [Lipitor] 40 mg tablet 40 mg PO DAILY Qty: 30 0RF losartan-hydrochlorothiazide 50-12.5 mg tablet 1 tab PO DAILY Qty: 30 0RF albuterol sulfate 90 mcg/actuation HFA aerosol inhaler 2 inh inhalation Q6H PRN (Reason: shortness of breath or wheezing) Qty: 6.7 0RF Trelegy Ellipta 200-62.5-25 mcg blister with device 1 inh inhalation DAILY Qty: 28 0RF metformin 500 mg tablet 500 mg PO BID Qty: 60 0RF Print Language: [place] Instructions: Constipation (ED) Referrals: Physician,Non-Staff, MD [Primary Care Provider] - 1 week Discharge Date/Time: 05/22/24 15:22
== END 2024-05-22 15:22 | disposition home or self-care (01) ==
PROVIDERS: Emergency Provider Emergency Medicine
DX: K59.00 Constipation, unspecified (principal); Z95.1 Presence of aortocoronary bypass graft; Z90.49 Acquired absence of other specified parts of digestive tract; F17.200 Nicotine dependence, unspecified, uncomplicated
CPT/HCPCS: 74176; 99284

== ENCOUNTER 2024-05-31 12:48 | Outpatient (OUT) | payer MEDICARE, SELFPAY ==
[2024-05-31 14:37] LABS: Creatinine Urine Random 122.67 mg/dL (20.00-300.00); Microalbum Creatinine Ratio Ur 10.5 mg/g (0.0-29.9); Microalbumin Urine Random 1.3 mg/dL (<=30.0)
[2024-05-31 14:37] LABS: Alanine Aminotransferase 24 U/L (16-63); Albumin Level 3.8 g/dL (3.4-5.0); Alkaline Phosphatase 137 U/L (46-116); Anion Gap 13.5; Aspartate Amino Transferase 19 U/L (15-37); BUN Creatinine Ratio 18.4; Bilirubin Total 0.7 mg/dL (0.2-1.0); Calcium 9.2 mg/dL (8.5-10.1); Carbon Dioxide 29.8 mmol/L (21.0-32.0); Chloride 101 mmol/L (98-107); Estimated GFR (African America >60 (>=60 mL/min/1.73m^2); Estimated GFR (Non-African Ame >60 (>=60 mL/min/1.73m^2); Gamma Glutamyl Transpeptidase 23 U/L (15-85); Globulin 3.9 g/dL; Glucose 137 mg/dL (74-106); Potassium 4.3 mmol/L (3.5-5.1); Sodium 140 mmol/L (136-145); Total Protein 7.7 g/dL (6.4-8.2)
[2024-05-31 14:42] LABS: Bilirubin Urine NEGATIVE (NEGATIVE); Blood Urine NEGATIVE (NEGATIVE); Clarity Urine CLEAR (CLEAR); Color Urine LT. YELLOW (YELLOW); Glucose Urine UA NEGATIVE (NEGATIVE); Ketones Urine NEGATIVE (NEGATIVE); Leukocyte Esterase Urine NEGATIVE (NEGATIVE); Nitrite Urine NEGATIVE (NEGATIVE); Protein Urine NEGATIVE (NEG/TRACE); Urobilinogen Urine 0.2 EU/dL (0.2-1.0)
[2024-05-31 14:45] LABS: Urine Microscopic Indicated NO
== END 2024-05-31 12:49 | disposition home or self-care (01) ==
LOC: LAB 12:52
PROVIDERS: PCP Nurse Practitioner; Visit Provider Nurse Practitioner
DX: R74.8 Abnormal levels of other serum enzymes (principal); E11.9 Type 2 diabetes mellitus without complications; I10 Essential (primary) hypertension
CPT/HCPCS: 36415; 80053; 81003; 82043; 82570; 82977

== ENCOUNTER 2025-01-24 16:20 | Emergency (ER) | payer MEDICARE, SELFPAY ==
--- OUTSIDE RECORDS SUMMARY | 2024-03-12 10:00 | XMS_ITS ---
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 * Medical History: Objective: * Vitals: Assessment: Plan: * Treatment: * * Electronic signature of Zan Bo DO on 01/24/2025 at 05:24 PM ESTSign off status: PendingVisit Status:?N/S N/C (No Show/No Charge) * Provider: Jung Bo DO Date: 0 03/12/2024 Generated for Printing/Faxing/eTransmitting on:?01/24/2025 05:24 PM EST
--- OUTSIDE RECORDS SUMMARY | 2024-04-24 08:30 | XMS_ITS ---
Author Organization [facility] Address [address] [place] [address] [place] [address] Care Team Providers Care Montessori Paraprofessional Name Role Phone Arianna Dutta Primary Care Provider UnavailAlexandru Cox Unavailable [phone] Encounters Encounter Location Date Provider Diagnosis [address] [address] 04/24/2024 Alexandru Carmona Plan Of Treatment No Information Progress Notes * Low WRIGHTDOB: (65 yo M)Acc No.[id number]:04/24/2024 Patient:?Low Wright :?NAYELY SutherlandMDOB:1960???Age:64 Y???Sex: MaleDate:04/24/2024Phone:[phone]:[facility], [place], [place]Byw:Arianna Dutta * Electronic signature of Alexandru Carmona DPM on 01/24/2025 at 05:24 PM ESTSign off status: Pending * Provider: Mahad Carmona DPM Date: 0 04/24/2024 Generated for Printing/Faxing/eTransmitting on:?01/24/2025 05:24 PM EST
[2025-01-24 16:21] VITALS: BP 150/90; PULSE 91; TEMP 36.4; O2SAT 95; BMI 25.8
--- NOTE | 2025-01-24 16:40 | XR_ITS ---
[place] [id number] Patient Name: MIHIR WRIGHT MRN: [id number] date: 1960 Sex: M Assigned Patient Location: ER Current Patient Location: ED.MAIN Accession/Order Number: [id number] Exam Date: 01/24/2025 17:03 Report Date: 01/24/2025 18:29 At the request of: TOM LOPEZ Procedure: XR femur LT 2V 2 views left femur INDICATION: Fall, deformity COMPARISON: None FINDINGS: There is a left peritrochanteric/intertrochanteric hip fracture at 90 degrees angulation and foreshortening. Remainder left femur is intact. No dislocation. There are vascular calcification. XR/XR femur LT 2V IMPRESSION: Left peritrochanteric/intertrochanteric hip fracture Impression dictated by: Jourdan Russell M.D. 01/24/2025 6:29 PM Dictation Location: [place] [address] Electronically authenticated by: [id number] Y Date: 01/24/2025 18:29
[2025-01-24] MEDS: HYDROMORPHONE HCL 1 MG/ML CARTRIDGE IV ×3 (16:53→21:26)
--- NOTE | 2025-01-24 16:57 | XR_ITS ---
The [address] [address] Patient Name: MIHIR WRIGHT MRN: [id number] date: 1960 Sex: M Assigned Patient Location: ER Current Patient Location: ED.MAIN Accession/Order Number: [id number] Exam Date: 01/24/2025 17:03 Report Date: 01/24/2025 18:26 At the request of: TOM LOPEZ Procedure: XR chest 1V PA CHEST: CLINICAL HISTORY: Fall COMPARISON: 11/27/2023 Sternotomy wires. Stable cardiomediastinal silhouette. Otherwise opacity left upper lung noted approximately 10 cm in size unclear if this is extrinsic to the patient. Otherwise effusion or pneumothorax.. XR/XR chest 1V IMPRESSION: Ovoid left upper lung opacity noted, question extrinsic to the patient. Otherwise no definite airspace disease. Otherwise, consider lateral view or cross-sectional imaging. Impression dictated by: Jourdan Russell M.D. 01/24/2025 6:26 PM Dictation Location: [place] [address] Electronically authenticated by: [id number] Y Date: 01/24/2025 18:26
[2025-01-24 17:03] LABS: Hematocrit 44.6 % (42.0-54.0); Hemoglobin 14.9 g/dL (14.0-18.0); Immature Granulocytes Abs Auto 0.07 10^3/uL (0.00-0.03); Immature Granulocytes Pct Auto 0.4 % (0.0-0.5); Lymphocytes Absolute Auto 1.4 10^3/uL (1.2-3.8); Mean Corpuscular HGB Conc 33.4 g/dL (29.9-35.2); Mean Corpuscular Hemoglobin 30.5 pg (25.9-34.0); Mean Corpuscular Volume 91.2 fL (80.0-94.0); Platelet Count 252 10^3/uL (150-450); Red Blood Count 4.89 10^6/uL (4.70-6.10); White Blood Count 19.1 10^3/uL (4.0-11.0)
--- NOTE | 2025-01-24 17:16 | ED_ITS ---
HPI HPI - General Adult General Chief complaint: Fall Stated complaint: FALL Time Seen by Provider: 01/24/25 16:23 Source: patient Mode of arrival: ambulance Limitations: no limitations History of Present Illness HPI narrative: Patient is a 65-year-old male with a PMH of DM, HTN, CAD on Plavix status post CABG, and COPD presents to the emergency department with complaints of fall at about 10 AM this morning at the hotel he was staying at. He notes this was a mechanical fall as he has had issues walking since his right hip was fractured and repaired by Dr. Anderson. He was down until he was able to get someone's attention for help. He arrives with complaints of left hip pain. He denies hitting his head or having LOC. Related Data Previous Rx's ?Medication ?Instructions ?Recorded albuterol sulfate 90 mcg/actuation 2 inh inhalation Q6 H PRN shortness 11/28/23 aerosol inhaler of breath or wheezing #6.7 g jerry aspirin 81 mg chewable tablet 81 mg PO DAILY #30 tabs 11/28/23 atorvastatin 40 mg tablet (Lipitor) 40 mg PO DAILY #30 tabs 11/28/23 clopidogrel 75 mg tablet (Plavix) 75 mg PO DAILY #30 t abs 11/28/23 fluticasone fur. 200 mcg-umeclid 1 inh inhalation JOVITA Y #28 ea 11/28/23 62.5 mcg-vilant 25 mcg inhalat.powder (Trelegy Ellipta) losartan 50 mg-hydrochlorothiazide 1 tab PO DAILY #30 tabs 11/28/23 12.5 mg tablet metformin 500 mg tablet 500 mg PO BID #60 tabs 11/27 Allergies Allergy/AdvReac Type Severity Reaction Status Date / Time No Known Drug Allergies Allergy Verified 01/24/25 16:21 Opioid HPI Opioid Management Most Recent Opioid Data: Last Pain Scale 8 Today, 19:34 Last Pain Intensity 5 11/27/23, 16:40 Last MAR Pain Assessment Today, 19:34 Last ORT Total Score 6 11/24/23, 13:49 Last ORT Risk Category Moderate Risk 11/24/23, 13:49 Review of Systems ROS Status of ROS 10 or more systems reviewed and unremark able except as noted in history and below [facility] Medical History (Updated 01/24/25 @ 20:03 by JOHN Maza) Accidental fall ?W19.XXXA - Unspecified fall, initial encounter (ICD-10) Abnormal EKG ?R94.31 - Abnormal electrocardiogram [ECG] [EKG] (ICD-10) Fracture of right hip ?S72.001A - Fracture of unspecified part of neck of right femur, initial encounter for closed fracture (ICD-10) Lung cancer ?C34.90 - Malignant neoplasm of unspecified part of unspecified bronchus or lung (ICD-10) Current smoker ?F17.200 - Nicotine dependence, unspecified, uncomplicated (ICD-10) HLD (hyperlipidemia) ?E78.5 - Hyperlipidemia, unspecified (ICD-10) CAD (coronary artery disease) ?I25.10 - Atherosclerotic heart disease of [place] coronary artery without angina pectoris (ICD-10) Stroke ?I63.9 - Cerebral infarction, unspecified (ICD-10) Past heart attack ?I25.2 - Old myocardial infarction (ICD-10) Brain bleed ?I61.9 - Nontraumatic intracerebral hemorrhage, unspecified (ICD-10) COPD (chronic obstructive pulmonary disease) ?J44.9 - Chronic obstructive pulmonary disease, unspecified (ICD-10) Hypertension ?I10 - Essential (primary) hypertension (ICD-10) Diabetes ?E11.9 - Type 2 diabetes mellitus without complications (ICD-10) Surgical History (Updated 11/24/23 @ 13:43 by Kendra Mayen) S/P triple vessel bypass ?Z95.1 - Presence of aortocoronary bypass graft (ICD-10) History of back surgery ?Z98.890 - Other specified postprocedural states (ICD-10) Hx of appendectomy ?Z90.49 - Acquired absence of other specified parts of digestive tract (ICD- 10) Family History (Updated 11/24/23 @ 13:45 by Kendra Mayen) Grandfather Family history of CHF (congestive heart failure) Family history of myocardial infarction Father Family history of COPD (chronic obstructive pulmonary disease) Family history of cancer Family history of hypertension Grandmother Family history of cancer Mother Family history of cancer Family history of hypertension Other Family history of diabetes mellitus Social History (Updated 11/24/23 @ 13:47 by Kendra Mayen) Within the past year, how often did you have a drink containing alcohol: never Within the past year, how often did you have six or more drinks on one occasion: never Score interpretation: A score less than 4 is consistent with normal alcohol consumption. Smoking status: Heavy tobacco smoker Non-prescribed substance use: cannabis (any form) Previous occupational history: retired Highest level of school completed/degree received: GED or equivalent Little interest or pleasure in doing things: not at all Feeling down, depressed, or hopeless: not at all Feel stressed/tense/nervous/anxious/difficulty sleeping: not at all Gender Identity: male Exam Narrative Exam Narrative: General: No distress, age-appropriate Skin: Warm, dry, no pallor. No rash. Head: Normocephalic, atraumatic. Neck: Supple, non-tender. Eye: Pupils are equal, round and EOMI. No scleral icterus. Ears, Nose, Mouth, and Throat: No nasal mucosal hypertrophy. Oral mucosa is moist, no posterior oropharynx erythema, uvula is mid-line Cardiovascular: Regular Rate and Rhythm without murmur, gallop or rub. Respiratory: No accessory muscle use or respiratory distress. Lungs are clear to auscultation, no wheezing, rales or rhonchi Chest Wall: no tenderness Back: No midline thoracic or lumbar vertebral tenderness. Musculoskeletal: Full ROM of all extremities, no calf or popliteal tenderness. Positive logroll on the left. Deformity of the left femur. 2+ DP pulse palpated. Distally neurovascularly intact. 5/5 dorsiflexion/plantarflexion. GI: Abdomen is soft, non-distended, non tender to palpation. No masses appreciated. No rebound, guarding, or rigidity noted. Well-healed midline scar. Neurological: A&O x4. No cranial nerve dysfunction observed. No truncal ataxia. Moves all extremities. Sensation intact. Psychiatric: Cooperative and interactive. Normal mood and affect. Constitutional Vital Signs, click to edit/add: Last Vital Signs Temp 97.5 F L 01/24/25 16:21 Pulse 89 01/24/25 19:16 Resp 18 01/24/25 19:16 BP 162/94 H 01/24/25 19:16 Pulse Ox 94 L 01/24/25 19:16 O2 Del Method Nasal Cannula 01/24/25 19:16 O2 Flow Rate 2 01/24/25 19:16 Documenting provider has reviewed patient's vital signs: yes Course Vital Signs Vital signs: Vital Signs Temperature 97.5 F L 01/24/25 16:21 Pulse Rate 91 H 01/24/25 16:21 Respiratory Rate 20 01/24/25 16:21 Blood Pressure 150/90 H 01/24/25 16:21 Pulse Oximetry 95 01/24/25 16:21 Temperature 97.5 F L 01/24/25 16:21 Pulse Rate 89 01/24/25 19:16 Respiratory Rate 18 01/24/25 19:16 Blood Pressure 162/94 H 01/24/25 19:16 Pulse Oximetry 94 L 01/24/25 19:16 Oxygen Delivery Method Nasal Cannula 01/24/25 19:16 Oxygen Delivery Flow Rate 2 01/24/25 19:16 Medical Decision Making MDM Narrative Medical decision making narrative: This is a 65-year-old male that presents via EMS with complaints of left hip pain after a found down in his motel room. He fell at approximately 10 AM and laid there for about 4 to 5 hours before someone heard him. He notes this was a mechanical fall as he had his right hip repaired after a fracture last November and he has not been walking well since. He denies head strike or LOC. He is on Plavix for history of CAD with CABG, also has PMH of DM type II, COPD not on oxygen, HTN and a daily 1 pack/day smoker. On arrival patient appears to be in pain, there is deformity of the left hip, it is flexed and abducted and externally rotated, 2+ DP pulse palpated, sensation intact distally, motor intact distally. Vital stable on arrival, afebrile, original O2 in the mid to low 90s on arrival. IV in place via EMS. He was given fentanyl and route. 1 mg Dilaudid ordered. Left subtrochanteric/IT femur fracture X-ray left hip/femur reviewed by myself, radiological read notes a Left subtrochanteric/Intertrochanteric hip fracture. Otherwise, the pelvis is intact. On Plavix Dilaudid, Tylenol for pain, patient initially declined Tylenol but then reconsidered after discussion of multimodal pain control Hgb 14.[address] Elkins with Ortho at [facility], Ortho will see patient, have him admitted to Hospitalist. Found Down, Mechanical Fall Mechanical fall, down for about 4-5 hours Elevated CPK 462, Myoglobin 389 Degroot catheter attempted, could not pass the prostate, 500 mL bolus given, maintenance IVF started 20ml/hr given COPD and CAD history WBCs 19.1, possibly some component of reactivity to pain given his downtime Na 133-appears to be his baseline UTI UA with moderate occult blood, trace ketone, 5?10 WBC, moderate bacteria, large mucus, culture pending 1 g Rocephin given here COPD Used to be on home O2, no longer uses this. 1 pack/day smoker. After receiving doses of narcotics, his O2 was dipping into the high 80s. 2 L NC applied with O2 in the mid 90's. No respiratory distress, wheezing on exam, no fluid collection on CXR. Chest x-ray with ovoid left upper lung opacity noted, question extrinsic to the patient. Otherwise no definite airspace disease. Otherwise, consider lateral view or cross-sectional imaging. I spoke with patient about this, there is no patch over the chest, patient is unaware of what this could be. I did speak with hospitalist about this incidental finding. I discussed x-ray findings with patient and that he would need to be transferred to [facility] for surgical management. Patient agreeable with plan. After speaking with Dr. Elkins, orthopedics, I did speak with the hospitalist, Dr. Adams, who accepts patient. Patient's vitals and respiratory status remained stable, after 2 L NC placed. Patient transferred to [facility] for definitive surgical management of his subtrochanteric left hip fracture. Differential Diagnosis Differential Diagnosis: Hip/femur fracture Lab Data Lab results reviewed: Yes I reviewed the patient's lab results Labs: Lab Results 01/24/25 01/24/25 Range/Units 16:55 18:45 WBC 19.1 H (4.0-11.0) 10^3/uL RBC 4.89 (4.70-6.10) 10^6/uL Hgb 14.9 (14.0-18.0) g/dL Hct 44.6 (42.0-54.0) % MCV 91.2 (80.0-94.0) fL MCH 30.5 (25.9-34.0) pg MCHC 33.4 (29.9-35.2) g/dL RDW 11.9 (11.0-15.0) % Plt Count 252 (150-450) 10^3/uL MPV 9.0 L (9.5-13.5) fL Neut % (Auto) 84.6 H (43.0-75.0) % Lymph % (Auto) 7.2 L (20.5-60.0) % [place] % (Auto) 6.6 (1.7-12.0) % Eos % (Auto) 0.7 L (0.9-7.0) % Baso % (Auto) 0.5 (0.2-2.0) % Neut # (Auto) 16.2 H (1.4-6.5) 10^3/uL Lymph # (Auto) 1.4 (1.2-3.8) 10^3/uL [place] # (Auto) 1.3 H (0.3-0.8) 10^3/uL Eos # (Auto) 0.1 (0.0-0.7) 10^3/uL Baso # (Auto) 0.1 (0.0-0.1) 10^3/uL Abs Immat Gran (auto) 0.07 H (0.00-0.03) 10^3/uL Imm/Tot Granulo (auto) 0.4 (0.0-0.5) % Sodium 133 L (136-145) mmol/L Potassium 4.0 (3.5-5.1) mmol/L Chloride 98 (98-107) mmol/L Carbon Dioxide 27.8 (21.0-32.0) mmol/L Anion Gap 11.2 BUN 9.0 (7.0-18.0) mg/dL Creatinine 0.55 L (0.70-1.30) mg/dL Est GFR ( Amer) >60 (>=60 mL/min/1.73m^2) Est GFR (Non-Af Amer) >60 (>=60 mL/min/1.73m^2) BUN/Creatinine Ratio 16.4 Glucose 142 H (74-106) mg/dL Calcium 9.0 (8.5-10.1) mg/dL Total Bilirubin 0.8 (0.2-1.0) mg/dL AST 21 (15-37) U/L ALT 30 (16-63) U/L Alkaline Phosphatase 104 (46-116) U/L Total Creatine Kinase 462 H* (39-308) U/L Myoglobin 389 H* (16-96) ng/mL Total Protein 6.8 (6.4-8.2) g/dL Albumin 3.6 (3.4-5.0) g/dL Globulin 3.2 g/dL Albumin/Globulin Ratio 1.1 Urine Color Yellow (YELLOW) Urine Clarity Sl cloudy (CLEAR) Urine pH 6.0 (5.0-9.0) Ur Specific [place] 1.025 (1.005-1.025) Urine Protein Trace (NEG/TRACE) mg/dL Urine Glucose (UA) Negative (NEGATIVE) mg/dL Urine Ketones Trace A (NEGATIVE) mg/dL Urine Occult Blood Moderate A (NEGATIVE) Urine Nitrite Negative (NEGATIVE) Urine Bilirubin Negative (NEGATIVE) Urine Urobilinogen 1.0 (0.2-1.0) EU/dL Ur Leukocyte Esterase Negative (NEGATIVE) Urine RBC 5-10 A (0-2) #/HPF Urine WBC 5-10 A (NONE SEEN) #/HPF Ur Squamous Epith Cells Moderate A (NONE/RARE) #/LPF Ur Transition Epith Cell Moderate A (NONE SEEN) #/LPF Urine Crystals None seen (None Seen) #/HPF Urine Bacteria Moderate A (NONE SEEN) #/HPF Urine Casts None seen (NONE SEEN) #/LPF Urine Mucus Large A (NONE SEEN) Ur Culture Indicated? Yes-[facility] [place] Imaging Data X-ray left hip, femur, chest x-ray: Attestation: I have reviewed the pertinent imaging results. Radiologist's impression: ITS Impressions Femur X-Ray 01/24/25 16:40 IMPRESSION: Left peritrochanteric/intertrochanteric hip fracture Impression dictated by: Jourdan Russell M.D. 01/24/2025 6:29 PM Dictation Location: [place] [address] Electronically authenticated by: [id number] Y Date: 01/24/2025 18:29 Chest X-Ray 01/24/25 16:57 IMPRESSION: Ovoid left upper lung opacity noted, question extrinsic to the patient. Otherwise no definite airspace disease. Otherwise, consider lateral view or cross-sectional imaging. Impression dictated by: Jourdan Russell M.D. 01/24/2025 6:26 PM Dictation Location: [id number] Electronically authenticated by: [id number] Y Date: 01/24/2025 18:26 Hip/Pelvis X-Ray 01/24/25 17:23 IMPRESSION: Left subtrochanteric/Intertrochanteric hip fracture. Otherwise, the pelvis is intact. Impression dictated by: Jourdan Russell M.D. 01/24/2025 6:32 PM Dictation Location: [id number] Electronically authenticated by: [id number] Y Date: 01/24/2025 18:32 Discharge Plan Discharge Chief Complaint: Fall Clinical Impression: Fracture, subtrochanteric, left femur, closed Patient Disposition: [facility] Time of Disposition Decision: 20:02 Discharge Location: [facility] Condition: Good Mode of Transportation: EMS
--- NOTE | 2025-01-24 17:23 | XR_ITS ---
[facility] [id number] Patient Name: MIHIR WRIGHT MRN: [id number] date: 1960 Sex: M Assigned Patient Location: ER Current Patient Location: ED.MAIN Accession/Order Number: [id number] Exam Date: 01/24/2025 17:03 Report Date: 01/24/2025 18:32 At the request of: TOM LOPEZ Procedure: XR hip LT 2V w/ pelvis Single view of pelvis and 2 views left hip INDICATION: Deformity COMPARISON: 06/24/2018 Left hip intertrochanteric/subtrochanteric fracture with 90 degrees angulation. No dislocation. Pelvis is intact. Postsurgical changes right hip identified with intramedullary dwayne. No diastases of sacral joints or pubic symphysis. XR/XR hip LT 2V w/ pelvis IMPRESSION: Left subtrochanteric/Intertrochanteric hip fracture. Otherwise, the pelvis is intact. Impression dictated by: Jourdan Russell M.D. 01/24/2025 6:32 PM Dictation Location: [place] [address] Electronically authenticated by: [id number] Y Date: 01/24/2025 18:32
--- OUTSIDE RECORDS SUMMARY | 2025-01-24 17:23 | XMS_ITS | CCD ---
Author Organization [facility] Care Team Providers Care Erp Pm Name Role Phone BUFFY SPARKS Admitting Unavailable BUFFY SPARKS Attending Unavailable BRIDGER BUFFYKEM MAN Primary Care Unavailable BUFFY SPARKSE Consulting Unavailable BRIDGER BUFFY MAGDA Primary Care Unavailable IGNACIO TALAVERA Admitting Unavailable IGNACIO TALAVERA Attending Unavailable MACARIO JORDAN V Consulting Unavailable LORENA MCKINNEY Consulting Unavailable PARAG SANCHEZ Consulting Unavailable IGNACIO TALAVERA Consulting Unavailable KASIA FOSTER Consulting Unavailable Parag Sanchez MD Primary Care Provider Orville LEYVA, Gerardo Unavailable Unavailable Primary Care Provider Unavailjacob Jacinto PAINT STOCKMAN, Gerardo Unavailable NO FAMILY, PHYSICIAN Primary Care Unavailable Macario Dunne Attending Unavailable Macario Dunne Admitting Unavailable JUANIS FERNANDEZ Attending Unavailable JUANIS FERNANDEZ Attending Unavailable TADEO CHAU Attending Unavailable JIM JUANIS Referring Unavailable RICHARD FERNANDEZA Attending Unavailable GERARDO JACINTO Attending UnavailParag Lemons MD Primary Care Provider [phone] Orville LEYVA, Gerardo Unavailable [phone] Medications Current Medications MedicationDrug Class(es)DatesSig (Normalized)Sig (Original)[id number] 200 actuat albuterol 0.09 mg/actuat metered dose inhaler (20 sources)beta2-Adrenergic AgonistStart: 05-21-2024 End: 62-62-1096lwtp 2 puff(s) by inhalation every six hours for wheezing albuterol HFA 90 mcg/act inhaler Indications: Nicotine dependence, cigarettes, uncomplicated Inhale2 puffs every 6 (six) hours if needed for wheezing or shortness of breath 18 g 1 08/19/2024 09/18/2024 ActiveStart: 90-73-1343zzjk 2 puff(s) by inhalation every six hours for wheezingalbuterol HFA 90 mcg/act inhaler Indications: Nicotine dependence, cigarettes, uncomplicated Inhale2 puffs every 6 (six) hours if needed for wheezing or shortness of breath 18 g 3 02/05/2024 ActiveStart: 12-22-2023 End: 80-18-7084rmup 2 puff(s) by mouth every six hours as needed for wheezing albuterol HFA 90 mcg/act inhaler INHALE 2 PUFFS BY MOUTH EVERY 6 HOURS NEEDED FOR WHEEZING or SHORTNESS OF BREATH 12/22/2023 02/05/2024 Discontinued (Reorder) aspirin 81 mg delayed release oral tablet (12 sources)Platelet Aggregation Inhibitor, Nonsteroidal Anti-inflammatory Drug Start: 05-21-2024 End: 27-95-7356ezli 1 tablet by mouth once dailyaspirin 81 MG EC tablet Indications: History of coronary artery bypass graft x 3 , Heart disease Take 1 tablet (81 mg) by mouth Daily 30 tablet 2 05/21/2024 06/20/2024 ActiveStart: 12-11-2023 End: 50-56-5738jvhu 1 tablet by mouth once dailyaspirin 81 MG EC tablet Indications: History of coronary artery bypass graft x 3 , Heart disease Take 1 tablet (81 mg) by mouth Daily 30 tablet 2 02/05/2024 Activeatorvastatin 40 mg oral tablet (20 sources)HMG-CoA Reductase InhibitorStart: 05-21-2024 End: 76-76-5709kggt 1 tablet by mouth at bedtimeatorvastatin (Lipitor) 40 MG tablet Indications: History of coronary artery bypass graft x 3 , Heart disease Take 1 tablet (40 mg) by mouth at bedtime 90 tablet 08/21/2024 11/19/2024 Active Start: 12-22-2023 End: 88-40-8166imok 1 tablet by mouth once dailyatorvastatin (Lipitor) 40 MG tablet Indications: History of coronary artery bypass graft x 3 , Heart disease Take 1 tablet (40 mg) by mouth Daily 30 tablet 2 02/05/2024 Activeclopidogrel 75 mg oral tablet (20 sources)P2Y12 Platelet InhibitorStart: 07-30-2024 End: 97-65-6206fmhh 1 tablet by mouth once dailyclopidogrel (Plavix) 75 MG tablet Indications: History of coronary artery bypass graft x 3 , Heart disease Take 1 tablet (75 mg) by mouth Daily 90 tablet 08/21/2024 11/19/2024 Active Start: 05-21-2024 End: 18-84-1469oibq 1 tablet by mouth once dailyclopidogrel (Plavix) 75 MG tablet Indications: History of coronary artery bypass graft x 3 , Heart disease Take 1 tablet (75 mg) by mouth Daily 30 tablet 2 05/21/2024 06/20/2024 Active Start: 12-22-2023 End: 64-60-3767zvxg 1 tablet by mouth once dailyclopidogrel (Plavix) 75 MG tablet Indications: History of coronary artery bypass graft x 3 , Heart disease Take 1 tablet (75 mg) by mouth Daily 30 tablet 2 02/05/2024 Active Yziqceiufsu-Llbgxmgol-Shqavy (Trelegy Ellipta) 200-62.5-25 MCG/ACT aerosol powder (20 sources)Start: 08-21-2024 End: 69-53-1729fqiq 1 puff(s) by mouth once tgxbzVziqujkmgww-Ucsfshiqc-Hrficr (Trelegy Ellipta) 200-62.5-25 MCG/ACT aerosol powder Indications: Nicotine dependence, cigarettes, uncomplicated Inhale 1 puff Daily Rinse mouth after use 180 each 08/21/2024 11/19/2024 ActiveStart: 08-19-2024 End: 35-25-9397peom 1 puff(s) by mouth once gpvfbZfavfrizocn-Ysetdvfkd-Mbdora (Trelegy Ellipta) 200-62.5-25 MCG/ACT aerosol powder Indications: Nicotine dependence, cigarettes, uncomplicated Inhale 1 puff Daily Rinse mouth after use 60 each 5 08/19/2024 08/21/2024 Discontinued (Reorder)Start: 08-19-2024 End: 08-17-6836jhty 1 puff(s) by mouth once eataxRsxypmxsqml-Omsnrwxmb-Mvjlzq (Trelegy Ellipta) 200-62.5-25 MCG/ACT aerosol powder Indications: Nicotine dependence, cigarettes, uncomplicated Inhale 1 puff Daily Rinse mouth after use 60 each 5 08/19/2024 09/18/2024 ActiveStart: 07-29-2024 End: 30-22-0852memn 1 puff(s) by mouth once tyzpuZkqnpwgvmzo-Phyehmeop-Sxgqxv (Trelegy Ellipta) 200-62.5-25 MCG/ACT aerosol powder Indications: Nicotine dependence, cigarettes, uncomplicated Inhale 1 puff Daily Rinse mouth after use 60 each 2 07/29/2024 08/19/2024 Discontinued (Reorder)Start: 07-29-2024 End: 75-51-1087mmgp 1 puff(s) by mouth once otyigCzbdffuwdiv-Tjofgukyu-Tajfvt (Trelegy Ellipta) 200-62.5-25 MCG/ACT aerosol powder Indications: Nicotine dependence, cigarettes, uncomplicated Inhale 1 puff Daily Rinse mouth after use 60 each 2 07/29/2024 08/28/2024 ActiveStart: 05-21-2024 End: 26-95-7355rslh 1 puff(s) by inhalation once daily Ufrmtbahdwg-Zbjthmkyc-Plmavk (Trelegy Ellipta) 200-62.5-25 MCG/ACT aerosol powder Indications: Nicotine dependence, cigarettes, uncomplicated Inhale 1 puff Daily 60 each 2 05/21/2024 07/29/2024 Discontinued (Reorder)Start: 05-21-2024 take 1 puff(s) by inhalation once xruhzLkwewdpztiy-Fweqognyy-Xjimpo (Trelegy Ellipta) 200-62.5-25 MCG/ACT aerosol powder Indications: Nicotine dependence, cigarettes, uncomplicated Inhale 1 puff Daily 60 each 2 05/21/2024 ActiveStart: 05-21-2024 End: 49-22-6119eiia 1 puff(s) by inhalation once daily Qeaoyjibtar-Iwzerwwyo-Gzscik (Trelegy Ellipta) 200-62.5-25 MCG/ACT aerosol powder Indications: Nicotine dependence, cigarettes, uncomplicated Inhale 1 puff Daily 60 each 2 05/21/2024 06/20/2024 ActiveStart: 58-77-1253gvql 1 puff(s) by inhalation once bcoxrLcqpqpflcnk-Yxijypylc-Tfuufb (Trelegy Ellipta) 200-62.5-25 MCG/ACT aerosol powder Indications: Nicotine dependence, cigarettes, uncomplicated Inhale 1 puff Daily 60 each 2 02/05/2024 ActivehydroCHLOROthiazide 12.5 mg / losartan potassium 50 mg oral tablet (20 sources)Thiazide Diuretic, Angiotensin 2 Receptor BlockerStart: 05-21-2024 End: 89-41-6383zwji 1 tablet by mouth once dailylosartan-hydroCHLOROthiazide (Hyzaar) 50-12.5 MG tablet Indications: History of coronary artery bypass graft x 3 , Heart disease Take 1 tablet by mouth Daily 90 tablet 08/21/2024 11/19/2024 ActiveStart: 12-22-2023 End: 91-97-7175elhl 1 tablet by mouth once dailylosartan-hydroCHLOROthiazide (Hyzaar) 50-12.5 MG tablet Indications: History of coronary artery bypass graft x 3 , Heart disease Take 1 tablet by mouth Daily 30 tablet 2 02/05/2024 Active metFORMIN hydrochloride 500 mg oral tablet (20 sources)BiguanideStart: 05-21-2024 End: 71-27-5963xgat 1 tablet by mouth in the morningmetFORMIN (Glucophage) 500 MG tablet Indications: Heart disease Take 1 tablet (500 mg) by mouth in the morning and 1 tablet (500 mg) in the evening. Take with meals. 180 tablet 08/21/2024 11/19/2024 ActiveStart: 12-22-2023 End: 98-42-6437ydbr 1 tablet by mouth in the morningmetFORMIN (Glucophage) 500 MG tablet Indications: Heart disease Take 1 tablet (500 mg) by mouth in the morning and 1 tablet (500 mg) before bedtime. 30 tablet 2 02/05/2024 Active Trelegy Ellipta 200-62.5-25 MCG/ACT aerosol powder (4 sources)Start: 12-22-2023 End: 12-78-2594iutp 1 puff(s) by mouth once dailyTrelegy Ellipta 200-62.5-25 MCG/ACT aerosol powder INHALE 1 PUFF BY MOUTH DAILY 12/22/2023 02/05/2024 Discontinued (Reorder)Start: 29-91-2525unsw 1 puff(s) by mouth once dailyTrelegy Ellipta 200-62.5-25 MCG/ACT aerosol powder INHALE 1 PUFF BY MOUTH DAILY 12/22/2023 Active Problems Active Problems Problem ClassificationProblemDateDocumented DateEpisodic/ChronicAcute cerebrovascular disease (20 sources)Cerebrovascular accident; 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: [Cerebral infarction, unspecified]Onset: 467560-11-1293IihjwotUklbbjs effects of medical drugs (1 source)Adverse effect of glucocorticoids and synthetic analogues, initial encounter; 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: [ADVRS EFF GLUCOCORT SYN ANALOG INIT]Onset: 07-16-2019 Blindness and vision defects (15 sources)Visual impairment; 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: [Unqualified visual loss, right eye, normal vision left eye]Onset: 241406-99-2204PkxkgmmEyhiquw obstructive pulmonary disease and bronchiectasis (3 sources)Chronic obstructive pulmonary disease with (acute) exacerbation; 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: [Chronic obstructivepulmonary disease with acute lower respiratory infection]Onset: 79-76-7398GodhnmuYudpdygj atherosclerosis and other heart disease (19 sources)Ischemic cardiomyopathy; 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: [Old myocardial infarction] Onset: 389901-15-2051FctvuleYrqkhquv injury or internal injury (1 source)Contusion of lung, unspecified, initial encounter; 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: [CONTUSION LUNG UNSPECIFIED INITIAL]Onset: 84-33-6835ZgvmasktKpfrxnzy mellitus with complications (5 sources)Type 2 diabetes mellitus with hyperglycemia; 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: [TYPE 2 DM W/HYPERGLYCEMIA]Onset: 35-50-0699IoopzfaRibjpfno mellitus without complication (19 sources)Type 2 diabetes mellitus; 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: [Type 2 diabetes mellitus without complications]Onset: 272019-55-7609TojmopoJuvmtitod of lipid metabolism (18 sources)Hyperlipidemia, unspecified; 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: [Hyperlipidemia]Onset: 600762-38-7896KqyhyvhMvgqurnyrb disorders (1 source)Gastro-esophageal reflux disease without esophagitis; 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: [GERD WITHOUT ESOPHAGITIS]Onset: 92-44-1847JbtkxgvDsaonzqsb hypertension (20 sources)Essential (primary) hypertension; 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: [Essential hypertension]Onset: 61-87-656137399257-68-8251KpyxvceTugnleyi cause codes: Fall (1 source)Unspecified fall, initial encounter; 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: [UNSPECIFIED FALL INITIAL ENCOUNTER]Onset: 23-99-6136Zzsjjzhvoruqt and screening for infectious disease (2 sources)Needs influenza immunization; 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: [Encounter for immunization]88-01-1576LaewqvdiIdmfolwsn or stenosis of precerebral arteries (15 sources)Bilateral carotid artery occlusion; 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: [Occlusion and stenosis of bilateral carotid arteries]Onset: 393572-09-9521ZhibvgxOcvad aftercare (1 source)terminal make up operator (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) use of aspirin; 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: [TERMINAL MAKE UP OPERATOR CURRENT USE OF ASPIRIN]Onset: 96-16-8340QddtegvrYxgxc aftercare (1 source)terminal make up operator (current) use of oral hypoglycemic drugs; 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: [TERMINAL MAKE UP OPERATOR USE ORAL HYPOGLYCEMIC DX]Onset: 67-93-6462Gltxx eye disorders (1 source)Ischemic optic neuropathy, left eye; 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: [Ischemic optic neuropathy, left eye]Onset: 83-17-5899OrdhcrwVtvtz fractures (1 source)Multiple fractures of ribs, left side, initial encounter for closed fracture; 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: [MX FX RIBS LT SIDE INITIAL CLOS FX]Onset: 07-16-2019 EpisodicOther liver diseases (1 source)Liver enzymes abnormal; 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: [Abnormal levels of other serum enzymes]02-79-2590GqymhiprIpmor nervous system disorders (1 source)Chronic pain syndrome; 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: [CHRONIC PAIN SYNDROME]Onset: 42-72-4601QfysnbuXczyk nutritional; endocrine; and metabolic disorders (1 source)Body mass index (BMI) 31.0-31.9, adult; 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: [BODY MASS INDEX BMI 31.0-31.9 ADULT]Onset: 94-38-5252OfobcvbFqxjv nutritional; endocrine; and metabolic disorders (1 source)Obesity, unspecified; 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: [OBESITY UNSPECIFIED]Onset: 39-21-1543SsdgbrvYvlak screening for suspected conditions (not mental disorders or infectious disease) (3 sources)Computed tomography result arfjrjpa56-33-2421RllpknsNqdkq upper respiratory disease (1 source)Other seasonal allergic rhinitis; 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: [OTHER SEASONAL ALLERGIC RHINITIS]Onset: 63-79-6583GeekesnTsgoksmkat and visceral atherosclerosis (1 source)Atherosclerosis of aorta; 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: [ATHEROSCLEROSIS OF AORTA] Onset: 62-36-0979NsqgeujDnrhpdkkv (except that caused by tuberculosis or sexually transmitted disease) (3 sources)Pneumonia, unspecified organism; 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: [PNEUMONIA UNSPECIFIED ORGANISM]Onset: 39-44-8226WuodfivjQhdkodli codes; unclassified (1 source)Personal history of other specified conditions; 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: [PERSONAL HISTORY OTH SPEC CONDITION]Onset: 96-68-5029CrftucrrKfsrfkpc codes; unclassified (2 sources)Amnesia; 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: [Other amnesia]81-33-8381ToujvtwbMxtfulsdjzy failure; insufficiency; arrest (adult) (1 source)Acute respiratory failure with hypoxia; 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: [ACUTE RESPIRATORY FAIL W/HYPOXIA]Onset: 11-15-4605LoqobweoPokboexnv and history of mental health and substance abuse codes (4 sources)Personal history of nicotine dependence; 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: [Personal history of tobacco use]72-44-3317EhocrmnvObgnfyvvzsb; intervertebral disc disorders; other back problems (1 source)Radiculopathy, lumbosacral region; 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: [RADICULOPATHY LUMBOSACRAL REGION]Onset: 22-97-4500PhwropynQfmnfidaz-related disorders (20 sources)Nicotine dependence, cigarettes, uncomplicated; 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: [Tobacco dependence caused by cigarettes]Onset: hronic Transient cerebral ischemia (19 sources)Cerebral ischemia; 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: [Transient cerebral ischemic attack, unspecified]Onset: hronic Past or Other Problems Problem ClassificationProblemDateDocumented DateEpisodic/Chronic Administrative/social admission (20 sources)First encounter by subject; 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: [Persons encountering health services in other specified circumstances]Onset: EpisodicComplication of device; implant or graft (16 sources)Atherosclerosis of coronary artery bypass graft(s), unspecified, with unspecified angina pectoris; 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: [Arteriosclerosis of coronary artery bypass graft]Onset: 07-16-2019 Resolved: 424336-93-3181MwgbybfGbcvsjnq atherosclerosis and other heart disease (16 sources)Presence of aortocoronary bypass graft; 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: [Aortocoronary bypass graft present]Onset: 278320-25-0710YolkpbweCznwucgw of neck of femur (hip) (20 sources)Closed intertrochanteric fracture; 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: [Displaced intertrochanteric fracture of unspecified femur, initial encounter for closed fracture]Onset: 551719-89-7612AefyamvnGfhzxprogts deficiencies (15 sources)Nutritional deficiency state; 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: [Nutritional deficiency, unspecified]Onset: 915919-22-8328GaknvocvAhgif and ill-defined heart disease (20 sources)Heart disease; 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: [Heart disease, unspecified]Onset: 01-31-2024 Resolved: 509832-07-4819MmonbspZetsd circulatory disease (20 sources)Elevated blood-pressure reading without diagnosis of hypertension; 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: [Elevated blood-pressure reading, without diagnosis of hypertension]Onset: 01-31-2024 Resolved: 534885-53-4373HpcqywhoSlqdz liver diseases (15 sources)Alkaline phosphatase raised; 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: [Abnormal levels of other serum enzymes]Onset: 953702-64-8626YituzbqlXkhgx lower respiratory disease (8 sources)Computed tomography result abnormal; 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: [Other nonspecific abnormal finding of lung field]Onset: 930984-79-8898YwoapkyjYxzjn nervous system disorders (20 sources)Impaired cognition; 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: [Other symptoms and signs involving cognitive functions and awareness]Onset: 142438-19-7891Baulsrdd Other non-traumatic joint disorders (9 sources)Hip pain; 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: [Pain in right hip]Onset: 08-19-2024 35-52-6068JrqjhucuRnswn screening for suspected conditions (not mental disorders or infectious disease) (20 sources)Encounter for screening for malignant neoplasm of rectum; 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: [Encounter for screening for malignant neoplasm of prostate]Onset: 790039-71-7426KlpgmzdfSpbpvkwe codes; unclassified (5 sources)Colon cancer screening declined; 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: [Procedure and treatment not carried out because of patient's decision for unspecified reasons] Onset: 323258-82-2759SeljnrfyJwppjqrajwfc (2 sources)Patient encounter qebfse28-31-3322 Results Test NameValueInterpretationReference AtvyaLulvjajnFfZ6v (Bld) [Mass fraction] Ordered By: Terrie Rodriguez on 65-99-8750Xfbwtjeupdbtkz and review of laboratory resultsAbnormalMissouri Southern Healthcare HealthcareLaboratory - Hematology and Cell countsOrdered By: Terrie Rodriguez on 30-04-9291JhB4n (Bld) [Mass fraction]6.8 %NOMS HealthcareALL GAMMA GLUTAMYL TRANSPEPTIDASEon 05-31-2024 Amylase [Catalytic activity/Vol]23 U/L15 - 85 U/LNOMS HealthcareCCF CMP (CMP) (FOR REMOTE [facility] USE)on 38-52-7414Kqwbvgk [Mass/Vol]3.8 g/dL3.4 - 5.0 g/dLNOIL HealthcareALBUMIN GLOBULIN [id number] HealthcareALP [Catalytic activity/Vol]137 U/LHigh46 - 116 U/LNOMS HealthcareALT [Catalytic activity/Vol]24 U/L16 - 63 U/L NOM HealthcareAnion gap [Moles/Vol]13.5 mmol/LNOMS HealthcareAST [Catalytic activity/Vol]19 U/L15 - 37 U/LNOMS HealthcareBilirubin [Mass/Vol]0.7 mg/dL0.2 - 1.0 mg/dLNOIL HealthcareCalcium [Mass/Vol]9.2 mg/dL8.5 - 10.1 mg/dLNOIL HealthcareChloride [Moles/Vol]101 mmol/L98 - 107 mmol/LNOMS HealthcareCO2 [Moles/Vol]29.8 mmol/L21.0 - 32.0 mmol/LNOMS HealthcareCreatinine [Mass/Vol]0.76 mg/dL0.70 - 1.30 mg/dLNOMS HealthcareGFR/1.73 sq M.predicted CKD-EPI (S/P/Bld) [Vol rate/Area]>60>=60 mL/min/1.73m 2NOMS HealthcareGlobulin (S) [Mass/Vol]3.9 g/dLNOMS HealthcareGlucose [Mass/Vol]137 mg/lGDxee81 - 106 mg/dLNOIL Healthcare Interpretation and review of laboratory resultsAbnormalNOIL HealthcarePotassium [Moles/Vol]4.3 mmol/L3.5 - 5.1 mmol/LNOMS HealthcareProtein [Mass/Vol]7.7 g/dL 6.4 - 8.2 g/dLNOIL HealthcareSodium [Moles/Vol]140 mmol/L136 - 145 mmol/LNOMS HealthcareTBH EGFR-NON AF DANISH>60>=60 mL/min/1.73m 2NOMS HealthcareUrea nitrogen [Mass/Vol]14 mg/dL7.0 - 18.0 mg/dLNOIL HealthcareUrea nitrogen/Creatinine [Mass ratio]18.4 mg/mgNOIL HealthcareNo Panel Informationon 87-31-8700BSSLGTWWHYHUM HealthcareTB MICROALB CREAT RATIO RANDOMon 05-31-2024 CREATININE URINE ELKBJL044.67 mg/dL20.00 - 300.00 mg/dLNOWright Memorial HospitalMICROALBUM CREATININE RATIO UR10.5 mg/g0.0 - 29.9 mg/gNEASTERN OKLA[facility] HealthcareComment on above:NO MICROALBUMINURIA 0-29 MG/G CLINICAL MICROALBUMINURIA 30-300 MG/G MACROALBUMINURIA >300 MG/G MICROALBUMIN URINE RANDOM1.3 mg/dLNINF - 30.0 mg/dLNOIL HealthcareCCF CMP (CMP) (FOR REMOTE [facility] USE)on 76-81-8943Nygouti [Mass/Vol]4.2 g/dL3.4 - 5.0 g/dLNOWright Memorial HospitalALBUMIN GLOBULIN [id number] HealthcareALP [Catalytic activity/Vol]169 U/LHigh46 - 116 U/LNOMS HealthcareALT [Catalytic activity/Vol]27 U/L16 - 63 U/L NOMS HealthcareAnion gap [Moles/Vol]14.2 mmol/LNOMS HealthcareAST [Catalytic activity/Vol]18 U/L15 - 37 U/LNOMS HealthcareBilirubin [Mass/Vol]0.9 mg/dL0.2 - 1.0 mg/dLNOIL HealthcareCalcium [Mass/Vol]9.6 mg/dL8.5 - 10.1 mg/dLNOIL HealthcareChloride [Moles/Vol]101 mmol/L98 - 107 mmol/LNOMS HealthcareCO2 [Moles/Vol]31 mmol/L21.0 - 32.0 mmol/LNOMS HealthcareCreatinine [Mass/Vol]0.8 mg/dL0.70 - 1.30 mg/dLNOMS HealthcareGFR/1.73 sq M.predicted CKD-EPI (S/P/Bld) [Vol rate/Area]>60>=60 mL/min/1.73m 2NOMS HealthcareGlobulin (S) [Mass/Vol]4 g/dLNOMS HealthcareGlucose [Mass/Vol]114 mg/cYRezg10 - 106 mg/dLNOIL Healthcare Interpretation and review of laboratory resultsAbnormalNOMS HealthcarePotassium [Moles/Vol]4.2 mmol/L3.5 - 5.1 mmol/LNOMS HealthcareProtein [Mass/Vol]8.2 g/dL 6.4 - 8.2 g/dLNOMS HealthcareSodium [Moles/Vol]142 mmol/L136 - 145 mmol/LNOMS HealthcareTBH EGFR-NON AF DANISH>60>=60 mL/min/1.73m 2NOMS HealthcareUrea nitrogen [Mass/Vol]10 mg/dL7.0 - 18.0 mg/dLNOMS HealthcareUrea nitrogen/Creatinine [Mass ratio]12.5 mg/mgNOIL HealthcareCLINISYNCNEASTERN OKLAHOMA MEDICAL [facility]ENTER [facility] HealthcareCT LUNG SCREENING LOW DOSEon 09-66-9898[place]Fl[place], [place] [address] CT Scan Report Signed Patient: MIHIR WRIGHT MR#: [id number] : 1960 Acct:[id number] Age/Sex: 64 / M ADM Date: 02/14/24 Loc: CT Attending Dr: GERARDO JACINTO Ordering Physician: GERARDO JACINTO Date of Service: 02/14/24 Procedure(s): CT lung screening low-dose Accession Number(s): [id number] cc: Physician,Non-Staff M.Bipin [address] [address] Patient Name: MIHIR WRIGHT MRN: [id number] date: 1960 Sex: M Assigned Patient Location: CT Current Patient Location: Accession/Order Number: [id number] Exam Date: 02/14/2024 13:18 Report Date: 02/15/2024 05:24 At the request of: GERARDO JACINTO Procedure: CT lung screening low-dose EXAMINATION: CT lung screening low-dose HISTORY: Personal Dependence Of Nicotine Dependence COMPARISON: CTA neck 11/26/2023 TECHNIQUE: Axial, Coronal, and Sagittal images were created without the administration of IV contrast material. Dose reduction techniques were achieved by using automated exposure control and/or adjustment of mA and/or kV according to patient size and/or use of iterative reconstruction technique. FINDINGS: LUNGS: Irregular stranding within right upper lobe extending from the right hilum. No suspicious nodules. No significant emphysematous changes or acute infiltrates. PLEURA: No mass, effusion, or pneumothorax. VASCULATURE: No abnormality. LEATHA: No mass or pathologic adenopathy. MEDIASTINUM: No mass or pathologic adenopathy. CARDIAC: No enlargement, pericardial thickening, or pericardial effusion. Coronary Artery calcifications: Coronary calcifications are heavy. AORTA: No aneurysm or dissection. CHEST WALL: No mass or axillary adenopathy BONES: Degenerative changes of the glenohumeral joints. LIMITED ABDOMEN: No suspicious findings. Limited images of the upper abdomen. OTHER: Negative. CT/CT lung screening low-dose IMPRESSION: 1. Lung-RADS Category 3- Probably benign. Probably benign finding(s)- short term follow up suggested; includes nodules with a low likelihood of becoming a clinically active cancer. Six month LDCT. Electronically authenticated by: LORENA MCKINNEY Date: 02/15/2024 05:24 Dictated By: Lorena Mckinney M.D. Signed By: 02/15/24526 DD/ 3 TD/TT: Medical Transport Specialist:TBHRadiology, Radiologist, MD - 02/15/2024 [place] [address] CT Scan Report Signed Patient: MIHIR WRIGHT MR#: [id number] : 1960 Acct:[id number] Age/Sex: 64 / M ADM Date: 02/14/24 Loc: CT Attending Dr: GERARDO JACINTO Ordering Physician: GERARDO JACINTO Date of Service: 02/14/24 Procedure(s): CT lung screening low-dose Accession Number(s): [id number] cc: Physician,Non-Staff Ye[place] [id number] Patient Name: MIHIR WRIGHT MRN: [id number] date: 1960 Sex: M Assigned Patient Location: CT Current Patient Location: Accession/Order Number: [id number] Exam Date: 02/14/2024 13:18 Report Date: 02/15/2024 05:24 At the request of: GERARDO JACINTO Procedure: CT lung screening low-dose EXAMINATION: CT lung screening low-dose HISTORY: Personal Dependence Of Nicotine Dependence COMPARISON: CTA neck 11/26/2023 TECHNIQUE: Axial, Coronal, and Sagittal images were created without the administration of IV contrast material. Dose reduction techniques were achieved by using automated exposure control and/or adjustment of mA and/or kV according to patient size and/or use of iterative reconstruction technique. FINDINGS: LUNGS: Irregular stranding within right upper lobe extending from the right hilum. No suspicious nodules. No significant emphysematous changes or acute infiltrates. PLEURA: No mass, effusion, or pneumothorax. VASCULATURE: No abnormality. LEATHA: No mass or pathologic adenopathy. MEDIASTINUM: No mass or pathologic adenopathy. CARDIAC: No enlargement, pericardial thickening, or pericardial effusion. Coronary Artery calcifications: Coronary calcifications are heavy. AORTA: No aneurysm or dissection. CHEST WALL: No mass or axillary adenopathy BONES: Degenerative changes of the glenohumeral joints. LIMITED ABDOMEN: No suspicious findings. Limited images of the upper abdomen. OTHER: Negative. CT/CT lung screening low-dose IMPRESSION: 1. Lung-RADS Category 3- Probably benign. Probably benign finding(s)- short term follow up suggested; includes nodules with a low likelihood of becoming a clinically active cancer. Six month LDCT. Electronically authenticated by: LORENA MCKINNEY Date: 02/15/2024 05:24 Dictated By: Lorena Mckinney M.D. Signed By: 02/15/24526 DD/ 3 TD/TT: Medical Transport Specialist: [facility] HealthcareRadiology Study observation (narrative)[facility] HealthcareCT LUNG SCREENING LOW DOSEOrdered By: Radiologist Radiology on [id number] [facility] Work Phone: all CBC WITH AUTO DIFFon [id number] ABSOLUTE AUTO0.1NOMS HealthcareBasophils/100 WBC (Bld)0.7 %0.2 - 2.0 %[facility] Eosinophils/100 WBC (Bld)4.8 %0.9 - 7.0 %[facility] HealthcareErythrocyte distribution width (RBC) [Ratio]12.2 %11.0 - 15.0 %NOMMadison Medical CenterHematocrit (Bld) [Volume fraction]47.2 %42.0 - 54.0 %[facility] HealthcareHemoglobin (Bld) [Mass/Vol]15 g/dL 14.0 - 18.0 g/dLThree Rivers HealthcareIMMATURE GRANULOCYTES ABS AUTO0.02NOMS [facility] Immature granulocytes/100 WBC (Bld)0.3 %0.0 - 0.5 %[facility] HealthcareInterpretation and review of laboratory resultsAbnormalNOWright Memorial HospitalLYMPHOCYTES ABSOLUTE AUTO1.8NOWright Memorial HospitalLymphocytes/100 WBC (Bld)24.8 %20.5 - 60.0 %[facility] HealthcareMCH (RBC) [Entitic mass]30.5 pg25.9 - 34.[address] [facility]'sHC (RBC) [Mass/Vol]31.8 g/dL29.9 - 35.2 g/dLMercy Hospital St. John'sV (RBC) [Entitic vol]95.9 fL High80.0 - 94.0 fLThree Rivers HealthcareMONOCYTES ABSOLUTE AUTO0.7NOMS [facility] Monocytes/100 WBC (Bld)9.4 %1.7 - 12.0 %[facility] HealthcareNEUTROPHILS ABSOLUTE AUTO 4.4N[facility] HospitalNeutrophils/100 WBC (Bld)60 %43.0 - 75.0 %[facility] Platelet mean volume (Bld) [Entitic vol]9.1 fLLow9.5 - 13.5 fLThree Rivers HealthcareTBH EO #0.4[facility] HospitalTB [id number] [facility] HospitalTB RBC4.92[facility] HospitalTB WBC 7.3[facility] HospitalCLINISYNCNOMS [facility] HospitalCBC AUTO DIFFon [id number] (Bld) [#/Vol]0.0 103/ulNormal0.0-0.1The [facility] ShawComment on above: Performed By: #### MALBR #### [facility] Laboratory [address] [place], [place] [id number] Hellen KarenBasophils/100 WBC (Bld)0.2 %Normal0.2-2.0The [facility] Comment on above:Performed By: #### MALBR #### [facility] Laboratory [address] [place] [address] Hellen KarenEosinophils (Bld) [#/Vol]0.0 103/ulNormal0.0-0.7The [facility] ShawComment on above:Performed By: #### MALBR #### [facility] Laboratory [address] [place] [address] Hellen KarenEosinophils/100 WBC (Bld)0.1 %Critically low0.9-7.0The [facility] ShawComment on above:Performed By: #### MALBR #### [facility] Laboratory [address] [place] [address] Hellen KarenErythrocyte distribution width (RBC) [Ratio]11.8 %Ldipda60.0-15.0The [facility] Centerment on above:Performed By: #### MALBR #### [facility] [address] [place] [address] Hellen KarenHematocrit (Bld) [Volume fraction]48.3 %Mnamor79.0-54.0The [facility] Centerment on above:Performed By: #### MALBR #### [facility] [address] [place] [address] Hellen KarenHemoglobin (Bld) [Mass/Vol]16.1 g/uJEoqfyz88.0-18.0The [facility] ShawComment on above:Performed By: #### MALBR #### [facility] Laboratory [address] [place] [address] Hellen KarenIG #0.12 10e3/ulCritically high0.00-0.03The [facility] ShawComment on above:Performed By: #### MALBR #### [facility] Laboratory [address] [address] Hellen KarenIG %0.6 %Critically high0.0-0.5The [facility] ShawComment on above:Performed By: #### TEETEEBR #### [facility] Laboratory [address] [place] [address] Hellen KarenLymphocytes (Bld) [#/Vol]2.5 103/ulNormal1.2-3.8The [facility] ShawComment on above:Performed By: #### TEETEEBR #### [facility] Laboratory [address] [place] [address] Hellen KarenLymphocytes/100 WBC (Bld)11.6 %Critically low20.5-60.0The [facility] ShawComment on above:Performed By: #### TEETEEBR #### [facility] Laboratory [address] [place] [address] Hellen KarenMANUAL DIFF REQNONormalThe [facility] ShawComment on above: Performed By: #### EMMA #### [facility] [address] [place] [address] Hellen KarenMCH (RBC) [Entitic mass]30.7 hlXqdtdw76.9-34.0[facility] Comment on above:Performed By: #### EMMA #### [facility] [address] [place] [address] Hellen KarenMCHC (RBC) [Mass/Vol]33.3 g/rYIvwwgt70.9-35.2[facility] Comment on above:Performed By: #### EMMA #### [facility] [address] [place] [address] Hellen KarenMCV (RBC) [Entitic vol]92.0 wBEepcgz33.0-94.0The [facility] Comment on above:Performed By: #### EMMA #### [facility] Laboratory [address] [place] [address] Hellen KarenMonocytes (Bld) [#/Vol]1.5 103/ulCritically high0.3-0.8The [facility] ShawComment on above:Performed By: #### MALBR #### [facility] Laboratory [address] [place], [place] [address] Hellen KarenMonocytes/100 WBC (Bld)6.7 %Normal1.7-12.0[facility] Comment on above:Performed By: #### MALBR #### [facility] [address] [place] [address] Hellen KarenNeutrophils (Bld) [#/Vol]17.4 103/ulCritically high1.4-6.5The [facility] ShawComment on above:Performed By: #### MALBR #### [facility] Laboratory [address] [place] [address] Hellen KarenNeutrophils/100 WBC (Bld)80.8 %Critically high43.0-75.0The [facility] ShawComment on above:Performed By: #### MALBR #### [facility] Laboratory [address] [place] [address] Hellen KarenPlatelet mean volume (Bld) [Entitic vol]10.2 fLNormal9.5-13.5The [facility] ShawComment on above:Performed By: #### MALBR #### [facility] Laboratory [address] [place] [address] Hellen KarenPlatelets (Bld) [#/Vol]262 103/yuIvsckc384-879Arh [facility] Comment on above:Performed By: #### MALBR #### [facility] Laboratory [address] [place] [address] Hellen KarenRBC (Bld) [#/Vol]5.25 106/ulNormal4.70-6.10The [facility] Comment on above:Performed By: #### MALBR #### [facility] Laboratory [address] [place] [address] Hellen KarenWBC (Bld) [#/Vol]21.6 103/ulCritically high4.0-11.0The [facility] ShawComment on above:Performed By: #### MALBR #### [facility] Laboratory [address] [address] Hellen KarenPROF CHEM 8 (BAS METB)on [id number] gap [Moles/Vol]10.9 mmol/L NormalThe [facility] ShawComment on above:Performed By: #### MALBR #### [facility] [address] [address] Hellen KarenCalcium [Mass/Vol]9.6 mg/dLNormal8.4-10.2[facility] Comment on above:Performed By: #### MALBR #### [facility] [address] [place] [address] Hellen KarenChloride [Moles/Vol]96 mmol/LCritically fko86-643Opt [facility] ShawComment on above:Performed By: #### MALBR #### [facility] Laboratory [address] [place] [address] Hellen KarenCO2 [Moles/Vol]32.9 mmol/LCritically high22.0-30.0The [facility] ShawComment on above:Performed By: #### MALBR #### [facility] Laboratory [address] [place] [address] Hellen KarenCreatinine [Mass/Vol]0.84 mg/dLNormal0.66-1.25The [facility] Comment on above:Performed By: #### MALBR #### [facility] [address] [place] [address] Hellen KarenEGFR-AF DANISH>60Normal>=60The [facility] ShawComment on above: Performed By: #### MALBR #### [facility] [address] [place] [address] Hellen KarenEGFR-NON AF DANISH>60Normal>=60The [facility] ShawComment on above:Performed By: #### MALBR #### [facility] [address] [place] [address] Hellen KarenGlucose [Mass/Vol]301 mg/dLCritically unkv69-620Nkk [facility] ShawComment on above:Performed By: #### MALBR #### [facility] Laboratory [address], [place] [address] Hellen KarenPotassium [Moles/Vol]3.8 mmol/LNormal3.4-5.0The [facility] Comment on above:Performed By: #### MALBR #### [facility] Laboratory [address], [place] [address] Hellen KarenSodium [Moles/Vol]136 mmol/LCritically oxg411-323Krp [facility] ShawComment on above:Performed By: #### MALBR #### [facility] [address], [place] [address] Hellen KarenUrea nitrogen [Mass/Vol]15.0 mg/dLNormal9.0-20.0The [facility] ShawComment on above:Performed By: #### MALBR #### [facility] [address], [place] [address] Hellen KarenUrea nitrogen/Creatinine [Mass ratio]17.9 mg/mgNormalThe [facility] ShawComment on above:Performed By: #### MALBR #### [facility] [address], [place] [address] Hellen KarenXR CHEST 2 Von [id number] CHEST 2 VPatient: MIHIR WRIGHT Exam Date: 12/17/2018 : 1960 Gender:M Ordering : DR PARAG SANCHEZ . Admission #: [id number] Family : DR. IGNACIO TALAVERA . Order #: [id number] CLICK HERE TO VIEW EXAM RADIOLOGY REPORT [...] of bibasilar infiltrates versus atelectasis. Dictated by: Lorena Mckinney M.D. on 12/17/2018 at 07:27 Approved by: Lorena Mckinney M.D. on 12/17/2018 at 07:28[facility] W MANUAL DIFFon [id number] LYMPH #0.69 103/ulNormCleveland Clinic Mentor Hospital HospitalComment on above:Performed By: #### RADHA DIAZ #### [facility] Laboratory [address] [place] [address] Hellen KarenATYPICAL LYMPH %3 %NormalThe [place] HospitalComment on above: Performed By: #### RADHA DIAZ #### [facility] Laboratory [address] [place] [address] Hellen KarenBAND #0.0 103/ulNormal0.0-0.3The [place] HospitalComment on above: Performed By: #### RADHA DIAZ #### [facility] Laboratory [address] [place] [address] Hellen KarenBAND %0 %Normal0-5The [place] HospitalComment on above:Performed By: #### RADHA DIAZ #### [facility] Laboratory [address] [place] [address] Hellen KarenBASOM #0.00 103/ulNormal0.00-0.10The [facility] ShawComment on above:Performed By: #### RADHA DIAZ #### [facility] Laboratory [address] [place] [address] Hellen KarenBASOM %0.0 %Critically low0.2-2.0The [place] HospitalComment on above:Performed By: #### RADHA DIAZ #### [facility] Laboratory [address] [place] [address] Hellen KarenBLAST #NormalThe [place] HospitalComment on above:Performed By: #### RADHA DIAZ #### [facility] Laboratory [address] [place] [address] Hellen KarenBLAST %NormalThe [place] HospitalComment on above:Performed By: #### RADHA DIAZ #### [facility] Laboratory [address] [place] [address] Hellen KarenCORRECTED WBCNormal4.0-11.0The [facility] ShawComment on above: Performed By: #### RADHA DAIZ #### [facility] [address] [place] [address] Hellen KarenEosinophils (Bld) [#/Vol]0.00 103/ulNormal0.00-0.70The [facility] ShawComment on above:Performed By: #### RADHA DIAZ #### [facility] Laboratory [address] [place] [address] Hellen KarenEosinophils/100 WBC (Bld)0.0 %Critically low0.9-7.0The [facility] ShawComment on above:Performed By: #### RADHA DIAZ #### [facility] [address] [place] [address] Hellen KarenErythrocyte distribution width (RBC) [Ratio]11.7 %Oeynyg54.0-15.0The [facility] ShawComment on above:Performed By: #### RADHA DIAZ #### [facility] Laboratory [address] [place] [address] Hellen KarenHematocrit (Bld) [Volume fraction]46.9 %Gdzhpk32.0-54.0The [place] on above:Performed By: #### RADHA DIAZ #### [facility] [address] [place] [address] Hellen KarenHemoglobin (Bld) [Mass/Vol]16.0 g/phClsnen79.0-18.0The [facility] Centerment on above:Performed By: #### RADHA DIAZ #### [facility] Laboratory [address] [place] [address] Hellen KarenLYMPHM #0.46 103/ulCritically low1.20-3.80The [facility] Comment on above:Performed By: #### RADHA DIAZ #### [facility] Laboratory [address] [address] Hellen KarenLYMPHM%2.0 %Critically low20.5-60.0The [facility] ShawComment on above:Performed By: #### RADHA DIAZ #### [facility] Laboratory [address] [place] [address] Hellen KarenMCH (RBC) [Entitic mass]30.9 ayUchqjb88.9-34.0The [facility] Comment on above:Performed By: #### RADHA DIAZ #### [facility] [address] [place] [address] Hellen KarenMCHC (RBC) [Mass/Vol]34.1 g/pyGjsodw46.9-35.2The [facility] Comment on above:Performed By: #### RADHA DIAZ #### [facility] [address] [place] [address] Hellen KarenMCV (RBC) [Entitic vol]90.7 bJWwbszv09.0-94.0The [facility] Comment on above:Performed By: #### RADHA DIAZ #### [facility] [address] [place] [address] [address]en KarenMETAMYELOCYTE #NormalThe [facility] ShawComment on above:Performed By: #### RADHA DIAZ #### [facility] [address] [place] [address] Hellen KarenMETAMYELOCYTE %NormalThe [facility] ShawComment on above:Performed By: #### RADHA DIAZ #### [facility] Laboratory [address] [place] [address] Hellen KarenMONOM#0.23 103/ulCritically low0.30-0.80The [facility] ShawComment on above:Performed By: #### RADHA DIAZ #### [facility] Laboratory [address] [place] [address] Hellen KarenMONOM%1.0 %Critically low1.7-12.0The [place] HospitalComment on above:Performed By: #### ELVIRA DIAZRO #### [facility] Laboratory [address] [address] Hellen KarenMYELOCYTE #NormalThe [facility] ShawComment on above:Performed By: #### ELVIRA DIAZRO #### [facility] Laboratory [address] [place] [address] Hellen KarenMYELOCYTE %NormalThe [facility] ShawComment on above:Performed By: #### ELVIRA DIAZRO #### [facility] Laboratory [address] [address] [place]en KarenNRBCNormalThe [facility] ShawComment on above:Performed By: #### ELVIRA DIAZRO #### [facility] Laboratory [address] [place] [address] Hellen KarenPlatelet mean volume (Bld) [Entitic vol]10.2 fLNormal9.5-13.5The [facility] ShawComment on above:Performed By: #### ELVIRA DIAZRO #### [facility] Laboratory [address] [place] [address] Hellen KarenPlatelets (Bld) [#/Vol]258 103/ruVcyuhi277-116Jkg [facility] Comment on above:Performed By: #### ELVIRA DIAZRO #### [facility] Laboratory [address] [place], [place] [address] Hellen KarenRBC (Bld) [#/Vol]5.17 106/ulNormal4.70-6.10The [facility] Comment on above:Performed By: #### SANDRA DIAZICRO #### [facility] Laboratory [address] [place], [place] [address] [place]en KarenSEG #21.53 103/ulCritically high1.40-6.50[facility] Comment on above:Performed By: #### SANDRA DIAZICRO #### [facility] Laboratory [address] [place], [place] [address] Hellen KarenSegmented neutrophils/100 WBC (Bld)94.0 %Critically high43.0-75.0The [facility] Centerment on above:Performed By: #### RADHA DIAZ #### [facility] Laboratory [address] [place] [address] Hellen LezamaenWBC (Bld) [#/Vol]22.9 103/ulCritically high4.0-11.0The [place] on above:Performed By: #### RADHA DIAZ #### [facility] Laboratory [address] [place] [address] Hellen LezamafedericoPOINT OF CARE GLUCOSEon 67-78-8623Uinyrsc [Mass/Vol]368 mg/dL Critically pouu88-915Xzj [place] on above:Performed By: #### MALBR #### [facility] Laboratory [address] [place] [address] Hellen LezamaenPROCALCITONINon [id number] header 1SEE BELOWMercy Health Fairfield HospitalComjohn d. dingell veterans [facility] on above:Result Comment: PCT <0.5ng/mL: Systemic infection (sepsis) is not likely, local bacterial infection possible, low risk for progression to severe systemic infection (severe sepsis)Performed By: #### MALBR #### [facility] [address] [place] [address] Hellen KarenPCT header 2SEE [facility] on above: Result Comment: PCT >/=0.5 and <2 ng/mL: Systemic infection (sepsis) is possible, moderate risk for progression to severe systemic infection (severe sepsis)Performed By: #### MALBR #### [facility] [address] [place] [address] Hellen KarenPCT header 3SEE BELOWMercy Health Fairfield HospitalComjohn d. dingell veterans affairs medical center on above: Result Comment: PCT >/=2.0 and <10 ng/mL: Systemic infection (sepsis) is likely, unless othercauses are known, high risk for progession to severe systemic infection(severe sepsis)Performed By: #### MALBR #### [facility] Laboratory [address] [place] [address] Hellen KarenPCT header 4SEE BELOWMercy Health Fairfield HospitalComment on above: Result Comment: PCT >/= 10 ng/mL: Important systemic inflammatory response almost exclusively due to severe bacterial sepsis or septic shock, high likelihood of severe sepsis or septic shockPerformed By: #### MALBR #### [facility] Laboratory [address] [place] [address] Hellen KarenPROCALCITONIN<0.41Ybxxpg7.00-0.50The [facility] ShawComment on above:Performed By: #### MALBR #### [facility] Laboratory [address] [place] [address] Hellen KarenPROF CHEM 8 (BAS METB)on 52-37-8588Uvdcz gap [Moles/Vol]9.6 mmol/L NormalThe [place] on above:Performed By: #### MALBR #### [facility] Laboratory [address] [place], [place] [address] Hellen KarenCalcium [Mass/Vol]9.8 mg/dLNormal8.4-10.2[facility] Comment on above:Performed By: #### MALBR #### [facility] [address] [place] [address] Hellen KarenChloride [Moles/Vol]95 mmol/LCritically ozn75-980Ure [facility] ShawComjohn [facility]. [facility] on above:Performed By: #### MALBR #### [facility] [address] [place] [address] Hellen KarenCO2 [Moles/Vol]31.2 mmol/LCritically high22.0-30.0The [facility] ShawComment on above:Performed By: #### MALBR #### [facility] [address] [place] [address] Hellen KarenCreatinine [Mass/Vol]0.70 mg/dLNormal0.66-1.25The [facility] Comment on above:Performed By: #### MALBR #### [facility] [address] [place] [address] Hellen KarenEGFR-AF DANISH>60Normal>=60The [facility] ShawComment on above: Performed By: #### MALBR #### [facility] [address], [place] [address] Hellen KarenEGFR-NON AF DANISH>60Normal>=60The [facility] ShawComment on above:Performed By: #### MALBR #### [facility] [address] [address] Hellen KarenGlucose [Mass/Vol]293 mg/dLCritically ydjp55-728Xbl [facility] ShawComment on above:Performed By: #### MALBR #### [facility] [address] [address] Hellen KarenPotassium [Moles/Vol]3.8 mmol/LNormal3.4-5.0The [facility] Comment on above:Performed By: #### MALBR #### [facility] [address] [address] Hellen KarenSodium [Moles/Vol]132 mmol/LCritically jji991-398Gkc [facility] ShawComment on above:Performed By: #### MALBR #### [facility] [address] [address] Hellen KarenUrea nitrogen [Mass/Vol]18.0 mg/dLNormal9.0-20.0The [facility] ShawComment on above:Performed By: #### MALBR #### [facility] [address] [address] Hellen KarenUrea nitrogen/Creatinine [Mass ratio]25.7 mg/mgNormalThe [facility] ShawComment on above:Performed By: #### MALBR #### [facility] [address] [id number] Hellen KarenCT CHEST W CONon [id number] CHEST W CONPatient: MIHIR WRIGHTEric Exam Date: 12/15/2018 : 1960 Gender:M Ordering : DR PARAG SANCHEZ . Admission #: [id number] Family : DR BUFFY SPARKS Order #: [id number] CLICK HERE TO VIEW EXAM RADIOLOGY REPORT [...] by: Macario Jordan M.D. on 12/15/2018 at 12:07[facility] CULTURE SPUTUMon [id number] SPUTUMCulture Observations: Normal respiratory yuki.NormalAvita Health System Ontario HospitalComment on above:Performed By: #### A1C #### [facility] [address] [place] [address] OF [facility] GLUCOSEon [id number] [Mass/Vol]284 mg/dL Critically xhgr04-319AnaAvita Health System Ontario HospitalComment on above:Performed By: #### UACSIND, UMICRO #### [facility] [address] [address] Hellen KarenGlucose [Mass/Vol]339 mg/dLCritically tnmf60-394FjgAvita Health System Ontario HospitalComjohn d. [facility] on above:Performed By: #### MALBR #### [facility] [address] [place] [address] Hellen KarenPROCALCITONINon [id number] header 1SEE BELOWNormalThe Nayely HospitalComment on above:Result Comment: PCT <0.5ng/mL: Systemic infection (sepsis) is not likely, local bacterial infection possible, low risk for progression to severe systemic infection (severe sepsis)Performed By: #### RADHA DIAZ #### [facility] [address] [place] [address] Hellen KarenPCT header 2SEE BELOWMercy Health Fairfield HospitalComment on above: Result Comment: PCT >/=0.5 and <2 ng/mL: Systemic infection (sepsis) is possible, moderate risk for progression to severe systemic infection (severe sepsis)Performed By: #### ELVIRA DIAZRO #### [facility] [address] [place] [address] Hellen KarenPCT header 3SEE [facility] HospitalComment on above: Result Comment: PCT >/=2.0 and <10 ng/mL: Systemic infection (sepsis) is likely, unless othercauses are known, high risk for progession to severe systemic infection(severe sepsis)Performed By: #### ELVIRA DIAZRO #### [facility] [address] [place] [address] Hellen KarenPCT header 4SEE [facility] HospitalComment on above: Result Comment: PCT >/= 10 ng/mL: Important systemic inflammatory response almost exclusively due to severe bacterial sepsis or septic shock, high likelihood of severe sepsis or septic shockPerformed By: #### RADHA DIAZ #### [facility] [address] [place] [address] Hellen KarenPROCALCITONIN<0.87Inigou3.00-0.50The [facility] ShawComment on above:Performed By: #### RADHA DIAZ #### [facility] [address] [place] [address] Hellen KarenSPUTUM GRAM STAINon [id number]a Osteopathic Clinic Comment on above:Performed By: #### MALBR #### [facility] [address] [place] [address] Hellen KarenDIPHTHEROIDSMercy Health Fairfield HospitalComment on above:Performed By: #### MALBR #### [facility] [address] [address] Hellen KarenEPITHELIALS<25[facility] HospitalComment on above:Performed By: #### MALBR #### [facility] [address] [address] Hellen KarenFUNGAL ELEMENTSMercy Health Fairfield HospitalComment on above:Performed By: #### MALBR #### [facility] [address] [address] Hellen KarenGRAM NEG BACILLIMercy Health Fairfield HospitalComment on above: Performed By: #### MALBR #### [facility] [address] [place] [address] Hellen KarenGRAM NEG DIPPLOCOCCIMercy Health Fairfield HospitalComjohn d. [facility] on above: Performed By: #### MALBR #### [facility] [address] [place] [address] Hellen KarenGRAM POS BACILLIMercy Health Fairfield HospitalComjohn d. [facility] on above: Performed By: #### MALBR #### [facility] [address] [place] [address] Hellen KarenGRAM POSITIVE COCCIRARENormalAvita Health System Ontario HospitalComjohn [facility]. [facility] on above: Performed By: #### MALBR #### [facility] [address] [place] [address] Hellen KarenWBC (Bld) [#/Vol]10*3/uLMercy Health Fairfield HospitalComjohn d. [facility] on above: Performed By: #### MALBR #### [facility] [address] [place] [address] Hellen KarenBNPon [id number] peptide B (Bld) [Mass/Vol]149.0 pg/mL Normal<=900.0[facility] on above:Performed By: #### UACSELVIRA GRANDARO #### [facility] [address] [place] [address] Hellen KarenCBC AUTO DIFFon [id number] (Bld) [#/Vol]0.0 103/ulNormal 0.0-0.1The [facility] ShawComment on above:Performed By: #### RADHA DIAZ #### [facility] [address] [place] [address] Hellen KarenBasophils/100 WBC (Bld)0.3 %Normal0.2-2.0The [facility] Comment on above:Performed By: #### RADHA DIAZ #### [facility] [address] [place] [address] Hellen KarenEosinophils (Bld) [#/Vol]0.5 103/ulNormal0.0-0.7The [facility] ShawComment on above:Performed By: #### RADHA DIAZ #### [facility] [address] [place] [address] Ehllen KarenEosinophils/100 WBC (Bld)3.5 %Normal0.9-7.0The [facility] Comment on above:Performed By: #### RADHA DIAZ #### [facility] [address] [place] [address] Hellen KarenErythrocyte distribution width (RBC) [Ratio]11.8 %Wskoyq31.0-15.0The [facility] ShawComment on above:Performed By: #### RADHA DIAZ #### [facility] [address] [place] [address] Hellen KarenHematocrit (Bld) [Volume fraction]49.4 %Vpqshz18.0-54.0The [facility] ShawComment on above:Performed By: #### RADHA DIAZ #### [facility] [address] [place] [address] Hellen KarenHemoglobin (Bld) [Mass/Vol]16.8 g/rZBxnfrx03.0-18.0The [facility] ShawComment on above:Performed By: #### RADHA DIAZ #### [facility] [address] [place] [address] Hellen KarenIG #0.06 10e3/ulCritically high0.00-0.03The [facility] ShawComment on above:Performed By: #### RADHA DIAZ #### [facility] [address] [place] [address] Hellen KarenIG %0.4 %Normal0.0-0.5The [facility] ShawComment on above: Performed By: #### RADHA DIAZ #### [facility] [address] [place] [address] Hellen KarenLymphocytes (Bld) [#/Vol]1.3 103/ulNormal1.2-3.8The [facility] ShawComment on above:Performed By: #### RADHA DIAZ #### [facility] [address] [place] [address] Hellen KarenLymphocytes/100 WBC (Bld)9.0 %Critically low20.5-60.0The [facility] ShawComment on above:Performed By: #### RADHA DIAZ #### [facility] [address] [place] [address] Hellen KarenMANUAL DIFF REQNONormalThe [facility] ShawComment on above: Performed By: #### RADHA DIAZ #### [facility] [address] [place] [address] Hellen KarenMCH (RBC) [Entitic mass]30.7 fxYfjikx50.9-34.0The [facility] Comment on above:Performed By: #### RADHA DIAZ #### [facility] [address] [place] [address] Hellen KarenMCHC (RBC) [Mass/Vol]34.0 g/bPFimmtp09.9-35.2The [facility] Comment on above:Performed By: #### RADHA DIAZ #### [facility] [address] [place] [address] Hellen KarenMCV (RBC) [Entitic vol]90.3 cGUdepik50.0-94.0The [facility] Comment on above:Performed By: #### RADHA DIAZ #### [facility] [address], [place] [address] Hellen KarenMonocytes (Bld) [#/Vol]1.1 103/ulCritically high0.3-0.8The [facility] ShawComment on above:Performed By: #### RADHA DIAZ #### [facility] [address] [place], [place] [address] Hellen KarenMonocytes/100 WBC (Bld)7.7 %Normal1.7-12.0[facility] Comment on above:Performed By: #### RADHA DIAZ #### [facility] [address] [place] [address] Hellen KarenNeutrophils (Bld) [#/Vol]11.4 103/ulCritically high1.4-6.5The [facility] ShawComment on above:Performed By: #### RADHA DIAZ #### [facility] [address] [place], [place] [address] Hellen KarenNeutrophils/100 WBC (Bld)79.1 %Critically high43.0-75.0The [facility] ShawComment on above:Performed By: #### RADHA DIAZ #### [facility] [address] [place], [place] [address] Hellen KarenPlatelet mean volume (Bld) [Entitic vol]9.7 fLNormal9.5-13.5The [facility] ShawComment on above:Performed By: #### SANDRA DIAZICRO #### [facility] [address] [place], [place] [address] Hellen KarenPlatelets (Bld) [#/Vol]237 103/muPpxwgl743-086Ulb [facility] Comment on above:Performed By: #### ELVIRA DIAZRO #### [facility] [address] [place], [place] [address] Hellen KarenRBC (Bld) [#/Vol]5.47 106/ulNormal4.70-6.10The [facility] Comment on above:Performed By: #### RADHA DIAZ #### [facility] [address] [place] [address] Hellen LezamaenWBC (Bld) [#/Vol]14.5 103/ulCritically high4.0-11.0The [facility] ShawComment on above:Performed By: #### RADHA DIAZ #### [facility] [address] [place] [address] Hellen KarenINFLUENZA A AND B AGon [id number] HospitalComment on above:Result Comment: Negative for Flu A protein angiten. Infection due to Flu A cannot be ruled out. FluA angiten in the sample may be below the detection limit of the test.Performed By: #### RADHA DIAZ #### [facility] [address] [place] [address] Hellen KarenINFLUBNEGGenesis HospitalComment on above: Result Comment: Negative for Flu B protein antigen. Infection due to Flu B cannot be ruled out. FluB antigen in the sample may be below the detection limit of the test.Performed By: #### RADHA DIAZ #### [facility] [address] [place] [address] Hellen KarenINFLUENZA A AGNegativeNormalNEGATIVE SEE COMMENTThe [facility] ShawComment on above:Performed By: #### RADHA DIAZ #### [facility] [address] [place] [address] Hellen KarenINFLUENZA B AGNegativeNormalNEGATIVE SEE COMMENTThe [facility] ShawComment on above:Performed By: #### RAHDA DIAZ #### [facility] [address] [place] [address] Hellen KarenINTERNAL CONTROLSWithin Normal LimitsNormalWithin Normal LimitsThe [facility] ShawComment on above:Performed By: #### RADHA DIAZ #### [facility] [address] [place] [address] Hellen KarenPROCALCITONINon [id number] header 1SEE BELOWMercy Health Fairfield HospitalComment on above:Result Comment: PCT <0.5ng/mL: Systemic infection (sepsis) is not likely, local bacterial infection possible, low risk for progression to severe systemic infection (severe sepsis)Performed By: #### RADHA DIAZ #### [facility] [address] [place] [address] Hellen KarenPCT header 2SEE BELOWMercy Health Fairfield HospitalComment on above: Result Comment: PCT >/=0.5 and <2 ng/mL: Systemic infection (sepsis) is possible, moderate risk for progression to severe systemic infection (severe sepsis)Performed By: #### RADHA DIAZ #### [facility] [address] [place] [address] Hellen KarenPCT header 3SEE BELOWMercy Health Fairfield HospitalComment on above: Result Comment: PCT >/=2.0 and <10 ng/mL: Systemic infection (sepsis) is likely, unless othercauses are known, high risk for progession to severe systemic infection(severe sepsis)Performed By: #### RADHA DIAZ #### [facility] [address] [place] [address] Hellen KarenPCT header 4SEE BELOWMercy Health Fairfield HospitalComjohn d. [facility] on above: Result Comment: PCT >/= 10 ng/mL: Important systemic inflammatory response almost exclusively due to severe bacterial sepsis or septic shock, high likelihood of severe sepsis or septic shockPerformed By: #### RADHA DIAZ #### [facility] [address] [place] [address] Hellen KarenPROCALCITONIN<0.60Emyaqd3.00-0.50The [facility] ShawComment on above:Performed By: #### RADHA DIAZ #### [facility] [address] [place] [address] Hellen KarenPROF CHEM 8 (BAS METB)on [id number] gap [Moles/Vol]9.4 mmol/L NormalThe [facility] ShawComment on above:Performed By: #### RADHA DIAZ #### [facility] [address] [place] [address] Hellen KarenCalcium [Mass/Vol]9.3 mg/dLNormal8.4-10.2[facility] Comment on above:Performed By: #### RADHA DIAZ #### [facility] [address] [place] [address] Hellen KarenChloride [Moles/Vol]97 mmol/LCritically alk18-068Xld [facility] ShawComment on above:Performed By: #### RADHA DIAZ #### [facility] [address] [place] [address] Hellen KarenCO2 [Moles/Vol]30.1 mmol/LCritically high22.0-30.0The [facility] ShawComment on above:Performed By: #### RADHA DIAZ #### [facility] [address] [place] [address] Hellen KarenCreatinine [Mass/Vol]0.66 mg/dLNormal0.66-1.25The [facility] Comment on above:Performed By: #### RADHA DIAZ #### [facility] [address] [place] [address] Hellen KarenEGFR-AF DANISH>60Normal>=60The [facility] ShawComment on above: Performed By: #### RADHA DIAZ #### [facility] [address] [place] [address] Hellen KarenEGFR-NON AF DANISH>60Normal>=60The [facility] ShawComment on above:Performed By: #### RADHA DIAZ #### [facility] [address] [place] [address] Hellen KarenGlucose [Mass/Vol]185 mg/dLCritically icfr13-715Gbk [facility] ShawComment on above:Performed By: #### RADHA DIAZ #### [facility] [address] [address] Hellen KarenPotassium [Moles/Vol]3.5 mmol/LNormal3.4-5.0The [facility] Comment on above:Performed By: #### RADHA DIAZ #### [facility] [address] [address] Hellen KarenSodium [Moles/Vol]133 mmol/LCritically okb901-599Miz [facility] ShawComment on above:Performed By: #### RADHA DIAZ #### [facility] [address] [place] [address] Hellen KarenUrea nitrogen [Mass/Vol]10.0 mg/dLNormal9.0-20.0The [facility] ShawComment on above:Performed By: #### RADHA DIAZ #### [facility] [address] [place] [address] Hellen KarenUrea nitrogen/Creatinine [Mass ratio]15.2 mg/mgNormalThSelect Medical [facility]Health Rehabilitation Hospital - DublinComment on above:Performed By: #### RADHA DIAZ #### [facility] [address] [place] [address] Hellen KarenTROPONIN - Ion [id number] I.cardiac [Mass/Vol]ng/mLNormal <=0.034The [facility] ShawComment on above:Performed By: #### RADHA DIAZ #### [facility] [address] [place] [address] Hellen KarenTroponin I.cardiac [Mass/Vol]SEE BELOWNoSycamore Medical Center Comment on above:Result Comment: <0.034 ng/ml NEGATIVE 0.034-0.119 INDETERMINATE 0.120 AMI CUT OFFPerformed By: #### ELVIRA DIAZRO #### [facility] [address] [place] [address] Hellen KarenXR RIBS LT JOHN Miah [id number] RIBS LT JOHN CHPatient: MIHIR WRIGHT Exam Date: 12/14/2018 : 1960 Gender:M Ordering : DR. KASIA FOSTER . Admission #: [id number] Family : Order #: [id number] CLICK HERE TO VIEW EXAM RADIOLOGY REPORT [...] by: Macario Jordan M.D. on 12/15/2018 at 09:04NormalThSelect Medical [facility] BILIRUBIN CONJUGATED (DIRECT)on [id number], CONJUGATED0.3 mg/dLNormal0.0-0.3 [facility] [facility], [facility] ShawComment on above:Performed By: #### CMP, DBIL, LIPID, PHOS, MG, TSH, FT3, PSASC, URIC, CK #### [facility] [address] [place] [address] Hellen KarenCBC AUTO DIFFon [id number] (Bld) [#/Vol]0.0 103/ulNormal 0.0-0.1The [facility], [facility] ShawComment on above:Performed By: #### CBC #### [facility] [address] [address] Hellen KarenBasophils/100 WBC (Bld)0.2 %Normal0.2-2.0The [facility] Comment on above:Performed By: #### CBC #### [facility] [address] [place] [address] Hellen KarenEosinophils (Bld) [#/Vol]0.5 103/ulNormal0.0-0.7The [facility] ShawComment on above:Performed By: #### CBC #### [facility] [address] [id number] Hellen KarenEosinophils/100 WBC (Bld)3.4 %Normal0.9-7.0The [facility] Comment on above:Performed By: #### CBC #### [facility] [address] [place] [address] Hellen KarenErythrocyte distribution width (RBC) [Ratio]11.8 %Genhar76.0-15.0The [facility] ShawComment on above:Performed By: #### CBC #### [facility] [address] [place] [address] Hellen KarenHematocrit (Bld) [Volume fraction]50.4 %Bktacr97.0-54.0The [facility] ShawComment on above:Performed By: #### CBC #### [facility] [address] [place] [address] Hellen KarenHemoglobin (Bld) [Mass/Vol]16.9 g/mPClasvj02.0-18.0The [facility] ShawComment on above:Performed By: #### CBC #### [facility] [address] [place] [address] Hellen KarenIG #0.05 10e3/ulCritically high0.00-0.03The [facility] ShawComment on above:Performed By: #### CBC #### [facility] [address] [place] [address] Hellen KarenIG %0.4 %Normal0.0-0.5The [facility] ShawComment on above: Performed By: #### CBC #### [facility] [address] [place] [address] Hellen KarenLymphocytes (Bld) [#/Vol]1.8 103/ulNormal1.2-3.8The [facility] ShawComment on above:Performed By: #### CBC #### [facility] [address] [place] [address] Hellen KarenLymphocytes/100 WBC (Bld)12.3 %Critically low20.5-60.0The [facility] ShawComment on above:Performed By: #### CBC #### [facility] [address] [id number] Hellen KarenMANUAL DIFF REQNONormalThe [facility] ShawComment on above: Performed By: #### CBC #### [facility] [address] [id number] Hellen KarenMCH (RBC) [Entitic mass]30.7 moWbtyum81.9-34.0The [facility] Comment on above:Performed By: #### CBC #### [facility] [address] [place] [address] Hellen KarenMCHC (RBC) [Mass/Vol]33.5 g/kZXxfyvb30.9-35.2The [facility] Comment on above:Performed By: #### CBC #### [facility] [address] [place] [address] Hellen KarenMCV (RBC) [Entitic vol]91.6 qFLhvtlm22.0-94.0The [facility] Comment on above:Performed By: #### CBC #### [facility] [address] [place] [address] Hellen KarenMonocytes (Bld) [#/Vol]1.0 103/ulCritically high0.3-0.8The [facility] ShawComment on above:Performed By: #### CBC #### [facility] [address] [place], [place] [id number] Hellen KarenMonocytes/100 WBC (Bld)7.1 %Normal1.7-12.0The [facility] Comment on above:Performed By: #### CBC #### [facility] [address] [place] [address] Hellen KarenNeutrophils (Bld) [#/Vol]10.9 103/ulCritically high1.4-6.5The [facility] ShawComment on above:Performed By: #### CBC #### [facility] [address] [place] [address] Hellen KarenNeutrophils/100 WBC (Bld)76.6 %Critically high43.0-75.0The [facility] ShawComment on above:Performed By: #### CBC #### [facility] [address] [place] [address] Hellen KarenPlatelet mean volume (Bld) [Entitic vol]9.4 fLCritically low9.5-13.5 The [facility] ShawComment on above:Performed By: #### CBC #### [facility] [address] [place] [address] Hellen KarenPlatelets (Bld) [#/Vol]255 103/qoJnusos211-430Vgy [facility] Comment on above:Performed By: #### CBC #### [facility] [address] [place] [address] Hellen KarenRBC (Bld) [#/Vol]5.50 106/ulNormal4.70-6.10The [facility] Comment on above:Performed By: #### CBC #### [facility] [address] [place] [address] Hellen KarenWBC (Bld) [#/Vol]14.3 103/ulCritically high4.0-11.0The [facility] ShawComment on above:Performed By: #### CBC #### [facility] [address] [place] [address] Hellen KarenCPKon [id number] [Catalytic activity/Vol]222 U/LCritically high 55-170The [facility] ShawComment on above:Result Comment: TEST REPEATED CRITICAL VALUE VERIFIEDPerformed By: #### RADHA DIAZ #### [facility] [address] [place] [address] Hellen KarenFREE T3on [id number] T3 [Mass/Vol]2.75 pg/mLCritically low 2.77-5.27The [facility] ShawComment on above:Performed By: #### RADHA DIAZ #### [facility] [address] [place] [address] Hellen KarenFREE T4on 08-09-1341Tbla T4 [Mass/Vol]1.11 ng/dLNormal0.78-2.19[facility] HospitalComment on above:Performed By: #### RADHA DIAZ #### [facility] [address] [place] [address] Hellen KarenGLYCOHEMOGLOBIN A1Con [id number] [Mass/Vol]226 mg/dLMercy Health Fairfield HospitalComment on above:Performed By: #### A1C #### [facility] [address] [place] [address] Hellen OwoqeXvA4j (Bld) [Mass fraction]9.5 %Critically high<=6.0The [facility] ShawComment on above:Performed By: #### A1C #### [facility] [address] [place] [address] Hellen KarenIRONon [id number] [Mass/Vol]79.0 ug/zHFnkjeg10.0-81.0The [facility] ShawComment on above:Performed By: #### RADHA DIAZ #### [facility] [address] [place] [address] Hellen KarenLIPID PROFILEon [id number]-HDL RATIO NORMSEE BELOWMercy Health Fairfield HospitalComment on above:Result Comment: 3.3 - 4.4 LOW RISK 4.4 - 7.1 AVERAGE RISK 7.1 - 11.0 MODERATE RISK >11.0 HIGH RISKPerformed By: #### CMP, DBIL, LIPID, PHOS, MG, TSH, FT3, PSASC, URIC, CK #### [facility] [address] [place] [address] Hellen KarenCholesterol [Mass/Vol]175 mg/dLNormal<=200[facility] Comment on above:Performed By: #### CMP, DBIL, LIPID, PHOS, MG, TSH, FT3, PSASC, URIC, CK #### [facility] [address] [place] [address] Hellen KarenCholesterol in HDL [Mass/Vol]37 mg/dLMercy Health Fairfield Hospital Comment on above:Performed By: #### CMP, DBIL, LIPID, PHOS, MG, TSH, FT3, PSASC, URIC, CK #### [facility] [address] [address] Hellen KarenCholesterol in HDL [Mass/Vol]> or = 60 mg/dl - LOW CARDIOVASCULAR RISK <40 mg/dl - HIGH CARDIOVASCULAR RISKMercy Health Fairfield HospitalComment on above:Performed By: #### CMP, DBIL, LIPID, PHOS, MG, TSH, FT3, PSASC, URIC, CK #### [facility] [address] [address] Hellen KarenCholesterol in LDL [Mass/Vol]SEE BELOWMercy Health Fairfield Hospital Comment on above:Result Comment: <100 mg/dl OPTIMAL 100 - 129 mg/dl NEAR OR ABOVE OPTIMAL 130 - 159 mg/dl BORDERLINE HIGH 160 - 189 mg/dl HIGH >190 mg/dl VERY HIGHPerformed By: #### CMP, DBIL, LIPID, PHOS, MG, TSH, FT3, PSASC, URIC, CK #### [facility] [address] [address] Hellen KarenCholesterol in LDL [Mass/Vol]121.6 mg/dLMercy Health Fairfield Hospital Comment on above:Performed By: #### CMP, DBIL, LIPID, PHOS, MG, TSH, FT3, PSASC, URIC, CK #### [facility] [address] [address] Hellen KarenCholesterol.total/Cholesterol in HDL [Mass ratio]4.7 {ratio}Normal The [facility] ShawComment on above:Performed By: #### CMP, DBIL, LIPID, PHOS, MG, TSH, FT3, PSASC, URIC, CK #### [facility] [address] [address] Hellen KarenTriglyceride [Mass/Vol]82 mg/dLNormal<=150[facility] Comment on above:Performed By: #### CMP, DBIL, LIPID, PHOS, MG, TSH, FT3, PSASC, URIC, CK #### [facility] [address] [address] Hellen KarenVLDL CALC16.4 mg/dLNormalThe [facility] ShawComment on above: Performed By: #### CMP, DBIL, LIPID, PHOS, MG, TSH, FT3, PSASC, URIC, CK #### [facility] [address] [place] [address] Hellen KarenMAGNESIUMon [id number] [Mass/Vol]1.6 mg/dLNormal1.6-2.3The [facility] HospitalComment on above:Performed By: #### CMP, DBIL, LIPID, PHOS, MG, TSH, FT3, PSASC, URIC, CK #### [facility] [address] [place] [address] Hellen KarenMICROALBUMIN, RAND URon [phone] mg/dLNormal<=30.0The [facility] ShawComment on above:Performed By: #### MALBR #### [facility] [address] [place] [address] Hellen KarenmALBHPLEASE NOTE: NORMAL RANGE CHANGE, TESTING PERFORMED AT [facility]. NormalThe [facility] ShawComment on above:Performed By: #### MALBR #### [facility] [address] [place] [address] Hellen KarenPHOSPHORUSon [phone] [Mass/Vol]3.3 mg/dLNormal2.5-4.5The [facility] ShawComment on above:Performed By: #### CMP, DBIL, LIPID, PHOS, MG, TSH, FT3, PSASC, URIC, CK #### [facility] [address] [place] [address] Hellen KarenPROF 14(COMP METB)on [id number] [Mass/Vol]3.7 g/dLNormal 3.5-5.0The [facility] ShawComment on above:Performed By: #### CMP, DBIL, LIPID, PHOS, MG, TSH, FT3, PSASC, URIC, CK #### [facility] [address] [place] [address] Hellen KarenAlbumin/Globulin [Mass ratio]0.9 {ratio}NormalThe [facility] Comment on above:Performed By: #### CMP, DBIL, LIPID, PHOS, MG, TSH, FT3, PSASC, URIC, CK #### [facility] [address] [address] Hellen KarenALP [Catalytic activity/Vol]102 U/RDqeuix14-712Day [facility] Comment on above:Performed By: #### CMP, DBIL, LIPID, PHOS, MG, TSH, FT3, PSASC, URIC, CK #### [facility] [address] [address] Hellen KarenALT [Catalytic activity/Vol]17 U/LCritically lbe82-00Voz [facility] ShawComment on above:Performed By: #### CMP, DBIL, LIPID, PHOS, MG, TSH, FT3, PSASC, URIC, CK #### [facility] [address] [place] [address] Hellen KarenAnion gap [Moles/Vol]9.5 mmol/LNormalThe [facility] ShawComment on above:Performed By: #### CMP, DBIL, LIPID, PHOS, MG, TSH, FT3, PSASC, URIC, CK #### [facility] [address] [place] [address] Hellen KarenAST [Catalytic activity/Vol]13 U/LCritically god96-17Swa [facility] ShawComment on above:Performed By: #### CMP, DBIL, LIPID, PHOS, MG, TSH, FT3, PSASC, URIC, CK #### [facility] [address] [place] [address] Hellen KarenBilirubin Ql (U)0.8 mg/dLNormal0.2-1.3The [facility] ShawComment on above:Performed By: #### CMP, DBIL, LIPID, PHOS, MG, TSH, FT3, PSASC, URIC, CK #### [facility] [address] [place] [address] Hellen KarenCalcium [Mass/Vol]9.3 mg/dLNormal8.4-10.2The [facility] Comment on above:Performed By: #### CMP, DBIL, LIPID, PHOS, MG, TSH, FT3, PSASC, URIC, CK #### [facility] [address] [address] Hellen KarenChloride [Moles/Vol]98 mmol/AUqerzu14-673ZgrAvita Health System [facility] Hospital Comment on above:Performed By: #### CMP, DBIL, LIPID, PHOS, MG, TSH, FT3, PSASC, URIC, CK #### [facility] [address] [place] [address] Hellen KarenCO2 [Moles/Vol]33.6 mmol/LCritically high22.0-30.0The [facility] ShawComment on above:Performed By: #### CMP, DBIL, LIPID, PHOS, MG, TSH, FT3, PSASC, URIC, CK #### [facility] [address] [place] [address] Hellen KarenCreatinine [Mass/Vol]0.63 mg/dLCritically low0.66-1.25The [facility] ShawComment on above:Performed By: #### CMP, DBIL, LIPID, PHOS, MG, TSH, FT3, PSASC, URIC, CK #### [facility] [address] [place] [address] Hellen KarenEGFR-AF DANISH>60Normal>=60The [facility] ShawComment on above: Performed By: #### CMP, DBIL, LIPID, PHOS, MG, TSH, FT3, PSASC, URIC, CK #### [facility] [address] [place] [address] Hellen KarenEGFR-NON AF DANISH>60Normal>=60The [facility] ShawComment on above:Performed By: #### CMP, DBIL, LIPID, PHOS, MG, TSH, FT3, PSASC, URIC, CK #### [facility] [address] [place] [address] Hellen KarenGlobulin (S) [Mass/Vol]4.3 g/dLNormalThe [facility] ShawComment on above:Performed By: #### CMP, DBIL, LIPID, PHOS, MG, TSH, FT3, PSASC, URIC, CK #### [facility] [address] [place] [address] Hellen KarenGlucose [Mass/Vol]182 mg/dLCritically luuc48-136Lrz [facility] Grant Medical Centerment on above:Performed By: #### CMP, DBIL, LIPID, PHOS, MG, TSH, FT3, PSASC, URIC, CK #### [facility] [address] [place] [address] Hellen KarenPotassium [Moles/Vol]4.1 mmol/LNormal3.4-5.0The [facility] Comment on above:Performed By: #### CMP, DBIL, LIPID, PHOS, MG, TSH, FT3, PSASC, URIC, CK #### [facility] [address] [place] [address] Hellen KarenProtein [Mass/Vol]8.0 g/dLNormal6.1-8.2The [place] on above:Performed By: #### CMP, DBIL, LIPID, PHOS, MG, TSH, FT3, PSASC, URIC, CK #### [facility] [address] [place] [address] Hellen KarenSodium [Moles/Vol]137 mmol/QPyusyd513-847Zyh [facility] Comment on above:Performed By: #### CMP, DBIL, LIPID, PHOS, MG, TSH, FT3, PSASC, URIC, CK #### [facility] [address] [place] [address] Hellen KarenUrea nitrogen [Mass/Vol]6.0 mg/dLCritically low9.0-20.0The [place] on above:Performed By: #### CMP, DBIL, LIPID, PHOS, MG, TSH, FT3, PSASC, URIC, CK #### [facility] [address] [place] [address] Hellen KarenUrea nitrogen/Creatinine [Mass ratio]9.5 mg/mgNormalThe [facility] ShawComment on above:Performed By: #### CMP, DBIL, LIPID, PHOS, MG, TSH, FT3, PSASC, URIC, CK #### [facility] [address] [place] [address] Hellen MckenzieHon [id number] Qn1.350 uIU/mLNormal0.470-4.680The [facility] HospitalComment on above:Performed By: #### RADHA DIAZ #### [facility] [address] [place] [address] QnSEE BELOWNoSycamore Medical CenterComment on above:Result Comment: <0.34 UIU/ml HYPERTHYROID 0.34-5.60 UIU/ml EUTHYROID >5.60 UIU/ml HYPOTHYROIDPerformed By: #### RADHA DIAZ #### [facility] [address] [place] [address] Hellen KarenUA (CLEAN/CATCH) CLOTH FINISHING RANGE TENDER/MICRO IF IND.on [id number] [Mass/Vol] NegativeNormalNEGATIVEAvita Health System Ontario HospitalComment on above:Performed By: #### RADHA DIAZ #### [facility] [address] [place] [address] [address] KarenBLOODNegativeNormalNEGATIVEAvita Health System Ontario HospitalComment on above: Performed By: #### RADHA DIAZ #### [facility] [address] [place] [address] Hellen KarenClarity (U)CLEARNormCleveland Clinic Mentor Hospital HospitalComment on above: Performed By: #### ELVIRA DIAZRO #### [facility] [address] [place] [address] Hellen KarenColor (U)LT. YELLOWNormalYELLOWAvita Health System Ontario HospitalComment on above:Performed By: #### ELVIRA DIAZRO #### [facility] [address] [place] [address] Hellen KarenGlucose [Mass/Vol]NegativeNormalNEGATIVETrihealth Mccull[facility] HospitalComment on above:Performed By: #### RADHA DIAZ #### [facility] [address] [place] [address] Hellen KarenKetones Ql (U)NegativeNormalNEGATIVETrihealth M[facility] HospitalComment on above:Performed By: #### RADHA DIAZ #### [facility] [address] [place] [address] Hellen KarenNitrite Ql (U)NegativeNormalNEGATIVETrihealth Mccull[facility] HospitalComment on above:Performed By: #### RADHA DIAZ #### [facility] [address] [place] [address] Hellen KarenpH (Bld)6.7Hphxzj2-0YpxAvita Health System Ontario HospitalComment on above:Performed By: #### RADHA DIAZ #### [facility] [address] [place] [address] Hellen KarenProtein [Mass/Vol]NegativeNormCleveland Clinic Mentor Hospital HospitalComment on above:Performed By: #### RADHA DIAZ #### [facility] [address] [place] [address] Hellen KarenSPEC GRAVITY<=1.177Eszzcr9.005-<=1.025[facility] HospitalComment on above:Performed By: #### RADHA DIAZ #### [facility] [address] [place] [address] Hellen KarenUR MICRO INDNOT INDICATEDNormSt. Anthony's HospitalComment on above:Performed By: #### RADHA DIAZ #### [facility] [address] [place] [address] Hellen KarenUrobilinogen Qn (U)1.0 EU/dlNormCleveland Clinic Mentor Hospital HospitalComment on above:Performed By: #### RADHA DIAZ #### [facility] [address] [place] [address] Hellen KarenWBC (Bld) [#/Vol]NegativeNormalNEGATIVETrihealth Mccull[facility] HospitalComment on above:Performed By: #### RADHA DIAZ #### [facility] [address] [place] [address] Hellen KarenURIC ACID SERUMon [id number] [Mass/Vol]3.8 mg/dLNormal3.5-8.5 [facility] HospitalComment on above:Performed By: #### SANDRA DIAZICRO #### [facility] [address] [place] [address] Hellen KarenURINE MICROSCOPIC ONLYon [id number] LM.HPF (Urine sed) [#/Area]TRACENormalNONE SEENAvita Health System Ontario HospitalComjohn d. ding[facility] on above:Performed By: #### ELVIRA DIAZRO #### [facility] [address] [place] [address] Hellen KarenCASTNONE SEENNoformerly mercy hospital southNONE SEENAvita Health System Ontario HospitalComjohn d. [facility] on above: Performed By: #### SANDRA DIAZICRO #### [facility] [address] [place] [address] Hellen KarenCrystals LM Nom (Urine sed)NONE SEENNormalNONE SEENAvita Health System Ontario HospitalComjohn d. [facility] on above:Performed By: #### SANDRA DIAZICRO #### [facility] [address] [place] [address] Hellen KarenCULTURENOT INDICATEDMercy Health Fairfield HospitalComjohn d. [facility] on above: Performed By: #### SANDRA DIAZICRO #### [facility] [address] [place] [address] Hellen KarenEpithelial cells LM.HPF (Urine sed) [#/Area]RAREMercy Health Fairfield HospitalComjohn d[facility] on above:Performed By: #### SANDRA DIAZICRO #### [facility] [address] [place] [address] Hellen KarenMUCOUSNONE SEENNormalNONE SEENAvita Health System Ontario HospitalComjohn [facility] on above: Performed By: #### JOE UMICRO #### [facility] [address] [place] [address] Hellen KarenRBC (U) [#/Vol]5-0Iueatr1-1Ksq [facility] ShawComment on above: Performed By: #### RADHA DIAZ #### [facility] [address] [place] [address] Hellen KarenWBC (Bld) [#/Vol]NONE SEENNormalNONE SEENAvita [facility] Hospital Comment on above:Performed By: #### RADHA DIAZ #### [facility] [address] [place] [address] Hellen KarenVIT B12 AND FOLATEon 22-32-5168Htscaguoa (Vitamin B12) [Mass/Vol] 246.0 pg/fPXcvxol699.0-931.0The [facility] ShawComment on above:Performed By: #### RADHA DIAZ #### [facility] [address] [place] [address] Hellen EvtivTVGDAS37.30 ng/mLNormal>=2.76The [facility] ShawComment on above: Performed By: #### RADHA DIAZ #### [facility] [address] [place] [address] Hellen KarenVITAMIN D 25 OHon 19-96-4345BII D 25-OH26.5 ng/mLNormalThe [facility] ShawComment on above:Performed By: #### RADHA DIAZ #### [facility] [address] [place] [address] Hellen KarenVIT D RANGESSEE BELOWNormalThe [facility] ShawComment on above: Result Comment: <20 ng/mL Vit D deficient 20 - <30 ng/mL Vit D insufficient 30 - 100 ng/mL Vit D sufficient >100 ng/mL Potential ToxicityPerformed By: #### RADHA DIZA #### [facility] [address] [place] [address] Hellen KarenVITDHPLEASE NOTE: NORMAL RANGE CHANGE 11-01-2012, TESTING PERFORMED AT [facility].NormalThe [facility] ShawComment on above:Performed By: #### RADHA DIAZ #### [facility] [address] [place] [address] Hellen Lilian Vital Signs Date TimeVital SignValuePerforming KafxlrfxvOxcxdjdf63-30-3446 14:12-0400Body mass index (BMI) [Ratio]21.43 kg/m2Juanis Fernandez [employer] Work Phone: [facility] HealthcareDmyjwuvsex94-61-2256 14:12-0400Body temperature 97.81 [degF]uJanis Fernandez [employer] Work Phone: [facility] HealthcareGcmvivajay30-57-2662 14:12-0400Body yclwbd54.67 kgLisa Virajz [employer] Work Phone: [facility] HealthcareKlpzimbozb26-37-1650 14:12-0400Diastolic blood dqphhtof76 mm[Hg]Juanis Caliz [employer] Work Phone: [facility] HealthcareOszjrhruij75-28-0673 14:12-0400Heart rate84 /min Juanis Virajz [employer] Work Phone: [facility] HealthcareIzvpmxfivg50-11-5697 14:12-0400Respiratory rate18 /minLisa Caliz [employer] Work Phone: [facility] HealthcareZqnccmimws91-63-0424 14:12-8152DoJ5% (BldA) [Mass fraction]95 %Juanis Fernandez [employer] Work Phone: [facility] HealthcareHpxzezpxtm83-48-1408 14:12-0400Systolic blood thrxwllu566 mm[Hg]Juanis Caliz [employer] Work Phone: [facility] HealthcareIukifrqcgu04-68-5214 14:58-0400Body mass index (BMI) [Ratio]23.08 kg/m2Jadesa Virajz [employer] Work Phone: [facility] HealthcareQgfquzfdht14-18-2567 14:58-0400Body temperature 98.8 [degF]Juanis Caliz [employer] Work Phone: [facility] HealthcareFombkxktry02-63-4052 14:58-0400Body .2 kg Juanis Caliz [employer] Work Phone: [phone] [place], [place] [address]Mywmfwyoky29-98-0319 14:58-0400Diastolic blood yqfipscw89 mm[Hg]Juanis Fernandez [employer] Work Phone: [facility] HealthcareRteilpdxtu68-56-2932 14:58-0400Heart rate96 /min Juanis Fernandez [employer] Work Phone: [facility] HealthcareHbeiedraul57-69-6437 14:58-0400Respiratory rate18 /minJuanis Fernandez [employer] Work Phone: [facility] HealthcareNltekpllsv61-00-1960 14:58-7265KbR0% (BldA) [Mass fraction]94 %Juanis Fernandez [employer] Work Phone: [place] [address]Teuejpvrmd85-03-5468 14:58-0400Systolic blood eheijobs804 mm[Hg]Juanis Fernandez [employer] Work Phone: [facility] HealthcareSzrwcvicag17-33-9733 11:24-0500Body fbefmo461.9 cmBrgonzalooksana EwingJacinto PA[employer]OCKMAN Work Phone: [facility] HealthcareBttomltovs48-25-8250 11:24-0500Body mass index (BMI) [Ratio]20.89 kg/l2Bununkqd Jacinto [employer] Work Phone: [facility] HealthcareFkiwiocmnb41-89-2129 11:24-0500Body temperature 97.59 [degF]Gerardo Jacinto [employer] Work Phone: [place] [address]Qzhoghctjz19-94-4493 11:24-0500Body rxcmaj58.85 kgBrgonzalooksana Jacinto [employer]OCKMAN Work Phone: [place] [address]Btyhgusajx67-69-0236 11:24-0500Diastolic blood mm[Hg]Gerardo Jacinto [employer] Work Phone: [place] [address]Umextrdzeu77-91-6186 11:24-0500Heart rate81 /min Gerardo Jacinto [employer] Work Phone: [facility] HealthcareIejhfnzega55-93-3929 11:24-0500Respiratory rate18 /minGerardo Jacinto [employer] STOCKMAN Work Phone: noWright Memorial HospitalNxtpscnulc59-49-5253 11:24-6272ZeG9% (BldA) [Mass fraction]97 %Greardo Jacinto [employer] STOCK[employer] Work Phone: noms Htherqbdww01-52-1306 11:24-0500Systolic blood kvlpsufn130 mm[Hg]Gerardo Jacinto [employer] Work Phone: [facility] Encounters Encounter DateEncounter TypeCare ProviderFacilityStart: 97-17-6784Zakfckx encounter procedureGerardo Jacinto PAINT STOCKMAN Other Phone: [facility] HealthcareStart: 08-21-2024 End: 43-21-9421DtztwaZrqh Aichholz PA[employer] ST[employer]MAN Work Phone: [facility] CW FMComment on above:History of coronary artery bypass graft x 3; Heart disease; Nicotine dependence, cigarettes, uncomplicatedStart: 08-19-2024 End: 36-67-8286khpnsvirkiRSWB AICHHOLZNot AvailableStart: 08-19-2024 End: 65-31-0526Mbsybb flowsheetJuanis Caliz [employer] STOCKMAN Work Phone: [facility] CWM FMStart: 08-19-2024 End: 00-19-6375Alqaks flowsheetJuanis Fernandez [employer] STOCKMAN Work Phone: [facility] CW FMStart: 08-19-2024 End: 26-71-3109Lizfdl outpatient visit 25 minutesLisa Caliz [employer]MAN Work Phone: [facility] CWM FMComment on above:Type 2 diabetes mellitus without complication, unspecified whether senior care insulin use (HCC) (Primary Dx); Cerebrovascular accident (CVA), unspecified mechanism (HCC); Coronary artery disease involving grayling coronary artery of grayling heart without angina pectoris ; Primary hypertension ; Mixed hyperlipidemia ; Nicotine dependence, cigarettes, uncomplicated; Transient cerebral ischemia, unspecified type; Chronic right hip pain; History of coronary artery bypass graft x 3; Heart disease; Abnormal CT lung screeningStart: 08-19-2024 End: 90-46-4940Uzkwlvduk encounterLi Jim [employer]OCKMAN Work Phone: [facility] FMStart: 07-30-2024 End: 16-95-5852JllwvwAdjo Jim [employer] STOCKMAN Work Phone: [facility] CWM FMComment on above:History of coronary artery bypass graft x 3; Heart diseaseStart: 07-29-2024 End: 46-02-8017AxghykVnug Aichholz PA[employer] STOCKMAN Work Phone: [facility]WM FMComment on above:Nicotine dependence, cigarettes, uncomplicated; History of coronary artery bypass graft x 3; Heart diseaseStart: 07-15-2024 End: 47-87-1797Blqgyo Dano Chau PhD Work Phone: aNA PAKOYStart: 07-15-2024 End: 39-43-1303Agsldp flowsWhitney Chau PhD Work Phone: aNA VAUSKYStart: 07-15-2024 End: 62-31-5823Cjyuqpc encounter procedureTadeo Chau PhD Work Phone: aNA PAKOYComment on above:Memory loss (Primary Dx); Transient cerebral ischemia, unspecified type; Cognitive impairmentStart: 07-15-2024 End: 71-04-9605mktfrqiwrjFPRVQDPP DENBESTENNot AvailableStart: 06-18-2024 End: 19-24-3539Xxgjtb outpatient visit 25 minutesJuanis Fernandez [employer]MAN Work Phone: [facility] CWM FMComment on above:Cerebrovascular accident (CVA), unspecified mechanism (CMS/HCC) (Primary Dx); Type 2 diabetes mellitus without complication, unspecified whether terminal make up operator insulin use; Primary hypertension (CMS/HCC); Cognitive impairmentStart: 06-18-2024 End: 38-57-4157svuuyiwdghPXJL AICHHOLZNot AvailableStart: 06-11-2024 End: 72-09-5948Usxssf OnlyJuanis Fernandez [employer]OCKMAN Work Phone: [facility] CWM FMComment on above:Limitation of activities due to disability (Primary Dx); Cognitive impairmentStart: 05-31-2024 End: 05-24-7921Dotbkoqwy Result EncounterLisa Aichholz [employer] Work Phone: noms External Department UnsolicitedStart: 05-31-2024 End: 88-03-7662Rhabuklrj Result EncounterLisa Aichholz [employer] Work Phone: noms External Department UnsolicitedStart: 05-20-2024 End: 16-05-3251pdghmsbnueJHFH AICHHOLZNot AvailableStart: 03-20-2024 End: 63-23-0172Nmqeylypp Result EncounterBrittany Jacinto [employer]OCKMAN Work Phone: noms External Department UnsolicitedStart: 03-20-2024 End: 62-21-3337Czgliqepf Result EncounterBrittany Jacinto [employer] STOCKMAN Work Phone: noms External Department UnsolicitedStart: 03-04-2024 End: 16-85-5481Piiker OnlyBrittany Jacinto PA[employer] STOCKMAN Work Phone: n[facility] CWM FMComment on above:Abnormal CT lung screening (Primary Dx); Nicotine dependence, cigarettes, uncomplicatedStart: 02-15-2024 End: 73-63-3218Hjgdpwmwe Result EncounterBrittany Jacinto [employer] STOCKMAN Other Phone: noms External Department UnsolicitedStart: 02-15-2024 End: 59-56-2118Rntqbnoyj Result EncounterBrittany Jacinto [employer] STOCKMAN Other Phone: noms External Department UnsolicitedStart: 02-06-2024 End: 55-70-6368Pukrhf OnlyBrittany Jacinto [employer] STOCKMAN Work Phone: [facility] CWM FMComment on above:Abnormal liver enzymes (Primary Dx)Start: 02-05-2024 End: 44-25-4232KpyecjVjfeMariposa NOGUERA CWM FMComment on above:History of coronary artery bypass graft x 3 (Primary Dx); Heart disease; Nicotine dependence, cigarettes, uncomplicatedStart: 02-02-2024 End: 73-75-1712Tqgtmautm Result EncounterGerardo Ewingzpatrick [employer] STOCKMAN Work Phone: noms External Department UnsolicitedStart: 02-02-2024 End: 96-19-3405Ozudtzgvb Result EncounterBrjose EwingJacinto [employer]OCKMAN Work Phone: noms External Department UnsolicitedStart: 01-31-2024 End: 20-19-7419Aqnltp flowsheetGerardo Ewingzpatrick PA[employer] STOCKMAN Work Phone: noms CW FMStart: 01-31-2024 End: 32-08-9983Sckerk flowsNaomi Ewingzpatrick PA[employer] STOCKMAN Work Phone: [facility] CWM FMStart: 01-31-2024 End: 29-68-4433Bstqpo outpatient new 30 minutesBrjose EwingJacinto PA[employer] STOCKMAN Work Phone: n[facility] CWM FMComment on above:Flu vaccine need (Primary Dx); Wellness examination; Screening for malignant neoplasm of colon; Encounter for prostate cancer screening; Nicotine dependence, cigarettes, uncomplicated; Encounter to establish care; Elevated blood pressure reading in office without diagnosis of hypertension; History of coronary artery bypass graft x 3; Heart disease; Cerebrovascular accident (CVA), unspecified mechanism (CMS/HCC); Screening for lung cancer; Personal history of nicotine dependence; Primary hypertension (CMS/HCC)Start: 01-31-2024 End: 67-99-5758Suoswfe encounter statusGerardo Ewingzpatrick PAINT STOCKMAN Work Phone: [facility] HealthcareStart: 01-31-2024 End: 13-43-4456hbdazlxyigEYHKUFDZ FITZPATRICKNot AvailableStart: 12-07-2023 End: 51-39-1706Hltlmtgvf encounterTina EbenMedidenisse Physicians [facility] Comment on above:Hospital Follow-upStart: 01-31-2020 End: 95-91-1303omwletztisGARQFNJLC NO FAMILYFacility:[facility] Hospitaltart: 12-15-2018 End: 88-54-9269Agsoqophrk and management of inpatientBUFFY SPARKS Facility:Y1Cwilu: 12-13-2018 End: 09-25-5670Cjjgamx encounter procedureBUFFY SPARKSFacility: Procedures DateProcedureProcedure DetailPerforming ClinicianStart: 77-31-7464Ngvhooogzr glycosylated h2gBbhj Jim [employer]MAN Work Phone: Start: 75-40-1930WYU GAMMA GLUTAMYL TRANSPEPTIDASELisa Jim [employer]MAN Work Phone: Start: 94-98-7727QEH CMP (CMP) (FOR REMOTE [facility] USE) Juanis Fernandez [employer] Work Phone: Start: 54-18-0793ANM MICROALB CREAT RATIO RANDOMLisa Fernandez [employer]MAN Work Phone: Start: 22-29-2517JIY CMP (CMP) (FOR REMOTE [facility] USE) Gerardo Jacinto [employer] Work Phone: Start: 45-31-3654GW LUNG SCREENING LOW DOSEBrittany Jacinto PA[employer] STOCKMAN Other Phone: Start: 78-94-4883Mbvfn depression screening assessmentJamaica Llanos CMAStart: 20-05-6255YHS CBC WITH AUTO DIFFBrittany Jacinto [employer] STOCKMAN Work Phone: Start: 01-31-2024 End: 95-74-2329Wyjlbye of coronary artery bypass graftingHistory of coronary artery bypass graft x 3Brittany Jacinto [employer] STOCK[employer] Work Phone: Start: 12-14-2018 End: 95-08-8648Qiurzvcdcgk examination of blood, cultureBUFFY SPARKS Comment on above:Performed By: #### MALBR #### [facility] [address] [place] [address] Hellen Hollowaytart: 12-13-2018[object Object]BUFFY SPARKSComment on above: Performed By: #### RADHA DIAZ #### [facility] [address] [place] [address] Hellen Guerraory of coronary artery bypass graftingHistory of coronary artery bypass graft x 3Krick Engel of coronary artery bypass graftingHistory of coronary artery bypass graft x 3Lisa Aicpromisez [employer]MAN Work Phone: History of coronary artery bypass graftingHistory of coronary artery bypass graft x 3Lisa Aichholz [employer] Work Phone: History of coronary artery bypass graftingHistory of coronary artery bypass graft x 3Lisa Aichholz [employer] Work Phone: History of coronary artery bypass graftingHistory of coronary artery bypass graft x 3Lisa Aichholz [employer] Work Phone: Plan of Treatment DateCare ActivityDetailAuthorStart: 25-32-0035Beijzynqq for malignant neoplasm of colonColorectal Cancer ScreeningNOWright Memorial HospitalComment on above:Postponed from 1958 (Patient Refused)Start: 36-04-7746Inbcz screening for protein Diabetes: Urine Protein ScreeningThree Rivers HealthcareStart: 72-05-2370Pphpryntik ScreeningDepression ScreeningClermont County Hospital SystemStart: 95-12-3777Hrsqwhl ScreeningTobacco ScreeningProSouthview Medical Center SystemStart: 69-43-0340Jtvlsoudhc A1c measurementDiabetes: Hemoglobin I2BDEELThree Rivers HealthcareStart: 10-14-2024 End: 52-34-8051Jpgyxvo encounter /18/2025 4:30 PM EDT Office Visit [facility] [address] [place] [address] Juanis Fernandez NP [address] [place] [address] CHUCKIE SUAZO FMStart: 09-01-2024 End: 85-12-1071KG Chest for screening WO contrastCT lung screening low dose Imaging Routine Nicotine dependence, cigarettes, uncomplicated Abnormal CT lung screening Expected: 09/01/2024, Expires: 03/04/2025[facility] Work Phone: Comment on above:Expected: 09/01/2024, Expires: 03/04/2025Start: 08-19-2024 End: 79-82-9438HT Chest for screening WO contrastLung screening follow up CT chest wo IV contrast Imaging Routine Nicotine dependence, cigarettes, un complicated Abnormal CT lung screening Expected: 08/19/2024 (Approximate), Expires: 08/19/2025[facility] Work Phone: Comment on above:Expected: 08/19/2024 (Approximate), Expires: 08/19/2025Start: 08-19-2024 End: 57-95-3886Ehtbcwg encounter adbttwfrg48/23/2025 2:00 PM EDT Office Visit [facility] [address] [place] [address] Juanis Fernandez, [employer] [address] [place] [address] NOMBunny SUAZO FMStart: 07-30-2024 End: 89-03-2185Hrkfbxs encounter isxnfmocr44/03/2025 11:30 AM EDT Office Visit JARED Granados [address] [address] aNA SANDUSKYStart: 07-15-2024 End: 26-89-5452Nviwece encounter kvpdjsowm91/19/2025 10:30 AM EDT Office Visit JARED Granados [address] [address] Tadeo Chau, PhD [address] [place] [address] Duncan MINYComment on above:ArrivedStart: 06-18-2024 End: 20-26-5161Igperta encounter xliiyziwd79/22/2025 2:40 PM EDT Office Visit [facility] [address] [place] [address] Juanis Fernandez, G[place] [address] [place] [address] CHUCKIE SUAZO FMStart: 04-02-2024 End: 04-84-2233Nmnenmd encounter ilahprnma76/04/2025 2:00 PM EST Office Visit [facility] [address] [place] [address] Gerardo Jacinto, GORDON [address] [place] [address] NOMBunny SUAZO FMStart: 02-07-2024 End: 73-53-0907Cexlodt encounter izdmqecyt46/11/2024 1:00 PM EST Office Visit [facility] [address] [place] [address] Feliberto Santos MD [address] [facility], [address] [place] [phone] [facility] NeurologyStart: 02-06-2024 End: 46-00-6646Sytprflcwliya metabolic 2000 panel - Serum or PlasmaComprehensive metabolic panel Lab Routine Abnormal liver enzymes Expected: 02/06/2024 (Approximate), Expires: 02/05/2025[facility] Work Phone: Comment on above:Expected: 02/06/2024 (Approximate), Expires: 02/05/2025Start: 01-31-2024 End: 87-65-9052XFS W Auto Differential panel - BloodCBC and differential Lab Routine Elevated blood pressure reading in office without diagnosis of hype rtension History of coronary artery bypass graft x 3 Heart disease Cerebrovascular accident (CVA), unspecified mechanism (CMS/HCC) Expected: 01/31/2024 (Approximate), Expires: 01/30/2025[facility] HealthcareComment on above: Expected: 01/31/2024 (Approximate), Expires: 01/30/2025Start: 01-31-2024 End: 74-00-2118Elapxsscfcjqw metabolic 2000 panel - Serum or PlasmaComprehensive metabolic panel Lab Routine Elevated blood pressure reading in office without diagnosis of hypertension Cerebrovascular accident (CVA), unspecified mechanism (CMS/HCC) Expected: 01/31/2024 (Approximate), Expires: 01/30/2025[facility] Comment on above:Expected: 01/31/2024 (Approximate), Expires: 01/30/2025Start: 01-31-2024 End: 80-26-4454GV Chest for screening WO contrastCT lung screening low dose Imaging Routine Screening for malignant neoplasm of colon Personal history of nicotine dependence Expected: 01/31/2024, Expires: 01/30/2025[facility] Comment on above:Expected: 01/31/2024, Expires: 01/30/2025Start: 01-31-2024 End: 58-68-4179Lokqxzxhrc A1c/Hemoglobin.total in BloodHemoglobin A1c Lab Routine Elevated blood pressure reading in office without diagnosis of hypertension History of coronary artery bypass graft x 3 Cerebrovascular accident (CVA), unspecified mechanism (CMS/HCC) Expected: 01/31/2024 (Approximate), Expires: 01/30/2025[facility] HealthcareComment on above:Expected: 01/31/2024 (Approximate), Expires: 01/30/2025Start: 01-31-2024 End: 65-04-6543Xvkik 1996 panel - Serum or PlasmaLipid panel Lab Routine History of coronary artery bypass graft x 3 Heart disease Cerebrovascular accident (CVA), unspecified mechanism (CMS/HCC) Expected: 01/31/2024 (Approximate), Expires: 01/30/2025[facility] HealthcareComment on above:Expected: 01/31/2024 (Approximate), Expires: 01/30/2025Start: 01-31-2024 End: 27-94-6125Mijijengokg colorectal cancer DNA and occult blood screening [Presence] in StoolCologuard colon cancer screening Lab Routine Screening for malignant neoplasm of colon Expected: 01/31/2024 (Approximate), Expires: 01/30/2025[facility] HealthcareComment on above:Expected: 01/31/2024 (Approximate), Expires: 01/30/2025Start: 01-31-2024 End: 59-73-2260MJX, total and freePSA, total and free Lab Routine Encounter for prostate cancer screening Expected: 01/31/2024 (Approximate), Expires: 01/30/2025[facility] HealthcareComment on above:Expected: 01/31/2024 (Approximate), Expires: 01/30/2025Start: 01-31-2024 End: 33-35-2315PWN W/REFLEX TO FT4TSH W/REFLEX TO FT4 Lab Routine Elevated blood pressure reading in office without diagnosis of hypertension Expected: 01/31/2024 (Approximate), Expires: 01/30/2025[facility] Work Phone: Comment on above:Expected: 01/31/2024 (Approximate), Expires: 01/30/2025Start: 01-31-2024 End: 62-92-0824Rakoall encounter /04/2024 11:20 AM EST Office Visit [facility] [address] [place] [address] Gerardo Jacinot, PAINT STOCKMAN [address] [place] [address] ArrivedKAISER FOUNDATION [facility] FMComment on above:ArrivedStart: 10-29-2023 Influenza vaccinationSHRINERS HOSPITALS FOR CHILDREN HealthcareStart: 94-23-7945Yxtxwrjlh aortic aneurysm screeningAbdominal Aortic Aneurysm (AAA) ScreenProSouthview Medical Center SystemStart: 61-42-9186Udou Risk ScreeningFall Risk ScreeningProSouthview Medical Center SystemStart: 82-44-4414Cromwycpjdad Vaccine: 65+ Years (1 of 1 - PCV)Pneumococcal Vaccine: 65+ Years (1 of 1 - PCV)[facility] HealthcareStart: 51-12-7012Nmtaxrmxxogdbm of varicella zoster vaccineZoster (Shingles) Vaccine (1 of 2)[facility] SystemStart: 26-13-6945NSfQ,Tdap and Td Vaccines (1 - Tdap)DTaP,Tdap and Td Vaccines (1 - Tdap)[facility]icCal[facility] Hospitaltart: 90-42-5007Obtopysslwrf Vaccine: 65+ Years (1 of 2 - PCV)Pneumococcal Vaccine: 65+ Years (1 of 2 - PCV)[facility] HealthcareStart: 79-10-7765Zddmt screening for proteinDiabetes: Urine Protein ScreeningSHRINERS HOSPITALS FOR CHILDREN HealthcareStart: 95-29-4742Qhzdf BMI ScreeningAdult BMI Screening [facility] Durhamtart: 12-57-3915Qpiypmowsx ScreeningDepression Screening [facility] Durhamtart: 19-48-3002Simbbxe ScreeningTobacco Screening [facility] Durhamtart: 79-21-7995Omkmldme screeningDiabetes: Retinopathy ScreeningNOIL HealthcareStart: 86-87-8498Wnxzvgutvagt Vaccine: 65+ Years (1 of 2 - PCV)Pneumococcal Vaccine: 65+ Years (1 of 2 - PCV)[facility] HealthcareStart: 85-88-0833Gdrspfkcsz A1c measurementDiabetes: Hemoglobin K2SPXIT Healthcare Start: 1958Medicare Annual Wellness (AWV)Medicare Annual Wellness (AWV) [facility] HealthcareStart: 17-69-6876Ceqgxztxq for malignant neoplasm of colonNOIL HealthcareStart: 24-18-3094Qssxmlwpg for malignant neoplasm of lungLung Cancer Screening Shared Decision MakingThree Rivers HealthcareStart: 51-16-1375Jsucctt CounselingTobacco CounselingKettering Health Springfield Immunizations Immunization DateImmunizationNotesCare LudkpnouXcqogmdc11-99-7930lrvtqcd vaccine or immune globulinLisa Aichholz PA[employer] STOCKMAN Work Phone: [facility] HealthcareYloyrsdlxk81-72-7264Ppqnfjoq trivalent influenza vaccine, adjuvanted, preservative freeBrittany Jacinto PA[employer] STOCKMAN Work Phone: [facility] [id number] vaccine or immune globulinLisa Aichholz [employer] Work Phone: [facility] Payers DatePayer CategoryPayerPolicy [id number] (Managed Care)[employer] [id number] 2024[facility]ic[facility] [id number]-uwd 2002MedicareMEDICARE .[id number] .[id number] [id number] [id number] 2..[id number] [id number] 2..0.1.107438.3.579.2.531 Social History DateTypeDetailFacilityTobacco smoking status NHISTobacco smoking consumption unknownNOIL HealthcareStart: 27-04-0715Qjz assigned at birthNot on [facility]art: 01-31-2024 End: 97-65-1636Ueneow identityNot on [facility] HealthcareStart: 64-60-5860Cysnalz smoking status NHISSmokes tobacco dailyNOIL HealthcareStart: 77-03-0724Aoyccxq of tobacco useCigarette SmokerSHRINERS HOSPITALS FOR CHILDREN HealthcareStart: 01-31-2024 End: 19-80-7237Eeitdynecq smoked current (pack per day) - Dvllbomx1CGLX HealthcareStart: 06-03-9233SsjDydo (finding)[facility]tart: 47-02-1182Wmebtrdtzm depression screening [id number] [place] [address] Clinical Notes 12-07-2023 to 08-19-2024 Note Date & [id number] Telephone encounter Note* Telephone Encounter - Juanis Fernandez NP - 08/19/2024 2:47 PM EDT Please call dr guevara's office to see if pt attended the 2nd appt to get his neuropsych testing [facility] [id number] Miscellaneous Notes* Telephone Encounter - Juanis Fernandez NP - 08/19/2024 2:47 PM EDT Please call dr geuvara's office to see if pt attended the 2nd appt to get his neuropsych testing documented in this encounterThree Rivers [id number] History of Present illness Narrative* Juanis Fernandez NP - 08/19/2024 2:00 PM EDT Images from the original note were not included. Mihir Wright is a 64 y.o. male presents with chief complaint of Hypertension HPI: 3 month recheck Hx of hip fracture, did not complete PT at home, is just now starting to walk with cane, balance isstill weak. Open to doing out pt PT Hypertension This is a chronic problem. The current episode started more than 1 year ago. The problem is unchanged. The problem is controlled. There are no associated agents to hypertension. Risk factors for coronary artery disease include sedentary lifestyle and smoking/tobacco exposure. Past treatments include angiotensin blockers and diuretics. The current treatment provides significant improvement. There are no compliance problems. Hypertensive end-organ damage includes CVA. Diabetes He presents for his follow-up diabetic visit. He has type 2 diabetes mellitus. His disease course has been fluctuating. There are no hypoglycemic associated symptoms. Pertinent negatives for hypoglycemia include no dizziness, nervousness/anxiousness, seizures or tremors. Associated symptoms include weakness (RLE) and weight loss. Pertinent negatives for diabetes include no foot paresthesias, no polydipsia, no polyphagia and no polyuria. There are no hypoglycemic complications. Diabetic complications include a CVA. Pertinent negatives for diabetic complications include no nephropathy or peripheral neuropathy. Risk factors for coronary artery disease include diabetes mellitus, dyslipidemia, male sex, hypertension and sedentary lifestyle. Current diabetic treatment includes oral agent (monotherapy). He is compliant with treatment most of the time. An MASSIEL inhibitor/angiotensin II receptor don is being taken. He does not see a blast furnace keeper.Eye exam is not current. SUBJECTIVE: MEDICATIONS: Current Outpatient Medications Medication Instructions albuterol HFA 90 mcg/act inhaler 2 puffs, Inhalation, Every 6 hours PRN atorvastatin (LIPITOR) 40 mg, Oral, Nightly clopidogrel (PLAVIX) 75 mg, Oral, Daily Gbvcbtxjyoq-Kclgbssit-Fxqqaq (Trelegy Ellipta) 200-62.5-25 MCG/ACT aerosol powder 1 puff, Inhalation, Daily, Rinse mouth after use losartan-hydroCHLOROthiazide (Hyzaar) 50-12.5 MG tablet 1 tablet, Oral, Daily metFORMIN (GLUCOPHAGE) 500 mg, Oral, 2 times daily ALLERGIES: No Known Allergies REVIEW OF SYMPTOMS: Review of Systems Constitutional: Positive for weight loss. Negative for activity change, appetite change and unexpected weight change. HENT: Negative for ear pain, nosebleeds, sneezing, trouble swallowing and voice change. Eyes: Negative for pain, discharge and visual disturbance. Respiratory: Negative for apnea, chest tightness and wheezing. Cardiovascular: Negative for leg swelling. Gastrointestinal: Negative for abdominal distention, blood in stool, constipation and diarrhea. Genitourinary: Negative for decreased urine volume, difficulty urinating, dysuria and hematuria. Musculoskeletal: Positive for arthralgias. Skin: Negative for color change. Neurological: Positive for weakness (RLE). Negative for dizziness, tremors and seizures. Psychiatric/Behavioral: Negative for agitation, decreased concentration, hallucinations, self-injury and suicidal ideas. The patient is not nervous/anxious. Hematological: Negative for adenopathy. Does not bruise/bleed easily. Endocrine: Negative for cold intolerance, heat intolerance, polydipsia, polyphagia and polyuria. Allergic/Immunologic: Negative for environmental allergies and food allergies. PAST MEDICAL HISTORY Past Medical History: Diagnosis Date Stroke (HCC) 2023 History reviewed. No pertinent surgical history. family history is not on file. OBJECTIVE: Visit Vitals BP 110/70 (BP Location: Left arm, Patient Position: Sitting, BP Cuff Size: Adult long) Pulse 84 Temp 97.8 F (Temporal) Resp 18 Wt 158 lb SpO2 95% BMI 21.43 kg/m Smoking Status Every Day BSA 1.91 m Physical Exam Vitals and nursing note reviewed. Constitutional: Appearance: Normal appearance. HENT: Head: Normocephalic. Right Ear: External ear normal. Left Ear: External ear normal. Nose: Nose normal. Mouth/Throat: Mouth: Mucous membranes are moist. Pharynx: Oropharynx is clear. Eyes: Extraocular Movements: Extraocular movements intact. Conjunctiva/sclera: Conjunctivae normal. Neck: Vascular: No carotid bruit. Cardiovascular: Rate and Rhythm: Normal rate and regular rhythm. Pulses: Normal pulses. Heart sounds: Normal heart sounds. Pulmonary: Effort: Pulmonary effort is normal. Breath sounds: Normal breath sounds. Abdominal: General: Bowel sounds are normal. Palpations: Abdomen is soft. Musculoskeletal: Cervical back: Neck supple. Right lower leg: No edema. Left lower leg: No edema. Comments: Weakness right hip, walks with cane Skin: General: Skin is warm and dry. Capillary Refill: Capillary refill takes 2 to 3 seconds. Neurological: General: No focal deficit present. Mental Status: He is alert. Psychiatric: Mood and Affect: Mood normal. Behavior: Behavior normal. Thought Content: Thought content normal. Judgment: Judgment normal. ASSESSMENT AND PLAN: Follow up in about 2 months (around 10/19/2024) for Recheck. Problem List Items Addressed This Visit Nicotine dependence, cigarettes, uncomplicated The patient has been advised of the risks of continued smoking: stroke, MS, all forms of cancer, lung disease, and . Options for quitting smoking include: cold turkey, hypnosis, acupuncture, nicotine replacement meds(gum, lozenges, and patches), Buproprion, and Varenicline. At this time pt is encouraged to evaluate their goals for wanting to quit smoking, and reach out toprovider when ready to start this process Relevant Medications albuterol HFA 90 mcg/act inhaler Odhsebzdikr-Rwzkaesuu-Moogxh (Trelegy Ellipta) 200-62.5-25 MCG/ACT aerosol powder Other Relevant Orders Lung screening follow up CT chest wo IV contrast Stroke (HCC) - Primary Primary hypertension Please check blood pressure daily and record DASH diet Limit caffeine Take medication as directed Contact office if chest pain, pressure, dizziness, shortness of breath, swelling legs Recommend slow position changes Current medication: arb/hydrochlorothiazide Hyperlipidemia, unspecified On statin therapy Check labs yearly and prn dose chagnes Type 2 diabetes mellitus without complications (HCC) Check blood sugars daily, notify if <70 or >200. Take medications (pills or insulin) as directed. Monitor for s/s of hypoglycemia (sweaty, dizziness, nausea, vomiting, or shakiness). Watch for increase in thirst, urination, or appetite. Inspect feet frequently monitoring for open wounds , andalso recommend yearly eye exam. Pt should attempt to remain as physically active as chronic conditions allow, as well as trying to follow a diet low in carbohydrates, and simple sugars. Current meds; asa, arb/hydrochlorothiazide, metformin, statin Does not check sugars A1c: 6.8% Relevant Orders POCT glycosylated hemoglobin (Hb A1C) docked device (Completed) Transient cerebral ischemic attack, unspecified Coronary artery disease involving grayling coronary artery of grayling heart without angina pectoris Asa, plavix, statin, arb/hydrochlorothiazide Chronic right hip pain Relevant Orders Ambulatory referral to Physical Therapy Abnormal CT lung screening Relevant Orders Lung screening follow up CT chest wo IV contrast Other Visit Diagnoses History of coronary artery bypass graft x 3 Relevant Medications atorvastatin (Lipitor) 40 MG tablet clopidogrel (Plavix) 75 MG tablet losartan-hydroCHLOROthiazide (Hyzaar) 50-12.5 MG tablet Heart disease Relevant Medications atorvastatin (Lipitor) 40 MG tablet clopidogrel (Plavix) 75 MG tablet losartan-hydroCHLOROthiazide (Hyzaar) 50-12.5 MG tablet metFORMIN (Glucophage) 500 MG tablet * Juanis Fernandez NP - 08/19/2024 7:53 AM EDTAssociated Problem(s): Nicotine dependence, cigarettes, uncomplicated The patient has been advised of the risks of continued smoking: stroke, MS, all forms of cancer, lung disease, and . Options for quitting smoking include: cold turkey, hypnosis, acupuncture, nicotine replacement meds(gum, lozenges, and patches), Buproprion, and Varenicline. At this time pt is encouraged to evaluate their goals for wanting to quit smoking, and reach out toprovider when ready to start this process * Juanis Fernandez NP - 08/19/2024 7:52 AM EDTAssociated Problem(s): Hyperlipidemia, unspecified On statin therapy Check labs yearly and prn dose chagnes * Juanis Fernandez NP - 08/19/2024 7:52 AM EDTAssociated Problem(s): Type 2 diabetes mellitus without complications (HCC) Check blood sugars daily, notify if <70 or >200. Take medications (pills or insulin) as directed. Monitor for s/s of hypoglycemia (sweaty, dizziness, nausea, vomiting, or shakiness). Watch for increase in thirst, urination, or appetite. Inspect feet frequently monitoring for open wounds , andalso recommend yearly eye exam. Pt should attempt to remain as physically active as chronic conditions allow, as well as trying to follow a diet low in carbohydrates, and simple sugars. Current meds; asa, arb/hydrochlorothiazide, metformin, statin Does not check sugars A1c: 6.8% * Juanis Fernandez NP - 08/19/2024 7:52 AM EDTAssociated Problem(s): Primary hypertension Please check blood pressure daily and record DASH diet Limit caffeine Take medication as directed Contact office if chest pain, pressure, dizziness, shortness of breath, swelling legs Recommend slow position changes Current medication: arb/hydrochlorothiazide * Juanis Fernandez NP - 08/19/2024 7:52 AM EDTAssociated Problem(s): Coronary artery disease involving grayling coronary artery of grayling heart without angina pectoris Asa, plavix, statin, arb/hydrochlorothiazide documented in this encounterThree Rivers [id number] Instructions* Patient Instructions* Juanis Fernandez NP - 08/19/2024 2:00 PM EDT We will order physical therapy to [facility], they should call you to schedule Take medication daily as directed We will also get your follow up CT scan lung faxed to [facility] documented in this encounterThree Rivers [id number] History of Present illness Narrative* Tadeo Chau, PhD - 07/15/2024 10:30 AM EDT Images from the original note were not included. Tadeo Chau, PhD NEUROBEHAVIORAL STATUS EXAMINATION Mihir Wright is a 64 y.o. male referred for neuropsychological evaluation to assist with facilitating and informing medical differential diagnosis and clinical decision-making. The following information was obtained during an interview with the patient, as well as review of available records. PRESENTING PROBLEM AND HISTORY Patient denied any concerns regarding cognition and memory. Records indicate that home health has expressed concerns regarding patient's ability to remain independent in the home. He reported being independent in ADLs. Sister assists with medication. Independently managing finances. No driving for a while and reported license has . Physical activity includes regular walks. Remains social. Good sleep quality. Pain complaints include improving back. Also reported functioning a bit slower since the femur injury. Neurological history includes TIA. Record indicate that on 11/26/2023 patient developed acute onset of left upper and lower extremity weakness, dysarthria and facial droop. He was also noted to be confused and not making sense. Noncontrast CT scan showed bilateral microvascular ischemic changes as well as CT angiography of the head and carotids revealed left internal carotid artery 50% stenosis, and right internal carotid artery distal portion stenosis. Patient unable to have MRI due to recent surgery. Symptoms spontaneously resolved. No family neurological history. Juice ed any psychiatric history. No history of alcohol/substance abuse. 1 PPD smoker. Inaja language Yoruba. Completed high school education. 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 Disabled since breaking his back. . Resides at [employer] (shelter) apartments. Reported living there for 2 months and that he would like to get out and live on hisown. Has 3 children and reported a positive relationship with them. MEDICAL HISTORY/MEDICATION: Past Medical History: Diagnosis Date Stroke ([facility]) 2023 MEDICATIONS: Current Outpatient Medications Medication Instructions albuterol HFA 90 mcg/act inhaler 2 puffs, Inhalation, Every 6 hours PRN atorvastatin (LIPITOR) 40 mg, Oral, Nightly Bgjtyycxtsb-Skhmddjtm-Abiswa (Trelegy Ellipta) 200-62.5-25 MCG/ACT aerosol powder 1 puff, Inhalation, Daily losartan-hydroCHLOROthiazide (Hyzaar) 50-12.5 MG tablet 1 tablet, Oral, Daily metFORMIN (GLUCOPHAGE) 500 mg, Oral, 2 times daily INITIAL IMPRESSION AND PLAN: Memory loss and history of TIA: The patient will be scheduled for neuropsychological assessment, which will include tests for memory, reasoning, language, problem-solving, attention, and mood. Thank you for allowing me to participate in the care of this individual. Please contact me with [employer] at [phone]. documented in this encounterThree Rivers [id number] History of Present illness Narrative* Juanis Fernandez NP - 06/18/2024 5:30 PM EDTAssociated Problem(s): Cognitive impairment Concerns expressed from HH about his ability to stay independent, suggested a cognitive assessment w neuro psych Does also forget his meds from time to time * Juanis Fernandez NP - 06/18/2024 5:29 PM EDTAssociated Problem(s): Type 2 diabetes mellitus without complications Check blood sugars daily, notify if <70 or >200. Take medications (pills or insulin) as directed. Monitor for s/s of hypoglycemia (sweaty, dizziness, nausea, vomiting, or shakiness). Watch for increase in thirst, urination, or appetite. Inspect feet frequently monitoring for open wounds , andalso recommend yearly eye exam. Pt should attempt to remain as physically active as chronic conditions allow, as well as trying to follow a diet low in carbohydrates, and simple sugars. Current meds; asa, arb/hydrochlorothiazide, metformin, statin Does not check sugars * Juanis Fernandez NP - 06/18/2024 5:29 PM EDTAssociated Problem(s): Primary hypertension (CMS/HCC) Please check blood pressure daily and record DASH diet Limit caffeine Take medication as directed Contact office if chest pain, pressure, dizziness, shortness of breath, swelling legs Recommend slow position changes Current medication: arb/hydrochlorothiazide * Juanis Fernandez NP - 06/18/2024 5:28 PM EDTAssociated Problem(s): Stroke (CMS/HCC) Pt does not believe that he in fact had a stroke, d/t no weakness or trouble speaking We did discuss that post stroke sxs can depend on the area of the brain that this occurred * TERRIE RODRIGUEZ - 06/18/2024 2:40 PM EDT Right eye blindness Lives alone- cognitive concerns with living alone; referral to neuropsych Hx of right femur fracture uses walker Blood pressure checks at home: no checks Fasting glucose today: no checks Pt has been having constipation recently (stated sister) she has been giving him dulcolax (pt states he's fine) Right hip pain- same amount of pain he had when he fractured the femur * Juanis Fernandez NP - 06/18/2024 2:40 PM EDT Images from the original note were not included. Mihir Wright is a 64 y.o. male presents with chief complaint of Diabetes HPI: Right eye blindness Lives alone- cognitive concerns with living alone; referral to neuropsych Hx of right femur fracture uses walker Blood pressure checks at home: no checks Fasting glucose today: no checks Pt has been having constipation recently (stated sister) she has been giving him dulcolax (pt states he's fine): no bloody stools Right hip pain- same amount of pain he had when he fractured the femur had home PT, does not feel it is doing much is open to out patient PT SUBJECTIVE: MEDICATIONS: Current Outpatient Medications Medication Instructions albuterol HFA 90 mcg/act inhaler 2 puffs, Inhalation, Every 6 hours PRN aspirin 81 mg, Oral, Daily atorvastatin (LIPITOR) 40 mg, Oral, Nightly clopidogrel (PLAVIX) 75 mg, Oral, Daily Tucraronwid-Tzthvsrdl-Wxvlil (Trelegy Ellipta) 200-62.5-25 MCG/ACT aerosol powder 1 puff, Inhalation, Daily losartan-hydroCHLOROthiazide (Hyzaar) 50-12.5 MG tablet 1 tablet, Oral, Daily metFORMIN (GLUCOPHAGE) 500 mg, Oral, 2 times daily ALLERGIES: No Known Allergies REVIEW OF SYMPTOMS: Review of Systems Constitutional: Negative for activity change, appetite change and unexpected weight change. HENT: Negative for ear pain, nosebleeds, sneezing, trouble swallowing and voice change. Eyes: Negative for pain, discharge and visual disturbance. Respiratory: Negative for apnea, chest tightness and wheezing. Cardiovascular: Negative for leg swelling. Gastrointestinal: Positive for constipation. Negative for abdominal distention, blood in stool and diarrhea. Genitourinary: Negative for decreased urine volume, difficulty urinating, dysuria and hematuria. Musculoskeletal: Positive for arthralgias and gait problem. Skin: Negative for color change. Neurological: Negative for dizziness, tremors and seizures. Psychiatric/Behavioral: Negative for agitation, decreased concentration, hallucinations, self-injury and suicidal ideas. The patient is not nervous/anxious. Memory impairement Hematological: Negative for adenopathy. Does not bruise/bleed easily. Endocrine: Negative for cold intolerance, heat intolerance, polydipsia and polyuria. Allergic/Immunologic: Negative for environmental allergies and food allergies. PAST MEDICAL HISTORY Past Medical History: Diagnosis Date Stroke ([facility]) 2023 No past surgical history on file. family history is not on file. OBJECTIVE: Visit Vitals BP 118/76 (BP Location: Left arm, Patient Position: Sitting, BP Cuff Size: Adult long) Pulse 96 Temp 98.8 F (Temporal) Resp 18 Wt 170 lb 3.2 oz SpO2 94% BMI 23.08 kg/m Smoking Status Every Day BSA 1.98 m Physical Exam Vitals and nursing note reviewed. Constitutional: General: He is not in acute distress. Appearance: Normal appearance. He is normal weight. He is not ill-appearing. HENT: Head: Normocephalic. Right Ear: External ear normal. Left Ear: External ear normal. Nose: Nose normal. Mouth/Throat: Mouth: Mucous membranes are moist. Pharynx: Oropharynx is clear. Eyes: Extraocular Movements: Extraocular movements intact. Conjunctiva/sclera: Conjunctivae normal. Cardiovascular: Rate and Rhythm: Normal rate and regular rhythm. Pulses: Normal pulses. Heart sounds: Normal heart sounds. No murmur heard. Pulmonary: Effort: Pulmonary effort is normal. Breath sounds: Normal breath sounds. No wheezing or rhonchi. Abdominal: General: Bowel sounds are normal. There is no distension. Palpations: Abdomen is soft. Tenderness: There is no abdominal tenderness. There is no guarding. Musculoskeletal: Cervical back: Neck supple. Right lower leg: No edema. Left lower leg: No edema. Comments: Walks with walker Skin: General: Skin is warm and dry. Capillary Refill: Capillary refill takes 2 to 3 seconds. Neurological: General: No focal deficit present. Mental Status: He is alert. Psychiatric: Mood and Affect: Mood normal. Behavior: Behavior normal. Thought Content: Thought content normal. Judgment: Judgment normal. ASSESSMENT AND PLAN: No follow-ups on file. Problem List Items Addressed This Visit Stroke ([facility]) Pt does not believe that he in fact had a stroke, d/t no weakness or trouble speaking We did discuss that post stroke sxs can depend on the area of the brain that this occurred Primary hypertension ([facility]) Please check blood pressure daily and record DASH diet Limit caffeine Take medication as directed Contact office if chest pain, pressure, dizziness, shortness of breath, swelling legs Recommend slow position changes Current medication: arb/hydrochlorothiazide Type 2 diabetes mellitus without complications - Primary Check blood sugars daily, notify if <70 or >200. Take medications (pills or insulin) as directed. Monitor for s/s of hypoglycemia (sweaty, dizziness, nausea, vomiting, or shakiness). Watch for increase in thirst, urination, or appetite. Inspect feet frequently monitoring for open wounds , andalso recommend yearly eye exam. Pt should attempt to remain as physically active as chronic conditions allow, as well as trying to follow a diet low in carbohydrates, and simple sugars. Current meds; asa, arb/hydrochlorothiazide, metformin, statin Does not check sugars Cognitive impairment Concerns expressed from HH about his ability to stay independent, suggested a cognitive assessment w neuro psych Does also forget his meds from time to time Relevant Orders Ambulatory referral to Neuropsychology documented in this [facility]04-22-2025 Instructions* Patient Instructions* Juanis Fernandez NP - 06/18/2024 2:40 PM EDT Constipation: I will send in Miralax: 17 grams in 6 oz of water and drink daily. I will be referring to Dr Guevara, for cognitive evaluation Physical Therapy: for strengthening [facility] PT, I will send an order they should callyou documented in this [facility]12-09-2024 Miscellaneous Notes* Telephone Encounter - Jamaica Llanos CMA - 02/05/2024 10:59 AM EST ----- Message ----- From: Danae Bajwa PA-C Sent: 02/05/2024 10:34 AM EST To: Daniela Oliveira RN; Ena Savage RN; * Subject: obtain imaging reports Can someone call [facility] and get the imaging reports for the CTH x 2, CTA carotid and head, and for the Carotid Ultrasound. Would be nice to have the reports prior to Dr. Santos's clinic next week Called [facility] and requested the images to be pushed over. Also contacted HIM to have CUS report pushed over. Waiting for updates * Telephone Encounter - Neris Cobos CMA - 02/05/2024 10:59 AM EST Images are available. Awaiting reports. [facility] Telephone encounter Note* Telephone Encounter - Jamaica Llanos CMA - 02/05/2024 10:59 AM EST ----- Message ----- From: Dnaae Bajwa PA-C Sent: 02/05/2024 10:34 AM EST To: Daniela Oliveira RN; Ena Savage RN; * Subject: obtain imaging reports Can someone call [facility] and get the imaging reports for the CTH x 2, CTA carotid and head, and for the Carotid Ultrasound. Would be nice to have the reports prior to Dr. Santos's clinic next week Called [facility] and requested the images to be pushed over. Also contacted HIM to have CUS report pushed over. Waiting for updates [facility]12-[facility] Telephone encounter Note* Telephone Encounter - Neris Cobos CMA - 02/05/2024 10:59 AM EST Images are available. Awaiting reports. [facility]12-09-2024 Telephone encounter Note* Telephone Encounter - Savannah Sanchez MA - 02/05/2024 8:33 AM EST Was here Jan 30, his medications never got called in. [facility] [id number] Miscellaneous Notes* Telephone Encounter - Savannah Sanchez MA - 02/05/2024 8:33 AM EST Was here Jan 30, his medications never got called in. documented in this encounterThree Rivers [id number] History of Present illness Narrative* Gerardo Jacinto NP - 01/31/2024 3:40 PM ESTAssociated Problem(s): Stroke (CMS/HCC) Had CVA in 10/2023- has first hospital follow-up with neurology on 02/07/2024. Was inpatient at [facility] for 3 weeks Neurology recommended ECHO, Carotid Duplex, PT/OT/ST. Pt is unsure if any of these have been ordered as of now. Neurology recommended mild control of hypertension due to CVA. Will touch base with them on recommendations for BP control moving forward. * Gerardo Jacinto NP - 01/31/2024 3:40 PM ESTAssociated Problem(s): Primary hypertension (CMS/HCC) Currently taking Losartan-hydrochlorothiazide [...] on recommendations for BP control moving forward * Gerardo Jacinto NP - 01/31/2024 11:59 AM ESTAssociated Problem(s): Wellness examination I have reviewed Ht/Wt/BMI, I have reviewed recommended vaccines for patient's age, as well as all recommended screenings I have reviewed available care everywhere notes as well. I have recommended eating a balanced diet,as well as activity as chronic conditions allow It is recommended that the patient have a yearly eye exam, as well as twice a year dental exams Fu in this office for wellness on a yearly basis Diet: Eat three meals per day. Breakfast, lunch, and dinner. Avoid snacking. Avoid eating after 5/6pm. Daily protein GOAL 35% of your intake; [...] GOAL 6-8 hours of sleep per night. * Gerardo Jacinto NP - 01/31/2024 11:20 AM EST Images from the original note were not [...] neurology on 02/07/2024. Was inpatient at [facility] for 3 weeks Neurology recommended ECHO, Carotid [...] Neurological: Negative for dizziness, tremors, syncope, weakness, light- headedness and headaches. Psychiatric/Behavioral: Negative for decreased concentration and suicidal ideas. The patient is notnervous/anxious. Hematological: Does not bruise/bleed easily. Endocrine: Negative [...] neurology on 02/07/2024. Was inpatient at [facility] for 3 weeks Neurology recommended ECHO, Carotid [...] well. I have recommended eating a balanced diet,as well as activity as chronic conditions allow It is recommended that the patient have a yearly eye exam, as well as twice a year dental exams Fu in this office for wellness on a yearly basis Diet: Eat three meals per day. Breakfast, lunch, and dinner. Avoid snacking. Avoid eating after 5/6pm. Daily protein GOAL 35% of your intake; [...] Relevant Orders Flu vaccine, trivalent, adjuvanted, PF ([id number]) (Fluad trivalent single dose syringe) (Completed) Personal history of nicotine dependence Relevant Orders CT lung screening low dose documented in this encounterThree Rivers [id number] Instructions* Patient Instructions* Gerardo Jacinto NP - 01/31/2024 11:20 AM EST Plan of Treatment - Upcoming Encounters Upcoming Encounters Date Type Department Care Team (Latest Contact Info) Description 02/07/2024 1:00 PM EST Office Visit [facility] [address] [place] [address] Feliberto Santos MD [address] [place] [phone] FASTING labs ordered. Nothing to eat or drink for 12 hours prior to blood draw. Water and black coffee ok. documented in this encounterThree Rivers [id number] Miscellaneous Notes* Telephone Encounter - Theresa Espinoza - 12/07/2023 9:50 AM EDT What is the reason for the call? Silvina and SREEDHAR from [facility] called to schedule a hospital follow up. If appointment requested, what is the reason for the appointment? Patient has been in [facility] for Dx stroke Is there a referral in the chart? No Were they seen in the hospital? What hospital were they seen at? Yes [facility] What is a good call back number? SREEDHAR Cool [phone] * Telephone Encounter - Daniela Oliveira RN - 12/07/2023 9:50 AM EDT Tele consult done 11/26: ASSESSMENT & PLAN [...] PT/OT/ST Who should patient follow up with? * Telephone Encounter - JOHN Mccormick - 12/07/2023 9:50 AM EDT Please schedule patient to FU with Dr. Santos due to concern of possible symptomatic right carotid stenosis. * Telephone Encounter - Dian Arriola - 12/07/2023 9:50 AM EDT Received call from SREEDHAR Najera from [facility] [place] requesting a call back to schedule patient for follow up in stroke clinic-( [phone]) ask for [address] * Telephone Encounter - Neris Cobos CMA - 12/07/2023 9:50 AM EDT Scheduled for 02/06. documented in this [facility] Telephone encounter Note* Telephone Encounter - Theresa Espinoza - 12/07/2023 9:50 AM EDT What is the reason for the call? Silvina and SREEDHAR from [facility] called to schedule a hospital follow up. If appointment requested, what is the reason for the appointment? Patient has been in [facility] for Dx stroke Is there a referral in the chart? No Were they seen in the hospital? What hospital were they seen at? Yes [facility] What is a good call back number? SREEDHAR Cool [phone] [facility] Telephone encounter Note* Telephone Encounter - Daniela Oliveira RN - 12/07/2023 9:50 AM EDT Tele consult done 11/26: ASSESSMENT & PLAN [...] PT/OT/ST Who should patient follow up with? [facility]10-10-2024 Telephone encounter Note* Telephone Encounter - JOHN Mccormick - 12/07/2023 9:50 AM EDT Please schedule patient to FU with Dr. Santos due to concern of possible symptomatic right carotid stenosis. [facility] Work Phone: [phone] Telephone encounter Note* Telephone Encounter - Dian Arriola - 12/07/2023 9:50 AM EDT Received call from SREEDHAR Najera from [facility] requesting a call back to schedule patient for follow up in stroke clinic-( [phone]) ask for [address] [employer] [id number] Telephone encounter Note* Telephone Encounter - Neris Cobos CMA - 12/07/2023 9:50 AM EDT Scheduled for 02/06. [facility]* Diagnosis Flu vaccine need- Primary Wellness [...] dependence Primary hypertension (CMS/HCC) Unspecified essential hypertension Cerebral infarction, unspecified mechanism (CMS/HCC)- Primary Type 2 diabetes mellitus without complications Coronary artery disease involving grayling coronary artery of grayling heart without angina pectoris (CMS/HCC) Primary hypertension (CMS/HCC) Unspecified essential hypertension Mixed hyperlipidemia (CMS/HCC) Mixed hyperlipidemia Nicotine dependence, cigarettes, uncomplicated Elevated alkaline phosphatase level Limitation of activities due to disability- Primary Cognitive impairment Unspecified persistent mental disorders due to conditions classified elsewhere documented [facility] this encounter [facility]* [...] dependence Primary hypertension (CMS/HCC) Unspecified essential hypertension Cerebral infarction, unspecified mechanism (CMS/HCC)- Primary Type 2 diabetes mellitus without complications Coronary artery disease involving grayling coronary artery of grayling heart without angina pectoris (CMS/HCC) Primary hypertension (CMS/HCC) Unspecified essential hypertension Mixed hyperlipidemia (CMS/HCC) Mixed hyperlipidemia Nicotine dependence, cigarettes, uncomplicated Elevated alkaline phosphatase level Cerebrovascular accident (CVA), unspecified mechanism (CMS/HCC)- Primary Type 2 diabetes mellitus without complication, unspecified whether senior care insulin use Primary hypertension (CMS/HCC) Unspecified essential hypertension Cognitive impairment Unspecified persistent mental disorders due to conditions classified elsewhere documented [facility] this [facility]* [...] dependence Primary hypertension (CMS/HCC) Unspecified essential hypertension Cerebral infarction, unspecified mechanism (CMS/HCC)- Primary Type 2 diabetes mellitus without complications Coronary artery disease involving grayling coronary artery of grayling heart without angina pectoris (CMS/HCC) Primary hypertension (CMS/HCC) Unspecified essential hypertension Mixed hyperlipidemia (CMS/HCC) Mixed hyperlipidemia Nicotine dependence, cigarettes, uncomplicated Elevated alkaline phosphatase level Cerebrovascular accident (CVA), unspecified mechanism (CMS/HCC)- Primary Type 2 diabetes mellitus without complication, unspecified whether terminal make up operator insulin use Primary hypertension (CMS/HCC) Unspecified essential hypertension Cognitive impairment Unspecified persistent mental disorders due to conditions classified elsewhere Memory loss- Primary Transient cerebral ischemia, unspecified type Cognitive impairment Unspecified persistent mental disorders due to conditions classified elsewhere [facility]* [...] dependence Primary hypertension (CMS/HCC) Unspecified essential hypertension Cerebral infarction, unspecified mechanism (CMS/HCC)- Primary Type 2 diabetes mellitus without complications Coronary artery disease involving grayling coronary artery of grayling heart without angina pectoris (CMS/HCC) Primary hypertension (CMS/HCC) Unspecified essential hypertension Mixed hyperlipidemia (CMS/HCC) Mixed hyperlipidemia Nicotine dependence, cigarettes, uncomplicated Elevated alkaline phosphatase level Cerebrovascular accident (CVA), unspecified mechanism (CMS/HCC)- Primary Type 2 diabetes mellitus without complication, unspecified whether senior care insulin use Primary hypertension (CMS/HCC) Unspecified essential hypertension Cognitive impairment Unspecified persistent mental disorders due to conditions classified elsewhere Nicotine dependence, cigarettes, uncomplicated History of coronary artery bypass graft x 3 Heart disease Unspecified heart disease documented [facility] this [facility]* [...] dependence Primary hypertension (CMS/HCC) Unspecified essential hypertension Cerebral infarction, unspecified mechanism (CMS/HCC)- Primary Type 2 diabetes mellitus without complications Coronary artery disease involving grayling coronary artery of grayling heart without angina pectoris (CMS/HCC) Primary hypertension (CMS/HCC) Unspecified essential hypertension Mixed hyperlipidemia (CMS/HCC) Mixed hyperlipidemia Nicotine dependence, cigarettes, uncomplicated Elevated alkaline phosphatase level Cerebrovascular accident (CVA), unspecified mechanism (CMS/HCC)- Primary Type 2 diabetes mellitus without complication, unspecified whether senior care insulin use Primary hypertension (CMS/HCC) Unspecified essential hypertension Cognitive impairment Unspecified persistent mental disorders due to conditions classified elsewhere History of coronary artery bypass graft x 3 Heart disease Unspecified heart disease documented in this encounter [facility]* Diagnosis Flu vaccine need- Primary Wellness examination Screening for malignant neoplasm of colon Encounter for prostate cancer screening Nicotine dependence, cigarettes, uncomplicated Encounter to establish care Elevated blood pressure reading in office without diagnosis of hypertension History of coronary artery bypass graft x 3 Heart disease Unspecified heart disease Cerebrovascular accident (CVA), unspecified mechanism (HCC) Screening for lung cancer Personal history of nicotine dependence Primary hypertension Unspecified essential hypertension Cerebral infarction, unspecified mechanism (HCC)- Primary Type 2 diabetes mellitus without complications (HCC) Coronary artery disease involving grayling coronary artery of grayling heart without angina pectoris Primary hypertension Unspecified essential hypertension Mixed hyperlipidemia Mixed hyperlipidemia Nicotine dependence, cigarettes, uncomplicated Elevated alkaline phosphatase level Cerebrovascular accident (CVA), unspecified mechanism (HCC)- Primary Type 2 diabetes mellitus without complication, unspecified whether terminal make up operator insulin use (HCC) Primary hypertension Unspecified essential hypertension Cognitive impairment Unspecified persistent mental disorders due to conditions classified elsewhere Type 2 diabetes mellitus without complication, unspecified whether senior care insulin use (HCC)- Primary Cerebrovascular accident (CVA), unspecified mechanism (HCC) Coronary artery disease involving grayling coronary artery of grayling heart without angina pectoris Primary hypertension Unspecified essential hypertension Mixed hyperlipidemia Mixed hyperlipidemia Nicotine dependence, cigarettes, uncomplicated Transient cerebral ischemia, unspecified type Chronic right hip pain History of coronary artery bypass graft x 3 Heart disease Unspecified heart disease Abnormal CT lung screening Nonspecific (abnormal) findings on radiological and other examination of other intrathoracic organs documented in this encounter [facility]* Diagnosis Flu vaccine need- Primary Wellness examination Screening for malignant neoplasm of colon Encounter for prostate cancer screening Nicotine dependence, cigarettes, uncomplicated Encounter to establish care Elevated blood pressure reading in office without diagnosis of hypertension History of coronary artery bypass graft x 3 Heart disease Unspecified heart disease Cerebrovascular accident (CVA), unspecified mechanism (HCC) Screening for lung cancer Personal history of nicotine dependence Primary hypertension Unspecified essential hypertension Cerebral infarction, unspecified mechanism (HCC)- Primary Type 2 diabetes mellitus without complications (HCC) Coronary artery disease involving grayling coronary artery of grayling heart without angina pectoris Primary hypertension Unspecified essential hypertension Mixed hyperlipidemia Mixed hyperlipidemia Nicotine dependence, cigarettes, uncomplicated Elevated alkaline phosphatase level Cerebrovascular accident (CVA), unspecified mechanism (HCC)- Primary Type 2 diabetes mellitus without complication, unspecified whether terminal make up operator insulin use (HCC) Primary hypertension Unspecified essential hypertension Cognitive impairment Unspecified persistent mental disorders due to conditions classified elsewhere Type 2 diabetes mellitus without complication, unspecified whether terminal make up operator insulin use (HCC)- Primary Cerebrovascular accident (CVA), unspecified mechanism (HCC) Coronary artery disease involving grayling coronary artery of grayling heart without angina pectoris Primary hypertension Unspecified essential hypertension Mixed hyperlipidemia Mixed hyperlipidemia Nicotine dependence, cigarettes, uncomplicated Transient cerebral ischemia, unspecified type Chronic right hip pain History of coronary artery bypass graft x 3 Heart disease Unspecified heart disease Abnormal CT lung screening Nonspecific (abnormal) findings on radiological and other examination of other intrathoracic organs History of coronary artery bypass graft x 3 Heart disease Unspecified heart disease Nicotine dependence, cigarettes, uncomplicated documented in this encounter [facility] HealthcareInstructionsNot on filedocumented in this encounterProMediM[facility] SystemInstructionsNot on filedocumented in this encounterProSouthview Medical Center SystemReason for visit Narrative* Neuropsych Testing (Routine) - Closed SpecialtyDiagnoses / ProceduresReferred By ContactReferred To Contact Neuropsychology / Neurology Diagnoses Other amnesia Procedures LA NEUROPSYCHOLOGICAL TST EVAL PHYS/QHP EA ADDL HR Juanis Fernandez, PAINT STOCKMAN [address] [place] [address] Phone: tel: fax: Tadeo Chau, PhD [address] [place] [phone] Phone: tel: fax: Referral IDStatusReasonStart DateExpiration DateVisits RequestedVisits [id number] Specialty Services Required [facility] Summary Purpose Family History No Family History Records FoundNo Family History Records FoundNo Family History Records Found Advance Directives No Advanced Directives Records FoundNo Advanced Directives Records FoundNo Advanced Directives Records Found Additional Source Comments (unrecognized sect ion and content) No Status Records FoundNo Status Records FoundNo Status Records Found INFORMATION SOURCE (unrecogn ized section and content) DATE CREATED AUTHOR 07/16/2019 [facility] DATE CREATED AUTHOR AUTHOR'S ORGANIZ ATION 06/08/2024 [facility] DATE CREATED AUTHOR AUTHOR'S ORGANIZ ATION 08/20/2024 [facility] EPIC Care Teams (unrecognized sec tion and content) Team MemberRelationshipSpecialtyStart DateEnd Date Parag Sanchez MD [address] [place] [address] [facility] - [facility] Gerardo Jacinto NP [address] [place] [address] [facility]01/01/24Team MemberRelationshipSpecialtyStart DateEnd Date Parag Sanchez MD [address] [place] [place] [address] PCP - [facility]Fair[facility]01/01/24 Gerardo Jacinto NP [address] [place] [address] Nurse Pract[facility]Fair[facility]01/01/24Team MemberRelationshipSpecialtyStart DateEnd Date Parag Sanchez MD [address] [place] [address] PCP - [facility]Fair[facility]01/01/24 Gerardo Jacinto, GORDON [address] [place] [address] Nurse [facility]01/01/24Team MemberRelationshipSpecialtyStart DateEnd Date Parag Sanchez MD [address] [place] [address] PCP - [facility]Fair[facility]01/01/24 Gerardo Jacinto, GORDON [address] [place] [address] Nurse [facility]01/01/24Team MemberRelationshipSpecialtyStart DateEnd Date Parag Sanchez MD [address] [place] [address] PCP - [facility]Fair[facility]01/01/24 Gerardo Jacinto, GORDON [address] [place] [address] Nurse [facility]01/01/24Team MemberRelationshipSpecialtyStart DateEnd Date Parag Sanchez MD [address] [place] [address] PCP - [place] [address]4/24 Gerardo Jacinto, GORDON [address] [place] [address] Nurse [facility]01/01/24Team MemberRelationshipSpecialtyStart DateEnd Date Parag Sanchez MD [address] [place] [address] PCP - [facility]01/01/24 Gerardo Jacinto NP [address] [place] [address] Nurse Pract[facility]01/01/24Team MemberRelationshipSpecialtyStart DateEnd Date Parag Sanchez MD [address] [place] [address] PCP - [facility]01/01/24 Gerardo Jacinto, GORDON [address] [place] [address] Nurse [facility]01/01/24Team MemberRelationshipSpecialtyStart DateEnd Date Parag Sanchez MD [address] [place] [address] PCP - [facility]01/01/24 Gerardo Jacinto NP [address] [place] [address] Nurse [facility]01/01/24Team MemberRelationshipSpecialtyStart DateEnd Date Parag Sanchez MD [address] [place] [address] PCP - [facility]01/01/24 Gerardo Jacinto NP [address] [place] [address] Nurse [facility]01/01/24Team MemberRelationshipSpecialtyStart DateEnd Date Parag Sanchez MD [address] [place] [address] PCP - [facility]01/01/24 Gerardo Jacinto NP [address] [place] [address] Nurse [facility]01/01/24Team MemberRelationshipSpecialtyStart DateEnd Date Parag Sanchez MD [address] [place] [address] PCP - [facility]01/01/24 Gerardo Jacinto NP [address] [place] [address] Nurse [facility]01/01/24Team MemberRelationshipSpecialtyStart DateEnd Date Parag Sanchez MD [address] [place] [address] PCP - [facility]01/01/24 Gerardo Jacinto NP [address] [place] [address] Nurse [facility]01/01/24Team MemberRelationshipSpecialtyStart DateEnd Date Parag Sanchez MD [address] [place] [address] PCP - [facility]01/01/24 Gerardo Jacinto NP [address] [place] [address] Nurse [facility]01/01/24Team MemberRelationshipSpecialtyStart DateEnd Date Parag Sanchez MD [address] [place] [address] PCP - [facility]01/01/24 Gerardo Jacinto NP [address] [place] [address] Nurse [facility]01/01/24Team MemberRelationshipSpecialtyStart DateEnd Date Parag Sanchez MD [address] [place] [address] PCP - [facility]01/01/24 Gerardo Jacinto, GORDON [address] [place] [address] Nurse [facility]01/01/24Team MemberRelationshipSpecialtyStart DateEnd Date Parag Sanchez MD [address] [place] [address] PCP - [facility]01/01/24 Gerardo Jacinto NP [address] [place] [address] Nurse [facility]01/01/24Team MemberRelationshipSpecialtyStart DateEnd Date Parag Sanchez MD [address] [place] [address] PCP - [facility]01/01/24 Gerardo Jacinto NP [address] [place] [address] Nurse Pract[facility]01/01/24Team MemberRelationshipSpecialtyStart DateEnd Date Parag Sanchez MD PCP - [facility]01/01/24 Gerardo Jacinto NP [facility] Pract[facility]er[facility]01/01/24 Reason for Visit (unrecogniz ed section and content) ReasonCommentsEstablish CareReasonOnset DateCommentsMed [id number] Onset DateCommentsHospital Follow-up4ReasonCommentsDiabetesReasonOnset DateCommentsMed Inrhuj0507/29/2024ReasonOnset DateCommentsMed Sincmp1707/30/2024 ReasonCommentsHypertension FOR RECORDS PERTAINING TO PATIENTS WHO ARE [...] BE BASED ON THE PRIMARY CLINICAL RECORDS. [facility] [employer] [facility]. provides no warranty or guarantee of the accuracy or completeness of information in this document.
--- OUTSIDE RECORDS SUMMARY | 2025-01-24 17:24 | XMS_ITS | Clinical Summary ---
Author Organization [facility] Address [address] [place] [address] Care Team Providers Care Cadd Technician Name Role Phone Parag Briscoe MD Primary Care Provider [phone] Anna Jacinto COLLECTION SYSTEMS TECHNICIAN Unavailable [phone] Allergies No known active allergies Medications MedicationSigDispense QuantityRefillsLast FilledStart DateEnd DateStatus albuterol HFA 90 mcg/act inhaler Indications:Nicotine dependence, cigarettes, uncomplicatedInhale 2 puffs every 6 (six) hours if needed for wheezing or shortness of breath 18 g 5Active atorvastatin (Lipitor) 40 MG tablet Indications:History of coronary artery bypass graft x 3,Heart diseaseTake 1 tablet (40 mg) by mouth at bedtime 90 tablet 5Active Hqktwhuzywv-Jbwbmlpbg-Gkthhn (Trelegy Ellipta) 200-62.5-25 MCG/ACT aerosol powder Indications:Nicotine dependence, cigarettes, uncomplicatedInhale 1 puff Daily Rinse mouth after use 180 each 5Active losartan-hydroCHLOROthiazide (Hyzaar) 50-12.5 MG tablet Indications:History of coronary artery bypass graft x 3,Heart diseaseTake 1 tablet by mouth Daily 90 tablet 5Active metFORMIN (Glucophage) 500 MG tablet Indications:Heart diseaseTake 1 tablet (500 mg) by mouth in the morning and 1 tablet (500 mg) in the evening. Take with meals. 180 tablet 5Active Active Problems ProblemNoted DateDiagnosed DateEncounter for subsequent annual wellness visit (AWV) in Medicare kmbquoa78/18/2025Chronic right hip pain08/19/2024olon cancer screening equqxbrr16/23/2025bnormal CT lung rhsuziamm75/23/2025ognitive wuqlmhgglp15/15/2025 Assessment & Plan (06/18/2024 5:30 PM EDT): Concerns expressed from HH about his ability to stay independent, suggested a cognitive assessment w neuro psych Does also forget his meds from time to time Coronary artery disease involving iqugmiut coronary artery of iqugmiut heart without angina /24/2025 Assessment & Plan (08/19/2024 7:52 AM EDT): Asa, plavix, statin, arb/hydrochlorothiazide Assessment & Plan (05/20/2024 6:49 AM EDT): Asa, plavix, statin, arb/hydrochlorothiazide Elevated alkaline phosphatase level05/20/2024Limitation of activities due to baimvpdspr13/25/2025Nutritional deficiency, hvtnvjeqagx42/23/2025erebral infarction, cmgvvowclka03/22/2025 Assessment & Plan (05/20/2024 12:38 PM EDT): Current meds: asa, plavix Pt does not want to continue both d/t easy bruising, I did explain to rational for why he is takingit, what can happen if he does not take it And encouraged him to continue with this Hyperlipidemia, ayzzmszhyun40/22/2025 Assessment & Plan (08/19/2024 7:52 AM EDT): On statin therapy Check labs yearly and prn dose chagnes Assessment & Plan (05/20/2024 6:50 AM EDT): On statin therapy Check labs yearly and prn dose chagnes Presence of aortocoronary bypass graft03/20/2024Type 2 diabetes mellitus without qrywfkenxiaar41/22/2025 Assessment & Plan (08/19/2024 2:43 PM EDT): Check blood sugars daily, notify if <70 [...] statin Does not check sugars A1c: 6.8% Assessment & Plan (06/18/2024 5:29 PM EDT): Check blood sugars daily, notify if <70 [...] arb/hydrochlorothiazide, metformin, statin Does not check sugars Assessment & Plan (05/20/2024 6:50 AM EDT): Check blood sugars daily, notify if <70 [...] sugars. Current meds; asa, arb/hydrochlorothiazide, metformin, statin Unqualified visual loss, right eye, normal vision left eye03/20/2024Occlusion and stenosis of bilateral carotid dlbgxlob15/22/2025Transient cerebral ischemic attack, zbvhuzpswkj61/22/2025Encounter to establish care01/31/2024losed intertrochanteric fracture of femur01/31/2024Nicotine dependence, cigarettes, hzofubpkozblq89/04/2024 Assessment & Plan (08/19/2024 7:53 AM EDT): The patient has been advised of the risks of continued smoking: stroke, IA, all forms of cancer, lung disease, and . Options for quitting smoking include: cold turkey, hypnosis, acupuncture, nicotine replacement meds(gum, lozenges, and patches), Buproprion, and Varenicline. At this time pt is encouraged to evaluate their goals for wanting to quit smoking, and reach out toprovider when ready to start this process Assessment & Plan (05/20/2024 6:50 AM EDT): The patient has been advised of the risks of continued smoking: stroke, IA, all forms of cancer, lung disease, and . Options for quitting smoking include: cold turkey, hypnosis, acupuncture, nicotine replacement meds(gum, lozenges, and patches), Buproprion, and Varenicline. At this time pt is encouraged to evaluate their goals for wanting to quit smoking, and reach out toprovider when ready to start this process Screening for malignant neoplasm of colon01/31/2024Encounter for prostate cancer /04/2024Screening for lung lqnopt7901/31/2024rimary hypertension 01/31/2024 Assessment & Plan (08/19/2024 7:52 AM EDT): Please check blood pressure daily and record DASH diet Limit caffeine Take medication as directed Contact office if chest pain, pressure, dizziness, shortness of breath, swelling legs Recommend slow position changes Current medication: arb/hydrochlorothiazide Assessment & Plan (06/18/2024 5:29 PM EDT): Please check blood pressure daily and record DASH diet Limit caffeine Take medication as directed Contact office if chest pain, pressure, dizziness, shortness of breath, swelling legs Recommend slow position changes Current medication: arb/hydrochlorothiazide Assessment & Plan (05/20/2024 6:49 AM EDT): Please check blood pressure daily and record DASH diet Limit caffeine Take medication as directed Contact office if chest pain, pressure, dizziness, shortness of breath, swelling legs Recommend slow position changes Current medication: arb/hydrochlorothiazide Assessment & Plan (01/31/2024 3:40 PM EST): Currently taking Losartan-hydrochlorothiazide 50-12.5mg Checks BP at home; Averages are 130's-140's. Denies orthostatic changes, dizziness, cough, shortness of breath, swelling in extremities. Continue current regimen. Given BP log, advised pt to record BP and bring log back with them to next visit. Neurology recommended mild control of hypertension due to CVA. Will touch base with them on recommendations for BP control moving forward Ijkajv8502/27/2023 Assessment & Plan (06/18/2024 5:28 PM EDT): Pt does not believe that he in fact had a stroke, d/t no weakness or trouble speaking We did discuss that post stroke sxs can depend on the area of the brain that this occurred Assessment & Plan (01/31/2024 3:40 PM EST): Had CVA in 10/2023- has first hospital follow-up with neurology on 02/07/2024. Was inpatient at [facility] for 3 weeks Neurology recommended ECHO, Carotid Duplex, PT/OT/ST. Pt is unsure if any of these have been ordered as of now. Neurology recommended mild control of hypertension due to CVA. Will touch base with them on recommendations for BP control moving forward. Resolved Problems ProblemNoted DateDiagnosed DateResolved DateAtherosclerosis of coronary artery bypass graft(s) without angina bflenqgt78/22/335662/History of coronary artery bypass graft x Elevated blood pressure reading in office without diagnosis of lidngixxvyhb89Heart disease Wellness avfotdawejo66/04/202408/ Assessment & Plan (01/31/2024 11:59 AM EST): I have reviewed Ht/Wt/BMI, I have reviewed [...] GOAL 6-8 hours of sleep per night. Immunizations ImmunizationAdministration DatesNext DueInfluenza, trivalent, adjuvanted 01/31/2024Unknown outside knqpruqqvmyi49/23/2025,01/31/2024 Social History Tobacco UseTypesPacks/DayYears UsedDateSmoking Tobacco: Every NirWcieifcyna784.9 Started: 1985Sex and Gender InformationValueDate RecordedSex Assigned at Not on fileLegal DkpWvwn1805/11/2022 7:17 PM EDTGender IdentityNot on fileSexual OrientationNot on file Last Filed Vital Signs Vital SignReadingTime TakenCommentsBlood Qjtttbel186/7006 2:12 PM EDT Nekjo8108 2:12 PM JIQDoahgtugbzj15.6 ??C (97.8 ??F)08/19/2024 2:12 PM EDTRespiratory Bmrd289708/19/2024 2:12 PM EDTOxygen Pxvkgkrimv93%08/19/2024 2:12 PM EDTInhaled Oxygen Concentration--Uhjrqq21.7 kg (158 lb)08/19/2024 2:12 PM EDT Uynjcu081.9 cm (6')01/31/2024 11:24 AM ESTBody Mass Index21.43104/02/2023 11:24 AM EST Plan of Treatment Not on file Insurance Care Teams Team MemberRelationshipSpecialtyStart DateEnd Date Parag Briscoe MD [address] [place] [address] PCP - GeneralFamily Fbfukgzr41/4/24 Anna Jacinto NP Nurse PractitionerFamily Tvculuqp53/4/24
--- OUTSIDE RECORDS SUMMARY | 2025-01-24 17:24 | XMS_ITS | Clinical Summary ---
Author Organization [facility] Address [address] [place] [address] Care Team Providers Care Golf Club Weigher Name Role Phone Unavailable Primary Care Provider Unavailabl e Social History Tobacco UseTypesPacks/DayYears UsedDateSmoking Tobacco: Never AssessedSex and Gender InformationValueDate RecordedSex Assigned at BirthNot on fileLegal Sex Male04/01/2012 12:09 PM ESTGender IdentityNot on fileSexual OrientationNot on file Plan of Treatment Health MaintenanceDue DateLast DoneCommentsHEPATITIS C VIRUS ZAJBWOGJI1960 RRPWWYQ96 1960TDAP (ADULT)1977LIPID FNWTRECQB18/25/1998COLORECTAL CANCER SCREENING HLGWEJAMXC36/25/2003PNEUMOCOCCAL VACCINE SERIES (1 of 1 - PCV) 01/22/2008ZOSTER (SHINGLES) VACCINE (1 of 2)01/22/2008PROSTATE CANCER SCREENING RTHWHOAITZ54/25/2013BDOMINAL AORTIC ANEURYSM HIGH RISK ULHULN4901/21/2023OVID-19 VACCINE (1 - 2024- season)2024INFLUENZA VACCINE (#1)2024RSV VACCINE (1 - 1-dose 75+ series)2033HEP B VACCINEAged OutNo longer eligible based on patient's age to complete this topic
--- OUTSIDE RECORDS SUMMARY | 2025-01-24 17:24 | XMS_ITS | Patient Health Record ---
Author Organization [facility] Address [address] [place] [address] [place] [address] Care Team Providers Care Chief Lock Tender Operator Name Role Phone Luzmaria Chasefederico Primary Care Provider UnavailAlexandru Cox Unavailable [phone] Reason For Referral No Information Encounters Encounter Location Date Provider Diagnosis [facility] [place] [address] 04/24/2024 Alexandru Carmona Plan Of Treatment No Information Insurance Providers Payer Name Payer Address Payer Phone Subscriber Number Group Number Insured Name Patient Relationship to Insured Coverage Start Date Coverage End Date [employer] [address] [place] [address] [id number], ElvinSelf - patient is the insuredK[facility] Dpt of Job Fmly Srv[address] [place] [id number], ElvinSelf - patient is the insured
--- OUTSIDE RECORDS SUMMARY | 2025-01-24 17:24 | XMS_ITS | Patient Health Record ---
Author Organization [facility] [place] Address [address] [place] [address] Care Team Providers Care Bid Clerk Name Role Phone Zan Bo Unavailable [phone] Reason For Referral No Information Problems Problem Type SNOMED Code ICD Code Onset Dates Problem Status W/U Status Risk Notes Problem Essential hypertension (64936126 ) Essential (primary) hypertension (I10) ActiveconfirmedProblemType II diabetes mellitus without complication (291341632) Type 2 diabetes mellitus without complications (E11.9)ActiveconfirmedProblemFoot ulcer due to type 2 diabetes mellitus (6011910118344)Type 2 diabetes mellitus with foot ulcer (E11.621)ActiveconfirmedProblemConstipation (15597534) Constipation, unspecified (K59.00)ActiveconfirmedProblemChronic ulcer of foot (540209373)Non-pressure chronic ulcer of other part of unspecified foot with unspecified severity (L97.509)ActiveconfirmedProblemAnorexia (43913256)Anorexia (R63.0)Activeconfirmed Encounters Encounter Location Date Provider Diagnosis [facility] [address] [place] [address] 03/12/2024 Zan Bo Plan Of Treatment No Information Insurance Providers Payer Name Payer Address Payer Phone Subscriber Number Group Number Insured Name Patient Relationship to Insured Coverage Start Date Coverage End Date [employer] ADV PLAN [address] A ISAAK JURADO [phone] [id number] Low RobleroSelf - patient is the [id number] 2023
--- OUTSIDE RECORDS SUMMARY | 2025-01-24 17:24 | XMS_ITS | Encounter Summary ---
Author Organization [facility] Address [address] [place] [address] Care Team Providers Care Personal Property Assessor Name Role Phone Unavailable Primary Care Provider Unavailabl e Encounter Details DateTypeDepartmentCare Team (Latest Contact Info)Mqfjwqmhvui17/06/1977 12:00 PM EST - 04/06/1976 11:59 PM ESTHospital Encounter [facility] [address] [place] [address] Social History Tobacco UseTypesPacks/DayYears UsedDateSmoking Tobacco: Never AssessedSex and Gender InformationValueDate RecordedSex Assigned at BirthNot on fileLegal Sex Male04/01/2012 12:09 PM ESTGender IdentityNot on fileSexual OrientationNot on filedocumented as of this encounter Plan of Treatment Not on file documented as of this encounter Visit Diagnoses Not on filedocumented in this encounter
--- OUTSIDE RECORDS SUMMARY | 2025-01-24 17:24 | XMS_ITS | Patient Health Record ---
Author Organization [facility] Address [address] [place] [address] Care Team Providers Care Care Companion Name Role Phone Yefri Franco Unavailable [phone] Allergies No Known Allergies Reason For Referral No Information Medications Medication SIG (Take, Route, Frequency, Duration) Notes Start Date End Date Status Aspirin Low Dose 81 mg 1 tab(s) orally once a da y; Duration: 45 days 4Active Social History Tobacco Use: Social History Observation Description Date Details (start date - stop date) Current Smoker NA - NA AUDIT-C (Standard) Question Answer Notes Did you have a drink containing alcohol in the p ast year? No Ffybxv3MofgatrtulngapXkusmuwmUdgnsne Control (Standard) Question Answer Notes Tobacco use: Current smoker Problems Problem Type SNOMED Code ICD Code Onset Dates Problem Status W/U Status Risk Notes Problem Closed disp intertrochanteric fx of right femur with routine healing (S72.141D) ActiveconfirmedProblemClosed intertrochanteric fracture (79028792)Closed displaced intertrochanteric fracture of right femur, initial encounter (S72.141A)ActiveconfirmedProblemEncounter for other orthopedic aftercare (Z47.89)Activeconfirmed Plan Of Treatment Pending Test Test Name Order Date SCC- HIP W/ PELVIS, RIGHT [id number] 01/22/20 24 SCC- HIP W/ PELVIS, RIGHT [id number] 12/11/19 24 Insurance Providers Payer Name Payer Address Payer Phone Subscriber Number Group Number Insured Name Patient Relationship to Insured Coverage Start Date Coverage End Date Medicare [place] [employer] [address] [place] [address] [id number] Asher WRIGHT - patient is the insured Medical (General) History Medical History History ICD Code Asthma/COPD Respiratory problems:Lung DiseaseHeart AttackDiabetesStrokeHigh Blood Pressure
--- OUTSIDE RECORDS SUMMARY | 2025-01-24 17:24 | XMS_ITS | Clinical Summary ---
Author Organization [facility] Address [id number] [address] [place] [address] Care Team Providers Care Manager Oracle Name Role Phone Unavailable Primary Care Provider Unavailabl e Allergies No known active allergies Medications MedicationSigDispense QuantityRefillsLast FilledStart DateEnd DateStatus albuterol (PROVENTIL HFA;VENTOLIN HFA) 90 mcg/actuation inhaler Inhale 2 puffs every 6 (six) hours as needed.02/05/2024ctive aspirin 81 mg Take 1 tablet (81 mg total) by mouth in the morning.12/11/2023ctive aspirin 325 mg tablet Take 1 tablet (325 mg total) by mouth in the morning.Active TRELEGY ELLIPTA 200-62.5-25 mcg blister with device Inhale 1 puff.11/29/2023ctive losartan-hydroCHLOROthiazide (HYZAAR) 50-12.5 mg per tablet Take 1 tablet by mouth in the morning.02/05/2024ctive metFORMIN (GLUCOPHAGE) 500 mg tablet Take 1 tablet (500 mg total) by mouth in the morning and 1 tablet (500 mg total) before bedtime.02/05/2024ctive clopidogreL (PLAVIX) 75 mg tablet Take 1 tablet (75 mg total) by mouth in the morning.02/05/2024ctive Social History Tobacco UseTypesPacks/DayYears UsedDateSmoking Tobacco: Every DayCigarettes Smokeless Tobacco: Current Tobacco Cessation:Ready to Q uit: Not Asked; Counseling Given: Not Answered Alcohol UseStandard Drinks/WeekCommentsNot Currently0 (1 standard drink = 0.6 oz pure alcohol)PHQ-2AnswerDate RecordedTotal Cnntw0137/11/2024Sex and Gender InformationValueDate RecordedSex Assigned at BirthNot on fileLegal SexMale 11/26/2023 3:38 PM EDTGender IdentityNot on fileSexual OrientationNot on file Last Filed Vital Signs Vital SignReadingTime TakenCommentsBlood Pressure--Pulse--Temperature-- Respiratory Rate--Oxygen Saturation--Inhaled Oxygen Concentration--Igoeyu40.9 kg (152 lb)02/07/2024 12:44 PM ESTHeight--Body Mass Index-- Plan of Treatment Health MaintenanceDue DateLast DoneCommentsTobacco Vqtwvxfjee1958dult BMI Nijxyqeqo54/25/1976DTaP,Tdap and Td Vaccines (1 - Tdap)1977Zoster (Shingles) Vaccine (1 of 2)01/22/2008bdominal Aortic Aneurysm (AAA) Screen 2023Fall Risk Hfeyiyqfj99/25/2023Influenza Fnpzgkp70/05/2023 Depression Joffwidqf11/12/2023Tobacco Ghwwafmdv95/SV ( or age 60+ yrs) (1 - 1-dose 75+ series)2033 Medical Devices Not on file Insurance
--- OUTSIDE RECORDS SUMMARY | 2025-01-24 17:25 | XMS_ITS | Continuity of Care Document ---
Author Organization [facility] Address [address] [place] [address] Insurance Providers Payer Plan Claims Address Claims Phone Policy Number Group Number Relation Employer Guarantor Name Guarantor Guarantor Address Guarantor Phone Medicare [place] [employer] [address], [place], [place] [address]dvr:[phone] [id number] [place], [place] [address]Y[place] MEDICAREPO [address], [place], [place] [address]xdg: [id number] Low [id number] [place], [place] [address]KR[employer] BLUE SHIELDPO [address], [place], [place] [address]maw:[phone] Low [id number] [place] [address] Problems Condition ICD9 code ICD10 code SNOMED code Start Date End Date S tatus Cerebral infarction, unspecified I63.905ActiveType 2 diabetes mellitus without mfadfsiplihgyY15.9 5ActivePresence of aortocoronary bypass bodccV93.1015Active Atherosclerosis of coronary artery bypass graft(s) without angina pectoris I25.838795ActiveEssential (primary) ilrnsjjeguohR14665Active Hyperlipidemia, vdfkhvbawxzW18.5015ActiveUnqualified visual loss, right eye, normal vision left eyeH54.6105ActiveNutritional deficiency, fkdcodhqjmyR44.9015ActiveLimitation of activities due to raluhrugmvC41.6 5ActiveOcclusion and stenosis of bilateral carotid jvkloapsK08.23 01/22/2025ActiveHeart disease, mspwghcralfD65.905ActiveTransient cerebral ischemic attack, bjdupajherbN41.905Active Results Test Value / Unit Interpretation Reference Ran ge Tuberculosis reaction wheal[ 50792-2] Tuberculosis reaction wheal [63143-2] 0 mm NEG Tuberculosis reaction wheal[17274-2]?Tuberculosis reaction wheal [18179-2]0 mmNEG Allergies, adverse reactions, alerts No known allergies and adverse reactions Immunizations Vaccine Route Date Status COVID-19 Vaccine Unassigned Route of Administration Refused Influenza Vaccine Unassigned Route of Administration 1 04/02/2023 Completed Pneumococcal Vaccine Unassigned Route of Administratio n 03/21/2024 Completed Medications Medication Instructions Route Dosage Frequency Start Date Stop Da te Indications Status albuterol sulfate 90 mcg/actuation HFA aerosol inhaler (albuterol sulfate) 2 puffs, inhalation, Every 6 Hours - PRN, for wheezing or shortness of breath inhalation 1.0 6.0 h 03/20/2024 05/09/2024 Activeaspirin 81 mg tablet,chewable (aspirin)81 mg, oral, Once A Dayoral1.01.0 d Presence of aortocoronary bypass graftActiveatorvastatin 40 mg tablet (atorvastatin)40 mg, oral, At Bedtimeoral1. Hyperlipidemia, unspecifiedActiveHyzaar (losartan-hydrochlorothiazide) 50-12.5 mg tablet (Hyzaar (losartan-hydrochlorothiazide))one tablet, oral, Once A Day oral1.01.0 d05005/09/2024Presence of aortocoronary bypass graftActive metformin 500 mg tablet (metformin)500 mg, oral, Twice A Dayoral1.012.0 h Hyperlipidemia, unspecifiedActivenicotine 21 mg/24 hr patch 24 hour (nicotine)21 mg, transdermal, Once A Daytransdermal1.01.0 d003/20/2024 05/09/2024tivePlavix (clopidogrel) 75 mg tablet (Plavix (clopidogrel))75 mg, oral, Once A Dayoral1.01.0 d05005/09/2024Presence of aortocoronary bypass graftActiveTrelegy Ellipta (yecmmckgywl-lvzkqxpzc-medljxsi) 200-62.5-25 mcg blister with device (Trelegy Ellipta (dkzuhqhyeoa-oerpsmpmh-qoxkyqsa))one puff, inhalation, Once A Dayinhalation1.01.0 d0503/5ActiveCapvaxive (pneumo 21-beto conj-dip crm(pf)) 0.5 mL syringe (Capvaxive (pneumo 21-beto conj- dip crm(pf)))0.5ml, intramuscularintramuscular1.505Active Capvaxive (pneumo 21-beto conj-dip crm(pf)) 0.5 mL syringe (Capvaxive (pneumo 21- beto conj-dip crm(pf)))0.5ml, intramuscular, Once - One Timeintramuscular1.0 503/5Active Vital Signs Date Vital Result Comment 03/20/2024 03:50 PM Temperature 98 [degF] Oxygen Szcmewgjan00 %Respiratory Rate18 /minHeart Rate67 /minBlood Pressure Xwycaudc274 mm[Hg]Blood Pressure Fzpcelauy24 mm[Hg]03/20/2024 02:07 PMBody Yhpkkn51 [in_us]03/20/2024 02:06 PMBody Ixogbv947 [lb_av]Body Mass Index23.53 kg/m203/20/2024 10:37 YZGxicfmbroqa49 [degF]Oxygen Wnzfqualbn25 %Respiratory Rate18 /minHeart Rate98 /minBlood Pressure Xiqukdyw762 mm[Hg]Blood Pressure Sbbsbjrrm46 mm[Hg]03/21/2024 06:40 DUByrddoguwvn53.4 [degF]Oxygen Eovceqkpum65 % Respiratory Rate16 /minHeart Rate72 /minBlood Pressure Mgljpmhl665 mm[Hg]Blood Pressure Aoxlxhiuv06 mm[Hg]03/21/2024 06:25 KAUrsoliayovg96.4 [degF]Oxygen Bqmmzxyhij75 %Respiratory Rate18 /minHeart Rate84 /minBlood Pressure Aijrnykj768 mm[Hg]Blood Pressure Lbtdfumyz87 mm[Hg]03/21/2024 09:51 ZFPrkygskyqnu98.3 [degF]Oxygen Aqbckpcdyl75 %Respiratory Rate18 /minHeart Rate84 /minBlood Pressure Tznwvefx310 mm[Hg]Blood Pressure Btfwdhyva13 mm[Hg]03/21/2024 11:21 PM Oyevkwrmiua67 [degF]Oxygen Bwcczodylo36 %Respiratory Rate18 /minHeart Rate80 /minBlood Pressure Bxorxbsh623 mm[Hg]Blood Pressure Llaukkhsy74 mm[Hg]03/22/2024 09:52 FXQmkrzbnfqrp87.2 [degF]Oxygen Qhlcdhatac82 %Respiratory Rate18 /minHeart Rate84 /minBlood Pressure Bycjzqck804 mm[Hg]Blood Pressure Cvsagegmr54 mm[Hg] 03/22/2024 05:55 TIGamohbegjza92.2 [degF]Oxygen Nniwwhrpua36 %Respiratory Rate18 /minHeart Rate90 /minBlood Pressure Dpjfobjc978 mm[Hg]Blood Pressure Diastolic 82 mm[Hg]03/23/2024 06:21 AQWvtziztmagt97.6 [degF]Oxygen Lylxyagauk30 % Respiratory Rate16 /minHeart Rate68 /minBlood Pressure Bdtooulo544 mm[Hg]Blood Pressure Dcbpixwyn64 mm[Hg]03/23/2024 01:19 KPKfpgjkseuhj46.1 [degF]Oxygen Lcqfehinad09 %Respiratory Rate16 /minHeart Rate82 /minBlood Pressure Srtdagbq911 mm[Hg]Blood Pressure Pamlmvqst47 mm[Hg]03/23/2024 08:53 SEWrpfhztvvra27 [degF] Oxygen Cycxnbrxhq24 %Respiratory Rate16 /minHeart Rate80 /minBlood Pressure Adxpkylc051 mm[Hg]Blood Pressure Gmnpipxrh84 mm[Hg]03/24/2024 05:27 AM Azebqpmrhbs00.2 [degF]Oxygen Zbsefvzajb44 %Respiratory Rate18 /minHeart Rate66 /minBlood Pressure Piqufvsz498 mm[Hg]Blood Pressure Qxkyrvliv00 mm[Hg]03/25/2024 12:44 SEPnkuuhodmqp13 [degF]Oxygen Ypaeyhkxqs01 %Respiratory Rate18 /minHeart Rate68 /minBlood Pressure Bqpofeqd999 mm[Hg]Blood Pressure Jasneoshm95 mm[Hg] 03/25/2024 01:35 CWUlbjllkrgxm33.9 [degF]Oxygen Xdhlusbjlv37 %Respiratory Rate18 /minHeart Rate80 /minBlood Pressure Jubujlbv423 mm[Hg]Blood Pressure Diastolic 80 mm[Hg]03/26/2024 02:32 HMYgplorehash52.3 [degF]Oxygen Uneflurept27 % Respiratory Rate16 /minHeart Rate76 /minBlood Pressure Bdrmkrmi245 mm[Hg]Blood Pressure Bqsmiidgi08 mm[Hg]03/27/2024 09:36 HAParomawslxe86.2 [degF]Oxygen Adgtkdikhg79 %Respiratory Rate16 /minHeart Rate68 /minBlood Pressure Ncwtvfht739 mm[Hg]Blood Pressure Haaqbbcme04 mm[Hg]03/27/2024 10:51 OJFxpeyqgugpm76 [degF] Oxygen Uftkgwvjza90 %Respiratory Rate16 /minHeart Rate69 /minBlood Pressure Dacpwsww608 mm[Hg]Blood Pressure Pgcqggyye67 mm[Hg]03/27/2024 01:55 PMBody Llhljx947.2 [lb_av]Body Mass Index23.41 kg/m203/28/2024 09:51 ZSSevjbrfbepz39 [degF]Oxygen Yilouamhjg25 %Respiratory Rate18 /minHeart Rate74 /minBlood Pressure Jjrrjjyu734 mm[Hg]Blood Pressure Fghejykjb41 mm[Hg]03/28/2024 05:18 AM Ebwmxbgjjtv10.8 [degF]Oxygen Ypyunrzhso81 %Respiratory Rate18 /minHeart Rate70 /minBlood Pressure Zgxbcmyw586 mm[Hg]Blood Pressure Ggxtmzpxq11 mm[Hg]03/28/2024 05:58 ETPmgdsmamfrl48.2 [degF]Oxygen Vbsphqlgdo71 %Respiratory Rate16 /minHeart Rate70 /minBlood Pressure Ccuhburw210 mm[Hg]Blood Pressure Gypdnoqhv59 mm[Hg] 03/29/2024 06:22 ODKhlwlfxxype11.4 [degF]Oxygen Eujjzowocy71 %Respiratory Rate16 /minHeart Rate70 /minBlood Pressure Qvayagcv480 mm[Hg]Blood Pressure Diastolic 65 mm[Hg]04/03/2024 09:33 AMBody Liukez830 [lb_av]Body Mass Index23.82 kg/m2 04/04/2024 01:28 ZWJvdmmaknchz55.6 [degF]Oxygen Tjqgpluahr25 %Respiratory Rate18 /minHeart Rate81 /minBlood Pressure Kwdviejq918 mm[Hg]Blood Pressure Diastolic 73 mm[Hg]04/10/2024 02:45 PMBody Wjurbc257 [lb_av]Body Mass Index23.82 kg/m2 04/17/2024 01:52 PMBody Hspcwp583 [lb_av]Body Mass Index23.53 kg/m204/29/2024 01:28 VOZvdffzlnlgs67.2 [degF]Oxygen Ajqxemxjoj47 %Respiratory Rate16 /minHeart Rate64 /minBlood Pressure Jvqqvbxo189 mm[Hg]Blood Pressure Eopmaextj52 mm[Hg] 05/05/2024 03:46 LLOjnipdzmbci39.2 [degF]Oxygen Vtsycagspd90 %Respiratory Rate18 /minHeart Rate57 /minBlood Pressure Wgexgkqh343 mm[Hg]Blood Pressure Diastolic 84 mm[Hg]05/05/2024 12:55 SXAushglcumbt89.1 [degF]Oxygen Hqyioezdcq07 % Respiratory Rate18 /minHeart Rate88 /minBlood Pressure Hpexwpeh251 mm[Hg]Blood Pressure Jhksrjeqd49 mm[Hg]05/05/2024 10:29 THNnkzampckqb36 [degF]Oxygen Kgkhttlfgc19 %Respiratory Rate18 /minHeart Rate78 /minBlood Pressure Mmzpaijj604 mm[Hg]Blood Pressure Ygzdmwrsm58 mm[Hg]05/06/2024 02:11 UBCipxtxhmvgx09.1 [degF]Oxygen Ilnlcxufxp16 %Respiratory Rate16 /minHeart Rate75 /minBlood Pressure Neuumeqn662 mm[Hg]Blood Pressure Iwssvwmwj06 mm[Hg]05/06/2024 04:25 PM Obltyhpaqxj24.3 [degF]Oxygen Cxbzxsxjqy28 %Respiratory Rate16 /minHeart Rate73 /minBlood Pressure Sbttnpeh595 mm[Hg]Blood Pressure Nfeqmfadg58 mm[Hg]05/06/2024 02:25 EBNxxbljokgrv99.2 [degF]Oxygen Dbzlkmibrc16 %Respiratory Rate16 /minHeart Rate73 /minBlood Pressure Jszdjhyd526 mm[Hg]Blood Pressure Szczzdthp13 mm[Hg] 05/07/2024 05:15 ORHobhhlbqkeq60.1 [degF]Oxygen Unriklcndq62 %Respiratory Rate18 /minHeart Rate76 /minBlood Pressure Snhchezy464 mm[Hg]Blood Pressure Diastolic 63 mm[Hg]05/07/2024 03:31 EIChdvxzftlsq85.2 [degF]Oxygen Xwwtjkublk35 % Respiratory Rate18 /minHeart Rate78 /minBlood Pressure Vetlgmbp552 mm[Hg]Blood Pressure Ttjupqdib81 mm[Hg]05/07/2024 09:51 XMQrxhcrcsnos64.4 [degF]Oxygen Wbesmylkhz83 %Respiratory Rate16 /minHeart Rate80 /minBlood Pressure Onouemst244 mm[Hg]Blood Pressure Yctodepib60 mm[Hg]05/08/2024 05:34 CGVkdrbozuqgc61 [degF] Oxygen Qdihrnyjlt76 %Respiratory Rate16 /minHeart Rate72 /minBlood Pressure Kndzvfqn549 mm[Hg]Blood Pressure Ubtppefog03 mm[Hg]05/08/2024 09:07 AM Litwmpcgmzc38 [degF]Oxygen Oiaqhqkhtf19 %Respiratory Rate18 /minHeart Rate70 /minBlood Pressure Rpgypmjr086 mm[Hg]Blood Pressure Oiwiwrjzd40 mm[Hg]05/08/2024 09:56 RQVdlkqwdcgrl13 [degF]Oxygen Wyfmzhnfhy17 %Respiratory Rate16 /minHeart Rate68 /minBlood Pressure Czfgdwpd781 mm[Hg]Blood Pressure Tgpeypxkd08 mm[Hg] 05/09/2024 05:44 BRCzjdhbatnlm56.1 [degF]Oxygen Pryxzzbpbv63 %Respiratory Rate16 /minHeart Rate72 /minBlood Pressure Dqzhuojs707 mm[Hg]Blood Pressure Diastolic 74 mm[Hg] Social History No smoking Hx information available Encounters Type CPT Code Date Location Provider Indication s encounter report 03/20/2024 10:00 AM - 05/09/2024 09:22 Lynnette Dutta MD01 Advance Directives Directive Description Verification Date Supporting Document(s) Other Directive
[2025-01-24 17:55] LABS: Alanine Aminotransferase 30 U/L (16-63); Albumin Globulin Ratio 1.1; Albumin Level 3.6 g/dL (3.4-5.0); Alkaline Phosphatase 104 U/L (46-116); Anion Gap 11.2; Aspartate Amino Transferase 21 U/L (15-37); Blood Urea Nitrogen 9.0 mg/dL (7.0-18.0); Calcium 9.0 mg/dL (8.5-10.1); Carbon Dioxide 27.8 mmol/L (21.0-32.0); Chloride 98 mmol/L (98-107); Estimated GFR (African America >60 (>=60 mL/min/1.73m^2); Estimated GFR (Non-African Ame >60 (>=60 mL/min/1.73m^2); Globulin 3.2 g/dL; Glucose 142 mg/dL (74-106); Potassium 4.0 mmol/L (3.5-5.1); Sodium 133 mmol/L (136-145); Total Protein 6.8 g/dL (6.4-8.2)
[2025-01-24 18:06] LABS: Creatine Kinase 462 U/L (39-308)
[2025-01-24] MEDS: 0.9 % SODIUM CHLORIDE 500 ML IV (18:45)
[2025-01-24 19:16] VITALS: BP 162/94; PULSE 89; O2SAT 94
[2025-01-24] MEDS: ACETAMINOPHEN 500 MG TABLET 1000 MG PO (19:34)
[2025-01-24 19:43] LABS: Glucose Urine UA NEGATIVE (NEGATIVE)
[2025-01-24 20:03] LABS: Cast Seen? NONE SEEN #/LPF (NONE SEEN); Crystals Seen? None Seen #/HPF (None Seen); Urine Culture Indicated YES-FRMC
[2025-01-24 20:29] VITALS: BP 137/89; PULSE 86; O2SAT 95
== END 2025-01-24 21:46 | disposition short-term general hospital (02) ==
PROVIDERS: Physician Assistant; Emergency Provider Emergency Medicine; PCP Nurse Practitioner
DX: S72.22XA Displaced subtrochanteric fracture of left femur, initial encounter for closed fracture (principal); W18.39XA Other fall on same level, initial encounter; Y92.59 Other trade areas as the place of occurrence of the external cause; N39.0 Urinary tract infection, site not specified; E11.9 Type 2 diabetes mellitus without complications; I10 Essential (primary) hypertension; I25.10 Atherosclerotic heart disease of native coronary artery without angina pectoris; Z79.02 Long term (current) use of antithrombotics/antiplatelets; Z95.1 Presence of aortocoronary bypass graft; J44.9 Chronic obstructive pulmonary disease, unspecified; Z79.84 Long term (current) use of oral hypoglycemic drugs; F17.210 Nicotine dependence, cigarettes, uncomplicated
CPT/HCPCS: 36415; 71045; 73502; 73552; 80053; 81001; 82550; 83874; 85025; 87086; 96374; 96375; 96376; 99285; J1171; J2405